=== PATIENT | male | born 1980 | race Caucasian/White ===

== ENCOUNTER 2016-08-31 22:54 | Inpatient (IN) | payer OTHER ==
[~2016-08-31] VITALS: Ht 157.5 cm; Wt 140.3 kg
[~2016-08-31 22:54] MED LIST: ACET-1256 PO
[2016-08-31] MEDS ORDERED: ONDANSETRON INJ 2 MG/ML 2 ML VIAL IV STA (23:24)
[2016-08-31] MEDS ORDERED: MoRPHine SULFATE 4 MG/ML 1 ML CARP\\VIAL IV STA (23:24)
[2016-08-31] MEDS ORDERED: PIPERACILLIN/TAZOBACTAM 4.5 GM/100ML D5W IV STA (23:27)
[2016-09-01] VITALS (7 sets, daily range): BP systolic 101–129; BP diastolic 62–81; PULSE 77–106; TEMP 37–38.7; O2SAT 94–99; Ht 157.5 cm; Wt 140.3 kg
[2016-09-01 00:03] LABS: BASO % 0.1 %; BASO ABS # 0.01 K/uL (0-0.2); COMPLETE YES; EOS % 0.2 %; HEMATOCRIT 37.6 % (42-52); IG% 0.2 %; LYMPH % 5.1 %; LYMPH ABS # 0.76 K/uL (1.2-3.4); MEAN CELL VOLUME 91.3 fL (80-100); MEAN CORPUSCULAR HEMOGLOBIN 29.4 pg (25-34); MEAN CORPUSCULAR HGB CONC 32.2 g/dl (32-36); MEAN PLATELET VOLUME 11.2 fL (7.4-10.4); NEUT % 91.4 %; PLATELET COUNT 209 K/uL (130-400); RED BLOOD COUNT 4.12 M/uL (4.7-6.1); WHITE BLOOD COUNT 14.81 K/uL (4.8-10.8)
[2016-09-01 00:15] LABS: INR 1.1 (0.9-1.1)
[2016-09-01 00:28] LABS: BUN/CREATININE RATIO 12.9 (10-20); CALCIUM 8.5 mg/dl (8.5-10.1); CREATININE 0.96 mg/dl (0.60-1.40); POTASSIUM 3.6 mmol/L (3.5-5.1)
[2016-09-01 00:31] LABS: ALB/GLOB RATIO 0.9 (0.9-2)
--- NOTE | 2016-09-01 01:39 | History and Physical ---
History & Physical Date & Time of Service: Sep 01, 2016 at 01:34 Chief Complaint: Possible Infection In Rt Inner Thigh,Lymphadema Primary Care Physician: Mine Davis MD History of Present Illness Source: patient 35 y/o M Hx chronic LE lymphedema and recurrent cellulitis which frequently requires hospitalization. He has a nonhealing wound on his R thigh which has been present for a few years. The pt was last admitted 02/22 with RLE cellulitis. He follows up at a wound clinic and with the infectious disease service. Over the last 2 days he has developed pain and inflammation over his R thigh prompting him to visit the ER for evaluation. He has rigors at the time of admission without a recorded fever. A wound culture from 02/22 revealed MSSA. Past Medical/Surgical History Medical Problems: (1) Cellulitis Status: Resolved (2) Gall bladder disease Status: Chronic (3) Lymphedema of lower extremity Status: Chronic (4) Ulcer of right leg Status: Chronic Surgical Problems: (1) H/O gastric bypass Status: Resolved Family History Diabetes mellitus FHx: obesity Heart disease Hypertension Kidney stones Social History Smoking Status: Never Smoker Drug Use: none Marital Status: single Housing status: lives with family Occupational Status: unemployed Immunizations History of Tetanus Vaccine?: Unknown History of Pneumococcal: Unknown History of Hepatitis B Vaccine: Unknown Multi-Drug Resistant Organisms History of MDRO: No Allergies Coded Allergies: Daptomycin (Verified Allergy, Intermediate, RASH, EOSINOPHILIA, 08/31/16) cbc with eosinophilia supporting drug reaction to daptomycin Zinc Oxide (Verified Allergy, Unknown, RASH, 08/31/16) TOPICAL Home Medications Scheduled PRN Hydrocodone/Acetaminophen 10MG/325MG ([place] 10MG/325MG), 2 TAB PO QID PRN for Pain Review of Systems Constitutional: + fever, + chills, + sweats Eyes: No worsening of vision, No eye pain ENT: No hearing loss, No unusual epistaxis, No nasal symptoms Respiratory: No cough, No sputum, No wheezing Cardiovascular: No chest pain, No orthopnea, No PND Abdomen: No pain, No nausea, No vomiting Musculoskeletal: + swelling (R thigh), + problem reported (Chronic lymphedema - severe), No joint pain, No muscle pain Genitourinary - Male: No hematuria, No dysuria Neurologic: No memory loss, No paralysis, No weakness Psychiatric: No depression symptoms Endocrine: No fatigue Hematologic / Lymphatic: No abnormal bleeding/bruising Integumentary: No rash Allergic / Immunologic: No environmental allergies Physical Exam Vital Signs Date Time Temp Pulse Resp B/P (MAP) Pulse Ox O2 Delivery O2 Flow Rate FiO2 09/01/16 00:02 37.5 08/31/16 22:58 37.1 94 20 148/89 99 Room Air General Appearance: WD/WN, no apparent distress Head: normocephalic Eyes: normal inspection ENT: normal ENT inspection, pharynx normal Respiratory/Chest: chest non-tender, lungs clear, normal breath sounds Cardiovascular: regular rate, rhythm, no edema, no gallop, no JVD, no murmur Abdomen/GI: normal bowel sounds, non tender, soft Back: normal inspection Extremities/Musculoskelatal: + pertinent finding (Severe lymphedema - draing, inflamed area on back of R thigh) Neurologic/Psych: 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, no motor/sensory deficits, alert, normal mood/affect, normal reflexes, oriented x 3 Skin: + pertinent finding (Severe lymphedema - draining, inflamed area on back of R thigh - genralized erythema ) Diagnostics Laboratory Results Results Past 24 Hours Test 08/31/16 23:50 08/31/16 23:55 Range/Units White Blood Count 14.81 4.8-10.8 K/uL Red Blood Count 4.12 4.7-6.1 M/uL Hemoglobin 12.1 14.0-18.0 g/dL Hematocrit 37.6 42-52 % Mean Corpuscular Volume 91.3 80-100 fL Mean Corpuscular Hemoglobin 29.4 25-34 pg Mean Corpuscular Hemoglobin Concent 32.2 32-36 g/dl Platelet Count 209 130-400 K/uL Mean Platelet Volume 11.2 7.4-10.4 fL Neutrophils (%) (Auto) 91.4 % Lymphocytes (%) (Auto) 5.1 % Monocytes (%) (Auto) 3.0 % Eosinophils (%) (Auto) 0.2 % Basophils (%) (Auto) 0.1 % Neutrophils # (Auto) 13.54 1.4-6.5 K/uL Lymphocytes # (Auto) 0.76 1.2-3.4 K/uL Monocytes # (Auto) 0.44 0.11-0.59 K/uL Eosinophils # (Auto) 0.03 0-0.5 K/uL Basophils # (Auto) 0.01 0-0.2 K/uL RDW Standard Deviation 53.5 36.4-46.3 fL RDW Coefficient of Variation 15.9 11.5-14.5 % Immature Granulocyte % (Auto) 0.2 % Immature Granulocyte # (Auto) 0.03 0.00-0.02 K/uL Prothrombin Time 12.0 9.0-12.0 SECONDS Prothromb Time International Ratio 1.1 0.9-1.1 Activated Partial Thromboplast Time 26.8 21.0-31.0 SECONDS Partial Thromboplastin Ratio 1.0 Sodium Level 141 136-145 mmol/L Potassium Level 3.6 3.5-5.1 mmol/L Chloride Level 110 98-107 mmol/L Carbon Dioxide Level 25 21-32 mmol/L Anion Gap 6.0 3-11 mmol/L Blood Urea Nitrogen 12 7-18 mg/dl Creatinine 0.96 0.60-1.40 mg/dl Est Creatinine Clear Calc Drug Dose 135.0 ml/min Estimated GFR () 118.2 Estimated GFR (Non- 102.0 BUN/Creatinine Ratio 12.9 10-20 Random Glucose 110 70-99 mg/dl Calcium Level 8.5 8.5-10.1 mg/dl Total Bilirubin 0.5 0.2-1 mg/dl Aspartate Amino Transf (AST/SGOT) 15 15-37 U/L Alanine Aminotransferase (ALT/SGPT) 20 12-78 U/L Alkaline Phosphatase 87 45-117 U/L Total Protein 7.6 6.4-8.2 gm/dl Albumin 3.5 3.4-5.0 gm/dl Globulin 4.1 2.5-4.0 gm/dl Albumin/Globulin Ratio 0.9 0.9-2 Bedside Lactic Acid Venous 1.20 0.90-1.70 mmol/L Microbiology Results 08/31/16 Blood Culture, Received Pending 08/31/16 Blood Culture, Received Pending Impression Assessment and Plan 35 y/o M Hx chronic LE lymphedema and recurrent cellulitis which frequently requires hospitalization. The pt was last admitted 02/22 with RLE cellulitis. He follows up at a wound clinic and wiith the infectious disease service. Over the last 2 days he has developed pain and inflammation over his R thigh prompting him to visit the ER for evaluation. He has rigors at the time of admission without a recorded fever. A wound culture from 02/22 revealed MSSA. 1) Cellulitis - The pt will be admitted for IV antibiotics, pain control and evaluation by both wound care and ID. 2) Lymphedema - severe - has not had success in treating - uses a massage mattress 2) Morbid obesity - States he has been losing weight recently - may benefit from nutritional counseling prior to D/C Full code - Heparin prophylaxis Total time for this admit including review of labs, meds, records - discussion with pt and ER attending - 33 min Level of Care Med/Surg Resuscitation Status FULL RESUSCITATION VTE Prophylaxis Given or contraindicated: Unfractionated heparin SQ
[2016-09-01] MEDS ORDERED: ACETAMINOPHEN 500 MG TAB PO STA (01:44)
[2016-09-01] MEDS ORDERED: ACETAMINOPHEN 325 MG TAB PO PRN (02:00)
[2016-09-01] MEDS ORDERED: TRAMADOL HCL 50 MG TAB PO PRN (02:00)
[2016-09-01] MEDS ORDERED: ALUMINUM/MAGNESIUM/SIMETH (MAALOX MAX) 30 ML UDC PO PRN (02:00)
[2016-09-01] MEDS ORDERED: POLYETHYLENE (MIRALAX) 17 GM PACK PO PRN (02:00)
[2016-09-01] MEDS ORDERED: ONDANSETRON INJ 2 MG/ML 2 ML VIAL IV PRN (02:00)
[2016-09-01] MEDS ORDERED: MAGNESIUM HYDROXIDE SUSP 30 ML UDC PO PRN (02:00)
[2016-09-01] MEDS ORDERED: ZOLPIDEM TARTRATE 5 MG TAB PO PRN (02:00)
[2016-09-01] MEDS ORDERED: MoRPHine SULFATE 4 MG/ML 1 ML CARP\\VIAL IV STA ×2 (02:04)
--- NOTE | 2016-09-01 02:05 | EMERGENCY ROOM VISIT NOTE ---
History First contact with patient: 23:09 Chief Complaint: WOUND INFECTION Stated Complaint: POSSIBLE INFECTION IN RT INNER THIGH,LYMPHADEMA Nursing Triage Summary: Patient ambulatory to triage, states "I think I have another infection on my right inner thigh. I have lymphedema." Patient reports redness developed today after a stinging sensation for several days. History of Present Illness The patient is a 35 year old male who presents to the Emergency Room with complaints of right thigh pain and infection for the past few days. He's had recurrent cellulitis. He has chronic lymphedema. He describes pain as throbbing, ranging in severity 5 out of 10 worse with palpation and better with rest. He follows at the wound clinic use not currently on antibiotics. Tetanus is current. He's been hospitalized a few times now for recurrent sialitis. Patient complains of nausea with myalgias and arthralgias. He is concerned he has cellulitis again. The area is quite red and is actively draining. Patient denies chest pain, dyspnea, cough, congestion, abdominal pain , numbness, tingling. Review of Systems See HPI for pertinent positives & negatives. A total of 10 systems reviewed and were otherwise negative. Past Medical/Surgical History Medical Problems: (1) Ambulatory dysfunction (2) Cellulitis (3) Cellulitis of thigh (4) Fever (5) Gall bladder disease (6) Leukocytosis (7) Lymphedema of lower extremity (8) Ulcer of right leg Surgical Problems: (1) H/O gastric bypass Family History Diabetes mellitus FHx: obesity Heart disease Hypertension Kidney stones Social History Smoking Status: Never Smoker Smokeless Tobacco Use: No Alcohol Use: occasionally Drug Use: none Marital Status: single Housing Status: lives with family Occupation Status: unemployed Current/Historical Medications Scheduled PRN Hydrocodone/Acetaminophen 10MG/325MG ([place] 10MG/325MG), 2 TAB PO QID PRN for Pain Allergies Coded Allergies: Daptomycin (Verified Allergy, Intermediate, RASH, EOSINOPHILIA, 08/31/16) cbc with eosinophilia supporting drug reaction to daptomycin Zinc Oxide (Verified Allergy, Unknown, RASH, 08/31/16) TOPICAL Physical Exam Vital Signs Date Time Temp Pulse Resp B/P (MAP) Pulse Ox O2 Delivery O2 Flow Rate FiO2 09/01/16 01:44 38.2 100 18 138/91 94 Room Air 09/01/16 00:02 37.5 08/31/16 22:58 37.1 94 20 148/89 99 Room Air Physical Exam VITALS: Vitals are noted on the nurse's note and reviewed by myself. Vital signs stable. GENERAL: Pleasant male, in no acute distress, nondiaphoretic, well-developed well-nourished. SKIN: Right inner thigh erythematous and edematous actively draining with extensive cellulitis without lymphangitis The rest of the skin was without rashes, erythema, edema, or bruising. There is no tenting of the skin. Capillary reflex less than 2 seconds. HEAD: Normocephalic atraumatic. EARS: External auditory canals clear, tympanic membranes pearly givens without erythema or effusion bilaterally. EYES: Pupils equal round and reactive to light and accommodation. Conjunctivae without injection, sclerae without icterus. Extraocular movements intact. NOSE: Patent, turbinates without inflammation or discharge. MOUTH: Mucous membranes moist. Pharynx without erythema or exudate. Uvula midline. Airway patent. Tongue does not deviate. NECK: Supple without nuchal rigidity. No lymphadenopathy. No thyromegaly. Cervical spine is nontender. No JVD. HEART: Regular rate and rhythm without murmurs gallops or rubs. LUNGS: Clear to auscultation bilaterally without wheezes, rales or rhonchi. No dullness to percussion. No retractions or accessory muscle use. ABDOMEN: Positive bowel sounds x 4. Normal tympanic percussion. Soft, protuberant, obese, nontender, without masses or organomegaly. Bowden sign negative. No guarding or rebound tenderness. MUSCULOSKELETAL: No muscle atrophy noted. Chronic lymphedema to lower extremities with right inner thigh erythematous and edematous actively draining and a wound culture was taken NEURO: Patient was alert and oriented to person place and time. Normal sensation to light and sharp touch. No focal neurological deficits. Medical Decision & Procedures Laboratory Results 08/31/16 23:50 Red Blood Count 4.12, Mean Corpuscular Volume 91.3, Mean Corpuscular Hemoglobin 29.4, Mean Corpuscular Hemoglobin Concent 32.2, Mean Platelet Volume 11.2, Neutrophils (%) (Auto) 91.4, Lymphocytes (%) (Auto) 5.1, Monocytes (%) (Auto) 3.0, Eosinophils (%) (Auto) 0.2, Basophils (%) (Auto) 0.1, Neutrophils # (Auto) 13.54, Lymphocytes # (Auto) 0.76, Monocytes # (Auto) 0.44, Eosinophils # (Auto) 0.03, Basophils # (Auto) 0.01 08/31/16 23:50 Test 08/31/16 23:50 08/31/16 23:55 White Blood Count 14.81 K/uL (4.8-10.8) Red Blood Count 4.12 M/uL (4.7-6.1) Hemoglobin 12.1 g/dL (14.0-18.0) Hematocrit 37.6 % (42-52) Mean Corpuscular Volume 91.3 fL (80-100) Mean Corpuscular Hemoglobin 29.4 pg (25-34) Mean Corpuscular Hemoglobin Concent 32.2 g/dl (32-36) Platelet Count 209 K/uL (130-400) Mean Platelet Volume 11.2 fL (7.4-10.4) Neutrophils (%) (Auto) 91.4 % Lymphocytes (%) (Auto) 5.1 % Monocytes (%) (Auto) 3.0 % Eosinophils (%) (Auto) 0.2 % Basophils (%) (Auto) 0.1 % Neutrophils # (Auto) 13.54 K/uL (1.4-6.5) Lymphocytes # (Auto) 0.76 K/uL (1.2-3.4) Monocytes # (Auto) 0.44 K/uL (0.11-0.59) Eosinophils # (Auto) 0.03 K/uL (0-0.5) Basophils # (Auto) 0.01 K/uL (0-0.2) RDW Standard Deviation 53.5 fL (36.4-46.3) RDW Coefficient of Variation 15.9 % (11.5-14.5) Immature Granulocyte % (Auto) 0.2 % Immature Granulocyte # (Auto) 0.03 K/uL (0.00-0.02) Prothrombin Time 12.0 SECONDS (9.0-12.0) Prothromb Time International Ratio 1.1 (0.9-1.1) Activated Partial Thromboplast Time 26.8 SECONDS (21.0-31.0) Partial Thromboplastin Ratio 1.0 Anion Gap 6.0 mmol/L (3-11) Est Creatinine Clear Calc Drug Dose 135.0 ml/min Estimated GFR () 118.2 Estimated GFR (Non- 102.0 BUN/Creatinine Ratio 12.9 (10-20) Calcium Level 8.5 mg/dl (8.5-10.1) Total Bilirubin 0.5 mg/dl (0.2-1) Aspartate Amino Transf (AST/SGOT) 15 U/L (15-37) Alanine Aminotransferase (ALT/SGPT) 20 U/L (12-78) Alkaline Phosphatase 87 U/L (45-117) Total Protein 7.6 gm/dl (6.4-8.2) Albumin 3.5 gm/dl (3.4-5.0) Globulin 4.1 gm/dl (2.5-4.0) Albumin/Globulin Ratio 0.9 (0.9-2) Bedside Lactic Acid Venous 1.20 mmol/L (0.90-1.70) Medications Administered Medications (Trade) Dose Ordered Sig/Sirisah Route Start Time Stop Time Status Last Admin Dose Admin Morphine Sulfate (MoRPHine SULFATE INJ) 4 mg NOW STAT IV 08/31/16 23:24 08/31/16 23:26 DC 08/31/16 23:56 4 MG Ondansetron HCl (Zofran Inj) 4 mg NOW STAT IV 08/31/16 23:24 08/31/16 23:26 DC 08/31/16 23:55 4 MG Piperacillin Sod/ Tazobactam Sod (Zosyn Iv) 4.5 gm NOW STAT IV 08/31/16 23:27 08/31/16 23:28 DC 08/31/16 23:55 4.5 GM Acetaminophen (Tylenol Tab) 1,000 mg NOW STAT PO 09/01/16 01:44 09/01/16 01:45 DC 09/01/16 01:53 1,000 MG ED Course Prior records reviewed and summarized as above. Triage Nursing notes reviewed. Additional history obtained from family The patient's history was concerning for swelling and redness of the skin. Differential diagnosis: Etiologies such as cellulitis, abscess, MRSA infection, DVT, necrotizing fasciitis, dermatitis, drug eruption, as well as others were entertained.. Physical examination: The physical examination was consistent with cellulitis ER treatment provided: Zosyn, morphine, Zofran On reassessment the patient felt better. Diagnostics interpreted by me: The labs revealed leukocytosis, mild anemia, negative lactic acid Imaging studies: Ultrasound negative for DVT Consultation: A consultation was placed with Dr Rogel, hospitalist. The case was discussed and diagnostics were reviewed. The patient was evaluated in the ER for further treatment. This appears to be isolated cellulitis. This is quite extensive. He'll be evaluated by medicine for possible admission. Patient was neurovascularly and neurologically intact. He was started on antibiotics. By the evaluation outlined above emergent etiologies such as abscess, necrotizing fasciitis, DVT, as well as others were deemed relatively unlikely. The pt informed about the findings as listed above. All questions were answered and pleased with the treatment. Case reviewed by attending Medical Decision as above Impression Primary Impression: Cellulitis of right thigh Additional Impression: Lymphedema Departure Information Dispostion Being Evaluated By Hospitalist Condition FAIR Referrals Mine Davis MD (PCP) Forms WORK / SCHOOL INSTRUCTIONS, HOME CARE DOCUMENTATION FORM, IMPORTANT VISIT INFORMATION Patient Instructions My [facility] Problem Qualifiers
[2016-09-01] MEDS ORDERED: HYDROmorphone INJ 0.5 MG/0.5 ML SYR IV ONE (02:15)
[2016-09-01] MEDS ORDERED: VANCOMYCIN INJ 2,500 MG in SODIUM CHLORIDE 0.9% 500ML 500 ML IV ONE (03:30)
[2016-09-01] MEDS ORDERED: VANCOMYCIN CONSULT ACTIVE PRN (03:30)
[2016-09-01] MEDS ORDERED: CLINDAMYCIN IV 600 MG in DEXTROSE 5% 50ML 50 ML IV SCH (04:00)
[2016-09-01] MEDS ORDERED: NSS + 20MEQ KCL 1000ML 1,000 ML IV SCH (04:00)
[2016-09-01] MEDS: KETOROLAC TROMETHAMINE 30 MG/ML VIAL IV PRN ×2 (05:04→12:39)
[2016-09-01] MEDS: HEPARIN SOD 5000 UNIT/0.5 ML CARP SQ SCH ×3 (05:12→22:25)
--- NOTE | 2016-09-01 05:55 | DIAGNOSTIC IMAGING REPORT ---
BILATERAL LOWER EXTREMITY VENOUS DOPPLER HISTORY: Pain. Edema. LEG SWELLING COMPARISON STUDY: None. FINDINGS: There is normal compressibility, flow, and augmentation within the bilateral lower extremity deep venous systems. IMPRESSION: No DVT within the right or left lower extremity. Electronically signed by: Pawan Jones M.D. 09/01/2016 5:53 AM Dictated Date/Time: 09/01/2016 5:53 AM
[2016-09-01 07:32] LABS: URINE APPEARANCE CLOUDY (CLEAR); URINE BILIRUBIN NEG (NEG); URINE COLOR YELLOW; URINE NITRITE NEG (NEG); URINE SPECIFIC GRAVITY 1.023 (1.000-1.030); UROBILINOGEN NEG (NEG)
[2016-09-01 07:34] LABS: MANUAL MICROSCOPIC REQUIRED? NO; REVIEW REQ? YES
[2016-09-01] MEDS: HYDROCODONE/ACETAMI 10/325 TAB PO PRN ×3 (07:50→22:39)
--- NOTE | 2016-09-01 10:51 | Progress Note ---
Subjective Date of Service: Sep 01, 2016. Subjective Pt evaluation today including: conversation w/ patient, physical exam, chart review, lab review, review of inpatient medication list feeling better no f/c/s now and notes that R thigh is improving but not a lot yet and still painful - notes that for him any prior switch to PO abx has frequently been met wiht a relapse. follows w wound clinic for ulceration. notes that lymphedema treatment has been difficult due to time spent on having to do wraps properly, and fairly low yield for the time spent. doesn't recall if vitamin D or testosterone were checked in recent past (review of available data shows last D 2013 6.3, no noted testosterone) is trying to eat healthier - high protein, but does still consume a fairly high amount of refined carbs Problem List Medical Problems: (1) Cellulitis of right leg Status: Acute (2) Cellulitis of right leg Status: Acute (3) Cellulitis of right thigh Status: Acute (4) Flank pain Status: Acute (5) Hematuria Status: Acute (6) Lymphedema Status: Acute (7) Lymphedema Status: Acute (8) Sepsis Status: Acute (9) Sepsis Status: Acute (10) Tachycardia Status: Acute Review of Systems ROS otherwise negative except for as above Objective Vital Signs Date Time Temp Pulse Resp B/P (MAP) Pulse Ox O2 Delivery O2 Flow Rate FiO2 09/01/16 08:00 Room Air 09/01/16 07:41 37.1 77 18 101/64 (76) 99 Room Air 09/01/16 03:51 37.1 106 20 129/81 96 Room Air 09/01/16 01:44 38.2 100 18 138/91 94 Room Air 09/01/16 00:02 37.5 08/31/16 22:58 37.1 94 20 148/89 99 Room Air Physical Exam General Appearance: no apparent distress Eyes: EOMI ENT: hearing grossly normal Neck: trachea midline Respiratory/Chest: no respiratory distress, no accessory muscle use Extremities: + pertinent finding (R posterior thigh diffusely enlarged from lymphedema, large area of erythema and tenderness - posterior thigh wound dressed dressing c/d/i. 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, alert, normal mood/affect Skin: normal color, warm/dry Laboratory Results Last 24 Hours Test 08/31/16 23:50 08/31/16 23:55 09/01/16 00:00 White Blood Count 14.81 K/uL Red Blood Count 4.12 M/uL Hemoglobin 12.1 g/dL Hematocrit 37.6 % Mean Corpuscular Volume 91.3 fL Mean Corpuscular Hemoglobin 29.4 pg Mean Corpuscular Hemoglobin Concent 32.2 g/dl Platelet Count 209 K/uL Mean Platelet Volume 11.2 fL Neutrophils (%) (Auto) 91.4 % Lymphocytes (%) (Auto) 5.1 % Monocytes (%) (Auto) 3.0 % Eosinophils (%) (Auto) 0.2 % Basophils (%) (Auto) 0.1 % Neutrophils # (Auto) 13.54 K/uL Lymphocytes # (Auto) 0.76 K/uL Monocytes # (Auto) 0.44 K/uL Eosinophils # (Auto) 0.03 K/uL Basophils # (Auto) 0.01 K/uL RDW Standard Deviation 53.5 fL RDW Coefficient of Variation 15.9 % Immature Granulocyte % (Auto) 0.2 % Immature Granulocyte # (Auto) 0.03 K/uL Prothrombin Time 12.0 SECONDS Prothromb Time International Ratio 1.1 Activated Partial Thromboplast Time 26.8 SECONDS Partial Thromboplastin Ratio 1.0 Sodium Level 141 mmol/L Potassium Level 3.6 mmol/L Chloride Level 110 mmol/L Carbon Dioxide Level 25 mmol/L Anion Gap 6.0 mmol/L Blood Urea Nitrogen 12 mg/dl Creatinine 0.96 mg/dl Est Creatinine Clear Calc Drug Dose 135.0 ml/min Estimated GFR () 118.2 Estimated GFR (Non- 102.0 BUN/Creatinine Ratio 12.9 Random Glucose 110 mg/dl Calcium Level 8.5 mg/dl Total Bilirubin 0.5 mg/dl Aspartate Amino Transf (AST/SGOT) 15 U/L Alanine Aminotransferase (ALT/SGPT) 20 U/L Alkaline Phosphatase 87 U/L Total Protein 7.6 gm/dl Albumin 3.5 gm/dl Globulin 4.1 gm/dl Albumin/Globulin Ratio 0.9 Bedside Lactic Acid Venous 1.20 mmol/L Urine Color YELLOW Urine Appearance CLOUDY Urine pH 5.0 Urine Specific [place] 1.023 Urine Protein NEG Urine Glucose (UA) NEG Urine Ketones NEG Urine Occult Blood NEG Urine Nitrite NEG Urine Bilirubin NEG Urine Urobilinogen NEG Urine Leukocyte Esterase NEG Urine WBC (Auto) 1-5 /hpf Urine RBC (Auto) 0-4 /hpf Urine Hyaline Casts (Auto) 1-5 /lpf Urine Epithelial Cells (Auto) 10-20 /lpf Urine Bacteria (Auto) NEG Urine Crystals CALCIUM OXALATE Assessment and Plan Cellulitis w sepsis present on admission (SIRS being leukocytosis and tachycardia) -appears improving -on clinda and vanco - anaerobes seem fairly unlikely so will stop clinda, continue vanco and follow -recent data suggesting a benefit to probiotics for Cdiff prevention that was previously not seen - NNT around 45 - certainly low risk for ADRs so will start probiotics -continue to follow -local wound care -recurrence likely mostly due to severe lymphedema and constant breaks in skin - but will look for ways to possibly reduce infection : wound care, check D, check testosterone, consider IgG levels if above low yield Lymphedema w posterior thigh ulceration present on admission - severe - has not had success in treating edema, wound care for ulceration. Morbid obesity - has been losing weight - seems to be working on high protein but also is eating large amount of processed carbs, which "soft data" may suggest higher risk of infection as well - to work on reducing processed carbs, last A1c was only 5.1 but was over a year ago - recheck. DVT proph - heparin SQ
--- NOTE | 2016-09-01 11:38 | Progress Note ---
Progress Note Date of Service Sep 01, 2016. Progress Note ID Consult Dictated #[id number] A/P: 1. RLE cellulitis 2. Leukocytosis -Continue abx, follow cultures -Will follow, thank you
[2016-09-01] MEDS: LACTOBACILLUS ACIDOPHILUS (FLORANEX) TAB PO SCH ×2 (11:54→18:37)
--- NOTE | 2016-09-01 13:42 | INFECT. DISEASE CONSULTATION ---
DATE OF CONSULTATION: 09/01/2016 REQUESTING PHYSICIAN: Dr. Rogel. HISTORY OF PRESENT ILLNESS: This is a 35-year-old gentleman who is being admitted for right lower extremity cellulitis. He has a history of chronic lymphedema and recurrent cellulitis. He states that he began having redness and erythema and subjective fevers and chills yesterday. He does have a nonhealing wound on the right thigh which has been present for many years. He most recently was treated in February for cultures growing MSSA. He was started empirically on antibiotics and appears to be tolerating them well. He denies any fevers or chills at this time. He denies any nausea, vomiting, diarrhea or abdominal pain. His only complaint is of pain in the right lower extremity. A Doppler was done yesterday and is negative for DVT. He did have leukocytosis of 14,000 on admission. All remaining review of systems are reviewed and are unremarkable. PAST MEDICAL HISTORY: Cellulitis, gallbladder disease, lymphedema, obesity, nonhealing ulcer of the right lower extremity. PAST SURGICAL HISTORY: Significant for gastric bypass. FAMILY HISTORY: Noncontributory. SOCIAL HISTORY: Negative for drug use, alcohol use or tobacco use. ALLERGIES: HE HAS ALLERGY TO DAPTOMYCIN. MEDICATIONS: Include vancomycin, Floranex, heparin, Percocet, Tylenol, Maalox, milk of magnesia, MiraLax, Ambien, Zofran and Toradol. PHYSICAL EXAMINATION: VITAL SIGNS: T-max is 38.2, current temperature is 37.1, pulse 77, respiratory rate 18, blood pressure 101/64, oxygen saturation is 99% on room air. GENERAL: He is awake, alert and oriented x3. He is in no acute distress. HEENT: Mucous membranes are moist. Extraocular muscles are intact. HEART: Regular. LUNGS: Clear anteriorly. ABDOMEN: Soft, nontender, nondistended. EXTREMITIES: Examination of the lower extremity reveals significant lymphedema. There is erythema of the right thigh with warmth and tenderness. Right thigh wound dressing is clean, dry and intact. There is no erythema or warmth on the left lower extremity. LABORATORY STUDIES: CBC yesterday reveals a white blood cell count of 14.8, hemoglobin 12.1, platelets are 209. Chemistry panel in the ER, sodium is 141, potassium 3.6, chloride 110, bicarbonate 25, BUN 12, creatinine 0.96. Lactic acid is 1.2. LFTs are within normal limits. Urinalysis was unremarkable. Blood cultures and wound cultures are pending. Doppler was negative. ASSESSMENT AND PLAN: Recurrent cellulitis. He will remain on empiric antibiotics pending the results of blood and wound culture. We will follow along with you. Thank you for this consultation.
--- NOTE | 2016-09-01 15:20 | Pharmacy Progress Note ---
Pharmacy Abx Initial Consult Date of Service Sep 01, 2016. Pharmacy Dosing Scope Date of Consult: 09/01/16 Consultation requested by: Dr. Rogel Pharmacy is consulted to initiate Vancomycin IV dosing therapy for chronic/ recurrent cellulitis in an obese patient (BMI greater than 35kg/m2, BMI= 56.6kg/ m2), order appropriate labs and adjust drug dose/frequency. Subjective The patient is a 35 year old male admitted on Sep 01, 2016 at 01:51. Objective Height (Feet): 5 Height (Inches): 2.00 Weight (Kilograms): 140.300 Vital Signs (Past 12Hrs) Vital Signs Past 12 Hours Date Time Temp Pulse Resp B/P (MAP) Pulse Ox O2 Delivery O2 Flow Rate FiO2 09/01/16 13:35 37.6 09/01/16 12:49 38.3 09/01/16 08:00 Room Air 09/01/16 07:41 37.1 77 18 101/64 (76) 99 Room Air 09/01/16 03:51 37.1 106 20 129/81 96 Room Air Lab Results (24Hrs) Laboratory Tests (24 Hours) Test 08/31/16 23:50 White Blood Count 14.81 K/uL (4.8-10.8) H Red Blood Count 4.12 M/uL (4.7-6.1) L Hemoglobin 12.1 g/dL (14.0-18.0) L Hematocrit 37.6 % (42-52) L Mean Corpuscular Volume 91.3 fL (80-100) Mean Corpuscular Hemoglobin 29.4 pg (25-34) Mean Corpuscular Hemoglobin Concent 32.2 g/dl (32-36) Platelet Count 209 K/uL (130-400) Mean Platelet Volume 11.2 fL (7.4-10.4) H Neutrophils (%) (Auto) 91.4 % Lymphocytes (%) (Auto) 5.1 % Monocytes (%) (Auto) 3.0 % Eosinophils (%) (Auto) 0.2 % Basophils (%) (Auto) 0.1 % Neutrophils # (Auto) 13.54 K/uL (1.4-6.5) H Lymphocytes # (Auto) 0.76 K/uL (1.2-3.4) L Monocytes # (Auto) 0.44 K/uL (0.11-0.59) Eosinophils # (Auto) 0.03 K/uL (0-0.5) Basophils # (Auto) 0.01 K/uL (0-0.2) Micro Results Date/Time Source Procedure Growth Status 08/31/16 23:50 Blood Blood Culture Pending Received 08/31/16 23:50 Blood Blood Culture Pending Received 09/01/16 00:00 Drainage - Surface Leg Gram Stain - Final Resulted 09/01/16 00:00 Drainage - Surface Leg Wound Culture Pending Resulted Risk Factors for Resistance * History of infection and chronic wound care follow-up: S. aureus (MSSA) of the right inner thigh beginning in January 2016 Assessment & Plan Assessment 35 year old obese (BMI greater than 35kg/m2, BMI= 56.6kg/m2) male with a complicated history of a chronic right inner thigh cellulitis managed by wound care in the out-patient setting. Plan Pharmacy has been consulted for treatment of chronic/recurrent right inner thigh cellulitis. Vancomycin IV * Loading dose: 2500 mg (18 mg/kg) * Maintenance dose: 1750 mg IV (12.5 mg/kg) every 12 hours * Goal trough level for cellulitis : 15 mcg/mL * Trough level ordered for 09/03/16 ~30 minutes before the 0400 dose. * A less than traditional dose has been selected due to likelihood of drug accumulation in obese patient. Pharmacy will continue to follow and will adjust dose/frequency as necessary. Thank you.
[2016-09-01] MEDS: VANCOMYCIN INJ 1,750 MG in SODIUM CHLORIDE 0.9% 500ML 500 ML IV SCH (15:38)
[2016-09-02] MEDS: KETOROLAC TROMETHAMINE 30 MG/ML VIAL IV PRN ×2 (00:09→08:18)
[2016-09-02 00:10] VITALS: TEMP 37.9
[2016-09-02 02:30] VITALS: TEMP 36.8
[2016-09-02] MEDS: VANCOMYCIN INJ 1,750 MG in SODIUM CHLORIDE 0.9% 500ML 500 ML IV SCH ×2 (04:41→16:21)
[2016-09-02] MEDS: HEPARIN SOD 5000 UNIT/0.5 ML CARP SQ SCH ×3 (06:25→22:00)
[2016-09-02 07:29] LABS: BASO % 0.2 %; BASO ABS # 0.02 K/uL (0-0.2); COMPLETE YES; EOS % 5.2 %; HEMATOCRIT 37.3 % (42-52); IG% 0.1 %; LYMPH % 13.6 %; MEAN CELL VOLUME 91.2 fL (80-100); MEAN CORPUSCULAR HEMOGLOBIN 28.9 pg (25-34); MEAN CORPUSCULAR HGB CONC 31.6 g/dl (32-36); MEAN PLATELET VOLUME 11.1 fL (7.4-10.4); MONO % 6.3 %; NEUT % 74.6 %; PLATELET COUNT 152 K/uL (130-400); RED BLOOD COUNT 4.09 M/uL (4.7-6.1); WHITE BLOOD COUNT 8.06 K/uL (4.8-10.8)
[2016-09-02 07:36] VITALS: BP 128/79; PULSE 67; TEMP 37.4; O2SAT 99
[2016-09-02 08:00] VITALS: O2SAT 99
[2016-09-02 08:01] LABS: CREATININE 0.82 mg/dl (0.60-1.40)
[2016-09-02 08:18] LABS: ESTIMATED AVERAGE GLUCOSE 105 mg/dl; HA1C FLAG Normal (Normal)
[2016-09-02] MEDS: LACTOBACILLUS ACIDOPHILUS (FLORANEX) TAB PO SCH ×3 (08:18→16:21)
[2016-09-02] MEDS: HYDROCODONE/ACETAMI 10/325 TAB PO PRN ×2 (10:28→18:26)
--- NOTE | 2016-09-02 11:14 | Progress Note ---
Subjective Date of Service: Sep 02, 2016. Subjective Pt evaluation today including: conversation w/ patient, physical exam, chart review, lab review pt feeling about the same, tolerating abx. fever overnight, tmax 38.7. still with pain, unchanged. wound culture with S. aureus. blood cultures negative. all remaining ros reviewed and are negative. Problem List Medical Problems: (1) Cellulitis of right leg Status: Acute (2) Cellulitis of right leg Status: Acute (3) Cellulitis of right thigh Status: Acute (4) Flank pain Status: Acute (5) Hematuria Status: Acute (6) Lymphedema Status: Acute (7) Lymphedema Status: Acute (8) Sepsis Status: Acute (9) Sepsis Status: Acute (10) Tachycardia Status: Acute Objective Vital Signs Date Time Temp Pulse Resp B/P (MAP) Pulse Ox O2 Delivery O2 Flow Rate FiO2 09/02/16 08:00 99 Room Air 09/02/16 07:36 37.4 67 16 128/79 (95) 99 09/02/16 02:30 36.8 09/02/16 00:10 37.9 09/02/16 00:00 Room Air 09/01/16 23:22 38.7 81 18 120/73 (89) 98 Room Air 09/01/16 20:00 Room Air 09/01/16 16:30 94 Room Air 09/01/16 16:01 37.0 77 18 124/62 (82) 94 Room Air 09/01/16 13:35 37.6 09/01/16 12:49 38.3 Physical Exam General Appearance: WD/WN, no apparent distress Eyes: normal inspection Neck: supple Respiratory/Chest: lungs clear, normal breath sounds, no respiratory distress Cardiovascular: regular rate, rhythm, + pertinent finding (lymphedema b/l) Abdomen: non tender, soft Extremities: + inflammation, + pertinent finding (r thigh with erythema, essentially unchanged, + warmth, + tenderness) Neurologic/Psychiatric: alert, oriented x 3 Skin: normal color Laboratory Results Item Value Date Time Gram Stain - Final Resulted 09/01/16 0000 Drainage - Surface Leg Blood Culture - Preliminary Resulted 08/31/16 2350 Blood NO GROWTH TO DATE. Blood Culture - Preliminary Resulted 08/31/16 2350 Blood NO GROWTH TO DATE. Last 24 Hours Test 09/02/16 07:09 White Blood Count 8.06 K/uL Red Blood Count 4.09 M/uL Hemoglobin 11.8 g/dL Hematocrit 37.3 % Mean Corpuscular Volume 91.2 fL Mean Corpuscular Hemoglobin 28.9 pg Mean Corpuscular Hemoglobin Concent 31.6 g/dl Platelet Count 152 K/uL Mean Platelet Volume 11.1 fL Neutrophils (%) (Auto) 74.6 % Lymphocytes (%) (Auto) 13.6 % Monocytes (%) (Auto) 6.3 % Eosinophils (%) (Auto) 5.2 % Basophils (%) (Auto) 0.2 % Neutrophils # (Auto) 6.00 K/uL Lymphocytes # (Auto) 1.10 K/uL Monocytes # (Auto) 0.51 K/uL Eosinophils # (Auto) 0.42 K/uL Basophils # (Auto) 0.02 K/uL RDW Standard Deviation 54.7 fL RDW Coefficient of Variation 16.3 % Immature Granulocyte % (Auto) 0.1 % Immature Granulocyte # (Auto) 0.01 K/uL Creatinine 0.82 mg/dl Est Creatinine Clear Calc Drug Dose 158.1 ml/min Estimated GFR () 132.8 Estimated GFR (Non- 114.6 Estimated Average Glucose 105 mg/dl Hemoglobin A1c 5.3 % 25-Hydroxy Vitamin D Total 6.9 ng/ml Total Testosterone 50.2 ng/dl Assessment and Plan (1) Cellulitis of right thigh Assessment & Plan: will continue with vanco for now, pending final cultures. will likely need 2-3 weeks abx. will follow. (2) Fever (3) Lymphedema (4) Leukocytosis Assessment & Plan: resolved
--- NOTE | 2016-09-02 12:51 | Progress Note ---
Subjective Date of Service: Sep 02, 2016. Subjective Pt evaluation today including: conversation w/ patient, physical exam, lab review, conversation w/ review consultant, review of inpatient medication list Pain: worse than on admission PO Intake: adequate Voiding: no voiding problems patient with chronic lymphedema, prone to cellulitis feels like erythema and tenderness in right thigh worse than on admission febrile overnight WBC down, labs reviewed appreciate ID note, recommendations noted Problem List Medical Problems: (1) Cellulitis of right leg Status: Acute (2) Cellulitis of right leg Status: Acute (3) Cellulitis of right thigh Status: Acute (4) Flank pain Status: Acute (5) Hematuria Status: Acute (6) Lymphedema Status: Acute (7) Lymphedema Status: Acute (8) Sepsis Status: Acute (9) Sepsis Status: Acute (10) Tachycardia Status: Acute Review of Systems Skin: + problem reported (right thigh erythema, tenderness) Objective Vital Signs Date Time Temp Pulse Resp B/P (MAP) Pulse Ox O2 Delivery O2 Flow Rate FiO2 09/02/16 08:00 99 Room Air 09/02/16 07:36 37.4 67 16 128/79 (95) 99 09/02/16 02:30 36.8 09/02/16 00:10 37.9 09/02/16 00:00 Room Air 09/01/16 23:22 38.7 81 18 120/73 (89) 98 Room Air 09/01/16 20:00 Room Air 09/01/16 16:30 94 Room Air 09/01/16 16:01 37.0 77 18 124/62 (82) 94 Room Air 09/01/16 13:35 37.6 09/01/16 12:49 38.3 Physical Exam General Appearance: WD/WN, no apparent distress Neck: supple, no adenopathy, no JVD, trachea midline Respiratory/Chest: chest non-tender, lungs clear, normal breath sounds, no respiratory distress, no accessory muscle use Cardiovascular: regular rate, rhythm, no edema, no gallop, no JVD, no murmur Abdomen: normal bowel sounds, non tender, soft, no organomegaly Extremities: normal range of motion, non-tender, normal inspection, no calf tenderness, pelvis stable Skin: + rash (erythema right thigh, dry, cracked skin) Lymphatic: + pertinent finding (significant lymphedema of legs bilaterally) Laboratory Results Last 24 Hours Test 09/02/16 07:09 White Blood Count 8.06 K/uL Red Blood Count 4.09 M/uL Hemoglobin 11.8 g/dL Hematocrit 37.3 % Mean Corpuscular Volume 91.2 fL Mean Corpuscular Hemoglobin 28.9 pg Mean Corpuscular Hemoglobin Concent 31.6 g/dl Platelet Count 152 K/uL Mean Platelet Volume 11.1 fL Neutrophils (%) (Auto) 74.6 % Lymphocytes (%) (Auto) 13.6 % Monocytes (%) (Auto) 6.3 % Eosinophils (%) (Auto) 5.2 % Basophils (%) (Auto) 0.2 % Neutrophils # (Auto) 6.00 K/uL Lymphocytes # (Auto) 1.10 K/uL Monocytes # (Auto) 0.51 K/uL Eosinophils # (Auto) 0.42 K/uL Basophils # (Auto) 0.02 K/uL RDW Standard Deviation 54.7 fL RDW Coefficient of Variation 16.3 % Immature Granulocyte % (Auto) 0.1 % Immature Granulocyte # (Auto) 0.01 K/uL Creatinine 0.82 mg/dl Est Creatinine Clear Calc Drug Dose 158.1 ml/min Estimated GFR () 132.8 Estimated GFR (Non- 114.6 Estimated Average Glucose 105 mg/dl Hemoglobin A1c 5.3 % 25-Hydroxy Vitamin D Total 6.9 ng/ml Total Testosterone 50.2 ng/dl Assessment and Plan 35 yo male with h/o lymphedema and cellulitis, presented with right thigh cellulitis and sepsis - Cellulitis w sepsis present on admission (SIRS being leukocytosis and tachycardia) febrile overnight despite antibiotics, WBC down to normal, increased pain wound surface culture growing S aureus ID recommends continuing Vancomycin for now, will need 2-3 weeks of antibiotics increased pain today, typically takes [place], will add Dilaudid IV for breakthrough - Vitamin D deficiency: low at 6, start 6000 IU daily x 8 weeks - Hypotestosteronism: likely due to obesity start Testosterone injections, 50mg q 2 weeks to start will need followed outpatient DVT proph - heparin SQ
[2016-09-02] MEDS: HYDROmorphone INJ 0.5 MG/0.5 ML SYR IV PRN ×2 (14:58→22:24)
[2016-09-02 16:18] VITALS: BP 119/76; PULSE 64; TEMP 36.7; O2SAT 100
[2016-09-02 23:40] VITALS: BP 133/80; PULSE 63; TEMP 36.8; O2SAT 100
[2016-09-03] MEDS: HYDROCODONE/ACETAMI 10/325 TAB PO PRN ×3 (01:44→20:20)
[2016-09-03] MEDS ORDERED: VANCOMYCIN TROUGH SCH (03:30)
[2016-09-03] MEDS: VANCOMYCIN INJ 1,750 MG in SODIUM CHLORIDE 0.9% 500ML 500 ML IV SCH (04:08)
[2016-09-03 04:11] LABS: CREATININE 0.78 mg/dl (0.60-1.40)
[2016-09-03] MEDS: HEPARIN SOD 5000 UNIT/0.5 ML CARP SQ SCH ×3 (07:02→21:28)
[2016-09-03 07:03] VITALS: BP 115/74; PULSE 54; TEMP 37; O2SAT 99
[2016-09-03] MEDS: HYDROmorphone INJ 0.5 MG/0.5 ML SYR IV PRN ×2 (07:06→14:46)
[2016-09-03] MEDS: LACTOBACILLUS ACIDOPHILUS (FLORANEX) TAB PO SCH ×3 (08:31→17:28)
[2016-09-03] MEDS: CHOLECALCIFEROL 1000 INTER.UNIT TAB PO SCH (08:32)
--- NOTE | 2016-09-03 12:29 | Pharmacy Progress Note ---
Pharmacy Abx Dose Progress Nt Date of Service Sep 03, 2016. Pharmacy Dosing Scope The patient is currently receiving the following antimicrobial agents per Pharmacy consult: Vancomycin 1750 mg IV every 12 hours Objective Height (Feet): 5 Height (Inches): 2.00 Weight (Kilograms): 140.300 Vital Signs (Past 12Hrs) Vital Signs Past 12 Hours Date Time Temp Pulse Resp B/P (MAP) Pulse Ox O2 Delivery O2 Flow Rate FiO2 09/03/16 07:58 Room Air 09/03/16 07:03 37.0 54 16 115/74 (88) 99 Micro Results Date/Time Source Procedure Growth Status 08/31/16 23:50 Blood Blood Culture - Preliminary NO GROWTH TO DATE. Resulted 08/31/16 23:50 Blood Blood Culture - Preliminary NO GROWTH TO DATE. Resulted 09/01/16 00:00 Drainage - Surface Leg Gram Stain - Final Resulted 09/01/16 00:00 Wound Culture - Preliminary Staphylococcus Aureus Group B Beta Strep Resulted Risk Factors for Resistance * History of infection and chronic wound care follow-up: S. aureus (MSSA) of the right inner thigh beginning in January 2016 Assessment & Plan Assessment 35 year old male receiving Vancomycin IV for treatment of recurrent R thigh cellulitis with MSSA and group B beta strep in the setting of chronic lymphedema. * Patient follows with wound clinic and ID service as an out-patient. * Day # 3 of antimicrobial therapy Plan Vancomycin IV * Trough level of 14.4 mcg/mL is near subtherapeutic * Continue dose of 1750 mg (12.5 mg/kg) IV every 12 hours * Goal trough level for cellulitis : ~15 mcg/mL * Repeat trough level in 48 hours to assess for drug accumulation. Trough level ordered for: 09/05/16 * Less than traditional dose and/or extended dosing interval selected due to likelihood of drug accumulation in obese patient/CKD. * S. aureus is MSSA. Group B beta strep sensitives are pending. If strep is penicillin susceptible, consider changing to B-lactam antibiotic. Pharmacy will continue to follow and will adjust dose/frequency as necessary. Thank you.
--- NOTE | 2016-09-03 14:41 | Progress Note ---
Subjective Date of Service: Sep 03, 2016. Subjective Pt evaluation today including: conversation w/ patient, physical exam, chart review, lab review pt seen in follow up, sitting up in bed. leg much improved. less red, less sore. no f/c overnight. tolerating abx. blood cultures negative. wound culture with MSSA and GBS. on vanco, tolerating well. all remaining ros reviewed and are negative. Problem List Medical Problems: (1) Cellulitis of right leg Status: Acute (2) Cellulitis of right leg Status: Acute (3) Cellulitis of right thigh Status: Acute (4) Flank pain Status: Acute (5) Hematuria Status: Acute (6) Lymphedema Status: Acute (7) Lymphedema Status: Acute (8) Sepsis Status: Acute (9) Sepsis Status: Acute (10) Tachycardia Status: Acute Objective Vital Signs Date Time Temp Pulse Resp B/P (MAP) Pulse Ox O2 Delivery O2 Flow Rate FiO2 09/03/16 07:58 Room Air 09/03/16 07:03 37.0 54 16 115/74 (88) 99 09/03/16 00:00 Room Air 09/02/16 23:40 36.8 63 18 133/80 (97) 100 Room Air 09/02/16 20:00 Room Air 09/02/16 16:18 36.7 64 18 119/76 (90) 100 Room Air 09/02/16 16:00 Room Air Physical Exam General Appearance: WD/WN, no apparent distress Eyes: normal inspection, EOMI Neck: supple Respiratory/Chest: lungs clear, normal breath sounds, no respiratory distress Cardiovascular: regular rate, rhythm, + pertinent finding (lymphedema b/l le) Abdomen: non tender, soft Neurologic/Psychiatric: alert, oriented x 3 Skin: normal color Comments: leg much improved. significant improvement in erythema, less warm, still some tenderness to touch Laboratory Results Item Value Date Time Gram Stain - Final Resulted 09/01/16 0000 Drainage - Surface Leg Blood Culture - Preliminary Resulted 08/31/16 2350 Blood NO GROWTH TO DATE. Blood Culture - Preliminary Resulted 08/31/16 2350 Blood NO GROWTH TO DATE. Gram Stain - Final Resulted 09/01/16 0000 Drainage - Surface Leg Gram Stain - Final Resulted 09/01/16 0000 Drainage - Surface Leg Last 24 Hours Test 09/03/16 03:35 Creatinine 0.78 mg/dl Est Creatinine Clear Calc Drug Dose 166.2 ml/min Estimated GFR () 135.5 Estimated GFR (Non- 116.9 Vancomycin Level Trough 14.4 mcg/ml Assessment and Plan (1) Cellulitis of right thigh Assessment & Plan: will change to ctx2 g q24, GBS sensitivities pending, hopefully transition to po abx soon. (2) Fever (3) Lymphedema (4) Leukocytosis
[2016-09-03 15:23] VITALS: BP 109/71; PULSE 65; TEMP 36.8; O2SAT 96
[2016-09-03] MEDS ORDERED: CEFTRIAXONE SOD INJ 2,000 MG in DEXTROSE 5% 50ML 50 ML IV SCH (16:00)
--- NOTE | 2016-09-03 16:57 | Progress Note ---
Subjective Date of Service: Sep 03, 2016. Subjective Pt evaluation today including: conversation w/ patient, physical exam, lab review, review of inpatient medication list Pain: less pain today PO Intake: adequte Voiding: no voiding problems skin less red, less pain today discussed low testosterone, never told that it was low in the past he agrees to injections q2 weeks, first tomorrow AM discussed vitamin D replacement Problem List Medical Problems: (1) Cellulitis of right leg Status: Acute (2) Cellulitis of right leg Status: Acute (3) Cellulitis of right thigh Status: Acute (4) Flank pain Status: Acute (5) Hematuria Status: Acute (6) Lymphedema Status: Acute (7) Lymphedema Status: Acute (8) Sepsis Status: Acute (9) Sepsis Status: Acute (10) Tachycardia Status: Acute Review of Systems Constitutional: + weakness, + fatigue Heme: + problem reported (significant lymphadenopathy) Skin: + rash (erythema) All Other Systems: Reviewed and Negative Medications Current Inpatient Medications Medications (Trade) Dose Ordered Sig/Sirisha Route Start Time Stop Time Status Last Admin Dose Admin Heparin Sodium (Porcine) (Heparin Sq 5000 Unit/0.5ml) 5,000 unit Q8H SQ 09/01/16 06:00 10/01/16 05:59 09/02/16 14:23 5,000 UNIT Acetaminophen (Tylenol Tab) 650 mg Q4H PRN PO 09/01/16 02:00 10/01/16 01:59 09/01/16 12:50 650 MG Al Hydrox/Mg Hydrox/Simethicone (Maalox Max Susp) 15 ml Q4H PRN PO 09/01/16 02:00 10/01/16 01:59 09/01/16 05:10 15 ML Magnesium Hydroxide (Milk Of Magnesia Susp) 30 ml Q6H PRN PO 09/01/16 02:00 10/01/16 01:59 Polyethylene (Miralax Powder Packet) 17 gm DAILY PRN PO 09/01/16 02:00 10/01/16 01:59 Zolpidem Tartrate (Ambien Tab) 5 mg HSZ PRN PO 09/01/16 02:00 10/01/16 01:59 Ondansetron HCl (Zofran Inj) 4 mg Q6H PRN IV 09/01/16 02:00 10/01/16 01:59 Acetaminophen/ Hydrocodone Bitart (Loiza 10/325 Tab) 2 tab QID PRN PO 09/01/16 04:30 09/15/16 04:29 09/03/16 10:40 2 TAB Lactobacillus Acidophilus (Floranex Tab) 4 tab TIDM PO 09/01/16 12:00 10/01/16 11:59 09/03/16 13:20 4 TAB Hydromorphone HCl (Dilaudid Inj) 0.5 mg Q4 PRN IV 09/02/16 09:45 09/16/16 09:44 09/03/16 14:46 0.5 MG Cholecalciferol (Vitamin D Tab) 6,000 inter.unit QAM PO 09/03/16 09:00 10/03/16 08:59 09/03/16 08:32 6,000 INTER.UNIT Ceftriaxone Sodium 2000 mg/ Dextrose 70 ml @ 100 mls/hr Q24H IV 09/03/16 16:00 09/13/16 15:59 09/03/16 16:09 100 MLS/HR Objective Vital Signs Date Time Temp Pulse Resp B/P (MAP) Pulse Ox O2 Delivery O2 Flow Rate FiO2 09/03/16 15:45 Room Air 09/03/16 15:23 36.8 65 20 109/71 (84) 96 09/03/16 07:58 Room Air 09/03/16 07:03 37.0 54 16 115/74 (88) 99 09/03/16 00:00 Room Air 09/02/16 23:40 36.8 63 18 133/80 (97) 100 Room Air 09/02/16 20:00 Room Air Physical Exam General Appearance: no apparent distress, + obese Neck: supple, no adenopathy, no JVD, trachea midline Respiratory/Chest: chest non-tender, lungs clear, normal breath sounds, no respiratory distress, no accessory muscle use Cardiovascular: regular rate, rhythm, no edema, no gallop, no JVD, no murmur Abdomen: normal bowel sounds, non tender, soft, no organomegaly Extremities: normal range of motion, non-tender, normal inspection, no calf tenderness 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, no motor/sensory deficits, alert, normal mood/affect, oriented x 3 Skin: + rash (right thigh erythema, tender), + pertinent finding (posteror thigh wound, dry) Laboratory Results Last 24 Hours Test 09/03/16 03:35 Creatinine 0.78 mg/dl Est Creatinine Clear Calc Drug Dose 166.2 ml/min Estimated GFR () 135.5 Estimated GFR (Non- 116.9 Vancomycin Level Trough 14.4 mcg/ml Assessment and Plan 35 yo male with h/o lymphedema and cellulitis, presented with right thigh cellulitis and sepsis - Cellulitis w sepsis present on admission (SIRS being leukocytosis and tachycardia) no fevers in past 24 hours, WBC down to normal, less pain today wound surface culture growing S aureus, sensitive ID recommends Ceftriaxone, will look to change to PO soon less pain today, typically takes [place], will continue Dilaudid IV for breakthrough - Vitamin D deficiency: low at 6, start 6000 IU daily x 8 weeks - Hypotestosteronism: likely due to obesity start Testosterone injections, 50mg q 2 weeks to start will need followed outpatient DVT proph - heparin SQ
[2016-09-03 23:19] VITALS: BP 106/69; PULSE 70; TEMP 36.9; O2SAT 100
[2016-09-04] MEDS: HEPARIN SOD 5000 UNIT/0.5 ML CARP SQ SCH (05:31)
[2016-09-04] MEDS: HYDROmorphone INJ 0.5 MG/0.5 ML SYR IV PRN (05:31)
[2016-09-04] MEDS: HYDROCODONE/ACETAMI 10/325 TAB PO PRN ×2 (05:36→11:34)
[2016-09-04 06:49] LABS: HEMATOCRIT 36.6 % (42-52); MEAN CELL VOLUME 89.9 fL (80-100); MEAN CORPUSCULAR HEMOGLOBIN 29.7 pg (25-34); MEAN CORPUSCULAR HGB CONC 33.1 g/dl (32-36); MEAN PLATELET VOLUME 10.9 fL (7.4-10.4); PLATELET COUNT 223 K/uL (130-400); RED BLOOD COUNT 4.07 M/uL (4.7-6.1); WHITE BLOOD COUNT 6.33 K/uL (4.8-10.8)
[2016-09-04 06:57] VITALS: BP 103/71; PULSE 63; TEMP 36.9; O2SAT 95
[2016-09-04 07:23] LABS: CREATININE 0.77 mg/dl (0.60-1.40)
[2016-09-04] MEDS: CHOLECALCIFEROL 1000 INTER.UNIT TAB PO SCH (07:48)
[2016-09-04] MEDS: LACTOBACILLUS ACIDOPHILUS (FLORANEX) TAB PO SCH ×2 (07:48→11:36)
[2016-09-04] MEDS ORDERED: TESTOSTERONE CYPIONATE IM 200 MG/ML VIAL IM ONE (08:00)
--- NOTE | 2016-09-04 10:17 | Progress Note ---
Subjective Date of Service: Sep 04, 2016. Subjective pt continues to improve, afebrile. final sensitivities pending on gbs. wbc improved. blood cultures negative. tolerating ctx. significantly low vit D level , testosterone levels low as well. on therapy. Problem List Medical Problems: (1) Cellulitis of right leg Status: Acute (2) Cellulitis of right leg Status: Acute (3) Cellulitis of right thigh Status: Acute (4) Flank pain Status: Acute (5) Hematuria Status: Acute (6) Lymphedema Status: Acute (7) Lymphedema Status: Acute (8) Sepsis Status: Acute (9) Sepsis Status: Acute (10) Tachycardia Status: Acute Objective Vital Signs Date Time Temp Pulse Resp B/P (MAP) Pulse Ox O2 Delivery O2 Flow Rate FiO2 09/04/16 08:00 Room Air 09/04/16 06:57 36.9 63 18 103/71 (82) 95 Room Air 09/04/16 00:00 Room Air 09/03/16 23:19 36.9 70 18 106/69 (81) 100 Room Air 09/03/16 15:45 Room Air 09/03/16 15:23 36.8 65 20 109/71 (84) 96 Laboratory Results Item Value Date Time Gram Stain - Final Resulted 09/01/16 0000 Drainage - Surface Leg Blood Culture - Preliminary Resulted 08/31/16 2350 Blood NO GROWTH TO DATE. Blood Culture - Preliminary Resulted 08/31/16 2350 Blood NO GROWTH TO DATE. Last 24 Hours Test 09/04/16 06:35 White Blood Count 6.33 K/uL Red Blood Count 4.07 M/uL Hemoglobin 12.1 g/dL Hematocrit 36.6 % Mean Corpuscular Volume 89.9 fL Mean Corpuscular Hemoglobin 29.7 pg Mean Corpuscular Hemoglobin Concent 33.1 g/dl RDW Standard Deviation 52.8 fL RDW Coefficient of Variation 15.9 % Platelet Count 223 K/uL Mean Platelet Volume 10.9 fL Creatinine 0.77 mg/dl Est Creatinine Clear Calc Drug Dose 168.3 ml/min Estimated GFR () 136.3 Estimated GFR (Non- 117.6 Vitamin B12 Level 387 pg/mL Assessment and Plan (1) Cellulitis of right thigh Assessment & Plan: can continue ctx for now, awaiting final culture, if gbs sensitive would suggest d/c keflex 500mg po tid x 14 days. encourage probiotics as well. ok for d/c when medically stable. (2) Fever (3) Lymphedema (4) Leukocytosis Assessment & Plan: resolved
[2016-09-04] MEDS ORDERED: CEPH500C PO (11:18)
[2016-09-04] MEDS ORDERED: LCTX PO (11:18)
[2016-09-04] MEDS ORDERED: TEST1INJ6 IM (11:22)
[2016-09-04] MEDS ORDERED: CHOL200010 PO (11:22)
--- NOTE | 2016-09-04 11:28 | Discharge Instructions ---
Discharge Instructions Date of Service Sep 04, 2016. Admission Reason for Admission: Cellulitis Of Thigh Discharge Discharge Diagnosis / Problem: Cellulitis, hypotestosterone, vitamin d deficiency Discharge Goals Goal(s): Improve function, Improve disease control Activity Recommendations Activity Limitations: resume your previous activity Lifting Limitations: none Exercise/Sports Limitations: as tolerated May Resume Sexual Activity: when tolerated Shower/Bathe: no limitations Driving or Machine Use: no limitations . Instructions / Follow-Up Instructions / Follow-Up Medications: - KEFLEX: 500mg three times a day for 14 days - LACTOBACILLUS: probiotic recommended by infectious disease to continue while you are on antibiotics - VITAMIN D: 2000 unit capsule, take three of these in the AM for 6 weeks then you can reduce to 1 capsule a day - TESTOSTERONE: injection, 50mg, once every 2 weeks, your PCP can arrange for outpatient injection Cellulitis in setting of lymphedema: improving, cultures grew sensitive Staph aureus and Group B streptococcus, also sensitive Dr. Boothe recommends 2 weeks of Keflex three times a day Vitamin D deficiency: level was 6, normal is 30-100, started on aggressive replacement and then after 6 weeks you can take maintenance dosing Low testosterone: likely due to obesity, level was 50 and normal range is 120- 800, given an injection today, should continue every 2 weeks, initial dose is 50mg Dr. Davis can prescribe further injections with higher dosing if needed, will follow results as outpatient FOLLOW UP - Dr. Davis in one week for hospital follow up Current Hospital Diet Patient's current hospital diet: Regular Diet Discharge Diet Recommended Diet: Regular Diet Pending Studies Studies pending at discharge: no Laboratory Results Hemoglobin A1c Test 09/02/16 07:09 Range/Units Estimated Average Glucose 105 mg/dl Hemoglobin A1c 5.3 4.5-5.6 % Medical Emergencies . Who to Call and When: Medical Emergencies: If at any time you feel your situation is an emergency, please call 911 immediately. . Non-Emergent Contact Non-Emergency issues call your: Primary Care Provider Call Non-Emergent contact if: you have a fever, your pain is worsening, you have any medication questions . . "Provider Documentation" section prepared by London Henderson. . VTE Core Measure Inpt VTE Proph given/why not?: Unfractionated heparin SQ [place] Drug Monitoring Program Search Results: no issues identified
[2016-09-04 12:24] VITALS: BP 103/71; PULSE 63; TEMP 36.9; O2SAT 95
--- NOTE | 2016-09-04 14:47 | Discharge Summary ---
Discharge Summary Date of Service Sep 04, 2016. Discharge Summary Admission Date: Sep 01, 2016 at 01:51 Discharge Date: Sep 04, 2016 Discharge Disposition: Home Principal Diagnosis: Cellulitis in setting of lymphedema Problems/Secondary Diagnoses: Vitamin D deficiency Low testosterone Obesity chronic pain Immunizations: History of Tetanus Vaccine?: Unknown History of Pneumococcal: Unknown History of Hepatitis B Vaccine: Unknown Procedures: none Consultations: Infectious disease Medication Reconciliation New Medications: Cephalexin Monohydrate (Keflex) 500 Mg Cap 1 CAP PO TID for 14 Days, #42 CAP Cholecalciferol (Vitamin D) 2,000 Unit Cap 6000 UNITS PO DAILY for 42 Days, #120 CAP 3 Refills Testosterone Cypionate (Testosterone Cypionate) 100 Mg/Ml Inj 50 MG IM [id number] for 30 Days Lactobacillus Acidophilus (Floranex) 1 Tab Tab 4 TAB PO TIDM, #120 TAB 2 Refills Continued Medications: Hydrocodone/Acetaminophen 10MG/325MG ([place] 10MG/325MG) Tab 2 TAB PO QID PRN for Pain, TAB Discharge Exam Patient doing well, less pain, less redness in the leg, feels ready for discharge home. Discussed plans for Keflex as well as Vitamin D capsules and testosterone injections Review of Systems: Constitutional: No fever, No chills, No sweats, No weight loss, No weakness , No fatigue, No problem reported Eyes: No worsening of vision, No eye pain, No redness, No discharge, No diplopia, No problem reported ENT: No hearing loss, No unusual epistaxis, No nasal symptoms, No sore throat, No tinnitus, No dental problems, No trouble swallowing, No problem reported Respiratory: No cough, No sputum, No wheezing, No shortness of breath, No dyspnea on exertion, No dyspnea at rest, No hemoptysis, No problem reported Cardiovascular: + edema, No chest pain, No orthopnea, No PND, No claudication, No palpitations, No problem reported Abdomen: No pain, No nausea, No vomiting, No diarrhea, No constipation, No GI bleeding, No problem reported Musculoskeletal: No joint pain, No muscle pain, No swelling, No calf pain, No problem reported Genitourinary - Male: No hematuria, No dysuria, No urinary frequency, No urinary urgency Neurologic: No memory loss, No paralysis, No weakness, No numbness/tingling , No vertigo, No balance problems, No problem reported Psychiatric: No depression symptoms, No anhedonism, No anxiety, No insomnia , No substance abuse, No problem reported Endocrine: No fatigue, No excessive thirst, No excessive urination, No problem reported Hematologic / Lymphatic: No abnormal bleeding/bruising, No clotting problems , No swollen lymph nodes, No night sweats, No problem reported Integumentary: + rash (right thigh, improving), No itch, No new/changing skin lesions, No color change, No bleeding, No problem reported Physical Exam: General Appearance: no apparent distress, + obese Eyes: normal inspection, EOMI, sclerae normal ENT: normal ENT inspection, hearing grossly normal, pharynx normal Neck: supple, no adenopathy, no JVD, trachea midline Respiratory/Chest: chest non-tender, lungs clear, normal breath sounds, no respiratory distress, no accessory muscle use Cardiovascular: regular rate, rhythm, no gallop, no JVD, no murmur, normal peripheral pulses Abdomen / GI: normal bowel sounds, non tender, soft, no organomegaly Extremities: no calf tenderness, normal capillary refill, normal range of motion, non-tender, pelvis stable, + pertinent finding (massive lymphedema bilaterally) 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, no motor/sensory deficits , alert, normal mood/affect, normal reflexes, oriented x 3 Skin: + rash (right thigh erythema, decreased, less tender) Hospital Course 35 yo male with h/o lymphedema and cellulitis, presented with right thigh cellulitis and sepsis - Cellulitis w sepsis present on admission (SIRS being leukocytosis and tachycardia) no fevers in past 72 hours, WBC down to normal, much less pain today wound surface culture growing MSSA and GBS, sensitive to cephalosporins ID recommends 2 more weeks of Keflex TID - Vitamin D deficiency: low at 6, start 6000 IU daily x 8 weeks then maintenance can repeat levels per PCP - Hypotestosteronism: likely due to obesity start Testosterone injections, 50mg q 2 weeks to start will need followed outpatient, PCP can arrange injections, next due in two weeks DVT proph - heparin SQ Total Time Spent: Greater than 30 minutes This includes examination of the patient, discharge planning, medication reconciliation, and communication with other providers. Discharge Instructions Please refer to the electronic Patient Visit Report (Discharge Instructions) for additional information. Follow-Up Dr. Davis in one week Additional Copies To Mine Davis MD
[2016-09-05] MEDS ORDERED: VANCOMYCIN TROUGH SCH (03:30)
[2016-11-02] MEDS ORDERED: CEPH500C2 PO (15:47)
[2016-12-12] MEDS ORDERED: CEPH500C2 PO (15:24)
[2017-01-09] MEDS ORDERED: CEFD300C2 PO (14:07)
== END 2016-09-04 12:59 | disposition home or self-care (01) | DRG 872 ==
LOC: C.EDB 22:55 → C.MS2W 09-01 01:51 → ENRESERV 09-01 02:09
PROVIDERS: ADMIT Internal Medicine; ATTEND Internal Medicine
DX: A41.9 Sepsis, unspecified organism (principal); L03.115 Cellulitis of right lower limb; Z68.43 Body mass index [BMI] 50.0-59.9, adult; L97.119 Non-pressure chronic ulcer of right thigh with unspecified severity; I89.0 Lymphedema, not elsewhere classified; E66.01 Morbid (severe) obesity due to excess calories; E55.9 Vitamin D deficiency, unspecified; E29.1 Testicular hypofunction; Z98.84 Bariatric surgery status; Z83.3 Family history of diabetes mellitus

== ENCOUNTER 2016-10-19 01:22 | Emergency (ER) | payer OTHER ==
[~2016-10-19] VITALS: Ht 157.5 cm; Wt 140.9 kg
[~2016-10-19 01:22] MED LIST changes: -ACET-1256 PO; +CHOL200010 PO; +LCTX PO; +TEST1INJ6 IM
[2016-10-19 01:30] VITALS: Ht 157.5 cm; Wt 140.9 kg
[2016-10-19] MEDS ORDERED: SODIUM CHLORIDE 0.9% 1000ML 1,000 ML IV STA ×2 (01:44)
[2016-10-19] MEDS ORDERED: ONDANSETRON INJ 2 MG/ML 2 ML VIAL IV STA (01:44)
[2016-10-19] MEDS ORDERED: CEFTRIAXONE SOD INJ 1 GM ADDVIAL IV STA (01:44)
[2016-10-19] MEDS ORDERED: VANCOMYCIN INJ 2,800 MG in SODIUM CHLORIDE 0.9% 500ML 500 ML IV STA (01:44)
[2016-10-19] MEDS ORDERED: MoRPHine SULFATE 4 MG/ML 1 ML CARP\\VIAL IV STA ×2 (01:44→05:36)
[2016-10-19] MEDS ORDERED: ESOM20CA PO (02:05)
[2016-10-19 02:14] LABS: BASO % 0.5 %; BASO ABS # 0.04 K/uL (0-0.2); COMPLETE YES; EOS % 0.4 %; HEMATOCRIT 36.7 % (42-52); IG% 0.1 %; LYMPH % 16.2 %; LYMPH ABS # 1.36 K/uL (1.2-3.4); MEAN CELL VOLUME 92.7 fL (80-100); MEAN CORPUSCULAR HEMOGLOBIN 30.3 pg (25-34); MEAN CORPUSCULAR HGB CONC 32.7 g/dl (32-36); MEAN PLATELET VOLUME 11.1 fL (7.4-10.4); MONO % 5.5 %; NEUT % 77.3 %; PLATELET COUNT 186 K/uL (130-400); RED BLOOD COUNT 3.96 M/uL (4.7-6.1); WHITE BLOOD COUNT 8.42 K/uL (4.8-10.8)
[2016-10-19 02:23] LABS: INR 1.2 (0.9-1.1); PARTIAL THROMBOPLASTIN RATIO 1.1; PROTHROMBIN TIME (PATIENT) 12.6 SECONDS (9.0-12.0)
[2016-10-19 02:31] VITALS: O2SAT 99
[2016-10-19 02:36] LABS: BUN/CREATININE RATIO 13.7 (10-20); CALCIUM 8.6 mg/dl (8.5-10.1); CREATININE 1.3 mg/dl (0.60-1.40); POTASSIUM 3.8 mmol/L (3.5-5.1)
[2016-10-19 02:39] LABS: ALB/GLOB RATIO 0.8 (0.9-2)
[2016-10-19 04:37] LABS: URINE APPEARANCE CLEAR (CLEAR); URINE BILIRUBIN NEG (NEG); URINE COLOR YELLOW; URINE NITRITE NEG (NEG); UROBILINOGEN NEG (NEG); ZZUR CULT IF INDIC CLEAN CATCH NO
[2016-10-19 04:42] LABS: MANUAL MICROSCOPIC REQUIRED? NO; REVIEW REQ? NO
--- NOTE | 2016-10-19 05:07 | Medical Consult ---
Consultation Date of Consultation: Oct 19, 2016. Attending Physician: Reason for Consultation: Cellulitis History of Present Illness This a a pleasant 35 year old male with a history of chronic lymphedema with recurrent cellulitis, who presents with some worsening pain in the back of his left thigh. He noted the pain 2 hours prior to arrival. He notes having some chills but never measured a temperature at home. He also notes some increasing redness to the back of his left leg but denies actually have pain in that location. His appetite and intake have been good. He has had no voiding difficulties. He states that his suspected infection actually doesn't feel nearly as bad as his previous infections but he wanted to come in sooner than later to get ahead of it. Typically, he states that he gets a couple of days of antibiotics and is then transitioned to oral antibiotics. He most recently had cultures done in August 2016 which grew MSSA and Group B strep. He follows closely with wound care clinic and sees them regularly. Past Medical/Surgical History Medical Problems: (1) Cellulitis of right leg Status: Acute (2) Cellulitis of right leg Status: Acute (3) Cellulitis of right thigh Status: Acute (4) Flank pain Status: Acute (5) Hematuria Status: Acute (6) Lymphedema Status: Acute (7) Lymphedema Status: Acute (8) Sepsis Status: Acute (9) Sepsis Status: Acute (10) Tachycardia Status: Acute Family History Diabetes mellitus FHx: obesity Heart disease Hypertension Kidney stones Social History Smoking Status: Never Smoker Smokeless Tobacco Use: No Alcohol Use: occasionally Drug Use: none Marital Status: single Housing Status: lives with family Occupation Status: unemployed Allergies Coded Allergies: Daptomycin (Verified Allergy, Intermediate, RASH, EOSINOPHILIA, 10/19/16) cbc with eosinophilia supporting drug reaction to daptomycin Zinc Oxide (Verified Allergy, Unknown, RASH, 10/19/16) TOPICAL Home Medications Reported Home Medications Medications Dose Route/Sig Max Daily Dose Days Date Category Nexium (Esomeprazole Magnesium) 20 Mg Capcr 20 Mg PO DAILY PRN 10/19/16 Reported [place] 10MG/325MG (Acetaminophen/Hydrocodone Bitart) Tab 2 Tab PO QID PRN 02/07/16 Reported Current Inpatient Medications Current Inpatient Medications Medications (Trade) Dose Ordered Sig/[place] Route Start Time Stop Time Status Last Admin Dose Admin Sodium Chloride 1,000 ml @ 125 mls/hr Q8H STAT IV 10/19/16 01:44 10/19/16 09:43 10/19/16 04:45 125 MLS/HR Review of Systems Constitutional: + fever (subjective without measurements), No chills, No sweats Respiratory: No cough, No sputum, No wheezing Cardiovascular: No chest pain, No orthopnea, No PND Abdomen: No pain, No nausea, No vomiting Musculoskeletal: No joint pain, No muscle pain Genitourinary - Male: No hematuria, No dysuria Neurologic: No weakness, No numbness/tingling, No vertigo Psychiatric: No anhedonism, No anxiety, No insomnia Hematologic / Lymphatic: No abnormal bleeding/bruising, No clotting problems, No swollen lymph nodes Integumentary: + color change (as in HPI), No rash, No itch Physical Exam Date Time Temp Pulse Resp B/P (MAP) Pulse Ox O2 Delivery O2 Flow Rate FiO2 10/19/16 02:37 37.1 85 20 129/68 99 Room Air 10/19/16 02:31 99 Room Air 10/19/16 01:30 36.8 91 18 132/84 99 Room Air General Appearance: WD/WN, no apparent distress, + obese (morbidly obese) Head: normocephalic, atraumatic Eyes: normal inspection, EOMI ENT: hearing grossly normal, pharynx normal Neck: supple, no adenopathy, no JVD Respiratory/Chest: lungs clear, no respiratory distress Cardiovascular: regular rate, rhythm, no gallop, no murmur Abdomen/GI: normal bowel sounds, non tender, soft Back: no CVA tenderness, no muscle spasm Extremities/Musculoskelatal: + pertinent finding (bilateral lymphedema; dressed wound on back of left leg; V-shaped with granulation tissue, warmth and erythema 1 cm margin; Back of left leg is erythematous for 1/3rd of leg, no tenderness to palpation) Neurologic/Psych: alert, normal mood/affect, oriented x 3 Skin: normal color, warm/dry, no rash Lymphatic: no adenopathy Laboratory Results Last 24 Hours Test 10/19/16 02:04 10/19/16 02:05 10/19/16 04:15 White Blood Count 8.42 K/uL Red Blood Count 3.96 M/uL Hemoglobin 12.0 g/dL Hematocrit 36.7 % Mean Corpuscular Volume 92.7 fL Mean Corpuscular Hemoglobin 30.3 pg Mean Corpuscular Hemoglobin Concent 32.7 g/dl Platelet Count 186 K/uL Mean Platelet Volume 11.1 fL Neutrophils (%) (Auto) 77.3 % Lymphocytes (%) (Auto) 16.2 % Monocytes (%) (Auto) 5.5 % Eosinophils (%) (Auto) 0.4 % Basophils (%) (Auto) 0.5 % Neutrophils # (Auto) 6.52 K/uL Lymphocytes # (Auto) 1.36 K/uL Monocytes # (Auto) 0.46 K/uL Eosinophils # (Auto) 0.03 K/uL Basophils # (Auto) 0.04 K/uL RDW Standard Deviation 51.3 fL RDW Coefficient of Variation 15.1 % Immature Granulocyte % (Auto) 0.1 % Immature Granulocyte # (Auto) 0.01 K/uL Prothrombin Time 12.6 SECONDS Prothromb Time International Ratio 1.2 Activated Partial Thromboplast Time 29.3 SECONDS Partial Thromboplastin Ratio 1.1 Sodium Level 140 mmol/L Potassium Level 3.8 mmol/L Chloride Level 108 mmol/L Carbon Dioxide Level 28 mmol/L Anion Gap 4.0 mmol/L Blood Urea Nitrogen 18 mg/dl Creatinine 1.30 mg/dl Est Creatinine Clear Calc Drug Dose 100.0 ml/min Estimated GFR () 81.9 Estimated GFR (Non- 70.7 BUN/Creatinine Ratio 13.7 Random Glucose 87 mg/dl Calcium Level 8.6 mg/dl Total Bilirubin 0.5 mg/dl Aspartate Amino Transf (AST/SGOT) 10 U/L Alanine Aminotransferase (ALT/SGPT) 15 U/L Alkaline Phosphatase 94 U/L Total Protein 7.8 gm/dl Albumin 3.4 gm/dl Globulin 4.4 gm/dl Albumin/Globulin Ratio 0.8 Bedside Lactic Acid Venous 1.19 mmol/L Urine Color YELLOW Urine Appearance CLEAR Urine pH 5.0 Urine Specific [place] 1.020 Urine Protein NEG Urine Glucose (UA) NEG Urine Ketones NEG Urine Occult Blood NEG Urine Nitrite NEG Urine Bilirubin NEG Urine Urobilinogen NEG Urine Leukocyte Esterase NEG Urine WBC (Auto) 1-5 /hpf Urine RBC (Auto) 0-4 /hpf Urine Hyaline Casts (Auto) 0 /lpf Urine Epithelial Cells (Auto) 5-10 /lpf Urine Bacteria (Auto) NEG Assessment & Plan 35 year old male with a history of lymphedema with history of recurrent cellulitis. The patient is hemodynamically stable. He certainly has a cellulitis though at this time, I feel as though he would have a good clinical response to oral antibiotics alone. I have reviewed labs that do not give any objective data that the patient requires admission for IV antibiotics. Further culture data from 08/2017 provides reassurance that this is most likely MSSA. Our recommendations are as follows: - Discharge home on Augmentin Suspension 1g BID x 14 days (enough time so that patient can be seen in outpatient by PCP and wound care before completion of course to determine if extended course is needed) - Arrange for outpatient referral to wound care clinic, prior to completing Keflex so he can be re-assessed Wound care clinic can decide whether patient needs to extend course of antibiotics of whether they can be stopped - [place] PRN per home regimen for pain Attending Addendum: I have physically seen and examined this patient, have supervised the medical residents activities, and agree with the H&P as noted above with the following exceptions as noted. The patient's main complaint is that of a occasional twinging in his right lower extremity. He does occasionally get these twinges, but the duration and intensity was worse than usual, so he decided to come to the emergency department for assessment to determine if there was a problem developing that he needed to get attention early keep it from worsening. The patient denies chest pain, palpitations, shortness of breath, cough, vision change, hearing change, sore throat, chills, sweats, weight change, fatigue, nausea, vomiting, abdominal pain, pelvic pain, blood in urine or stool, dysuria , urinary frequency or urgency, lightheadedness, dizziness, headache, memory loss, abnormal bruising or bleeding, numbness or tingling in arms , generalized arthralgias or myalgias, back or neck pain, night sweats, or allergy symptoms. The review of systems is otherwise negative other than for that already noted above, and at least 10 systems have been reviewed. The patient is awake, well-developed and adequately nourished, alert and oriented 3, normocephalic and atraumatic, lying in bed and in no acute distress. HEENT--PERRL, EOMI, mucous membranes and oropharynx normal. Neck--supple, no JVD or bruits, thyroid normal, trachea midline, no adenopathy. Heart--normal S1 and S2, no extra beats, no murmurs, rubs or gallops. Lungs--clear bilaterally but diminished throughout, no respiratory distress, no accessory muscle use. Abdomen--normal bowel sounds and soft, nontender and nondistended, no hernias or masses, no organomegaly. Extremities/Dermatologic--no cyanosis or clubbing. There is massive amounts of chronic lymphedema bilaterally with bleb formation bilaterally. Right posterior thigh area with chronic V-shaped superficial abrasion with minimal erythema surrounding. Neurologic--cranial nerves II through XII grossly intact. Rheumatologic--severely decreased normal range of motion due to lymphedema. Psychiatric--normal affect. Assessment and Plan: 1. Recurrent right lower extremity cellulitis with surface abrasion, undergoing his usual wound care by his mother, initially trained by the wound care center. The patient prefers to go home, and clinically looks well enough to go home. He'll be discharged on Augmentin elixir take 1000 mg by mouth twice a day. He'll follow-up with the wound care center in 2 days, and in the interim will have dressing changes performed as trained. Patient will return to the symptoms worsen despite this therapy. The patient and his mother are in agreement with the plan to naproxen supposed for the patient to go home.
[2016-10-19 05:19] VITALS: BP 119/66; PULSE 92; TEMP 37.3; O2SAT 99
[2016-10-19] MEDS ORDERED: AGMUDL4005 PO (05:29)
--- NOTE | 2016-10-19 05:31 | EMERGENCY ROOM VISIT NOTE ---
History First contact with patient: 01:33 Chief Complaint: INFECTION Stated Complaint: INFECTION IN RT LEG,FEVER,CHILLS,PAIN Nursing Triage Summary: "I think I got another infection". right inner thigh, opened area. associated fever, chills, groin pain. Noticed it today. Took Tylenol around 2200. Hx of Staph infections to legs History of Present Illness The patient is a 35 year old male who presents to the Emergency Room with complaints of recurrent right thigh cellulitis with fever and chills for the past day. Tmax 102. Patient took Tylenol earlier this evening. He is not currently on antibiotics. He follows with the wound care clinic. Patient has chronic lymphedema and has a wound ulcer to the right thigh region. Patient denies chest pain, dyspnea, cough, congestion, abdominal pain, vomiting , diarrhea. Patient states he feels as if his cellulitis is back again and feels exhausted with this. Review of Systems See HPI for pertinent positives & negatives. A total of 10 systems reviewed and were otherwise negative. Past Medical/Surgical History Medical Problems: (1) Ambulatory dysfunction (2) Cellulitis (3) Cellulitis of thigh (4) Fever (5) Gall bladder disease (6) Leukocytosis (7) Lymphedema of lower extremity (8) Ulcer of right leg Surgical Problems: (1) H/O gastric bypass Family History Diabetes mellitus FHx: obesity Heart disease Hypertension Kidney stones Social History Smoking Status: Never Smoker Alcohol Use: occasionally Drug Use: none Marital Status: single Housing Status: lives with family Occupation Status: unemployed Current/Historical Medications Scheduled Amoxicillin/Clavulanate Potas (Augmentin 400MG/5ML), 12.5 ML PO BID Scheduled PRN Esomeprazole Magnesium (Nexium), 20 MG PO DAILY PRN for Heartburn Hydrocodone/Acetaminophen 10MG/325MG ([place] 10MG/325MG), 2 TAB PO QID PRN for Pain Physical Exam Vital Signs Date Time Temp Pulse Resp B/P (MAP) Pulse Ox O2 Delivery O2 Flow Rate FiO2 10/19/16 05:19 37.3 92 20 119/66 99 Room Air 10/19/16 02:37 37.1 85 20 129/68 99 Room Air 10/19/16 02:31 99 Room Air 10/19/16 01:30 36.8 91 18 132/84 99 Room Air Physical Exam VITALS: Vitals are noted on the nurse's note and reviewed by myself. Vital signs stable. GENERAL: Pleasant male, in no acute distress, nondiaphoretic, well-developed well-nourished. SKIN: Right inner thigh erythematous and edematous with minimal drainage with extensive cellulitis without lymphangitis . Left thigh is slightly erythematous and with extensive edema which is chronic per patient The rest of the skin was without rashes, erythema, edema, or bruising. There is no tenting of the skin. Capillary reflex less than 2 seconds. HEAD: Normocephalic atraumatic. EARS: External auditory canals clear, tympanic membranes pearly givens without erythema or effusion bilaterally. EYES: Pupils equal round and reactive to light and accommodation. Conjunctivae without injection, sclerae without icterus. Extraocular movements intact. NOSE: Patent, turbinates without inflammation or discharge. MOUTH: Mucous membranes moist. Pharynx without erythema or exudate. Uvula midline. Airway patent. Tongue does not deviate. NECK: Supple without nuchal rigidity. No lymphadenopathy. No thyromegaly. Cervical spine is nontender. No JVD. HEART: Regular rate and rhythm without murmurs gallops or rubs. LUNGS: Clear to auscultation bilaterally without wheezes, rales or rhonchi. No dullness to percussion. No retractions or accessory muscle use. ABDOMEN: Positive bowel sounds x 4. Normal tympanic percussion. Soft, protuberant, obese, nontender, without masses or organomegaly. Bowden sign negative. No guarding or rebound tenderness. MUSCULOSKELETAL: No muscle atrophy noted. bilateral lower extremities with severe lymphedema, Right inner thigh erythematous and edematous with minimal drainage with extensive cellulitis without lymphangitis . Left thigh is slightly erythematous and with extensive edema which is chronic per patient NEURO: Patient was alert and oriented to person place and time. Normal sensation to light and sharp touch. No focal neurological deficits. Medical Decision & Procedures Laboratory Results 10/19/16 02:04 Red Blood Count 3.96, Mean Corpuscular Volume 92.7, Mean Corpuscular Hemoglobin 30.3, Mean Corpuscular Hemoglobin Concent 32.7, Mean Platelet Volume 11.1, Neutrophils (%) (Auto) 77.3, Lymphocytes (%) (Auto) 16.2, Monocytes (%) (Auto) 5.5, Eosinophils (%) (Auto) 0.4, Basophils (%) (Auto) 0.5, Neutrophils # (Auto) 6.52, Lymphocytes # (Auto) 1.36, Monocytes # (Auto) 0.46, Eosinophils # (Auto) 0.03, Basophils # (Auto) 0.04 10/19/16 02:04 Test 10/19/16 02:04 10/19/16 02:05 10/19/16 04:15 White Blood Count 8.42 K/uL (4.8-10.8) Red Blood Count 3.96 M/uL (4.7-6.1) Hemoglobin 12.0 g/dL (14.0-18.0) Hematocrit 36.7 % (42-52) Mean Corpuscular Volume 92.7 fL (80-100) Mean Corpuscular Hemoglobin 30.3 pg (25-34) Mean Corpuscular Hemoglobin Concent 32.7 g/dl (32-36) Platelet Count 186 K/uL (130-400) Mean Platelet Volume 11.1 fL (7.4-10.4) Neutrophils (%) (Auto) 77.3 % Lymphocytes (%) (Auto) 16.2 % Monocytes (%) (Auto) 5.5 % Eosinophils (%) (Auto) 0.4 % Basophils (%) (Auto) 0.5 % Neutrophils # (Auto) 6.52 K/uL (1.4-6.5) Lymphocytes # (Auto) 1.36 K/uL (1.2-3.4) Monocytes # (Auto) 0.46 K/uL (0.11-0.59) Eosinophils # (Auto) 0.03 K/uL (0-0.5) Basophils # (Auto) 0.04 K/uL (0-0.2) RDW Standard Deviation 51.3 fL (36.4-46.3) RDW Coefficient of Variation 15.1 % (11.5-14.5) Immature Granulocyte % (Auto) 0.1 % Immature Granulocyte # (Auto) 0.01 K/uL (0.00-0.02) Prothrombin Time 12.6 SECONDS (9.0-12.0) Prothromb Time International Ratio 1.2 (0.9-1.1) Activated Partial Thromboplast Time 29.3 SECONDS (21.0-31.0) Partial Thromboplastin Ratio 1.1 Anion Gap 4.0 mmol/L (3-11) Est Creatinine Clear Calc Drug Dose 100.0 ml/min Estimated GFR () 81.9 Estimated GFR (Non- 70.7 BUN/Creatinine Ratio 13.7 (10-20) Calcium Level 8.6 mg/dl (8.5-10.1) Total Bilirubin 0.5 mg/dl (0.2-1) Aspartate Amino Transf (AST/SGOT) 10 U/L (15-37) Alanine Aminotransferase (ALT/SGPT) 15 U/L (12-78) Alkaline Phosphatase 94 U/L (45-117) Total Protein 7.8 gm/dl (6.4-8.2) Albumin 3.4 gm/dl (3.4-5.0) Globulin 4.4 gm/dl (2.5-4.0) Albumin/Globulin Ratio 0.8 (0.9-2) Bedside Lactic Acid Venous 1.19 mmol/L (0.90-1.70) Urine Color YELLOW Urine Appearance CLEAR (CLEAR) Urine pH 5.0 (4.5-7.5) Urine Specific [place] 1.020 (1.000-1.030) Urine Protein NEG (NEG) Urine Glucose (UA) NEG (NEG) Urine Ketones NEG (NEG) Urine Occult Blood NEG (NEG) Urine Nitrite NEG (NEG) Urine Bilirubin NEG (NEG) Urine Urobilinogen NEG (NEG) Urine Leukocyte Esterase NEG (NEG) Urine WBC (Auto) 1-5 /hpf (0-5) Urine RBC (Auto) 0-4 /hpf (0-4) Urine Hyaline Casts (Auto) 0 /lpf (0-5) Urine Epithelial Cells (Auto) 5-10 /lpf (0-5) Urine Bacteria (Auto) NEG (NEG) Medications Administered Medications (Trade) Dose Ordered Sig/Sirisha Route Start Time Stop Time Status Last Admin Dose Admin Ceftriaxone Sodium (Rocephin Inj) 1 gm NOW STAT IV 10/19/16 01:44 10/19/16 01:48 DC 10/19/16 02:27 1 GM Vancomycin HCl 2800 mg/Sodium Chloride 556 ml @ 200 mls/hr ONE STAT IV 10/19/16 01:44 10/19/16 04:30 DC 10/19/16 02:28 200 MLS/HR Morphine Sulfate (MoRPHine SULFATE INJ) 4 mg NOW STAT IV 10/19/16 01:44 10/19/16 01:48 DC 10/19/16 02:28 4 MG Ondansetron HCl (Zofran Inj) 4 mg NOW STAT IV 10/19/16 01:44 10/19/16 01:48 DC 10/19/16 02:27 4 MG Sodium Chloride 1,000 ml @ 999 mls/hr Q1H1M STAT IV 10/19/16 01:44 10/19/16 02:44 DC 10/19/16 02:27 999 MLS/HR Sodium Chloride 1,000 ml @ 125 mls/hr Q8H STAT IV 10/19/16 01:44 10/19/16 09:43 10/19/16 04:45 125 MLS/HR ED Course Prior records reviewed and summarized as above. Triage Nursing notes reviewed. Additional history obtained from family The patient's history was concerning for swelling and redness of the skin. Differential diagnosis: Etiologies such as cellulitis, abscess, MRSA infection, DVT, necrotizing fasciitis, dermatitis, drug eruption, as well as others were entertained.. Physical examination: The physical examination was consistent with cellulitis ER treatment provided: Rocephin, vancomycin, Zofran, morphine, IV fluids On reassessment the patient felt better. Diagnostics interpreted by me: The labs revealed no leukocytosis. Chronic anemia unchanged from prior. Negative lactic acid Imaging studies: US VENOUS BILATERAL LOWER EXTREMITIES: Technically limited study due to body habitus. The calf veins are not adequately visualized. Otherwise, no evidence of DVT in lower extremities. Radiologist: Iadlia Valentin M.D. Chest x-ray with no acute consolidation, pneumothorax or free air per my interpretation Consultation: A consultation was placed with Dr. Cespedes, hospitalist. The case was discussed and diagnostics were reviewed. The patient was evaluated in the ER for further treatment. This appears to be isolated cellulitis. The cellulitis is quite extensive. Patient has a history of recurrent cellulitis to this leg. He was given antibiotics. Prior wound culture was reviewed and is sensitive to these antibiotics. Patient's been running fevers at home. He does have a negative lactic acid here. No leukocytosis. He will be evaluated by medicine for possible admission. Patient is requesting to try outpatient treatment. Hospitalist and myself that this is a reasonable option. Patient was placed on Augmentin and advised to see family care on Friday for a wound recheck and wound clinic this week. Case management will help facilitate the appointment with wound care. Patient sees him once a month. They will try to expedite his appointment. By the evaluation outlined above emergent etiologies such as abscess, necrotizing fasciitis, DVT, as well as others were deemed relatively unlikely. Patient was advised to return to the ER immediately for spreading infection, fevers, vomiting, worsening signs or symptoms or as needed. The pt informed about the findings as listed above. All questions were answered and pleased with the treatment. Patient was discharged home in stable condition. Medications: Augmentin Patient was referred back to the family care doctor and wound care clinic and 2- 3 days. Case reviewed by attending. Medical Decision As above Medication Reconcilliation Current Medication List: was personally reviewed by me Blood Pressure Screening Patient's blood pressure: Normal blood pressure Impression Primary Impression: Cellulitis of right leg Departure Information Dispostion Being Evaluated By Hospitalist Condition GOOD Prescriptions Amoxicillin/Clavulanate Potas (AUGMENTIN 400MG/5ML) 400 Mg/5 Ml Susp 12.5 ML PO BID for 14 Days, #350 ML Prov: Melina Muñoz ., KASHIF 10/19/16 Referrals Mine Davis MD (PCP) Patient Instructions My [facility]
--- NOTE | 2016-10-19 07:04 | DIAGNOSTIC IMAGING REPORT ---
BILATERAL LOWER EXTREMITY VENOUS DOPPLER HISTORY: Bilateral leg pain/swelling COMPARISON STUDY: None. FINDINGS: There is normal compressibility, flow, and augmentation within the visualized bilateral lower extremity deep venous systems. Of note, the study is suboptimal for technical standpoint due to the patient's body habitus and suboptimal visualization of the calf veins. IMPRESSION: No DVT within the right or left lower extremity. Electronically signed by: Marshall Adams M.D. 10/19/2016 7:02 AM Dictated Date/Time: 10/19/2016 7:01 AM
--- NOTE | 2016-10-19 07:54 | DIAGNOSTIC IMAGING REPORT ---
CHEST ONE VIEW PORTABLE HISTORY: Sepsis COMPARISON: Chest 10/16/2015. FINDINGS: The lungs are clear. Cardiac silhouette is normal in size. No pleural effusions. No pneumothorax. IMPRESSION: No acute process. Electronically signed by: Marshall Adams M.D. 10/19/2016 7:52 AM Dictated Date/Time: 10/19/2016 7:52 AM
[2016-11-02] MEDS ORDERED: CEPH500C2 PO (15:47)
[2016-12-12] MEDS ORDERED: CEPH500C2 PO (15:24)
== END 2016-10-19 05:58 | disposition home or self-care (01) ==
LOC: C.EDB 01:23
DX: L03.115 Cellulitis of right lower limb (principal); I89.0 Lymphedema, not elsewhere classified; Z98.84 Bariatric surgery status; Z83.3 Family history of diabetes mellitus; Z82.49 Family history of ischemic heart disease and other diseases of the circulatory system; Z84.1 Family history of disorders of kidney and ureter; E66.9 Obesity, unspecified

== ENCOUNTER 2016-11-02 17:05 | Emergency (ER) | payer OTHER ==
[~2016-11-02 17:05] MED LIST changes: +CEPH500C2 PO; -CHOL200010 PO; +ESOM20CA PO; -LCTX PO; -TEST1INJ6 IM
[2016-11-02 17:14] VITALS: TEMP 36.7; Ht 157.5 cm
[2016-11-02] MEDS ORDERED: LIDOCAINE/EPINEPHRINE 1% 20 ML VIAL INFIL STA (17:40)
[2016-11-02] MEDS ORDERED: IBUPROFEN 600 MG TAB PO STA (17:40)
[2016-11-02] MEDS ORDERED: PERCOCET HOME PACK PO STA (17:44)
[2016-11-02] MEDS ORDERED: SULFAMETHOXAZOLE/TRIMETHOPRIM DS 800/160MG TAB PO STA (17:44)
[2016-11-02] MEDS ORDERED: OXYCODONE/ACETAMINOPHEN 5-325 TAB PO ONE (17:45)
[2016-11-02] MEDS ORDERED: SEPTRA DS HOME PACK 1 EA VIAL PO ONE (17:45)
--- NOTE | 2016-11-02 17:45 | EMERGENCY ROOM VISIT NOTE ---
History Report prepared by Kayce: Laurel Penny Under the Supervision of: Dr. Didier Fleming M.D. First contact with patient: 17:16 Chief Complaint: RECTAL PAIN Stated Complaint: PAIN ON ANUS Nursing Triage Summary: triage note; pt reports "i have had pain at my anus, there is a lump and it is getting bigger." pt reports he first noticed pain 5 days ago. pt denies any drainage. pt reports "i have been having diarrhea i am on an antibiotic." pt reports "i go to the wound center for a wound on the back of my leg." History of Present Illness The patient is a 35 year old male who presents to the Emergency Room with complaints of persistent rectal pain that began one week ago. He currently rates his discomfort as a 5/10 in severity. Per the patient's mother, the patient noticed a lump to his rectum, and notes that it is growing. The patient 's mother states that the patient has a history of hemorrhoids, but notes that this is not a hemorrhoid. She states that the patient follows with the wound clinic for wounds to the back of his leg. The patient's mother states that the patient is currently on Keflex for the wound. The patient reports diarrhea. Source of History: patient Onset: one week ago Position: other (rectal) Symptom Intensity: 5/10 Timing: other (persistent) Associated Symptoms: + diarrhea Review of Systems See HPI for pertinent positives & negatives. A total of 10 systems reviewed and were otherwise negative. Past Medical & Surgical Medical Problems: (1) Ambulatory dysfunction (2) Cellulitis (3) Cellulitis of thigh (4) Fever (5) Gall bladder disease (6) Leukocytosis (7) Lymphedema of lower extremity (8) Ulcer of right leg Surgical Problems: (1) H/O gastric bypass Family History Diabetes mellitus FHx: obesity Heart disease Hypertension Kidney stones Social History Smoking Status: Never Smoker Alcohol Use: occasionally Drug Use: none Marital Status: single Housing Status: lives with family Occupation Status: unemployed Current/Historical Medications Scheduled Cephalexin Monohydrate (Keflex), 500 MG PO TID Docusate Sodium (Colace), 1 CAP PO BID Senna (Senokot), 1 TAB PO HS Sulfa/Trimethoprim (Bactrim Ds 800MG/160MG), 1 TAB PO BID Scheduled PRN Hydrocodone/Acetaminophen 10MG/325MG ([place] 10MG/325MG), 2 TABS PO QID PRN for Pain Oxycodone/Acetaminophen 5MG/325MG (Percocet 5MG/325MG), 1-2 TAB PO Q4H PRN for Pain Allergies Coded Allergies: Daptomycin (Verified Allergy, Intermediate, RASH, EOSINOPHILIA, 10/19/16) cbc with eosinophilia supporting drug reaction to daptomycin Zinc Oxide (Verified Allergy, Unknown, RASH, 10/19/16) TOPICAL Physical Exam Vital Signs Date Time Temp Pulse Resp B/P (MAP) Pulse Ox O2 Delivery O2 Flow Rate FiO2 11/02/16 19:28 73 18 127/84 97 11/02/16 17:14 36.7 71 18 139/87 98 Room Air Physical Exam GENERAL: Patient is a healthy-appearing well-nourished male HEAD: Normocephalic atraumatic EYES: Ocular movements intact pupils equal and react to light OROPHARYNX mucous membranes are moist no exudates present no erythema or edema present NECK: Supple no nuchal rigidity CHEST: Good equal expansion LUNGS: Clear and equal to auscultation CARDIAC: Normal S1 and S2 ABDOMEN: Soft nontender no guarding BACK: No CVA tenderness RECTAL: Quarter size pilonidal cyst to the left buttock area that is fluctuant in nature. No pain on rectal examination, no pain with defecation. EXTREMITIES: No pain upon palpation normal muscle strength in all groups no clubbing cyanosis or edema NEURO: Patient is following commands and answering questions appropriately. Alert and oriented x3 Cranial Nerves 2-12 grossly intact Medical Decision & Procedures Medications Administered Medications (Trade) Dose Ordered Sig/Sirisha Route Start Time Stop Time Status Last Admin Dose Admin Ibuprofen (Motrin Tab) 600 mg NOW STAT PO 11/02/16 17:40 11/02/16 17:42 DC 11/02/16 18:14 600 MG Oxycodone/ Acetaminophen (Percocet 5-325mg Tab) 2 tab NOW ONCE PO 11/02/16 17:45 11/02/16 17:46 DC 11/02/16 18:14 2 TAB Trimethoprim/ Sulfamethoxazole (Sulfameth/ Trimeth Ds 800/ 160MG Home Pack) 1 homepack UD ONCE PO 11/02/16 17:45 11/02/16 17:46 DC 11/02/16 18:22 1 HOMEPACK Trimethoprim/ Sulfamethoxazole (Septra Ds 800/ 160MG Tab) 1 tab NOW STAT PO 11/02/16 17:44 11/02/16 17:46 DC 11/02/16 18:13 1 TAB Oxycodone/ Acetaminophen (Percocet 5/ 325MG Home Pack) 1 homepack UD STAT PO 11/02/16 17:44 11/02/16 17:46 DC 11/02/16 18:23 1 HOMEPACK Procedure Incision & Drainage Indication: Abscess Location: Left gluteus Verbal consent was obtained after the risks and benefits were explained, including but not limited to bleeding, scarring, infection, pain, and bone/joint /nerve damage. At this time, the risks of the procedure are less than the risks of NOT performing the procedure. A time out was taken and the correct patient and site identified. The skin was prepped with betadine and a sterile field set. The wound was anesthetized with 4 ml of 1% lidocaine without epinephrine. The abscess cavity was entered with an 18 sloane needle and purulent material expressed. Copious irrigation was performed using 500 cc of normal saline. The wound was explored for foreign bodies and none found. Debridement was not performed. Packing placed and a sterile dressing applied. Detailed wound care instructions and signs and symptoms of worsening infection reviewed with the patient. No complications and the patient tolerated the procedure well. ED Course 1717: Past medical records reviewed. The patient was evaluated in room B2. A complete history and physical examination was performed. 0: Ordered Ibuprofen 600 mg PO, Lidocaine/Epinephrine 20 ml INFIL. 1743: Ordered Oxycodone/Acetaminophen 1 homepack PO, Trimethoprim/ Sulfamethoxazole 1 tab PO, Trimethoprim/Sulfamethoxazole 1 homepack PO, Oxycodone/Acetaminophen 2 tab PO. 1835: At this time, I performed the I&D on the patient. See procedure note for further detail. 1901: I reevaluated the patient and he is resting comfortably. I discussed the exam findings with him and I discussed the treatment plan. He verbalized complete understanding and agreement. He is ready to go home shortly. Medical Decision Differential Diagnosis includes pilonidal cyst. This is a 35-year-old male who presents emergency department complaining of rectal pain. I will note that the patient has no pain on digital rectal exam. In addition he is not having any pain defecating. For these reasons I felt that the abscess can be drained in the emergency department. He is given Motrin and Percocet for the pain and will be started on Bactrim. The patient is alert on Keflex. The abscess cavity was drained as above. The patient is already a patient of wound clinic and therefore will follow-up with wound clinic. Patient was in agreement with the treatment plan. Medication Reconcilliation Current Medication List: was personally reviewed by me Blood Pressure Screening Patient's blood pressure: Elevated blood pressure Blood pressure disposition: Referred to PCP Impression Primary Impression: Abscess, gluteal, left Scribe Attestation The scribe's documentation has been prepared under my direction and personally reviewed by me in its entirety. I confirm that the note above accurately reflects all work, treatment, procedures, and medical decision making performed by me. Departure Information Dispostion Home / Self-Care Prescriptions Docusate Sodium (COLACE) 100 Mg Cap 1 CAP PO BID for 10 Days, #20 CAP Prov: Didier Fleming MD 11/02/16 Senna (Senokot) 8.6 Mg Tab 1 TAB PO HS for 10 Days, #10 TAB Prov: Didier Fleming MD 11/02/16 Oxycodone/Acetaminophen 5MG/325MG (PERCOCET 5MG/325MG) Tab 1-2 TAB PO Q4H Y for Pain, #14 TAB Prov: Didier Fleming MD 11/02/16 Sulfa/Trimethoprim (Bactrim Ds 800MG/160MG) Tab 1 TAB PO BID for 10 Days, #20 TAB Prov: Didier Fleming MD 11/02/16 Referrals Mine Davis MD (PCP) Forms HOME CARE DOCUMENTATION FORM, IMPORTANT VISIT INFORMATION, WORK / SCHOOL INSTRUCTIONS Patient Instructions ED Cyst Pilonidal Infec Abx Only, My [facility] Additional Instructions Follow up with wound clinic friday Continue Keflex You were found to have an elevated blood pressure today (>120 sytolic or >90 diastolic). Per medicare guidelines, you need to follow up with this blood pressure screening with your Primary Care Physician (PCP). For a new PCP call [phone]. You received narcotic or benzodiazepene medication while in the emergency room today. Do not drive, operate heavy machinery, or drink alcohol under the influence of this medication. Take 600 mg Ibuprofen every 6 hours Take Percocet for breakthrough pain Culture results are usually available in approx 48 hours You have been examined and treated today on an emergency basis only. This is not a substitute for, or an effort to provide, complete comprehensive medical care. It is impossible to recognize and treat all injuries or illnesses in a single emergency department visit. It is therefore important that you follow up closely with Dr Davis. Call as soon as possible for an appointment. Thank you for your time and consideration. I look forward to speaking with you again soon. Please don't hesitate to call us if you have any questions.
[2016-11-02] MEDS ORDERED: OXYC-57 PO (18:59)
[2016-11-02] MEDS ORDERED: DOCU-94 PO (18:59)
[2016-11-02] MEDS ORDERED: SULF800T23 PO (18:59)
[2016-11-02] MEDS ORDERED: SENN-61 PO (18:59)
[2016-11-02 19:28] VITALS: BP 127/84; PULSE 73; O2SAT 97
[2016-11-02] MEDS ORDERED: HYDR-4079 PO (20:32)
[2016-12-12] MEDS ORDERED: CEPH500C2 PO (15:24)
== END 2016-11-02 19:28 | disposition home or self-care (01) ==
LOC: C.EDB 17:09
DX: L02.31 Cutaneous abscess of buttock (principal); K82.9 Disease of gallbladder, unspecified; Z86.19 Personal history of other infectious and parasitic diseases; Z79.899 Other long term (current) drug therapy; Z88.8 Allergy status to other drugs, medicaments and biological substances; Z98.84 Bariatric surgery status; Z83.3 Family history of diabetes mellitus; Z82.49 Family history of ischemic heart disease and other diseases of the circulatory system; Z84.1 Family history of disorders of kidney and ureter

== ENCOUNTER 2016-12-02 18:35 | Inpatient (IN) | payer OTHER ==
[~2016-12-02] VITALS: Ht 157.5 cm; Wt 163.5 kg
[~2016-12-02 18:35] MED LIST changes: -ESOM20CA PO; +HYDR-4079 PO; +OXYC-57 PO
[2016-12-02] MEDS ORDERED: IBUPROFEN 200 MG TAB PO STA (19:51)
[2016-12-02] MEDS ORDERED: ACETAMINOPHEN 500 MG TAB PO STA (19:51)
[2016-12-02] MEDS ORDERED: SODIUM CHLORIDE 0.9% 500ML 500 ML IV STA (19:51)
[2016-12-02] MEDS ORDERED: CLINDAMYCIN IV 900 MG in DEXTROSE 5% 100ML 100 ML IV ONE (20:00)
[2016-12-02 20:18] LABS: BASO % 0.1 %; BASO ABS # 0.02 K/uL (0-0.2); COMPLETE YES; EOS % 0.1 %; HEMATOCRIT 38.8 % (42-52); IG% 0.4 %; LYMPH ABS # 0.86 K/uL (1.2-3.4); MEAN CELL VOLUME 90.7 fL (80-100); MEAN CORPUSCULAR HEMOGLOBIN 30.4 pg (25-34); MEAN CORPUSCULAR HGB CONC 33.5 g/dl (32-36); MEAN PLATELET VOLUME 11.5 fL (7.4-10.4); MONO % 2.7 %; NEUT % 91.7 %; PLATELET COUNT 196 K/uL (130-400); RED BLOOD COUNT 4.28 M/uL (4.7-6.1); WHITE BLOOD COUNT 17.05 K/uL (4.8-10.8)
[2016-12-02] MEDS ORDERED: TESTOSTERONE INJ INJ (20:23)
[2016-12-02 20:39] LABS: BUN/CREATININE RATIO 13.6 (10-20); CREATININE 0.9 mg/dl (0.60-1.40); POTASSIUM 3.9 mmol/L (3.5-5.1)
[2016-12-02] MEDS ORDERED: MoRPHine SULFATE 4 MG/ML 1 ML CARP\\VIAL IV STA (22:01)
--- NOTE | 2016-12-02 22:07 | DIAGNOSTIC IMAGING REPORT ---
ULTRASOUND VENOUS DOPPLER ULTRASOUND OF THE RIGHT LOWER EXTREMITY CLINICAL HISTORY: Right lower extremity pain and swelling COMPARISON STUDY: 10/18/2013 FINDINGS: Real-time and color flow Doppler imaging were performed. Flow was seen within the femoral, popliteal and calf veins with no intraluminal thrombus demonstrated. The saphenous vein is patent. It should be noted the study was difficult from a technical standpoint due to the patient's body habitus. The calf veins were not well visualized. IMPRESSION: No evidence of right lower extremity DVT Electronically signed by: Ramirez Sood M.D. 12/02/2016 10:05 PM Dictated Date/Time: 12/02/2016 10:04 PM
--- NOTE | 2016-12-02 22:17 | DIAGNOSTIC IMAGING REPORT ---
ULTRASOUND OF THE RIGHT LOWER LEG CLINICAL HISTORY: Right calf pain. Wound. Possible abscess. COMPARISON STUDY: No previous studies for comparison. FINDINGS: Ultrasonographic evidence of the right posterior calf reveals diffuse edema. There are no fluid collections to indicate an abscess. IMPRESSION: No ultrasonographic evidence of a focal calf abscess. Electronically signed by: Ramirez Sood M.D. 12/02/2016 10:16 PM Dictated Date/Time: 12/02/2016 10:15 PM
--- NOTE | 2016-12-02 22:34 | History and Physical ---
History & Physical Date & Time of Service: Dec 02, 2016 at 22:28 Chief Complaint: Cellulitis R Leg Primary Care Physician: Mine Davis MD History of Present Illness Source: patient 35 y/o M Hx chronic LE lymphedema and recurrent cellulitis which frequently requires hospitalization. The pt was last admitted 08/24 with RLE cellulitis. He has a nonhealing wound on his R thigh which has been present for a few years , and follows up at a wound clinic and with the infectious disease service regularly. He developed redness, warmth and pain over his R thigh in a circumferential pattern over the last 2-3 days. He describes chills - denies SOB, N/V/D or dysuria. The pt has leukocytosis and a fever at the time of evaluation. Past Medical/Surgical History Medical Problems: (1) Cellulitis - chronic recurrent (2) Gall bladder disease (3) Lymphedema of lower extremity (4) Ulcer of right leg Surgical Problems: (1) H/O gastric bypass Status: Resolved Family History Diabetes mellitus FHx: obesity Heart disease Hypertension Kidney stones Social History Smoking Status: Never Smoker Drug Use: none Marital Status: single Housing status: lives with family Occupational Status: unemployed Immunizations History of Tetanus Vaccine?: Unknown History of Pneumococcal: Unknown History of Hepatitis B Vaccine: Unknown Multi-Drug Resistant Organisms History of MDRO: No Allergies Coded Allergies: Amoxicillin (Verified Allergy, Severe, BLISTERS & SORES IN MOUTH, 12/02/16) Sulfa Antibiotics (Verified Allergy, Severe, BLISTERS & SORES IN MOUTH, ) Daptomycin (Verified Allergy, Intermediate, RASH, EOSINOPHILIA, 10/19/16) cbc with eosinophilia supporting drug reaction to daptomycin Zinc Oxide (Verified Allergy, Unknown, RASH, 10/19/16) TOPICAL Home Medications Scheduled [Testosterone Inj], 1 DOSE INJ MONTHLY Scheduled PRN Hydrocodone/Acetaminophen 10MG/325MG ([place] 10MG/325MG), 2 TABS PO QID PRN for Pain Review of Systems Constitutional: + fever, + chills, + sweats Eyes: No worsening of vision ENT: No hearing loss, No unusual epistaxis, No nasal symptoms Respiratory: No cough, No wheezing Cardiovascular: No chest pain, No orthopnea, No PND Abdomen: No nausea, No vomiting Musculoskeletal: + problem reported ([place] extremity pain), No joint pain Genitourinary - Male: No hematuria, No dysuria Neurologic: No memory loss, No paralysis, No weakness Psychiatric: No depression symptoms Endocrine: No fatigue Hematologic / Lymphatic: No abnormal bleeding/bruising Allergic / Immunologic: No environmental allergies Physical Exam Vital Signs Date Time Temp Pulse Resp B/P (MAP) Pulse Ox O2 Delivery O2 Flow Rate FiO2 12/02/16 21:00 75 16 134/76 98 Room Air 12/02/16 19:00 37.2 101 20 129/71 100 Room Air General Appearance: WD/WN, no apparent distress Head: normocephalic Eyes: normal inspection ENT: normal ENT inspection, hearing grossly normal Neck: supple, no adenopathy Respiratory/Chest: lungs clear Cardiovascular: regular rate, rhythm, no edema, no gallop Abdomen/GI: normal bowel sounds, non tender, soft Back: normal inspection, no CVA tenderness Extremities/Musculoskelatal: + pedal edema, + pertinent finding (Profound lymphedema B/L - cellulitis extending from ulcer on R thigh > 40cm accross) Neurologic/Psych: row boss II-XII nml as tested, no motor/sensory deficits, alert, normal mood/affect, normal reflexes, oriented x 3 Skin: + pertinent finding (cellulitis extending from ulcer on R thigh > 40cm accross) Diagnostics Laboratory Results Results Past 24 Hours Test 12/02/16 20:10 12/02/16 20:13 Range/Units White Blood Count 17.05 4.8-10.8 K/uL Red Blood Count 4.28 4.7-6.1 M/uL Hemoglobin 13.0 14.0-18.0 g/dL Hematocrit 38.8 42-52 % Mean Corpuscular Volume 90.7 80-100 fL Mean Corpuscular Hemoglobin 30.4 25-34 pg Mean Corpuscular Hemoglobin Concent 33.5 32-36 g/dl Platelet Count 196 130-400 K/uL Mean Platelet Volume 11.5 7.4-10.4 fL Neutrophils (%) (Auto) 91.7 % Lymphocytes (%) (Auto) 5.0 % Monocytes (%) (Auto) 2.7 % Eosinophils (%) (Auto) 0.1 % Basophils (%) (Auto) 0.1 % Neutrophils # (Auto) 15.64 1.4-6.5 K/uL Lymphocytes # (Auto) 0.86 1.2-3.4 K/uL Monocytes # (Auto) 0.46 0.11-0.59 K/uL Eosinophils # (Auto) 0.01 0-0.5 K/uL Basophils # (Auto) 0.02 0-0.2 K/uL RDW Standard Deviation 48.8 36.4-46.3 fL RDW Coefficient of Variation 14.8 11.5-14.5 % Immature Granulocyte % (Auto) 0.4 % Immature Granulocyte # (Auto) 0.06 0.00-0.02 K/uL Sodium Level 139 136-145 mmol/L Potassium Level 3.9 3.5-5.1 mmol/L Chloride Level 108 98-107 mmol/L Carbon Dioxide Level 24 21-32 mmol/L Anion Gap 7.0 3-11 mmol/L Blood Urea Nitrogen 12 7-18 mg/dl Creatinine 0.90 0.60-1.40 mg/dl Est Creatinine Clear Calc Drug Dose 135.8 ml/min Estimated GFR () 126.9 Estimated GFR (Non- 109.5 BUN/Creatinine Ratio 13.6 10-20 Random Glucose 104 70-99 mg/dl Calcium Level 9.0 8.5-10.1 mg/dl Impression Assessment and Plan 35 y/o M Hx chronic LE lymphedema and recurrent cellulitis which frequently requires hospitalization. The pt was last admitted 08/24 with RLE cellulitis. He has a nonhealing wound on his R thigh which has been present for a few years , and follows up at a wound clinic and with the infectious disease service regularly. He developed redness, warmth and pain over his R thigh in a circumferential pattern over the last 2-3 days. He describes chills - denies SOB, N/V/D or dysuria. The pt has leukocytosis and a fever at the time of evaluation. 1) Cellulitis - Previous wound cultures revealed MSSA although most recent cultures have been negative. We will start Vanc and Clinda pending ID evaluation. We will consult wound care as well. 2) Lymphedema - severe - states has not had success in treating - should follow with a lymphedema clinic on discharge. 2) Morbid obesity - may benefit from nutritional counseling prior to discharge. Full code - Heparin prophylaxis Total time for this admit including review of labs, meds, records - discussion with pt and ER attending - 35 min Level of Care Med/Surg Resuscitation Status FULL RESUSCITATION VTE Prophylaxis Given or contraindicated: Unfractionated heparin SQ
--- NOTE | 2016-12-02 22:35 | EMERGENCY ROOM VISIT NOTE ---
History Report prepared by Kayce: Hemant Ash Under the Supervision of: Dr. Marcial Swanson M.D. First contact with patient: 19:33 Chief Complaint: LEG PAIN,LEG INJURY Stated Complaint: CELLULITIS R LEG History of Present Illness The patient is a 36 year old white male with a past medical history of lymphedema who presents to the ED with a cc of a worsening right leg infection beginning today. Positive fever of 101 degrees and chills. Negative drainage. Has had problems with swelling in his legs for the past 16 years. History of frequent skin infections of his legs. Most recent cellulitis was last month. Has been changing dressing on leg daily, but has not changed it yet today. Source of History: patient Onset: Today Position: leg (right) Quality: other (infection) Timing: worsening Associated Symptoms: + fevers (101 degrees), + chills Note: Negative: drainage. Review of Systems See HPI for pertinent positives and negatives. A total of ten systems were reviewed and were otherwise negative. Past Medical & Surgical Medical Problems: (1) Ambulatory dysfunction (2) Cellulitis (3) Cellulitis of thigh (4) Fever (5) Gall bladder disease (6) Leukocytosis (7) Lymphedema of lower extremity (8) Ulcer of right leg Surgical Problems: (1) H/O gastric bypass Family History Diabetes mellitus FHx: obesity Heart disease Hypertension Kidney stones Social History Smoking Status: Never Smoker Alcohol Use: occasionally Drug Use: none Marital Status: single Housing Status: lives with family Occupation Status: unemployed Current/Historical Medications Scheduled [Testosterone Inj], 1 DOSE INJ MONTHLY Scheduled PRN Hydrocodone/Acetaminophen 10MG/325MG ([place] 10MG/325MG), 2 TABS PO QID PRN for Pain Allergies Coded Allergies: Amoxicillin (Verified Allergy, Severe, BLISTERS & SORES IN MOUTH, 12/02/16) Sulfa Antibiotics (Verified Allergy, Severe, BLISTERS & SORES IN MOUTH, ) Daptomycin (Verified Allergy, Intermediate, RASH, EOSINOPHILIA, 10/19/16) cbc with eosinophilia supporting drug reaction to daptomycin Zinc Oxide (Verified Allergy, Unknown, RASH, 10/19/16) TOPICAL Physical Exam Vital Signs Date Time Temp Pulse Resp B/P (MAP) Pulse Ox O2 Delivery O2 Flow Rate FiO2 12/02/16 22:46 72 16 124/72 98 Room Air 12/02/16 21:00 75 16 134/76 98 Room Air 12/02/16 19:00 37.2 101 20 129/71 100 Room Air Physical Exam GENERAL: Awake, alert, well-appearing, NAD. Morbidly obese. HENT: Normocephalic, atraumatic. EYES: Normal conjunctiva. Sclera non-icteric. NECK: Supple. No nuchal rigidity. FROM. RESPIRATORY: CTAB, no rhonchi, wheezing, crackles CARDIAC: RRR, no MRG ABDOMEN: Soft, NTND, BS+ MSK: No chest wall TTP, no LE edema. Large amount of lymph edema to the bilateral lower extremities. NEURO: GCS 15, CN 2-12 intact, moves all 4s on command SKIN: No rash or jaundice noted. Stage 2 ulceration to the right calf with some blanching erythema and mild calor. Area of redness is greater than 10 centimeters. Medical Decision & Procedures ER Provider Diagnostic Interpretation: US: Radiology results as stated below per my review and radiologist interpretation ULTRASOUND VENOUS DOPPLER ULTRASOUND OF THE RIGHT LOWER EXTREMITY FINDINGS: Real-time and color flow Doppler imaging were performed. Flow was seen within the femoral, popliteal and calf veins with no intraluminal thrombus demonstrated. The saphenous vein is patent. It should be noted the study was difficult from a technical standpoint due to the patient's body habitus. The calf veins were not well visualized. IMPRESSION: No evidence of right lower extremity DVT Electronically signed by: Ramirez Sood M.D. 12/02/2016 10:05 PM ULTRASOUND OF THE RIGHT LOWER LEG FINDINGS: Ultrasonographic evidence of the right posterior calf reveals diffuse edema. There are no fluid collections to indicate an abscess. IMPRESSION: No ultrasonographic evidence of a focal calf abscess. Electronically signed by: Ramirez Sood M.D. 12/02/2016 10:16 PM Laboratory Results 12/02/16 20:10 Red Blood Count 4.28, Mean Corpuscular Volume 90.7, Mean Corpuscular Hemoglobin 30.4, Mean Corpuscular Hemoglobin Concent 33.5, Mean Platelet Volume 11.5, Neutrophils (%) (Auto) 91.7, Lymphocytes (%) (Auto) 5.0, Monocytes (%) (Auto) 2.7, Eosinophils (%) (Auto) 0.1, Basophils (%) (Auto) 0.1, Neutrophils # (Auto) 15.64, Lymphocytes # (Auto) 0.86, Monocytes # (Auto) 0.46, Eosinophils # (Auto) 0.01, Basophils # (Auto) 0.02 12/02/16 20:13 Test 12/02/16 20:10 12/02/16 20:13 White Blood Count 17.05 K/uL (4.8-10.8) Red Blood Count 4.28 M/uL (4.7-6.1) Hemoglobin 13.0 g/dL (14.0-18.0) Hematocrit 38.8 % (42-52) Mean Corpuscular Volume 90.7 fL (80-100) Mean Corpuscular Hemoglobin 30.4 pg (25-34) Mean Corpuscular Hemoglobin Concent 33.5 g/dl (32-36) Platelet Count 196 K/uL (130-400) Mean Platelet Volume 11.5 fL (7.4-10.4) Neutrophils (%) (Auto) 91.7 % Lymphocytes (%) (Auto) 5.0 % Monocytes (%) (Auto) 2.7 % Eosinophils (%) (Auto) 0.1 % Basophils (%) (Auto) 0.1 % Neutrophils # (Auto) 15.64 K/uL (1.4-6.5) Lymphocytes # (Auto) 0.86 K/uL (1.2-3.4) Monocytes # (Auto) 0.46 K/uL (0.11-0.59) Eosinophils # (Auto) 0.01 K/uL (0-0.5) Basophils # (Auto) 0.02 K/uL (0-0.2) RDW Standard Deviation 48.8 fL (36.4-46.3) RDW Coefficient of Variation 14.8 % (11.5-14.5) Immature Granulocyte % (Auto) 0.4 % Immature Granulocyte # (Auto) 0.06 K/uL (0.00-0.02) Prothrombin Time 12.5 SECONDS (9.0-12.0) Prothromb Time International Ratio 1.2 (0.9-1.1) Anion Gap 7.0 mmol/L (3-11) Est Creatinine Clear Calc Drug Dose 135.8 ml/min Estimated GFR () 126.9 Estimated GFR (Non- 109.5 BUN/Creatinine Ratio 13.6 (10-20) Calcium Level 9.0 mg/dl (8.5-10.1) Laboratory results reviewed by me Medications Administered Medications (Trade) Dose Ordered Sig/Sirisha Route Start Time Stop Time Status Last Admin Dose Admin Sodium Chloride 500 ml @ 500 mls/hr Q1H STAT IV 12/02/16 19:51 12/02/16 20:50 DC 12/02/16 20:27 500 MLS/HR Acetaminophen (Tylenol Tab) 1,000 mg NOW STAT PO 12/02/16 19:51 12/02/16 19:53 DC 12/02/16 20:25 1,000 MG Clindamycin Phosphate 900 mg/ Dextrose 106 ml @ 100 mls/hr ONE ONCE IV 12/02/16 20:00 12/02/16 21:03 DC 12/02/16 20:25 100 MLS/HR Morphine Sulfate (MoRPHine SULFATE INJ) 4 mg NOW STAT IV 12/02/16 22:01 12/02/16 22:03 DC 12/02/16 22:01 4 MG ECG Indication: other (infection) Rate (beats per minute): 99 Rhythm: normal sinus Findings: other (Normal intervals. Normal axis. No other STS changes or TWI.) ED Course 1942: The patient was evaluated in room C1B. A complete history and physical exam was performed. 2239: Upon reexamination, the patient was resting comfortably. I discussed the test results and treatment plan with him. The patient will be evaluated for further management. Medical Decision The patient is a 36 year old white male with a past medical history of lymphedema who presents to the ED with a cc of a worsening right leg infection beginning today. Differential diagnosis includes but is not limited to; lymphedema, cellulitis, abscess, DVT, and MRSA. Patient was seen and evaluated the bedside. Patient does have significant lymphedema and is in prior issues with cellulitis. Patient stated he had a temperature 101. Patient had oratory work was also given clindamycin which was sensitive to this most recent skin culture. Patient also had soft tissue as well as DVT ultrasound completed. Patient's ultrasound did not show any drainable fluid collection over the was significant cobblestoning stent with soft tissue skin infection. No DVT identified. I spoke with the medicine team given the extensive cellulitis as well as lymphedema concerning for complicated cellulitis with a white blood cell count of 17. Patient was admitted to the medicine service. Medication Reconcilliation Current Medication List: was personally reviewed by me Blood Pressure Screening Patient's blood pressure: Normal blood pressure Blood pressure disposition: Did not require urgent referral Consults Time Called: 2202 Consulting Physician: Dr. Juan F PETERSON Returned Call: 0 Discussed the patient's case. The patient will be evaluated for further treatment and disposition. Impression Primary Impression: Cellulitis Additional Impression: Ulceration Scribe Attestation The scribe's documentation has been prepared under my direction and personally reviewed by me in its entirety. I confirm that the note above accurately reflects all work, treatment, procedures, and medical decision making performed by me. Departure Information Dispostion Being Evaluated By Hospitalist Referrals Mine Davis MD (PCP) Patient Instructions My [facility] Problem Qualifiers Primary Impression: Cellulitis Site of cellulitis: extremity Site of cellulitis of extremity: lower extremity Laterality: right Qualified Codes: L03.115 - Cellulitis of right lower limb
[2016-12-02] MEDS ORDERED: POLYETHYLENE (MIRALAX) 17 GM PACK PO PRN (23:00)
[2016-12-02] MEDS ORDERED: ONDANSETRON INJ 2 MG/ML 2 ML VIAL IV PRN (23:00)
[2016-12-02] MEDS ORDERED: OXYCODONE/ACETAMINOPHEN 10/325MG TAB PO PRN (23:00)
[2016-12-02] MEDS ORDERED: ZOLPIDEM TARTRATE 5 MG TAB PO PRN (23:00)
[2016-12-02] MEDS ORDERED: ACETAMINOPHEN 325 MG TAB PO PRN (23:00)
[2016-12-02] MEDS ORDERED: ALUMINUM/MAGNESIUM/SIMETH (MAALOX MAX) 30 ML UDC PO PRN (23:00)
[2016-12-02] MEDS ORDERED: MAGNESIUM HYDROXIDE SUSP 30 ML UDC PO PRN (23:00)
[2016-12-03] VITALS: BP 120/75; PULSE 66; TEMP 36.4; O2SAT 93
[2016-12-03] MEDS: HYDROCODONE/ACETAMI 10/325 TAB PO PRN ×4 (00:13→22:14)
[2016-12-03] MEDS ORDERED: VANCOMYCIN CONSULT ACTIVE PRN (00:30)
[2016-12-03] MEDS ORDERED: IV FLUIDS COMPLETED PRN (00:30)
[2016-12-03] MEDS ORDERED: SODIUM CHLORIDE 0.9% 1000ML 1,000 ML IV SCH (00:30)
[2016-12-03 00:50] LABS: INR 1.2 (0.9-1.1); PROTHROMBIN TIME (PATIENT) 12.5 SECONDS (9.0-12.0)
[2016-12-03] MEDS ORDERED: VANCOMYCIN INJ 2,750 MG in SODIUM CHLORIDE 0.9% 500ML 500 ML IV SCH (01:00)
[2016-12-03 01:19] VITALS: BP 137/78; PULSE 102; TEMP 37.2; O2SAT 98; Ht 157.5 cm; Wt 163.5 kg
[2016-12-03] MEDS ORDERED: CLINDAMYCIN IV 600 MG in DEXTROSE 5% 50ML 50 ML IV SCH (04:00)
[2016-12-03] MEDS: HEPARIN SOD 5000 UNIT/0.5 ML CARP SQ SCH ×3 (06:00→21:20)
[2016-12-03 06:37] LABS: CREATININE 0.83 mg/dl (0.60-1.40)
[2016-12-03 08:33] VITALS: BP 98/62; PULSE 88; TEMP 37.5; O2SAT 97
--- NOTE | 2016-12-03 09:09 | Pharmacy Progress Note ---
Pharmacy Abx Initial Consult Date of Service Dec 03, 2016. Pharmacy Dosing Scope Date of Consult: 12/03/16 Consultation requested by: Dr. Rogel Pharmacy is consulted to initiate vancomycin IV dosing therapy, order appropriate labs and adjust drug dose/frequency. Subjective The patient is a 36 year old male admitted on Dec 02, 2016 at 22:52. Objective Height (Feet): 5 Height (Inches): 2.00 Weight (Kilograms): 129.600 Vital Signs (Past 12Hrs) Vital Signs Past 12 Hours Date Time Temp Pulse Resp B/P (MAP) Pulse Ox O2 Delivery O2 Flow Rate FiO2 12/03/16 08:33 37.5 88 18 98/62 (74) 97 12/03/16 01:19 37.2 102 18 137/78 98 Room Air 12/02/16 23:20 38.3 101 22 110/79 98 Room Air 12/02/16 22:46 72 16 124/72 98 Room Air Lab Results (24Hrs) Laboratory Tests (24 Hours) Test 12/02/16 20:10 White Blood Count 17.05 K/uL (4.8-10.8) H Red Blood Count 4.28 M/uL (4.7-6.1) L Hemoglobin 13.0 g/dL (14.0-18.0) L Hematocrit 38.8 % (42-52) L Mean Corpuscular Volume 90.7 fL (80-100) Mean Corpuscular Hemoglobin 30.4 pg (25-34) Mean Corpuscular Hemoglobin Concent 33.5 g/dl (32-36) Platelet Count 196 K/uL (130-400) Mean Platelet Volume 11.5 fL (7.4-10.4) H Neutrophils (%) (Auto) 91.7 % Lymphocytes (%) (Auto) 5.0 % Monocytes (%) (Auto) 2.7 % Eosinophils (%) (Auto) 0.1 % Basophils (%) (Auto) 0.1 % Neutrophils # (Auto) 15.64 K/uL (1.4-6.5) H Lymphocytes # (Auto) 0.86 K/uL (1.2-3.4) L Monocytes # (Auto) 0.46 K/uL (0.11-0.59) Eosinophils # (Auto) 0.01 K/uL (0-0.5) Basophils # (Auto) 0.02 K/uL (0-0.2) Risk Factors for Resistance * Hospitalization for 48 hours or more within the past 90 days- goes to wound clinic * 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 Previous culture from August grew MSSA and Group B Beta Strep. Plan vancomycin for treatment of cellulitis Vancomycin IV * Loading dose: 2750 mg (21 mg/kg) * Maintenance dose: 1750 mg IV (13.5 mg/kg) every 12 hours (excellent data on previous admissions with this dosing) * Goal trough level for cellulitis : 10 to 15 mcg/mL (15-20 mcg/mL if MRSA isolated) * Trough ordered for 12/05/16 * A less than traditional dose has been selected due to likelihood of drug accumulation in obese patient. Pharmacy will continue to follow and will adjust dose/frequency as necessary. Thank you.
--- NOTE | 2016-12-03 09:43 | Hospitalist Progress Note ---
Hospitalist Progress Note Date of Service Dec 03, 2016. (Shari Vick ., RODOLFO) Subjective Pt evaluation today including: conversation w/ patient, physical exam, chart review, lab review, review of inpatient medication list Pain: 7/10 right leg cellulitis Voiding: no voiding problems Mr. Clark felt febrile over the night with chills that come and go. He has pain in his right leg where his cellulitis is that is the worst in between doses of [place] 7/10. He has not had any nausea or vomiting. Constitutional: + fever, + chills Respiratory: No cough, No sputum, No shortness of breath Cardiovascular: No chest pain Abdomen: No pain, No nausea, No vomiting, No diarrhea, No constipation Male : No dysuria All Other Systems: Reviewed and Negative (Shari Vick CRNP) Medications Medications (Trade) Dose Ordered Sig/Sirisha Route Start Time Stop Time Status Last Admin Dose Admin Sodium Chloride 500 ml @ 500 mls/hr Q1H STAT IV 12/02/16 19:51 12/02/16 20:50 DC 12/02/16 20:27 500 MLS/HR Acetaminophen (Tylenol Tab) 1,000 mg NOW STAT PO 12/02/16 19:51 12/02/16 19:53 DC 12/02/16 20:25 1,000 MG Clindamycin Phosphate 900 mg/ Dextrose 106 ml @ 100 mls/hr ONE ONCE IV 12/02/16 20:00 12/02/16 21:03 DC 12/02/16 20:25 100 MLS/HR Morphine Sulfate (MoRPHine SULFATE INJ) 4 mg NOW STAT IV 12/02/16 22:01 12/02/16 22:03 DC 12/02/16 22:01 4 MG Clindamycin Phosphate 600 mg/ Dextrose 54 ml @ 100 mls/hr Q8H IV 12/03/16 04:00 12/13/16 03:59 12/03/16 03:52 100 MLS/HR Sodium Chloride 1,000 ml @ 200 mls/hr Q5H IV 12/03/16 00:30 12/03/16 09:57 12/03/16 00:49 100 MLS/HR Acetaminophen/ Hydrocodone Bitart ([place] 10/325 Tab) 2 tab Q6H PRN PO 12/02/16 23:00 12/16/16 22:59 12/03/16 06:25 2 TAB Vancomycin HCl 2750 mg/Sodium Chloride 555 ml @ 200 mls/hr TODAY@0100 IV 12/03/16 01:00 12/03/16 03:47 DC 12/03/16 00:49 200 MLS/HR (Shari Vick, RODOLFO) Objective Vital Signs Date Time Temp Pulse Resp B/P (MAP) Pulse Ox O2 Delivery O2 Flow Rate FiO2 12/03/16 08:33 37.5 88 18 98/62 (74) 97 12/03/16 01:19 37.2 102 18 137/78 98 Room Air 12/02/16 23:20 38.3 101 22 110/79 98 Room Air 12/02/16 22:46 72 16 124/72 98 Room Air 12/02/16 21:00 75 16 134/76 98 Room Air 12/02/16 19:00 37.2 101 20 129/71 100 Room Air (Shari Vick, RODOLFO) Physical Exam Notes: General: no distress Eyes: normal inspection, PERLL Respiratory: chest non tender, clear to auscultation, normal breath sounds, no respiratory distress, no accessory muscle use Cardiac: regular rate and rhythm, no rub or gallop, no murmur, GI/: active bowel sounds, no abd pain or tenderness, soft, non distended Extremities: normal range of motion, normal strength, non tender Neuro/Psych: alert and oriented x 3, normal mood and affect Skin: right inner thigh warm to touch and firm, right upper posterior ulceration with serous/yellow drainage no odor noted, lower extremities edematous/obese bilaterally non pitting. (Shari Vick, RODOLFO) Laboratory Results Last 24 Hours Test 12/02/16 20:10 12/02/16 20:13 12/03/16 05:34 White Blood Count 17.05 K/uL Red Blood Count 4.28 M/uL Hemoglobin 13.0 g/dL Hematocrit 38.8 % Mean Corpuscular Volume 90.7 fL Mean Corpuscular Hemoglobin 30.4 pg Mean Corpuscular Hemoglobin Concent 33.5 g/dl Platelet Count 196 K/uL Mean Platelet Volume 11.5 fL Neutrophils (%) (Auto) 91.7 % Lymphocytes (%) (Auto) 5.0 % Monocytes (%) (Auto) 2.7 % Eosinophils (%) (Auto) 0.1 % Basophils (%) (Auto) 0.1 % Neutrophils # (Auto) 15.64 K/uL Lymphocytes # (Auto) 0.86 K/uL Monocytes # (Auto) 0.46 K/uL Eosinophils # (Auto) 0.01 K/uL Basophils # (Auto) 0.02 K/uL RDW Standard Deviation 48.8 fL RDW Coefficient of Variation 14.8 % Immature Granulocyte % (Auto) 0.4 % Immature Granulocyte # (Auto) 0.06 K/uL Prothrombin Time 12.5 SECONDS Prothromb Time International Ratio 1.2 Sodium Level 139 mmol/L Potassium Level 3.9 mmol/L Chloride Level 108 mmol/L Carbon Dioxide Level 24 mmol/L Anion Gap 7.0 mmol/L Blood Urea Nitrogen 12 mg/dl Creatinine 0.90 mg/dl 0.83 mg/dl Est Creatinine Clear Calc Drug Dose 135.8 ml/min 147.2 ml/min Estimated GFR () 126.9 131.2 Estimated GFR (Non- 109.5 113.2 BUN/Creatinine Ratio 13.6 Random Glucose 104 mg/dl Calcium Level 9.0 mg/dl (Shari Vick .RODOLFO) Assessment and Plan Mr. Clark is a 36 year old man here for recurrent cellulitis of the right leg secondary to chronic lymphedema and possible cat bite or scratch. Right leg recurrent cellulitis - Febrile over the night, ID following, antibiotics changed from clindamycin to ertapenem by ID. Pain 7/10, Toradol added to [place] for pain control. Non healing ulcer on right upper posterior leg - Wound care following, continue Aquacel dressings. Culture wound. Morbid obesity - dietitian consulted. DVT prophylaxis: subq heparin Codes status: full resuscitation (Shari Vick CRNP) Attending Attestation: Pt seen/examined, chart reviewed, care plan d/w ALESSANDRO Vick. I agree w/ the merino components of her documentation. Pt c/o pain in right thigh. Toradol earlier today made his stomach sick. No other complaints. Fever improved. VSS BPs low-normal earlier today gen - morbidly obese skin - severe stasis changes of b/l legs; posterior right thigh with ulceration , linear in shape, with yellow drainage but no odor; anterior right thigh with significant cellulitis/erythema/warmth/mild tenderness extremities - severe lymphedema of both legs heart - RRR lungs - CTA b/l A/P: sepsis 2nd to RLE cellulitis and superimposed infection of chronic posterior right thigh ulceration. appreciate ID consultation. defer abx management to ID. add dilaudid IV prn for dressing changes, etc. fluid rate increased to 200cc/hr due to low-normal BPs this am. DVT proph w/ heparin. Kian Chery MD (Kian Chery MD)
[2016-12-03] MEDS ORDERED: KETOROLAC TROMETHAMINE 30 MG/ML VIAL IV PRN (10:45)
--- NOTE | 2016-12-03 10:47 | Medical Consult ---
Consultation Date of Consultation: Dec 03, 2016. Attending Physician: Kian Chery MD Reason for Consultation: Recurrent cellulitis History of Present Illness 36-year-old male well known to me from previous infectious disease consultations and follow-up, [facility], with history of recurrent right lower extremity cellulitis in the setting of severe lymphedema and chronic skin changes. Patient states that for the past several days he has had progressively worsening redness and swelling of his right inner thigh associated with pain and low-grade fever. He reports that he may have had cat bite in the area. He eventually came to the emergency department and was admitted for acute cellulitis, and has been started on clindamycin and vancomycin and showing some clinical improvement. Has been tolerating antibiotics reasonably well. Currently afebrile. Past Medical/Surgical History Medical Problems: (1) Abscess, gluteal, left Status: Acute (2) Cellulitis of right leg Status: Acute (3) Cellulitis of right leg Status: Acute (4) Cellulitis of right leg Status: Acute (5) Cellulitis of right thigh Status: Acute (6) Flank pain Status: Acute (7) Hematuria Status: Acute (8) Lymphedema Status: Acute (9) Lymphedema Status: Acute (10) Sepsis Status: Acute (11) Sepsis Status: Acute (12) Tachycardia Status: Acute (13) Ulceration Status: Acute Medical Problems: (1) Ambulatory dysfunction (2) Cellulitis (3) Cellulitis of thigh (4) Fever (5) Gall bladder disease (6) Leukocytosis (7) Lymphedema of lower extremity (8) Ulcer of right leg Surgical Problems: (1) H/O gastric bypass Family History Diabetes mellitus FHx: obesity Heart disease Hypertension Kidney stones Social History Smoking Status: Never Smoker Drug Use: none Marital Status: single Housing Status: lives with family Occupation Status: unemployed Allergies Coded Allergies: Amoxicillin (Verified Allergy, Severe, BLISTERS & SORES IN MOUTH, 12/02/16) Sulfa Antibiotics (Verified Allergy, Severe, BLISTERS & SORES IN MOUTH, ) Daptomycin (Verified Allergy, Intermediate, RASH, EOSINOPHILIA, 10/19/16) cbc with eosinophilia supporting drug reaction to daptomycin Zinc Oxide (Verified Allergy, Unknown, RASH, 10/19/16) TOPICAL Current Inpatient Medications Current Inpatient Medications Medications (Trade) Dose Ordered Sig/Sirisha Route Start Time Stop Time Status Last Admin Dose Admin Clindamycin Phosphate 600 mg/ Dextrose 54 ml @ 100 mls/hr Q8H IV 12/03/16 04:00 12/13/16 03:59 12/03/16 03:52 100 MLS/HR Heparin Sodium (Porcine) (Heparin Sq 5000 Unit/0.5ml) 5,000 unit Q8H SQ 12/03/16 06:00 01/02/17 05:59 Acetaminophen (Tylenol Tab) 650 mg Q4H PRN PO 12/02/16 23:00 01/01/17 22:59 Al Hydrox/Mg Hydrox/Simethicone (Maalox Max Susp) 15 ml Q4H PRN PO 12/02/16 23:00 01/01/17 22:59 Magnesium Hydroxide (Milk Of Magnesia Susp) 30 ml Q6H PRN PO 12/02/16 23:00 01/01/17 22:59 Polyethylene (Miralax Powder Packet) 17 gm DAILY PRN PO 12/02/16 23:00 01/01/17 22:59 Zolpidem Tartrate (Ambien Tab) 5 mg HSZ PRN PO 12/02/16 23:00 01/01/17 22:59 Ondansetron HCl (Zofran Inj) 4 mg Q6H PRN IV 12/02/16 23:00 01/01/17 22:59 Acetaminophen/ Hydrocodone Bitart ([place] 10/325 Tab) 2 tab Q6H PRN PO 12/02/16 23:00 12/16/16 22:59 12/03/16 06:25 2 TAB Miscellaneous (Iv Fluids Completed) 1 ea PRN PRN N/A 12/03/16 00:30 12/03/17 00:29 Vancomycin HCl (Consult) 1 ea UD PRN N/A 12/03/16 00:30 01/02/17 00:29 Vancomycin HCl 1750 mg/Sodium Chloride 535 ml @ 200 mls/hr Q12H IV 12/03/16 16:00 12/13/16 15:59 Review of Systems All systems were reviewed and are negative except as per HPI Physical Exam Date Time Temp Pulse Resp B/P (MAP) Pulse Ox O2 Delivery O2 Flow Rate FiO2 12/03/16 08:33 37.5 88 18 98/62 (74) 97 12/03/16 01:19 37.2 102 18 137/78 98 Room Air 12/02/16 23:20 38.3 101 22 110/79 98 Room Air 12/02/16 22:46 72 16 124/72 98 Room Air 12/02/16 21:00 75 16 134/76 98 Room Air 12/02/16 19:00 37.2 101 20 129/71 100 Room Air General Appearance: WD/WN, no apparent distress Head: normocephalic, atraumatic Eyes: normal inspection, EOMI, sclerae normal ENT: normal ENT inspection, pharynx normal Neck: supple, no adenopathy, thyroid normal, trachea midline Respiratory/Chest: chest non-tender, lungs clear, normal breath sounds, no respiratory distress Cardiovascular: regular rate, rhythm, no gallop, no murmur Abdomen/GI: normal bowel sounds, non tender, soft, no organomegaly Back: normal inspection, no CVA tenderness Extremities/Musculoskelatal: no calf tenderness, + inflammation, + swelling Neurologic/Psych: alert, oriented x 3 Skin: normal color, + pertinent finding ( severe skin changes of lower extremities secondary to massive lymphedema, cellulitis of the right thigh) Lymphatic: no adenopathy Laboratory Results Last 24 Hours Test 12/02/16 20:10 12/02/16 20:13 12/03/16 05:34 White Blood Count 17.05 K/uL Red Blood Count 4.28 M/uL Hemoglobin 13.0 g/dL Hematocrit 38.8 % Mean Corpuscular Volume 90.7 fL Mean Corpuscular Hemoglobin 30.4 pg Mean Corpuscular Hemoglobin Concent 33.5 g/dl Platelet Count 196 K/uL Mean Platelet Volume 11.5 fL Neutrophils (%) (Auto) 91.7 % Lymphocytes (%) (Auto) 5.0 % Monocytes (%) (Auto) 2.7 % Eosinophils (%) (Auto) 0.1 % Basophils (%) (Auto) 0.1 % Neutrophils # (Auto) 15.64 K/uL Lymphocytes # (Auto) 0.86 K/uL Monocytes # (Auto) 0.46 K/uL Eosinophils # (Auto) 0.01 K/uL Basophils # (Auto) 0.02 K/uL RDW Standard Deviation 48.8 fL RDW Coefficient of Variation 14.8 % Immature Granulocyte % (Auto) 0.4 % Immature Granulocyte # (Auto) 0.06 K/uL Prothrombin Time 12.5 SECONDS Prothromb Time International Ratio 1.2 Sodium Level 139 mmol/L Potassium Level 3.9 mmol/L Chloride Level 108 mmol/L Carbon Dioxide Level 24 mmol/L Anion Gap 7.0 mmol/L Blood Urea Nitrogen 12 mg/dl Creatinine 0.90 mg/dl 0.83 mg/dl Est Creatinine Clear Calc Drug Dose 135.8 ml/min 147.2 ml/min Estimated GFR () 126.9 131.2 Estimated GFR (Non- 109.5 113.2 BUN/Creatinine Ratio 13.6 Random Glucose 104 mg/dl Calcium Level 9.0 mg/dl Assessment & Plan 36-year-old male with massive lymphedema and recurrent cellulitis now with cellulitis involving the right thigh, possibly in association with cat bite. Current antibiotic do not cover the possibility of pasteurella infection, although he appears to be showing early clinical response. Will discontinue clindamycin and add ertapenem. Length of IV antibiotics will be determined by clinical response. Will follow.
[2016-12-03] MEDS ORDERED: VANCOMYCIN INJ 1,500 MG in SODIUM CHLORIDE 0.9% 500ML 500 ML IV SCH (12:00)
[2016-12-03] MEDS: ERTAPENEM IV 1 GM in SODIUM CHLOR 0.9% AD-VAN 50ML 50 ML IV SCH (12:23)
[2016-12-03 15:26] VITALS: BP 103/65; PULSE 70; TEMP 36.7; O2SAT 97
[2016-12-03 16:00] VITALS: O2SAT 97
[2016-12-03] MEDS: VANCOMYCIN INJ 1,750 MG in SODIUM CHLORIDE 0.9% 500ML 500 ML IV SCH (16:45)
[2016-12-04 00:51] VITALS: BP 105/69; PULSE 75; TEMP 37; O2SAT 99
[2016-12-04] MEDS: HYDROmorphone INJ 0.5 MG/0.5 ML SYR IV PRN ×3 (01:55→16:34)
[2016-12-04] MEDS: VANCOMYCIN INJ 1,750 MG in SODIUM CHLORIDE 0.9% 500ML 500 ML IV SCH (04:56)
[2016-12-04] MEDS: HEPARIN SOD 5000 UNIT/0.5 ML CARP SQ SCH ×3 (04:57→20:37)
[2016-12-04 07:59] VITALS: BP 129/69; PULSE 102; TEMP 37.7; O2SAT 100
[2016-12-04] MEDS: HYDROCODONE/ACETAMI 10/325 TAB PO PRN ×3 (08:06→20:36)
[2016-12-04 08:10] VITALS: O2SAT 100
[2016-12-04 10:25] LABS: BUN/CREATININE RATIO 11.4 (10-20); CALCIUM 8.5 mg/dl (8.5-10.1); CREATININE 0.83 mg/dl (0.60-1.40); POTASSIUM 3.7 mmol/L (3.5-5.1)
[2016-12-04 11:45] VITALS: TEMP 36.8
[2016-12-04] MEDS: ERTAPENEM IV 1 GM in SODIUM CHLOR 0.9% AD-VAN 50ML 50 ML IV SCH (12:10)
[2016-12-04] MEDS: VANCOMYCIN INJ 2,000 MG in SODIUM CHLORIDE 0.9% 500ML 500 ML IV SCH (14:37)
[2016-12-04 15:08] VITALS: BP 122/76; PULSE 77; TEMP 36.9; O2SAT 98
[2016-12-04 16:00] VITALS: O2SAT 98
--- NOTE | 2016-12-04 16:29 | Hospitalist Progress Note ---
Hospitalist Progress Note Date of Service Dec 04, 2016. (Shari Vick CRNP) Subjective Pt evaluation today including: conversation w/ patient, physical exam, chart review, lab review, review of inpatient medication list Voiding: no voiding problems Mr. Clark feels somewhat better today though he is still having intermittent chills. His pain is controlled to a tolerable level. The cellulitis is less red today Constitutional: + chills, + fatigue Respiratory: No cough, No sputum, No shortness of breath Cardiovascular: No chest pain, No palpitations Abdomen: No pain, No nausea, No vomiting, No diarrhea All Other Systems: Reviewed and Negative (Shari Vick CRNP) Medications Medications (Trade) Dose Ordered Sig/Sirisha Route Start Time Stop Time Status Last Admin Dose Admin Hydromorphone HCl (Dilaudid Inj) 0.5 mg Q4H PRN IV 12/03/16 20:30 12/17/16 20:29 12/04/16 12:07 0.5 MG Vancomycin HCl 2000 mg/Sodium Chloride 540 ml @ 200 mls/hr Q12H IV 12/04/16 14:00 12/14/16 11:59 12/04/16 14:37 200 MLS/HR (Shari Vick CRNP) Objective Vital Signs Date Time Temp Pulse Resp B/P (MAP) Pulse Ox O2 Delivery O2 Flow Rate FiO2 12/04/16 15:08 36.9 77 14 122/76 (91) 98 Room Air 12/04/16 11:45 36.8 12/04/16 08:10 100 Room Air 12/04/16 08:00 Room Air 12/04/16 07:59 37.7 102 14 129/69 (89) 100 Room Air 12/04/16 00:51 37.0 75 17 105/69 (81) 99 Room Air 12/04/16 00:00 Room Air (Shari Vick CRNP) Physical Exam General Appearance: WD/WN, no apparent distress Eyes: normal inspection Respiratory/Chest: chest non-tender, lungs clear, normal breath sounds, no respiratory distress, no accessory muscle use Cardiovascular: regular rate, rhythm, no edema, no gallop, no murmur Abdomen: normal bowel sounds, non tender, soft Neurologic/Psychiatric: alert, normal mood/affect, oriented x 3 Skin: + pertinent finding (right posterior to anterior thigh reddened and warm , open wound on posterior thigh with yellow drainage, dressed with Aquacel, no odor ) (Shari Vick CRNP) Laboratory Results Last 24 Hours Test 12/04/16 09:41 Sodium Level 139 mmol/L Potassium Level 3.7 mmol/L Chloride Level 109 mmol/L Carbon Dioxide Level 21 mmol/L Anion Gap 9.0 mmol/L Blood Urea Nitrogen 10 mg/dl Creatinine 0.83 mg/dl Est Creatinine Clear Calc Drug Dose 170.8 ml/min Estimated GFR () 131.2 Estimated GFR (Non- 113.2 BUN/Creatinine Ratio 11.4 Random Glucose 154 mg/dl Calcium Level 8.5 mg/dl (Shari Vick CRNP) Assessment and Plan Mr. Clark is a 36 year old man here for recurrent cellulitis of the right leg secondary to chronic lymphedema and possible cat bite or scratch. Right leg recurrent cellulitis - Febrile this morning, temps trending down, ID following, antibiotics changed from clindamycin to ertapenem by ID 12/03. Pain tolerable. Non healing ulcer on right upper posterior leg - Wound care following, continue Aquacel dressings. Morbid obesity - dietitian consulted. DVT prophylaxis: subq heparin Codes status: full resuscitation (Shari Vick CRNP) Attending Attestation: Pt seen/examined, chart reviewed, care plan d/w RODOLFO Vick. I agree w/ the merino components of her documentation. Overall feels better c/o mild reflux symptoms asks how long he might be hospitalized VSS BPs low-normal earlier today gen - morbidly obese skin - severe stasis changes of b/l legs; posterior right thigh with ulceration , linear in shape, with mild drainage only; no odor; anterior right thigh with IMPROVED cellulitis/erythema/warmth extremities - severe lymphedema of both legs A/P: sepsis 2nd to RLE cellulitis and superimposed infection of chronic posterior right thigh ulceration - improved. appreciate ID consultation. defer abx management to ID. cont on IV ertapenem and vancomycin - no h/o MRSA - can we d/c vanco? defer to Dr. [place]. cont dilaudid IV and toradol IV prn for dressing changes, etc. DVT proph w/ heparin. progressing. tums, per his request, for RON symptoms; increase to zantac or PPI if needed. Kian Chery MD (Kian Chery MD)
[2016-12-04] MEDS ORDERED: CALCIUM CARBONATE 500 MG CHEWABLE PO PRN (16:30)
--- NOTE | 2016-12-04 19:22 | Infectious Disease Progress Nt ---
Progress Note Date of Service Dec 04, 2016. Subjective Pt evaluation today including: conversation w/ patient, physical exam, chart review, lab review, review of studies, conversation w/ benefits consultant, review of inpatient medication list patient offering no new complaints. States pain in right thigh slightly better. No fever. Tolerating antibiotics without apparent difficulty All Other Systems: Reviewed and Negative Medications Current Inpatient Medications Medications (Trade) Dose Ordered Sig/Sirisha Route Start Time Stop Time Status Last Admin Dose Admin Heparin Sodium (Porcine) (Heparin Sq 5000 Unit/0.5ml) 5,000 unit Q8H SQ 12/03/16 06:00 01/02/17 05:59 Acetaminophen (Tylenol Tab) 650 mg Q4H PRN PO 12/02/16 23:00 01/01/17 22:59 Al Hydrox/Mg Hydrox/Simethicone (Maalox Max Susp) 15 ml Q4H PRN PO 12/02/16 23:00 01/01/17 22:59 Magnesium Hydroxide (Milk Of Magnesia Susp) 30 ml Q6H PRN PO 12/02/16 23:00 01/01/17 22:59 Polyethylene (Miralax Powder Packet) 17 gm DAILY PRN PO 12/02/16 23:00 01/01/17 22:59 Zolpidem Tartrate (Ambien Tab) 5 mg HSZ PRN PO 12/02/16 23:00 01/01/17 22:59 Ondansetron HCl (Zofran Inj) 4 mg Q6H PRN IV 12/02/16 23:00 01/01/17 22:59 Acetaminophen/ Hydrocodone Bitart ([place] 10/325 Tab) 2 tab Q6H PRN PO 12/02/16 23:00 12/16/16 22:59 12/04/16 14:39 2 TAB Miscellaneous (Iv Fluids Completed) 1 ea PRN PRN N/A 12/03/16 00:30 12/03/17 00:29 12/03/16 14:49 1 EA Vancomycin HCl (Consult) 1 ea UD PRN N/A 12/03/16 00:30 01/02/17 00:29 Ketorolac Tromethamine (Toradol Inj) 30 mg Q6H PRN IV 12/03/16 10:45 12/07/16 10:40 12/03/16 12:05 30 MG Ertapenem 1 gm/ Sodium Chloride 50 ml @ 120 mls/hr Q24H IV 12/03/16 12:00 12/13/16 11:59 12/04/16 12:10 120 MLS/HR Hydromorphone HCl (Dilaudid Inj) 0.5 mg Q4H PRN IV 12/03/16 20:30 12/17/16 20:29 12/04/16 16:34 0.5 MG Vancomycin HCl 2000 mg/Sodium Chloride 540 ml @ 200 mls/hr Q12H IV 12/04/16 14:00 12/14/16 11:59 12/04/16 14:37 200 MLS/HR Calcium Carbonate (Tums Chew Tab) 500 mg TID PRN PO 12/04/16 16:30 01/03/17 16:29 Objective Vital Signs Date Time Temp Pulse Resp B/P (MAP) Pulse Ox O2 Delivery O2 Flow Rate FiO2 12/04/16 16:00 98 Room Air 12/04/16 15:08 36.9 77 14 122/76 (91) 98 Room Air 12/04/16 11:45 36.8 12/04/16 08:10 100 Room Air 12/04/16 08:00 Room Air 12/04/16 07:59 37.7 102 14 129/69 (89) 100 Room Air 12/04/16 00:51 37.0 75 17 105/69 (81) 99 Room Air 12/04/16 00:00 Room Air Physical Exam General Appearance: WD/WN, no apparent distress, + obese Eyes: normal inspection, EOMI, sclerae normal ENT: normal ENT inspection, pharynx normal Neck: supple, no adenopathy, thyroid normal, trachea midline Respiratory/Chest: chest non-tender, lungs clear, normal breath sounds, no respiratory distress Cardiovascular: regular rate, rhythm, no gallop, no murmur Abdomen: normal bowel sounds, non tender, soft, no organomegaly Extremities: + inflammation ( right thigh), + swelling Neurologic/Psychiatric: alert, oriented x 3 Skin: normal color, no rash, + pertinent finding ( improving right upper leg cellulitis) Lymphatic: no adenopathy Laboratory Results Last 24 Hours Test 12/04/16 09:41 Sodium Level 139 mmol/L Potassium Level 3.7 mmol/L Chloride Level 109 mmol/L Carbon Dioxide Level 21 mmol/L Anion Gap 9.0 mmol/L Blood Urea Nitrogen 10 mg/dl Creatinine 0.83 mg/dl Est Creatinine Clear Calc Drug Dose 170.8 ml/min Estimated GFR () 131.2 Estimated GFR (Non- 113.2 BUN/Creatinine Ratio 11.4 Random Glucose 154 mg/dl Calcium Level 8.5 mg/dl Assessment and Plan 36-year-old male with massive lymphedema and recurrent cellulitis now with cellulitis involving the right thigh, possibly in association with cat bite. Patient to be continued on ertapenem alone pending final cultures. Will follow.
[2016-12-05 00:26] VITALS: BP 112/70; PULSE 81; TEMP 36.6; O2SAT 100
[2016-12-05] MEDS: HYDROmorphone INJ 0.5 MG/0.5 ML SYR IV PRN ×2 (00:28→11:43)
[2016-12-05 00:55] VITALS: O2SAT 100
[2016-12-05] MEDS: VANCOMYCIN INJ 2,000 MG in SODIUM CHLORIDE 0.9% 500ML 500 ML IV SCH ×2 (01:36→14:00)
[2016-12-05] MEDS ORDERED: VANCOMYCIN TROUGH SCH (03:30)
[2016-12-05] MEDS: HYDROCODONE/ACETAMI 10/325 TAB PO PRN ×3 (03:45→15:43)
[2016-12-05] MEDS: HEPARIN SOD 5000 UNIT/0.5 ML CARP SQ SCH ×2 (04:57→14:00)
[2016-12-05 06:13] LABS: BASO % 0.3 %; BASO ABS # 0.02 K/uL (0-0.2); COMPLETE YES; EOS % 8.1 %; HEMATOCRIT 30.2 % (42-52); IG% 0.4 %; LYMPH % 27.8 %; MEAN CELL VOLUME 91.2 fL (80-100); MEAN CORPUSCULAR HGB CONC 31.8 g/dl (32-36); MEAN PLATELET VOLUME 11.6 fL (7.4-10.4); MONO % 9.7 %; NEUT % 53.7 %; PLATELET COUNT 152 K/uL (130-400); RED BLOOD COUNT 3.31 M/uL (4.7-6.1)
[2016-12-05 06:38] LABS: BUN/CREATININE RATIO 11.9 (10-20); CALCIUM 8.1 mg/dl (8.5-10.1); CREATININE 0.64 mg/dl (0.60-1.40); POTASSIUM 3.7 mmol/L (3.5-5.1)
[2016-12-05 07:47] VITALS: BP 129/71; PULSE 74; TEMP 36.6; O2SAT 98
[2016-12-05] MEDS ORDERED: ERTA1INJ IV (10:55)
--- NOTE | 2016-12-05 12:05 | Infectious Disease Progress Nt ---
Progress Note Date of Service Dec 05, 2016. Subjective Pt evaluation today including: conversation w/ patient, physical exam, chart review, lab review, review of studies, conversation w/ polymer materials consultant, review of inpatient medication list patient doing slightly better today. Pain in his right leg is less. No fever. Continues to tolerate antibiotic without apparent difficulty. All Other Systems: Reviewed and Negative Medications Current Inpatient Medications Medications (Trade) Dose Ordered Sig/Sirisha Route Start Time Stop Time Status Last Admin Dose Admin Heparin Sodium (Porcine) (Heparin Sq 5000 Unit/0.5ml) 5,000 unit Q8H SQ 12/03/16 06:00 01/02/17 05:59 Acetaminophen (Tylenol Tab) 650 mg Q4H PRN PO 12/02/16 23:00 01/01/17 22:59 Al Hydrox/Mg Hydrox/Simethicone (Maalox Max Susp) 15 ml Q4H PRN PO 12/02/16 23:00 01/01/17 22:59 Magnesium Hydroxide (Milk Of Magnesia Susp) 30 ml Q6H PRN PO 12/02/16 23:00 01/01/17 22:59 Polyethylene (Miralax Powder Packet) 17 gm DAILY PRN PO 12/02/16 23:00 01/01/17 22:59 Zolpidem Tartrate (Ambien Tab) 5 mg HSZ PRN PO 12/02/16 23:00 01/01/17 22:59 Ondansetron HCl (Zofran Inj) 4 mg Q6H PRN IV 12/02/16 23:00 01/01/17 22:59 Acetaminophen/ Hydrocodone Bitart ([place] 10/325 Tab) 2 tab Q6H PRN PO 12/02/16 23:00 12/16/16 22:59 12/05/16 10:12 2 TAB Miscellaneous (Iv Fluids Completed) 1 ea PRN PRN N/A 12/03/16 00:30 12/03/17 00:29 12/03/16 14:49 1 EA Vancomycin HCl (Consult) 1 ea UD PRN N/A 12/03/16 00:30 01/02/17 00:29 Ketorolac Tromethamine (Toradol Inj) 30 mg Q6H PRN IV 12/03/16 10:45 12/07/16 10:40 12/03/16 12:05 30 MG Ertapenem 1 gm/ Sodium Chloride 50 ml @ 120 mls/hr Q24H IV 12/03/16 12:00 12/13/16 11:59 12/04/16 12:10 120 MLS/HR Hydromorphone HCl (Dilaudid Inj) 0.5 mg Q4H PRN IV 12/03/16 20:30 12/17/16 20:29 12/05/16 11:43 0.5 MG Vancomycin HCl 2000 mg/Sodium Chloride 540 ml @ 200 mls/hr Q12H IV 12/04/16 14:00 12/14/16 11:59 12/05/16 01:36 200 MLS/HR Calcium Carbonate (Tums Chew Tab) 500 mg TID PRN PO 12/04/16 16:30 01/03/17 16:29 12/05/16 00:35 500 MG Objective Vital Signs Date Time Temp Pulse Resp B/P (MAP) Pulse Ox O2 Delivery O2 Flow Rate FiO2 12/05/16 09:15 Room Air 12/05/16 07:47 36.6 74 18 129/71 (90) 98 Room Air 12/05/16 00:55 100 Room Air 12/05/16 00:26 36.6 81 16 112/70 (84) 100 Room Air 12/04/16 16:00 98 Room Air 12/04/16 15:08 36.9 77 14 122/76 (91) 98 Room Air Physical Exam General Appearance: WD/WN, no apparent distress, + obese Eyes: normal inspection, EOMI, sclerae normal ENT: normal ENT inspection, pharynx normal Neck: supple, no adenopathy, trachea midline Respiratory/Chest: chest non-tender, lungs clear, normal breath sounds, no respiratory distress Cardiovascular: regular rate, rhythm, no gallop, no murmur Abdomen: normal bowel sounds, non tender, soft, no organomegaly Extremities: + inflammation, + swelling Neurologic/Psychiatric: alert, oriented x 3 Skin: normal color, no rash, + pertinent finding ( Right upper leg cellulitis improved) Lymphatic: no adenopathy Laboratory Results Last 24 Hours Test 12/05/16 05:36 White Blood Count 7.20 K/uL Red Blood Count 3.31 M/uL Hemoglobin 9.6 g/dL Hematocrit 30.2 % Mean Corpuscular Volume 91.2 fL Mean Corpuscular Hemoglobin 29.0 pg Mean Corpuscular Hemoglobin Concent 31.8 g/dl Platelet Count 152 K/uL Mean Platelet Volume 11.6 fL Neutrophils (%) (Auto) 53.7 % Lymphocytes (%) (Auto) 27.8 % Monocytes (%) (Auto) 9.7 % Eosinophils (%) (Auto) 8.1 % Basophils (%) (Auto) 0.3 % Neutrophils # (Auto) 3.87 K/uL Lymphocytes # (Auto) 2.00 K/uL Monocytes # (Auto) 0.70 K/uL Eosinophils # (Auto) 0.58 K/uL Basophils # (Auto) 0.02 K/uL RDW Standard Deviation 50.6 fL RDW Coefficient of Variation 15.1 % Immature Granulocyte % (Auto) 0.4 % Immature Granulocyte # (Auto) 0.03 K/uL Sodium Level 143 mmol/L Potassium Level 3.7 mmol/L Chloride Level 110 mmol/L Carbon Dioxide Level 25 mmol/L Anion Gap 8.0 mmol/L Blood Urea Nitrogen 8 mg/dl Creatinine 0.64 mg/dl Est Creatinine Clear Calc Drug Dose 221.5 ml/min Estimated GFR () 146.0 Estimated GFR (Non- 126.0 BUN/Creatinine Ratio 11.9 Random Glucose 106 mg/dl Calcium Level 8.1 mg/dl Assessment and Plan 36-year-old male with massive lymphedema and recurrent cellulitis now with cellulitis involving the right thigh, possibly in association with cat bite. Patient to be continued on IV ertapenem and vancomycin today, then would continue on ertapenem alone to complete 7 days of therapy.
[2016-12-05] MEDS: ERTAPENEM IV 1 GM in SODIUM CHLOR 0.9% AD-VAN 50ML 50 ML IV SCH (12:28)
--- NOTE | 2016-12-05 12:45 | Discharge Instructions ---
Discharge Instructions Date of Service Dec 05, 2016. Admission Reason for Admission: Cellulitis Of Thigh Discharge Discharge Diagnosis / Problem: cellulitis Discharge Goals Goal(s): Improve disease control Activity Recommendations Activity Limitations: resume your previous activity Exercise/Sports Limitations: as tolerated . Current Hospital Diet Patient's current hospital diet: AHA Diet (Heart Healthy) Discharge Diet Recommended Diet: AHA Diet (Heart Healthy) Procedures Procedures Performed: Lower extremity ultrasound Pending Studies Studies pending at discharge: no Medical Emergencies . Who to Call and When: Medical Emergencies: If at any time you feel your situation is an emergency, please call 911 immediately. . Non-Emergent Contact Non-Emergency issues call your: Primary Care Provider Call Non-Emergent contact if: temperature is above 100.5, your pain is not controlled, your pain is worsening, wound has increased drainage, wound has increased redness, wound has increased pain . Past History Medical & Surgical History: (1) Cellulitis of thigh (2) Ulcer of right leg (3) Lymphedema of lower extremity . "Provider Documentation" section prepared by Shari Vick. . VTE Core Measure Inpt VTE Proph given/why not?: Unfractionated heparin SQ
--- NOTE | 2016-12-05 12:52 | Discharge Summary ---
Discharge Summary Date of Service Dec 05, 2016. (Shari Vick CRNP) Discharge Summary Admission Date: Dec 03, 2016 at 20:24 Discharge Disposition: Home with services Principal Diagnosis: cellulitis of the right leg Immunizations: History of Tetanus Vaccine?: Unknown History of Pneumococcal: Unknown History of Hepatitis B Vaccine: Unknown Procedures: Lower extremity US IMPRESSION: No evidence of right lower extremity DVT Consultations: Infectious Disease - Dr. France (Shari Vick CRNP) Medication Reconciliation New Medications: Ertapenem Sodium (Invanz) 1 Gm Inj 1 GM IV DAILY for 4 Days, #4 VIAL Continued Medications: Hydrocodone/Acetaminophen 10MG/325MG ([place] 10MG/325MG) Tab 2 TABS PO QID PRN for Pain, TAB [Testosterone Inj] () 1 DOSE INJ MONTHLY Discharge Exam Review of Systems: Constitutional: + chills, No fever Respiratory: No cough, No shortness of breath Cardiovascular: No chest pain, No palpitations Abdomen: No pain, No nausea, No vomiting, No diarrhea Genitourinary - Female: No dysuria Physical Exam: General Appearance: WD/WN, no apparent distress Eyes: normal inspection Respiratory/Chest: chest non-tender, lungs clear, normal breath sounds, no respiratory distress, no accessory muscle use Cardiovascular: regular rate, rhythm, no edema, no gallop, no murmur Abdomen / GI: normal bowel sounds, non tender, soft Extremities: + pertinent finding (lymphedema bilaterally, erythematous are around right thigh extending posteriorly) Neurologic/Psychiatric: alert, normal mood/affect, oriented x 3 Skin: normal color (Shari Vick CRNP) Hospital Course Mr. Clark is a 36 year old man here for recurrent cellulitis of the right leg secondary to chronic lymphedema and possible cat bite or scratch. Right leg recurrent cellulitis - Febrile this morning, temps trending down, ID following, antibiotics changed from clindamycin to ertapenem by ID 12/03. Pain tolerable. Home IV ertapenem x4 more days Non healing ulcer on right upper posterior leg - Wound care following, continue Aquacel dressings. Morbid obesity - dietitian consulted. DVT prophylaxis: subq heparin Codes status: full resuscitation Total Time Spent: Less than 30 minutes This includes examination of the patient, discharge planning, medication reconciliation, and communication with other providers. (Shari Vick .RODOLFO) SQL DATABASE PROGRAMMER Physician Supervision Note: I interviewed and examined the patient. Discussed with Janet Vick SQL DATABASE PROGRAMMER and agree with findings and plan as documented in the note. Any exceptions or clarifications are listed here: None Patient is seen prior to discharge he feels his leg is improving I strongly encouraged him to follow-up with Dr. France prior to the discontinuation of his antibiotics which really leads us to have this done around Friday. His current vital signs show low-grade temperature otherwise are stable his legs show chronic venous stasis changes from previous morbid obesity with some induration and erythema to the right medial thigh with a small open area posterior medially. We'll continue outpatient ertapenem with close follow-up hopefully through infectious disease Documented By: Santiago Hickman (Santiago Hickman M.D.) Discharge Instructions Please refer to the electronic Patient Visit Report (Discharge Instructions) for additional information. (Shari Vick CRNP)
[2016-12-05 14:39] VITALS: BP 129/71; PULSE 74; TEMP 36.6; O2SAT 98
[2016-12-06] MEDS ORDERED: VANCOMYCIN TROUGH SCH (01:30)
--- NOTE | 2016-12-12 14:33 | EDITING REQUIRED CODING QUERY ---
CODING QUERY To promote full compliance with coding requirements relating to patient care, provider participation is requested in all cases of hair spinner uncertainty. Please assist us with the question(s) below: Dr. Chery, Sepsis is documented in the progress notes, but is not listed in the discharge summary. Please clarify if: ( x ) sepsis was present and treated during this encounter ( x ) POA ( ) not POA ( ) sepsis was ruled out ( ) unable to determine ( ) other, please explain Physician's Response(s): Thank you for your time, ALISON Arguelles, PRIMARY COUNSELOR
[2016-12-12] MEDS ORDERED: CEPH500C2 PO (15:24)
== END 2016-12-05 16:37 | disposition home health service (06) | DRG 872 ==
LOC: C.EDB 18:38 → C.4E 22:52 → ENRESERV 23:28 → OBSVTOIN 12-03 20:24
PROVIDERS: ADMIT Internal Medicine; ATTEND Internal Medicine
DX: A41.9 Sepsis, unspecified organism (principal); L03.115 Cellulitis of right lower limb; L97.119 Non-pressure chronic ulcer of right thigh with unspecified severity; Z68.43 Body mass index [BMI] 50.0-59.9, adult; S81.851A Open bite, right lower leg, initial encounter; W55.01XA Bitten by cat, initial encounter; I89.0 Lymphedema, not elsewhere classified; K21.9 Gastro-esophageal reflux disease without esophagitis; I87.8 Other specified disorders of veins; E66.01 Morbid (severe) obesity due to excess calories; Z98.84 Bariatric surgery status; Z79.891 Long term (current) use of opiate analgesic; Z79.899 Other long term (current) drug therapy

== ENCOUNTER 2017-03-23 12:21 | Inpatient (IN) | payer OTHER ==
[~2017-03-23] VITALS: Ht 157.5 cm; Wt 135.0 kg
[~2017-03-23 12:21] MED LIST changes: +CEFD300C2 PO; -CEPH500C2 PO; -OXYC-57 PO; +TESTOSTERONE INJ INJ
[2017-03-23 13:20] LABS: BASO % 0.4 %; BASO ABS # 0.03 K/uL (0-0.2); EOS % 0.1 %; EOS ABS # 0.01 K/uL (0-0.5); HEMATOCRIT 34.9 % (42-52); HEMOGLOBIN 11.4 g/dL (14.0-18.0); IG# 0.02 K/uL (0.00-0.02); LYMPH % 17.5 %; LYMPH ABS # 1.35 K/uL (1.2-3.4); MEAN CELL VOLUME 91.6 fL (80-100); MEAN CORPUSCULAR HEMOGLOBIN 29.9 pg (25-34); MEAN CORPUSCULAR HGB CONC 32.7 g/dl (32-36); MEAN PLATELET VOLUME 10.6 fL (7.4-10.4); MONO % 4.9 %; MONO ABS # 0.38 K/uL (0.11-0.59); NEUT % 76.8 %; NEUT ABS # 5.92 K/uL (1.4-6.5); PLATELET COUNT 248 K/uL (130-400); RED CELL DISTRIBUTION WIDTH CV 14.5 % (11.5-14.5); RED CELL DISTRIBUTION WIDTH SD 48.1 fL (36.4-46.3); WHITE BLOOD COUNT 7.71 K/uL (4.8-10.8)
[2017-03-23 13:29] LABS: CALCIUM 8.7 mg/dl (8.5-10.1); CREATININE 0.92 mg/dl (0.60-1.40)
[2017-03-23] MEDS ORDERED: ERTAPENEM 1 GM ADDVIAL IV ONE (13:30)
[2017-03-23] MEDS ORDERED: POLYETHYLENE (MIRALAX) 17 GM PACK PO PRN (14:00)
[2017-03-23] MEDS ORDERED: ALUMINUM/MAGNESIUM/SIMETH (MAALOX MAX) 30 ML UDC PO PRN (14:00)
[2017-03-23] MEDS ORDERED: ACETAMINOPHEN 325 MG TAB PO PRN (14:00)
[2017-03-23] MEDS ORDERED: ONDANSETRON INJ 2 MG/ML 2 ML VIAL IV PRN (14:00)
[2017-03-23] MEDS ORDERED: HYDROCODONE/ACETAMI 10/325 TAB PO PRN (14:00)
[2017-03-23] MEDS ORDERED: MAGNESIUM HYDROXIDE SUSP 30 ML UDC PO PRN (14:00)
--- NOTE | 2017-03-23 14:12 | History and Physical ---
History & Physical Date & Time of Service: Mar 23, 2017 at 14:01 Chief Complaint: Fever,Chills,Shaking,Pain In Leg Primary Care Physician: Mine Davis MD History of Present Illness Source: patient, family (mom/dad), clinic records, hospital records Patient is a pleasant 36 y/o male, with PMHx lymphedema and recurrent RLE cellulitis, who presented to the ED because of worsening RLE cellulitis. Patient follows w/ Dr. [place]- he was placed on Cefdinir roughly 1 week ago due to recurrent RLE cellulitis. Yesterday he noted fever/chills and nausea. He thought maybe he was coming down with an illness. This AM, he woke up with worsening erythema, warmth, and groin pain to RLE. He notes symptoms are similar to past presentation of cellulitis requiring IV antibiotics. +chronic bilateral lymphedema. Patient denies any sweats, lightheadedness, dizziness, vision changes, CP, palpitations, SOB, wheezing, cough, abdominal pain, vomiting , diarrhea, urinary symptoms, melena, numbness/tingling, weakness, muscle/joint pain, anxiety/depression, active bleeding. Past Medical/Surgical History Medical Problems: Recurrent RLE cellulitis bilateral lower extremity lymphedema Surgical Problems: h/o gastric bypass Family History Diabetes mellitus FHx: obesity Heart disease Hypertension Kidney stones Social History Smoking Status: Never Smoker Drug Use: none Marital Status: single Housing status: lives with family Occupational Status: unemployed Immunizations History of Tetanus Vaccine?: Unknown History of Pneumococcal: Unknown History of Hepatitis B Vaccine: Unknown Multi-Drug Resistant Organisms History of MDRO: No Allergies Coded Allergies: Amoxicillin (Verified Allergy, Severe, BLISTERS & SORES IN MOUTH, 12/02/16) Sulfa Antibiotics (Verified Allergy, Severe, BLISTERS & SORES IN MOUTH, ) Daptomycin (Verified Allergy, Intermediate, RASH, EOSINOPHILIA, 10/19/16) cbc with eosinophilia supporting drug reaction to daptomycin Zinc Oxide (Verified Allergy, Unknown, RASH, 10/19/16) TOPICAL Home Medications Scheduled Cefdinir (Omnicef), 300 MG PO Q12H [Testosterone Inj], 1 DOSE INJ MONTHLY Scheduled PRN Hydrocodone/Acetaminophen 10MG/325MG ([place] 10MG/325MG), 2 TABS PO QID PRN for Pain Physical Exam Vital Signs Date Time Temp Pulse Resp B/P (MAP) Pulse Ox O2 Delivery O2 Flow Rate FiO2 03/23/17 13:49 75 20 109/63 99 Room Air 03/23/17 12:26 37.0 82 18 123/77 99 Room Air General Appearance: no apparent distress Head: normocephalic, atraumatic Eyes: PERRL ENT: hearing grossly normal Neck: supple Respiratory/Chest: lungs clear, no respiratory distress, no accessory muscle use Cardiovascular: regular rate, rhythm Abdomen/GI: normal bowel sounds, non tender, soft Extremities/Musculoskelatal: + swelling (bilateral chronic lymphedema ), + pertinent finding (noted erythema and warmth to RLE thigh region ) Neurologic/Psych: alert, normal mood/affect, oriented x 3 Skin: normal color, warm/dry, no rash Diagnostics Laboratory Results Results Past 24 Hours Test 03/23/17 12:55 Range/Units White Blood Count 7.71 4.8-10.8 K/uL Red Blood Count 3.81 4.7-6.1 M/uL Hemoglobin 11.4 14.0-18.0 g/dL Hematocrit 34.9 42-52 % Mean Corpuscular Volume 91.6 80-100 fL Mean Corpuscular Hemoglobin 29.9 25-34 pg Mean Corpuscular Hemoglobin Concent 32.7 32-36 g/dl Platelet Count 248 130-400 K/uL Mean Platelet Volume 10.6 7.4-10.4 fL Neutrophils (%) (Auto) 76.8 % Lymphocytes (%) (Auto) 17.5 % Monocytes (%) (Auto) 4.9 % Eosinophils (%) (Auto) 0.1 % Basophils (%) (Auto) 0.4 % Neutrophils # (Auto) 5.92 1.4-6.5 K/uL Lymphocytes # (Auto) 1.35 1.2-3.4 K/uL Monocytes # (Auto) 0.38 0.11-0.59 K/uL Eosinophils # (Auto) 0.01 0-0.5 K/uL Basophils # (Auto) 0.03 0-0.2 K/uL RDW Standard Deviation 48.1 36.4-46.3 fL RDW Coefficient of Variation 14.5 11.5-14.5 % Immature Granulocyte % (Auto) 0.3 % Immature Granulocyte # (Auto) 0.02 0.00-0.02 K/uL Sodium Level 137 136-145 mmol/L Potassium Level 4.0 3.5-5.1 mmol/L Chloride Level 105 98-107 mmol/L Carbon Dioxide Level 24 21-32 mmol/L Anion Gap 8.0 3-11 mmol/L Blood Urea Nitrogen 16 7-18 mg/dl Creatinine 0.92 0.60-1.40 mg/dl Est Creatinine Clear Calc Drug Dose 136.2 ml/min Estimated GFR () 123.6 Estimated GFR (Non- 106.6 BUN/Creatinine Ratio 17.3 10-20 Random Glucose 97 70-99 mg/dl Calcium Level 8.7 8.5-10.1 mg/dl Microbiology Results 03/23/17 Blood Culture, Ordered Pending 03/23/17 Blood Culture, Received Pending Impression Assessment and Plan Patient is a pleasant 36 y/o male, with PMHx lymphedema and recurrent RLE cellulitis, who presented to the ED because of worsening RLE cellulitis. Patient follows w/ Dr. [place]- he was placed on Cefdinir roughly 1 week ago due to recurrent RLE cellulitis. Recurrent RLE cellulitis, bilateral lower extremity lymphedema: - Admit to med/surg - IV Ertapenem- past records show Citrobacter koseri and MSSA - Continue Hydrocodone QID PRN for pain management - Infectious disease consulted, appreciate recommendations - Wound care consulted - BCx pending DVT prophylaxis: Lovenox SQ daily Code Status: LEVEL I, FULL Dispo: From home- consulted for possible need for IV antibiotics at discharge Level of Care Med/Surg Resuscitation Status FULL RESUSCITATION VTE Prophylaxis VTE Risk Assessment Done? Y/N: Yes Risk Level: Moderate Given or contraindicated: Enoxaparin (Lovenox)SQ Reviewed: Pt Seen/Exam by Me History Pt with b/l LE pain, much more in the R. Feels that the R is not usually red, but the L has some chronic redness. Pain is a bit improved s/p abx and h/a has resolved. No chest pain or SOB. Follows with wound care and ID. Agree with HPI/ROS as noted by PA. General Appearance: no apparent distress, obese Respiratory: normal breath sounds, no respiratory distress Cardiovascular: normal peripheral pulses, regular rate, rhythm Gastrointestinal: non tender, soft Extremities: calf tenderness (generalized), other Neurologic/Psychiatric: alert, normal mood/affect, oriented x 3 Skin Characteristics: warm/dry, other (b/l redness noted, L appears more chronic, R appears more acute) Assessment/Plan Agree with plan as outlined above Ongoing issues with LE cellulitis Follows with [facility] Failed outpt abx Plan from ID prior if failed outpt is for Invanz, started in ED ID c/s [facility] c/s
[2017-03-23] MEDS ORDERED: HYDROCODONE/ACETAMI 10/325 TAB ONE (14:20)
--- NOTE | 2017-03-23 14:54 | EMERGENCY ROOM VISIT NOTE ---
History Report prepared by Kayce: Robert Sampson Under the Supervision of: Dr. Elio Tomlin M.D. First contact with patient: 12:57 Chief Complaint: INFECTION Stated Complaint: FEVER,CHILLS,SHAKING,PAIN IN LEG Nursing Triage Summary: pt to the ED with concern for cellulitis again on RLE has had this previously and reports a wound History of Present Illness The patient is a 36 year old male who presents to the Emergency Room with complaints of a possible infection to his right lower extremity that began 24 hours ago. He has a past medical history of previous episodes of cellulitis located in the same area secondary to wounds. He was treated with 8-10 of IV antibiotics. He also has a history of lymphedema. He believes that his current symptoms are congruent with those of his past cellulitis. However, he does not believe it to be as bad as his previous episodes. Last night he took his temperature which was found to be elevated at 102.7 F. He woke up this morning, took some Tylenol, and his fever reduced to a normal temperature. However, he is still experiencing some chills. Pt denies LOC, headache, current fevers, chills, diaphoresis, visual changes, neck pain, chest pain, breathing difficulties, nausea, vomiting, abdominal pain, back pain, melena, hematochezia , urinary symptoms, numbness, weakness, lymphadenopathy, or other complaints. He notes he was recently placed onto Cefdinir by the [facility]. Source of History: patient Onset: 24 hours ago Position: leg (right) Symptom Intensity: moderate Quality: other (Possible infection) Timing: constant Associated Symptoms: + chills Review of Systems See HPI for pertinent positives and negatives. A total of ten systems were reviewed and were otherwise negative. Past Medical & Surgical Medical Problems: (1) Ambulatory dysfunction (2) Cellulitis (3) Cellulitis of thigh (4) Fever (5) Gall bladder disease (6) Leukocytosis (7) Lymphedema of lower extremity (8) Ulcer of right leg Surgical Problems: (1) H/O gastric bypass Family History Diabetes mellitus FHx: obesity Heart disease Hypertension Kidney stones Social History Smoking Status: Never Smoker Smokeless Tobacco Use: No Alcohol Use: occasionally Drug Use: none Marital Status: single Housing Status: lives with family Occupation Status: unemployed Current/Historical Medications Scheduled Cefdinir (Omnicef), 300 MG PO Q12H [Testosterone Inj], 1 DOSE INJ MONTHLY Scheduled PRN Hydrocodone/Acetaminophen 10MG/325MG ([place] 10MG/325MG), 2 TABS PO QID PRN for Pain Allergies Coded Allergies: Amoxicillin (Verified Allergy, Severe, BLISTERS & SORES IN MOUTH, 03/23/17) Sulfa Antibiotics (Verified Allergy, Severe, BLISTERS & SORES IN MOUTH, ) Daptomycin (Verified Allergy, Intermediate, RASH, EOSINOPHILIA, 03/23/17) cbc with eosinophilia supporting drug reaction to daptomycin Zinc Oxide (Verified Allergy, Unknown, RASH, 03/23/17) TOPICAL Physical Exam Vital Signs Date Time Temp Pulse Resp B/P (MAP) Pulse Ox O2 Delivery O2 Flow Rate FiO2 03/23/17 13:49 75 20 109/63 99 Room Air 03/23/17 12:26 37.0 82 18 123/77 99 Room Air Physical Exam GENERAL: Awake, alert, well-appearing, in no distress HENT: Normocephalic, atraumatic. Oropharynx unremarkable. EYES: Normal conjunctiva. Sclera non-icteric. NECK: Supple. No nuchal rigidity. FROM. No JVD. RESPIRATORY: Clear to auscultation. CARDIAC: Regular rate, normal rhythm. Extremities warm and well perfused. Pulses equal. ABDOMEN: Soft, non-distended. No tenderness to palpation. No rebound or guarding. No masses. RECTAL: Deferred. MUSCULOSKELETAL: Chest examination reveals no tenderness. The back is symmetrical on inspection without obvious abnormality. There is no CVA tenderness to palpation. No joint edema. LOWER EXTREMITIES: Massive lymphedema bilaterally. Erythema tenderness and warmth to the right calf. Ulcerations noted to the back side that are dressed. NEURO: Normal sensorium. No sensory or motor deficits noted. SKIN: No rash or jaundice noted. Medical Decision & Procedures Laboratory Results 03/23/17 12:55 Red Blood Count 3.81, Mean Corpuscular Volume 91.6, Mean Corpuscular Hemoglobin 29.9, Mean Corpuscular Hemoglobin Concent 32.7, Mean Platelet Volume 10.6, Neutrophils (%) (Auto) 76.8, Lymphocytes (%) (Auto) 17.5, Monocytes (%) (Auto) 4.9, Eosinophils (%) (Auto) 0.1, Basophils (%) (Auto) 0.4, Neutrophils # (Auto) 5.92, Lymphocytes # (Auto) 1.35, Monocytes # (Auto) 0.38, Eosinophils # (Auto) 0.01, Basophils # (Auto) 0.03 03/23/17 12:55 Test 03/23/17 12:55 White Blood Count 7.71 K/uL (4.8-10.8) Red Blood Count 3.81 M/uL (4.7-6.1) Hemoglobin 11.4 g/dL (14.0-18.0) Hematocrit 34.9 % (42-52) Mean Corpuscular Volume 91.6 fL (80-100) Mean Corpuscular Hemoglobin 29.9 pg (25-34) Mean Corpuscular Hemoglobin Concent 32.7 g/dl (32-36) Platelet Count 248 K/uL (130-400) Mean Platelet Volume 10.6 fL (7.4-10.4) Neutrophils (%) (Auto) 76.8 % Lymphocytes (%) (Auto) 17.5 % Monocytes (%) (Auto) 4.9 % Eosinophils (%) (Auto) 0.1 % Basophils (%) (Auto) 0.4 % Neutrophils # (Auto) 5.92 K/uL (1.4-6.5) Lymphocytes # (Auto) 1.35 K/uL (1.2-3.4) Monocytes # (Auto) 0.38 K/uL (0.11-0.59) Eosinophils # (Auto) 0.01 K/uL (0-0.5) Basophils # (Auto) 0.03 K/uL (0-0.2) RDW Standard Deviation 48.1 fL (36.4-46.3) RDW Coefficient of Variation 14.5 % (11.5-14.5) Immature Granulocyte % (Auto) 0.3 % Immature Granulocyte # (Auto) 0.02 K/uL (0.00-0.02) Anion Gap 8.0 mmol/L (3-11) Est Creatinine Clear Calc Drug Dose 136.2 ml/min Estimated GFR () 123.6 Estimated GFR (Non- 106.6 BUN/Creatinine Ratio 17.3 (10-20) Calcium Level 8.7 mg/dl (8.5-10.1) Laboratory results reviewed by me Medications Administered Medications (Trade) Dose Ordered Sig/Sirisha Route Start Time Stop Time Status Last Admin Dose Admin Ertapenem (Invanz Iv) 1 gm ONE ONCE IV 03/23/17 13:30 03/23/17 13:31 DC 03/23/17 13:41 1 GM Acetaminophen/ Hydrocodone Bitart ([place] 10/325 Tab) 1 tab STK-MED ONCE .ROUTE 03/23/17 14:20 03/23/17 14:21 DC 03/23/17 14:24 1 TAB ED Course 1257: The patient was evaluated in room C11. A complete history and physical exam was performed. 1330: Ordered Ertapenem 1 gm IV 1344: Upon reexamination, the patient was resting. I discussed the test results and treatment plan with him. I discussed the patient's case with Dr. Spencer of [facility]. The patient will be evaluated for further management. Medical Decision Prior records reviewed and summarized as above. Triage Nursing notes reviewed and agree them. Additional history obtained from the family. The patient's history was concerning for swelling and redness of the skin. Differential diagnosis: Etiologies such as cellulitis, DVT, necrotizing fasciitis, abscess, MRSA infection, dermatitis, drug eruption, as well as others were entertained.. Physical examination: The physical examination was consistent with cellulitis ER treatment provided: IV Invanz On reassessment the patient felt better. Diagnostics interpreted by me: The labs revealed unremarkable CBC and chemistry panel. The patient has significant lymphedema and recurrent cellulitis. He is failing outpatient antibiotics. Consultation: A consultation was placed with the hospitalist. The case was discussed and diagnostics were reviewed. The patient was evaluated in the ER for further treatment. Medication Reconcilliation Current Medication List: was personally reviewed by me Blood Pressure Screening Patient's blood pressure: Normal blood pressure Blood pressure disposition: Did not require urgent referral Consults Time Called: 1340 Consulting Physician: Dr. Spencer - [facility] [place] Returned Call: 1344 Discussed the patient's case. The patient will be evaluated for further treatment and disposition. Impression Primary Impression: Cellulitis Additional Impression: Failure of outpatient treatment Scribe Attestation The scribe's documentation has been prepared under my direction and personally reviewed by me in its entirety. I confirm that the note above accurately reflects all work, treatment, procedures, and medical decision making performed by me. Departure Information Dispostion Being Evaluated By Hospitalist Referrals Mine Davis MD (PCP) Patient Instructions My [facility] Problem Qualifiers Primary Impression: Cellulitis Site of cellulitis: extremity Site of cellulitis of extremity: lower extremity Laterality: right Qualified Codes: L03.115 - Cellulitis of right lower limb
[2017-03-23 14:59] VITALS: O2SAT 99; BMI 54.4
[2017-03-23 15:35] VITALS: BP 114/70; PULSE 78; TEMP 36.8; O2SAT 95
[2017-03-23 16:22] LABS: INR 1.1 (0.9-1.1)
[2017-03-23 17:15] VITALS: O2SAT 95
[2017-03-23] MEDS: ENOXAPARIN 40 MG/0.4 ML SYR SQ SCH (19:41)
[2017-03-23 20:48] VITALS: TEMP 36.7
[2017-03-23] MEDS: HYDROCODONE/ACETAMI 10/325 TAB PO PRN (22:30)
[2017-03-23 23:08] VITALS: BP 131/73; PULSE 85; TEMP 37.3; O2SAT 100
[2017-03-24] MEDS: HYDROCODONE/ACETAMI 10/325 TAB PO PRN ×3 (05:34→18:14)
[2017-03-24 07:05] VITALS: BP 121/70; PULSE 85; TEMP 37.1; O2SAT 100
[2017-03-24 07:17] LABS: HEMATOCRIT 30.8 % (42-52); HEMOGLOBIN 9.9 g/dL (14.0-18.0); MEAN CELL VOLUME 91.4 fL (80-100); MEAN CORPUSCULAR HEMOGLOBIN 29.4 pg (25-34); MEAN CORPUSCULAR HGB CONC 32.1 g/dl (32-36); MEAN PLATELET VOLUME 10.2 fL (7.4-10.4); PLATELET COUNT 186 K/uL (130-400); RED CELL DISTRIBUTION WIDTH CV 14.4 % (11.5-14.5); RED CELL DISTRIBUTION WIDTH SD 48.5 fL (36.4-46.3); WHITE BLOOD COUNT 4.73 K/uL (4.8-10.8)
[2017-03-24 07:52] LABS: CALCIUM 8.4 mg/dl (8.5-10.1); CREATININE 0.65 mg/dl (0.60-1.40); POTASSIUM 3.7 mmol/L (3.5-5.1)
--- NOTE | 2017-03-24 10:45 | Progress Note ---
Progress Note Date of Service Mar 24, 2017. Progress Note ID Consult Dictated #[id number] A/P: 1. RLE Cellulitis -Continue abx, follow cultures -will likely transition to po abx at d/c, will follow
--- NOTE | 2017-03-24 11:02 | INFECT. DISEASE CONSULTATION ---
DATE OF CONSULTATION: 03/24/2017 HISTORY OF PRESENT ILLNESS: This is a 36-year-old gentleman who follows with infectious disease at the wound care center for lymphedema and chronic right lower extremity wounds. He has had multiple admissions for cellulitis. Majority of cultures are growing MSSA. He recently has been on Omnicef as an outpatient, but he stated that 1-2 days prior to admission, he started to have subjective fevers and chills and some generalized fatigue. He felt that he was coming down with an upper respiratory infection; however, he woke up yesterday and noticed stabbing pain in the right lower extremity and erythema. He came to the Emergency Room and was started on ertapenem. He remains on this. He has had significant improvement in the last 24 hours in his symptoms as well as erythema. He has been afebrile since admission. His white blood cell count is normal. Blood cultures were obtained and are pending at this time. He is ambulating in the room. On my examination, he denies any chest pain, cough, shortness of breath, nausea, vomiting or diarrhea. His remaining review of systems is unremarkable. PAST MEDICAL HISTORY: Lymphedema and history of cellulitis. PAST SURGICAL HISTORY: Significant for gastric bypass. FAMILY HISTORY: Noncontributory. SOCIAL HISTORY: Negative for tobacco use, alcohol use or drug use. ALLERGIES: HE HAS ALLERGIES TO PENICILLIN, SULFA, AND DAPTOMYCIN. MEDICATIONS: Include ertapenem, Toradol, Lovenox, Percocet, Tylenol, Maalox, milk of magnesia, and MiraLax. PHYSICAL EXAMINATION: VITAL SIGNS: He is afebrile, pulse 85, respiratory rate 19, blood pressure 121/70, and oxygen saturation is 100%. GENERAL: He is awake, alert and oriented x3. He is in no acute distress. HEENT: Mucous membranes are moist. Extraocular muscles are intact. HEART: Regular. LUNGS: Clear. ABDOMEN: Soft. EXTREMITIES: There is lymphedema bilaterally. There is a wound on the right lower extremity; however, there is no erythema. There is some tenderness in the area of his chronic wound. There is no drainage or bleeding. LABORATORY STUDIES: CBC reveals a white blood cell count of 4.7, hemoglobin 9.9 and platelets are 186. Chemistry panel reveals a sodium of 138, potassium 3.7, chloride 106, bicarbonate 25, BUN 12, creatinine 0.6, and glucose is 112. Blood cultures are pending. There is no imaging to review. ASSESSMENT AND PLAN: Recurrent right lower extremities cellulitis. He will continue on Invanz and his blood cultures will be followed. He will likely transition to oral antibiotics and plan to follow up with the wound care center post discharge from the hospital.
--- NOTE | 2017-03-24 12:18 | Hospitalist Progress Note ---
Hospitalist Progress Note Date of Service Mar 24, 2017. (Giuliana Boateng, KASHIF) Subjective Pt evaluation today including: conversation w/ patient, physical exam, chart review, lab review, review of studies, conversation w/ technical marketing consultant (ARMANDO- Dr. Boothe), review of inpatient medication list Patient seen and evaluated. Reporting erythema markedly improved and no further fever/chills/nausea. Still continues with pain of his legs. Follows with wound care as an outpatient. Constitutional: No fever, No chills Respiratory: No shortness of breath Cardiovascular: No chest pain Abdomen: No pain, No nausea, No vomiting, No diarrhea, No constipation Male : No dysuria Skin: + problem reported (erythema - improving) (Giuliana Boateng, KATHYAC) Medications Current Inpatient Medications Medications (Trade) Dose Ordered Sig/Sirisha Route Start Time Stop Time Status Last Admin Dose Admin Enoxaparin Sodium (Lovenox Inj) 40 mg Q24H SQ 03/23/17 20:00 04/22/17 19:59 Acetaminophen (Tylenol Tab) 650 mg Q4H PRN PO 03/23/17 14:00 04/22/17 13:59 Al Hydrox/Mg Hydrox/Simethicone (Maalox Max Susp) 15 ml Q4H PRN PO 03/23/17 14:00 04/22/17 13:59 Magnesium Hydroxide (Milk Of Magnesia Susp) 30 ml Q6H PRN PO 03/23/17 14:00 04/22/17 13:59 Polyethylene (Miralax Powder Packet) 17 gm DAILY PRN PO 03/23/17 14:00 04/22/17 13:59 Ondansetron HCl (Zofran Inj) 4 mg Q6H PRN IV 03/23/17 14:00 04/22/17 13:59 Ertapenem 1 gm/ Sodium Chloride 50 ml @ 120 mls/hr Q24H IV 03/24/17 14:00 04/03/17 13:59 Acetaminophen/ Hydrocodone Bitart ([place] 10/325 Tab) 2 tab QID PRN PO 03/23/17 15:00 04/06/17 13:59 03/24/17 05:34 2 TAB Ketorolac Tromethamine (Toradol Inj) 15 mg Q6H PRN IV 03/24/17 10:30 03/29/17 10:29 (Giuliana Boateng PA-C) Objective Vital Signs Date Time Temp Pulse Resp B/P (MAP) Pulse Ox O2 Delivery O2 Flow Rate FiO2 03/24/17 07:55 Room Air 03/24/17 07:05 37.1 85 19 121/70 (87) 100 Nasal Cannula 4.0 03/24/17 00:10 Room Air 03/23/17 23:08 37.3 85 16 131/73 (92) 100 Room Air 03/23/17 20:48 36.7 03/23/17 17:15 95 Room Air 03/23/17 15:35 36.8 78 16 114/70 95 Room Air 03/23/17 14:59 99 Room Air 03/23/17 13:49 75 20 109/63 99 Room Air 03/23/17 12:26 37.0 82 18 123/77 99 Room Air (Giuliana Boateng PA-C) Physical Exam General Appearance: WD/WN, no apparent distress Eyes: sclerae normal ENT: hearing grossly normal Neck: supple, no JVD, trachea midline Respiratory/Chest: lungs clear, normal breath sounds, no respiratory distress, no accessory muscle use Cardiovascular: regular rate, rhythm, no gallop, no murmur Abdomen: normal bowel sounds, non tender, soft Extremities: + pertinent finding (large b/l lympedema-appearing legs with large overhanging skin from the thighs; delineated area with mild erythema but not warm to touch, is tender per patient, dry scaling areas) Neurologic/Psychiatric: alert, oriented x 3 (Giuliana Boateng PA-C) Laboratory Results Last 24 Hours Test 03/23/17 12:55 03/24/17 06:59 White Blood Count 7.71 K/uL 4.73 K/uL Red Blood Count 3.81 M/uL 3.37 M/uL Hemoglobin 11.4 g/dL 9.9 g/dL Hematocrit 34.9 % 30.8 % Mean Corpuscular Volume 91.6 fL 91.4 fL Mean Corpuscular Hemoglobin 29.9 pg 29.4 pg Mean Corpuscular Hemoglobin Concent 32.7 g/dl 32.1 g/dl Platelet Count 248 K/uL 186 K/uL Mean Platelet Volume 10.6 fL 10.2 fL Neutrophils (%) (Auto) 76.8 % Lymphocytes (%) (Auto) 17.5 % Monocytes (%) (Auto) 4.9 % Eosinophils (%) (Auto) 0.1 % Basophils (%) (Auto) 0.4 % Neutrophils # (Auto) 5.92 K/uL Lymphocytes # (Auto) 1.35 K/uL Monocytes # (Auto) 0.38 K/uL Eosinophils # (Auto) 0.01 K/uL Basophils # (Auto) 0.03 K/uL RDW Standard Deviation 48.1 fL 48.5 fL RDW Coefficient of Variation 14.5 % 14.4 % Immature Granulocyte % (Auto) 0.3 % Immature Granulocyte # (Auto) 0.02 K/uL Prothrombin Time 11.9 SECONDS Prothromb Time International Ratio 1.1 Sodium Level 137 mmol/L 138 mmol/L Potassium Level 4.0 mmol/L 3.7 mmol/L Chloride Level 105 mmol/L 106 mmol/L Carbon Dioxide Level 24 mmol/L 25 mmol/L Anion Gap 8.0 mmol/L 8.0 mmol/L Blood Urea Nitrogen 16 mg/dl 12 mg/dl Creatinine 0.92 mg/dl 0.65 mg/dl Est Creatinine Clear Calc Drug Dose 136.2 ml/min 192.8 ml/min Estimated GFR () 123.6 145.1 Estimated GFR (Non- 106.6 125.2 BUN/Creatinine Ratio 17.3 17.7 Random Glucose 97 mg/dl 112 mg/dl Calcium Level 8.7 mg/dl 8.4 mg/dl (Giuliana Boateng, PA-C) Assessment and Plan Patient is a pleasant 36 y/o male, with PMHx lymphedema and recurrent RLE cellulitis, who presented to the ED because of worsening RLE cellulitis. Patient follows w/ Dr. France- he was placed on Cefdinir roughly 1 week ago due to recurrent RLE cellulitis. Recurrent RLE Cellultiis with Superimposed B/L Lymphedema: - Ertapenem 1 g IV daily - Continue [place] 2 tabs QID PRN and Toradol PRN for breakthrough - ID following - discussed at bedside - continue at this time with likely oral conversion, will follow Positive BCx x 1: - Gram Pos Cocci - continue to follow - does have H/o MSSA DVT Prophylaxis: Lovenox 40 mg SC daily Disposition: Hopefully oral conversion but may need IV - follow BCx (real vs contaminant) -- Hopeful D/C next 1-2 days Continued [facility] stay due to: multiple IV medications needed Discharge planning: home (Giuliana Boateng, PA-C) PA Physician Supervision Note: I interviewed and examined the patient. Discussed with Giuliana Boateng PAC and agree with findings and plan as documented in the note. Any exceptions or clarifications are listed here: None Patient is with persistent lymphedema after gastric bypass surgery with abrasions and excoriations greeting recurrent cellulitis, he's followed by wound care because of a persistent nonhealing wound he is currently on Invanz therapy awaiting culture results for direction of further antibiotic treatment signs vitals are stable His legs show some improvement given the demarcation of a skin marker surrounding the area of cellulitis. Continue Invanz as directed by infectious disease consideration for post discharge plastic surgery referral as the patient is at consistent persistent recurrent infections of his legs which are malformed due to previous obesity and massive weight loss Documented By: Santiago Hickman (Santiago Hickman M.D.)
[2017-03-24] MEDS: ERTAPENEM IV 1 GM in SODIUM CHLOR 0.9% AD-VAN 50ML 50 ML IV SCH (13:58)
[2017-03-24 14:54] VITALS: Ht 157.5 cm; Wt 135.0 kg
[2017-03-24] MEDS: KETOROLAC TROMETHAMINE 15 MG/ML VIAL IV PRN ×2 (15:48→23:47)
[2017-03-24] MEDS: ENOXAPARIN 40 MG/0.4 ML SYR SQ SCH (19:31)
[2017-03-24 22:55] VITALS: BP 113/74; PULSE 53; TEMP 36.4; O2SAT 99
[2017-03-25] MEDS: HYDROCODONE/ACETAMI 10/325 TAB PO PRN ×4 (01:14→22:36)
[2017-03-25 07:14] VITALS: BP 136/73; PULSE 74; TEMP 36.6; O2SAT 100
[2017-03-25 08:19] LABS: HEMATOCRIT 36.5 % (42-52); HEMOGLOBIN 11.8 g/dL (14.0-18.0); MEAN CELL VOLUME 92.9 fL (80-100); MEAN CORPUSCULAR HGB CONC 32.3 g/dl (32-36); MEAN PLATELET VOLUME 10.8 fL (7.4-10.4); PLATELET COUNT 207 K/uL (130-400); RED CELL DISTRIBUTION WIDTH CV 14.4 % (11.5-14.5); RED CELL DISTRIBUTION WIDTH SD 49.1 fL (36.4-46.3); WHITE BLOOD COUNT 5.74 K/uL (4.8-10.8)
[2017-03-25 08:56] LABS: CALCIUM 8.9 mg/dl (8.5-10.1); CREATININE 0.75 mg/dl (0.60-1.40); POTASSIUM 4.2 mmol/L (3.5-5.1)
--- NOTE | 2017-03-25 14:09 | Progress Note ---
Subjective Date of Service: Mar 25, 2017. Subjective Pt evaluation today including: conversation w/ patient, physical exam, chart review, lab review pt seen in followup, doing well. no complaints. no f/c. no abd pain, no n/v/d. no pain. states redness improved, no drainage from wound. initial blood culture with executive director sheltered workshop in 1/2 sets, repeats pending. tolerating abx. all remaining ros reviewed and are negative. Problem List Medical Problems: (1) Abscess, gluteal, left Status: Acute (2) Cellulitis of right leg Status: Acute (3) Cellulitis of right leg Status: Acute (4) Cellulitis of right leg Status: Acute (5) Cellulitis of right thigh Status: Acute (6) Failure of outpatient treatment Status: Acute (7) Flank pain Status: Acute (8) Hematuria Status: Acute (9) Lymphedema Status: Acute (10) Lymphedema Status: Acute (11) Sepsis Status: Acute (12) Sepsis Status: Acute (13) Tachycardia Status: Acute (14) Ulceration Status: Acute Objective Vital Signs Date Time Temp Pulse Resp B/P (MAP) Pulse Ox O2 Delivery O2 Flow Rate FiO2 03/25/17 08:51 Room Air 03/25/17 07:14 36.6 74 18 136/73 (94) 100 Room Air 03/24/17 23:30 Room Air 03/24/17 22:55 36.4 53 18 113/74 (87) 99 Room Air 03/24/17 16:00 Room Air Physical Exam General Appearance: WD/WN, no apparent distress Eyes: normal inspection, EOMI Neck: supple Respiratory/Chest: lungs clear, normal breath sounds, no respiratory distress Cardiovascular: regular rate, rhythm Abdomen: soft Extremities: + swelling Neurologic/Psychiatric: alert, oriented x 3 Skin: normal color Comments: wound stable, no erythema noted, no warmth, no tenderness. b/l lymphedema unchanged. Laboratory Results Last 24 Hours Test 03/25/17 07:43 White Blood Count 5.74 K/uL Red Blood Count 3.93 M/uL Hemoglobin 11.8 g/dL Hematocrit 36.5 % Mean Corpuscular Volume 92.9 fL Mean Corpuscular Hemoglobin 30.0 pg Mean Corpuscular Hemoglobin Concent 32.3 g/dl RDW Standard Deviation 49.1 fL RDW Coefficient of Variation 14.4 % Platelet Count 207 K/uL Mean Platelet Volume 10.8 fL Sodium Level 137 mmol/L Potassium Level 4.2 mmol/L Chloride Level 106 mmol/L Carbon Dioxide Level 24 mmol/L Anion Gap 8.0 mmol/L Blood Urea Nitrogen 14 mg/dl Creatinine 0.75 mg/dl Est Creatinine Clear Calc Drug Dose 167.1 ml/min Estimated GFR () 136.8 Estimated GFR (Non- 118.0 BUN/Creatinine Ratio 19.1 Random Glucose 89 mg/dl Calcium Level 8.9 mg/dl Assessment and Plan (1) Cellulitis Assessment & Plan: would continue IV abx 1-2 more days, then can transition to po omnicef as previously prescribed. suspect blood culture is skin contaminant, repeat pending. will follow. Continued [facility] stay due to: multiple IV medications needed Discharge planning: home Problem Qualifiers (1) Cellulitis: Site of cellulitis: extremity Site of cellulitis of extremity: lower extremity Laterality: right Qualified Codes: L03.115 - Cellulitis of right lower limb
[2017-03-25] MEDS: ERTAPENEM IV 1 GM in SODIUM CHLOR 0.9% AD-VAN 50ML 50 ML IV SCH (15:11)
[2017-03-25] MEDS: KETOROLAC TROMETHAMINE 15 MG/ML VIAL IV PRN (15:11)
[2017-03-25 15:21] VITALS: BP 148/92; PULSE 93; TEMP 37; O2SAT 97
--- NOTE | 2017-03-25 16:17 | Hospitalist Progress Note ---
Hospitalist Progress Note Date of Service Mar 25, 2017. (Giuliana Boateng PA-C) Subjective Pt evaluation today including: conversation w/ patient, physical exam, chart review, lab review, review of studies, review of inpatient medication list Patient seen and evaluated. No acute events overnight. Upon walking into the room patient is laying in bed with covers drawn over his head. Reports that he is still having pain, might be somewhat improving. Feels like he is having feelings of being cold and hot but does feel like hes running a fever Erythema seems to be receding from area of demarcation. Verbalizes no other issues. Constitutional: No fever, No chills Respiratory: No cough, No shortness of breath Cardiovascular: No chest pain Abdomen: No pain, No nausea, No vomiting, No diarrhea, No constipation Musculoskeletal: + problem reported (wound pain - R posterior thigh) Male : No dysuria Heme: No abnormal bleeding/bruising (Giuliana Boateng PA-C) Medications Current Inpatient Medications Medications (Trade) Dose Ordered Sig/Sirisha Route Start Time Stop Time Status Last Admin Dose Admin Enoxaparin Sodium (Lovenox Inj) 40 mg Q24H SQ 03/23/17 20:00 04/22/17 19:59 Acetaminophen (Tylenol Tab) 650 mg Q4H PRN PO 03/23/17 14:00 04/22/17 13:59 Al Hydrox/Mg Hydrox/Simethicone (Maalox Max Susp) 15 ml Q4H PRN PO 03/23/17 14:00 04/22/17 13:59 Magnesium Hydroxide (Milk Of Magnesia Susp) 30 ml Q6H PRN PO 03/23/17 14:00 04/22/17 13:59 Polyethylene (Miralax Powder Packet) 17 gm DAILY PRN PO 03/23/17 14:00 04/22/17 13:59 Ondansetron HCl (Zofran Inj) 4 mg Q6H PRN IV 03/23/17 14:00 04/22/17 13:59 Ertapenem 1 gm/ Sodium Chloride 50 ml @ 120 mls/hr Q24H IV 03/24/17 14:00 04/03/17 13:59 03/25/17 15:11 120 MLS/HR Ketorolac Tromethamine (Toradol Inj) 15 mg Q6H PRN IV 03/24/17 10:30 03/29/17 10:29 03/24/17 23:47 15 MG Acetaminophen/ Hydrocodone Bitart ([place] 10/325 Tab) 2 tab Q6H PRN PO 03/25/17 15:45 04/06/17 13:59 (Giuliana Boateng PA-C) Objective Vital Signs Date Time Temp Pulse Resp B/P (MAP) Pulse Ox O2 Delivery O2 Flow Rate FiO2 03/25/17 15:21 37.0 93 20 148/92 (110) 97 Room Air 03/25/17 08:51 Room Air 03/25/17 07:14 36.6 74 18 136/73 (94) 100 Room Air 03/24/17 23:30 Room Air 03/24/17 22:55 36.4 53 18 113/74 (87) 99 Room Air (Giuliana Boateng PA-C) Physical Exam General Appearance: WD/WN, no apparent distress Eyes: sclerae normal ENT: hearing grossly normal Neck: supple, no JVD, trachea midline Respiratory/Chest: lungs clear, normal breath sounds, no respiratory distress, no accessory muscle use Cardiovascular: regular rate, rhythm, no gallop, no murmur Abdomen: normal bowel sounds, non tender, soft Extremities: + pertinent finding (large lymphedema legs; area of demarcation showing receding erythema; ) Neurologic/Psychiatric: alert, oriented x 3 (Giuliana Boateng PA-C) Laboratory Results Last 24 Hours Test 03/25/17 07:43 White Blood Count 5.74 K/uL Red Blood Count 3.93 M/uL Hemoglobin 11.8 g/dL Hematocrit 36.5 % Mean Corpuscular Volume 92.9 fL Mean Corpuscular Hemoglobin 30.0 pg Mean Corpuscular Hemoglobin Concent 32.3 g/dl RDW Standard Deviation 49.1 fL RDW Coefficient of Variation 14.4 % Platelet Count 207 K/uL Mean Platelet Volume 10.8 fL Sodium Level 137 mmol/L Potassium Level 4.2 mmol/L Chloride Level 106 mmol/L Carbon Dioxide Level 24 mmol/L Anion Gap 8.0 mmol/L Blood Urea Nitrogen 14 mg/dl Creatinine 0.75 mg/dl Est Creatinine Clear Calc Drug Dose 167.1 ml/min Estimated GFR () 136.8 Estimated GFR (Non- 118.0 BUN/Creatinine Ratio 19.1 Random Glucose 89 mg/dl Calcium Level 8.9 mg/dl (Giuliana Boateng PA-C) Assessment and Plan Patient is a pleasant 36 y/o male, with PMHx lymphedema and recurrent RLE cellulitis, who presented to the ED because of worsening RLE cellulitis. Patient follows w/ Dr. France- he was placed on Cefdinir roughly 1 week ago due to recurrent RLE cellulitis. Recurrent RLE Cellulitis with Superimposed B/L Lymphedema: - Ertapenem 1 g IV daily with plans to convert to orals - likely Omnicef on D/C per ID recommendations - Continue [place] 2 tabs QID PRN and Toradol PRN for breakthrough - ID following - discussed at bedside - continue at this time with likely oral conversion, will follow - Plan for 1-2 days IV prior to conversion Positive BCx x 1: - Likely contaminant with repeat obtained on 03/25 DVT Prophylaxis: Lovenox 40 mg SC daily Disposition: Hopefully oral conversion - follow repeat BCx -- Hopeful D/C next 1-2 days - no home needs anticipated Continued [facility] stay due to: multiple IV medications needed Discharge planning: home (Giuliana Boateng PA-C) PA Physician Supervision Note: I interviewed and examined the patient. Discussed with Giuliana Boateng PAC and agree with findings and plan as documented in the note. Any exceptions or clarifications are listed here: None Patient feels about the same feels weak and tired is persistent irritation to his right leg at the site of cellulitis although getting better He's had no fevers nor leukocytosis His exam shows marked deformities in almost like him to open Aj of his lower legs with an abraded irritated area consistent with cellulitis on his right medial leg infectious disease recommending continued Invanz therapy wound care is following Documented By: Santiago Hickman (Santiago Hickman M.D.)
[2017-03-25] MEDS: ENOXAPARIN 40 MG/0.4 ML SYR SQ SCH (20:00)
[2017-03-25 23:00] VITALS: BP 130/85; PULSE 73; TEMP 37; O2SAT 100
[2017-03-26] MEDS: HYDROCODONE/ACETAMI 10/325 TAB PO PRN ×4 (04:39→23:57)
[2017-03-26 07:32] VITALS: BP 102/66; PULSE 60; TEMP 36.4; O2SAT 99
[2017-03-26 09:16] LABS: HEMATOCRIT 34.8 % (42-52); MEAN CELL VOLUME 92.8 fL (80-100); MEAN CORPUSCULAR HEMOGLOBIN 29.3 pg (25-34); MEAN CORPUSCULAR HGB CONC 31.6 g/dl (32-36); MEAN PLATELET VOLUME 10.4 fL (7.4-10.4); PLATELET COUNT 244 K/uL (130-400); RED CELL DISTRIBUTION WIDTH CV 14.3 % (11.5-14.5); RED CELL DISTRIBUTION WIDTH SD 48.7 fL (36.4-46.3); WHITE BLOOD COUNT 5.54 K/uL (4.8-10.8)
[2017-03-26 09:39] LABS: CALCIUM 8.9 mg/dl (8.5-10.1); CREATININE 0.73 mg/dl (0.60-1.40); POTASSIUM 4.4 mmol/L (3.5-5.1)
[2017-03-26 10:01] VITALS: O2SAT 96
--- NOTE | 2017-03-26 10:49 | Progress Note ---
Subjective Date of Service: Mar 26, 2017. Subjective Pt evaluation today including: conversation w/ patient, physical exam, chart review, lab review pt seen in followup, doing well. less pain in leg today, no f/c. ambulating without difficulty, tolerating abx. less erythema today. all remaining ros reviewed and are negative. Problem List Medical Problems: (1) Abscess, gluteal, left Status: Acute (2) Cellulitis of right leg Status: Acute (3) Cellulitis of right leg Status: Acute (4) Cellulitis of right leg Status: Acute (5) Cellulitis of right thigh Status: Acute (6) Failure of outpatient treatment Status: Acute (7) Flank pain Status: Acute (8) Hematuria Status: Acute (9) Lymphedema Status: Acute (10) Lymphedema Status: Acute (11) Sepsis Status: Acute (12) Sepsis Status: Acute (13) Tachycardia Status: Acute (14) Ulceration Status: Acute Objective Vital Signs Date Time Temp Pulse Resp B/P (MAP) Pulse Ox O2 Delivery O2 Flow Rate FiO2 03/26/17 10:01 96 Room Air 03/26/17 07:50 Room Air 03/26/17 07:32 36.4 60 18 102/66 (78) 99 Room Air 03/26/17 00:00 Room Air 03/25/17 23:00 37.0 73 18 130/85 (100) 100 Room Air 03/25/17 17:29 Room Air 03/25/17 15:21 37.0 93 20 148/92 (110) 97 Room Air Physical Exam General Appearance: WD/WN, no apparent distress Eyes: normal inspection, EOMI Neck: supple Respiratory/Chest: lungs clear, no respiratory distress Cardiovascular: regular rate, rhythm Abdomen: soft Extremities: non-tender, + pertinent finding (lymphedema) Neurologic/Psychiatric: alert, oriented x 3 Skin: normal color Comments: less erythema right leg, min warmth, improving. Laboratory Results Last 24 Hours Test 03/26/17 08:55 White Blood Count 5.54 K/uL Red Blood Count 3.75 M/uL Hemoglobin 11.0 g/dL Hematocrit 34.8 % Mean Corpuscular Volume 92.8 fL Mean Corpuscular Hemoglobin 29.3 pg Mean Corpuscular Hemoglobin Concent 31.6 g/dl RDW Standard Deviation 48.7 fL RDW Coefficient of Variation 14.3 % Platelet Count 244 K/uL Mean Platelet Volume 10.4 fL Sodium Level 138 mmol/L Potassium Level 4.4 mmol/L Chloride Level 104 mmol/L Carbon Dioxide Level 28 mmol/L Anion Gap 6.0 mmol/L Blood Urea Nitrogen 12 mg/dl Creatinine 0.73 mg/dl Est Creatinine Clear Calc Drug Dose 171.7 ml/min Estimated GFR () 138.3 Estimated GFR (Non- 119.3 BUN/Creatinine Ratio 16.9 Random Glucose 96 mg/dl Calcium Level 8.9 mg/dl Assessment and Plan (1) Cellulitis Assessment & Plan: continue ertapenem, hopefully stop tomorrow and d/c on omnicef as previously prescribed, has appt at wound center on 04/[address] [facility] stay due to: multiple IV medications needed Discharge planning: home Problem Qualifiers (1) Cellulitis: Site of cellulitis: extremity Site of cellulitis of extremity: lower extremity Laterality: right Qualified Codes: L03.115 - Cellulitis of right lower limb
[2017-03-26 12:32] VITALS: BP 108/64; PULSE 60; TEMP 36.8; O2SAT 92
[2017-03-26] MEDS: ERTAPENEM IV 1 GM in SODIUM CHLOR 0.9% AD-VAN 50ML 50 ML IV SCH (14:22)
[2017-03-26 15:40] VITALS: BP 119/80; PULSE 58; TEMP 36.6; O2SAT 100
--- NOTE | 2017-03-26 17:10 | Hospitalist Progress Note ---
Hospitalist Progress Note Date of Service Mar 26, 2017. (Giuliana Boateng, PA-C) Subjective Pt evaluation today including: conversation w/ patient, physical exam, chart review, lab review, review of studies, review of inpatient medication list Patient seen and evaluated. No acute events overnight. Skin is barely erythematous today. Slightly warm to touch. Pain improving slightly each day. Reports the pain is common when he gets swelling but slightly worse than his usual. States he had a hematoma in the past in the thigh region but states that pain was more significant than what he currently is experiencing. States he thought he had scattered punctate red spots on his abdomen earlier but doesn't see them now. Said he did have them before with Abx. Will continue to monitor. Constitutional: No fever, No chills Abdomen: No pain, No nausea, No vomiting, No diarrhea, No constipation Musculoskeletal: + problem reported (R medial and posterior thigh pain) Male : No dysuria Heme: No abnormal bleeding/bruising (Giuliana Boateng, PA-C) Medications Current Inpatient Medications Medications (Trade) Dose Ordered Sig/Sirisha Route Start Time Stop Time Status Last Admin Dose Admin Enoxaparin Sodium (Lovenox Inj) 40 mg Q24H SQ 03/23/17 20:00 04/22/17 19:59 Acetaminophen (Tylenol Tab) 650 mg Q4H PRN PO 03/23/17 14:00 04/22/17 13:59 Al Hydrox/Mg Hydrox/Simethicone (Maalox Max Susp) 15 ml Q4H PRN PO 03/23/17 14:00 04/22/17 13:59 Magnesium Hydroxide (Milk Of Magnesia Susp) 30 ml Q6H PRN PO 03/23/17 14:00 04/22/17 13:59 Polyethylene (Miralax Powder Packet) 17 gm DAILY PRN PO 03/23/17 14:00 04/22/17 13:59 Ondansetron HCl (Zofran Inj) 4 mg Q6H PRN IV 03/23/17 14:00 04/22/17 13:59 Ertapenem 1 gm/ Sodium Chloride 50 ml @ 120 mls/hr Q24H IV 03/24/17 14:00 04/03/17 13:59 03/26/17 14:22 120 MLS/HR Acetaminophen/ Hydrocodone Bitart ([place] 10/325 Tab) 2 tab Q4H PRN PO 03/26/17 15:45 04/06/17 13:59 03/26/17 17:12 2 TAB (Giuliana Boateng PA-C) Objective Vital Signs Date Time Temp Pulse Resp B/P (MAP) Pulse Ox O2 Delivery O2 Flow Rate FiO2 03/26/17 15:40 36.6 58 18 119/80 (93) 100 Room Air 03/26/17 12:32 36.8 60 18 108/64 (79) 92 Room Air 03/26/17 10:01 96 Room Air 03/26/17 07:50 Room Air 03/26/17 07:32 36.4 60 18 102/66 (78) 99 Room Air 03/26/17 00:00 Room Air 03/25/17 23:00 37.0 73 18 130/85 (100) 100 Room Air 03/25/17 17:29 Room Air (Giuliana Boateng PA-C) Physical Exam General Appearance: WD/WN, no apparent distress Respiratory/Chest: lungs clear, normal breath sounds, no respiratory distress, no accessory muscle use Cardiovascular: regular rate, rhythm, no gallop, no murmur Abdomen: normal bowel sounds, non tender, soft Extremities: + pertinent finding (erythema of medial R thigh improving; minimally warm to touch) Neurologic/Psychiatric: alert, oriented x 3 (Giuliana Boateng PA-C) Laboratory Results Last 24 Hours Test 03/26/17 08:55 White Blood Count 5.54 K/uL Red Blood Count 3.75 M/uL Hemoglobin 11.0 g/dL Hematocrit 34.8 % Mean Corpuscular Volume 92.8 fL Mean Corpuscular Hemoglobin 29.3 pg Mean Corpuscular Hemoglobin Concent 31.6 g/dl RDW Standard Deviation 48.7 fL RDW Coefficient of Variation 14.3 % Platelet Count 244 K/uL Mean Platelet Volume 10.4 fL Sodium Level 138 mmol/L Potassium Level 4.4 mmol/L Chloride Level 104 mmol/L Carbon Dioxide Level 28 mmol/L Anion Gap 6.0 mmol/L Blood Urea Nitrogen 12 mg/dl Creatinine 0.73 mg/dl Est Creatinine Clear Calc Drug Dose 171.7 ml/min Estimated GFR () 138.3 Estimated GFR (Non- 119.3 BUN/Creatinine Ratio 16.9 Random Glucose 96 mg/dl Calcium Level 8.9 mg/dl (Giuliana Boateng, KASHIF) Assessment and Plan Patient is a pleasant 36 y/o male, with PMHx lymphedema and recurrent RLE cellulitis, who presented to the ED because of worsening RLE cellulitis. Patient follows w/ Dr. France- he was placed on Cefdinir roughly 1 week ago due to recurrent RLE cellulitis. Recurrent RLE Cellulitis with Superimposed B/L Lymphedema: - Ertapenem 1 g IV daily with plans to convert Omnicef on D/C - Continue [place] 2 tabs PRN - ID following - plan to convert to Omnicef and have F/U as outpatient with wound clinic Positive BCx x 1: - Likely contaminant with repeat with NGTD DVT Prophylaxis: Lovenox 40 mg SC daily Disposition: Likely D/C tomorrow - Doesn't feel that he needs HHS on D/C Continued [facility] stay due to: multiple IV medications needed Discharge planning: home (Giuliana Boateng PA-C) PA Physician Supervision Note: I interviewed and examined the patient. Discussed with Giuliana Boateng PAC and agree with findings and plan as documented in the note. 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
[2017-03-26] MEDS: ENOXAPARIN 40 MG/0.4 ML SYR SQ SCH (20:00)
[2017-03-26 23:03] VITALS: BP 114/70; PULSE 67; TEMP 36.6; O2SAT 99
[2017-03-27] MEDS: HYDROCODONE/ACETAMI 10/325 TAB PO PRN ×2 (07:28→12:03)
[2017-03-27 07:36] VITALS: BP 114/71; PULSE 60; TEMP 36.6; O2SAT 98
[2017-03-27 08:00] VITALS: O2SAT 98
--- NOTE | 2017-03-27 11:58 | Discharge Instructions ---
Discharge Instructions Date of Service Mar 27, 2017. Admission Reason for Admission: Cellulitis Discharge Discharge Diagnosis / Problem: Cellulitis Discharge Goals Goal(s): Decrease discomfort, Improve function, Increase independence Activity Recommendations Activity Limitations: resume your previous activity . Instructions / Follow-Up Instructions / Follow-Up Cellulitis: - You were treated with IV antibiotics during your admission and will continue on Cefdinir 300 mg twice a day for the next 10 days -- You had antibiotics today so you can start the Cefdinir on 03/28/17 -- This will cover you until you follow up with Wound Care and Dr. France and further duration of treatment will be per them Follow-Up: "Please, follow up with Dr. Davis on April 03 at 10:20 am. *If you need to reschedule this appointment, you can call her office at . Please, follow up at The [facility] with Dr. Renetta Rick on FridayMay 28 at 9:30 am. *This office is located in [address] at [address] in [place]. If you have any questions, you can call the office at [phone]. Dr. Davis should provide you with a referral to see Dr. Rick." The appt on 05/28/[address] Renetta Rick was the 1st available appt. They will call pt if there are any cancellations. Follow up appt scheduled at [facility] on Apr 03 at 1:30 pm. The pt will also be seeing Dr. France during this appt. I added this info to the DC instructions. Current Hospital Diet Patient's current hospital diet: Regular Diet Discharge Diet Recommended Diet: Regular Diet Pending Studies Studies pending at discharge: no Medical Emergencies . Who to Call and When: Medical Emergencies: If at any time you feel your situation is an emergency, please call 911 immediately. . Non-Emergent Contact Non-Emergency issues call your: Primary Care Provider Call Non-Emergent contact if: you have a fever, your pain is concerning you, you have any medication questions . . "Provider Documentation" section prepared by Giuliana Boateng. . VTE Core Measure Inpt VTE Proph given/why not?: Enoxaparin (Lovenox)SQ
[2017-03-27] MEDS: ERTAPENEM IV 1 GM in SODIUM CHLOR 0.9% AD-VAN 50ML 50 ML IV SCH (12:21)
[2017-03-27 12:52] VITALS: BP 114/71; PULSE 60; TEMP 36.6; O2SAT 98
--- NOTE | 2017-03-27 15:26 | Discharge Summary ---
Discharge Summary Date of Service Mar 27, 2017. Discharge Summary Admission Date: Mar 23, 2017 at 14:01 Discharge Date: Mar 27, 2017 Discharge Disposition: Home Principal Diagnosis: Recurrent RLE Cellulitis Problems/Secondary Diagnoses: 1. Recurrent RLE Cellulitis 2. Bilateral LE Lymphedema 3. H/O Gastric Bypass Immunizations: History of Tetanus Vaccine?: Unknown History of Pneumococcal: Unknown History of Hepatitis B Vaccine: Unknown Consultations: 1. Infectious Disease Medication Reconciliation Continued Medications: Cefdinir (Omnicef) 300 Mg Cap 300 MG PO Q12H for 30 Days, #60 CAP 3 Refills Hydrocodone/Acetaminophen 10MG/325MG ([place] 10MG/325MG) Tab 2 TABS PO QID PRN for Pain, TAB [Testosterone Inj] () 1 DOSE INJ MONTHLY Discharge Exam Review of Systems: Constitutional: No fever, No chills ENT: No nasal symptoms, No sore throat, No trouble swallowing Respiratory: No cough, No shortness of breath Cardiovascular: No chest pain Abdomen: No pain, No nausea, No vomiting, No diarrhea, No constipation Musculoskeletal: + problem reported (large edematous b/l legs - baseline) Genitourinary - Male: No dysuria Integumentary: + problem reported (improving erythema; posterior wound pain stable/slightly improved) Physical Exam: General Appearance: WD/WN, no apparent distress Eyes: sclerae normal ENT: hearing grossly normal Neck: supple, no JVD, trachea midline Respiratory/Chest: lungs clear, normal breath sounds, no respiratory distress, no accessory muscle use Cardiovascular: regular rate, rhythm, no gallop, no murmur Abdomen / GI: normal bowel sounds, non tender, soft Extremities: + pertinent finding (large lymphedema/elephantitis appearing b/ l lower extremities; hardened areas with dry cracking skin; erythema resolving and not warm to touch) Neurologic/Psychiatric: alert, oriented x 3 Skin: + pertinent finding (see extremities) Hospital Course ADMISSION: Patient is a pleasant 36 y/o male, with PMHx lymphedema and recurrent RLE cellulitis, who presented to the ED because of worsening RLE cellulitis. Patient follows w/ Dr. France- he was placed on Cefdinir roughly 1 week ago due to recurrent RLE cellulitis. Yesterday he noted fever/chills and nausea. He thought maybe he was coming down with an illness. This AM, he woke up with worsening erythema, warmth, and groin pain to RLE. He notes symptoms are similar to past presentation of cellulitis requiring IV antibiotics. + chronic bilateral lymphedema. Patient denies any sweats, lightheadedness, dizziness, vision changes, CP, palpitations, SOB, wheezing, cough, abdominal pain, vomiting, diarrhea, urinary symptoms, melena, numbness/tingling, weakness , muscle/joint pain, anxiety/depression, active bleeding. HOSPITAL COURSE: Mr. 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: - Treated with Ertapenem 1 g IV daily with good clinical response - has remained afebrile and without leukocytosis - will finish at least a 10 day course with Cefdinir and have him follow with ID and Wound Care for further discussion on length of treatment - Patient had own Cefdinir that was prescribed prior to admission and did not need a new Rx Positive BCx x 1: - Likely contaminant with repeat with NGTD Disposition: Follow-up with ID and Wound Care -- Requested Plastics consultation/referral for this gentleman as his excess skin has led to recurrent infections that has ultimately effected his overall health and wellness. He was evaluated by plastics in [facility] approx. 10 years ago but after being told he needed to lose weight (which he did) they then decided they could not help him. Unsure of the extensive nature of the type of surgery but given his good overall health this may be the time to look into options. Appreciate Plastics input or possible referral to someone that can help this young man. ALESSANDRO Physician Supervision Note: I interviewed and examined the patient. Discussed with Giuliana LOMAS and agree with findings and plan as documented in the note. 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 Discharge Instructions Please refer to the electronic Patient Visit Report (Discharge Instructions) for additional information. Additional Copies To Renetta Rick MD; Mine Davis MD
== END 2017-03-27 13:54 | disposition home or self-care (01) | DRG 603 ==
LOC: C.EDB 12:23 → C.MSW 14:01 → ENRESERV 14:26
PROVIDERS: ADMIT Family Medicine; ATTEND Internal Medicine
DX: L03.115 Cellulitis of right lower limb (principal); I89.0 Lymphedema, not elsewhere classified; Z88.1 Allergy status to other antibiotic agents; Z88.2 Allergy status to sulfonamides; Z98.84 Bariatric surgery status

== ENCOUNTER 2018-03-03 11:11 | Inpatient (IN) ==
[2018-03-03] MEDS ORDERED: ACETAMINOPHEN 500 MG TAB PO STA (11:38)
[2018-03-03] MEDS ORDERED: SODIUM CHLORIDE 0.9% 1000ML 1,000 ML IV ONE ×2 (11:38→15:33)
[2018-03-03] MEDS ORDERED: KETOROLAC 30 MG/ML VIAL IV STA (11:38)
[2018-03-03] MEDS ORDERED: MoRPHine SULFATE 10 MG/ML CARP/VIAL IV STA (11:55)
[2018-03-03 12:05] LABS: Basophils # (auto) 0.01 K/uL (0-0.2); Basophils % (auto) 0.1 %; Eosinophils # (auto) 0.02 K/uL (0-0.5); Eosinophils % (auto) 0.1 %; Hematocrit (blood only) 42.2 % (42-52); Immature Granulocytes # (auto) 0.03 K/uL (0.00-0.02); Immature Granulocytes % (auto) 0.2 %; Lymphocytes # (auto) 0.68 K/uL (1.2-3.4); Lymphocytes % (auto) 4.4 %; Mean Corpuscular Hgb Conc 33.2 g/dL (32-36); Mean Corpuscular Volume 93.8 fL (80-100); Monocytes # (auto) 0.62 K/uL (0.11-0.59); Neutrophils # (auto) 14.14 K/uL (1.4-6.5); Neutrophils % (auto) 91.2 %; Platelet Count 212 K/uL (130-400); RDW Coefficient of Variation 14.6 % (11.5-14.5); RDW Standard Deviation 49.5 fL (36.4-46.3)
--- NOTE | 2018-03-03 12:10 | XRay Report ---
XR chest 1V portable HISTORY: 37 years-old Male fever acute fever COMPARISON: Chest radiograph 12/26/2017 TECHNIQUE: Portable AP view of the chest FINDINGS: Cardiomediastinal and hilar silhouettes are within normal limits. No pneumothorax, pleural effusion, focal airspace consolidation or overt pulmonary edema. Bones of the chest appear grossly intact. IMPRESSION: No acute process. The above report was generated using voice recognition software. It may contain grammatical, syntax o r spelling errors. Electronically signed by: Davi Segundo M.D. 03/03/2018 12:08 PM
[2018-03-03 12:22] LABS: Albumin Level 4.1 gm/dl (3.4-5.0); BUN Creatinine Ratio 13.5 (10-20); Calcium 9.3 mg/dl (8.5-10.1); Creatinine Clr Calc Pharmacy 111.5 ml/min; Est GFR (African American) 95.7; Est GFR (Non-African American) 82.6; Potassium 3.8 mmol/L (3.5-5.1)
[2018-03-03 12:25] LABS: Albumin Globulin Ratio 0.8 (0.9-2); Bilirubin,Total 0.7 mg/dl (0.1-1); Globulin 5.3 gm/dl (2.5-4.0); Total Protein 9.4 gm/dl (6.4-8.2)
[2018-03-03 12:52] LABS: Influenza A virus by PCR Neg for Influ A (Neg); Influenza B virus by PCR Neg for Influ B (Neg)
[2018-03-03 13:09] LABS: INR 1.2 (0.9-1.1); Partial Thromboplastin Ratio 1.1; Partial Thromboplastin Time 27.5 Seconds (21.0-31.0)
[2018-03-03 13:16] LABS: Appearance Urine Clear (Clear); Bilirubin Urine Negative (Negative); Color Urine Yellow; Glucose Urine UA Negative (Negative); Ketones Urine Negative (Negative); Leukocyte Esterase Urine Negative (Negative); Nitrite Urine Negative (Negative); Protein Urine Negative (Negative); Specific Gravity Urine 1.017 (1.000-1.030); Urobilinogen Urine Negative (Negative); pH Urine 6.5 (4.5-7.5)
--- NOTE | 2018-03-03 13:26 | Emergency Department Note ---
History of Present Illness General Chief complaint: Infection, Wound Stated complaint: POSSIBLE INFECTION,FEVER,CHILLS,LEG HURTS Time Seen by Provider: 03/03/18 11:20 History of Present Illness Maximum Pain Intensity: 8 This patient is a 37-year-old male with a history of lymphedema that presents to the emergency department complaining of a sudden onset of headache, body aches, chills and fever that started this morning around 8 AM. He has a chronic wound on the posterior aspect of the right calf for which he sees wound care. It has been hurting and increasingly draining over the last day. He reports his pain is throbbing and an 8/10. He has not taken anything for the discomfort. The patient is concerned that he may have a wound infection as he has had these symptoms in the past associated with an infection. He denies any respiratory symptoms. No urinary symptoms. Home Medications Home Medications Medication Instructions Recorded Confirmed Type hydrocodone-acetaminophen 2 tab PO QID PRN 03/03/18 03/03/18 History Allergies Allergy/AdvReac Type Severity Reaction Status Date / Time amoxicillin Allergy Severe BLISTERS & Verified 03/03/18 12:31 SORES IN MOUTH Sulfa (Sulfonamide Allergy Severe BLISTERS & Verified 03/03/18 12:31 Antibiotics) SORES IN MOUTH daptomycin Allergy Intermediate RASH, Verified 03/03/18 12:31 EOSINOPHILIA zinc oxide Allergy Unknown RASH Verified 03/03/18 12:31 Past Med/Surg History Medical History Ulcer of right leg (Chronic) Lymphedema of lower extremity (Chronic) Cellulitis (Resolved 04/13/13) Kidney stone (Acute) Abscess, perirectal (Inactive) Surgical History H/O gastric bypass (Resolved) Social History Feels Safe at Home: Yes Smoking Status: Never smoker Preferred Language: Brazilian Review of Systems A total of 10 systems reviewed and were otherwise negative Physical Exam Vital Signs Vital Signs - 24 hr 03/03/18 11:14 03/03/18 12:07 03/03/18 13:39 Temperature 37.3 C Temperature Source Oral Sepsis Recent Fever Within 48 Hours Yes Sepsis Action Taken by Nursing Adv Provider Notified Pulse Rate 119 H Pulse Rate [Left Brachial] 103 H 100 H Pulse Rhythm [Left Brachial] Regular Respiratory Rate 22 20 18 Respiratory Effort / Characteristics Non-Labored Spontaneous Non-Labored Spontaneous Respiratory Depth Normal Normal Normal Respiratory Pattern Regular Regular Blood Pressure 151/94 H Blood Pressure [Left Arm] 116/64 112/58 L Blood Pressure Mean 113 Blood Pressure Mean [Left Arm] 81 76 Blood Pressure Position [Left Arm] Lying Lying Pulse Oximetry 98 97 96 Oxygen Delivery Method Room Air Room Air Room Air 03/03/18 14:54 03/03/18 16:00 03/03/18 16:40 Temperature 38.3 C H Temperature Source Oral Sepsis Recent Fever Within 48 Hours Sepsis Action Taken by Nursing Pulse Rate Pulse Rate [Left Brachial] 111 H 107 H Pulse Rhythm [Left Brachial] Respiratory Rate 30 H 18 Respiratory Effort / Characteristics Respiratory Depth Respiratory Pattern Blood Pressure Blood Pressure [Left Arm] 111/60 100/53 L Blood Pressure Mean Blood Pressure Mean [Left Arm] 77 68 Blood Pressure Position [Left Arm] Pulse Oximetry 96 97 Oxygen Delivery Method Room Air Room Air Constitutional WD/WN, vitals as above + acute distress (Mild discomfort.) Eyes EOM intact bilaterally ENMT external ear and nose normal, oropharynx normal Neck Trachea midline. No nuchal rigidity. Respiratory normal respiratory effort, lungs clear to auscultation Cardiovascular Rate/Rhythm: regular rhythm and + tachycardic Gastrointestinal (Abdomen) normal bowel sounds, soft, nontender, no hepatosplenomegaly Musculoskeletal Severe lymphedema noted in the lower extremities bilaterally. There is an approximately 15 cm x 8 cm wound to the posterior aspect of the right calf. There is granulation tissue present. There is no significant foul drainage noted. Mild surrounding erythema. Skin Wound as noted above Neurologic Alert and oriented x3. No focal motor deficits. Psychiatric Acting appropriately Course Patient was seen and examined Vital signs including blood pressure were reviewed medications list was verified with patient Labs were obtained, and a saline lock was established The patient was ordered Tylenol 1 g p.o. and Toradol 30 mill grams IV. He refused to Toradol. He was ordered morphine 4 mg IV for headache Imaging was performed and reviewed. He was hydrated with 1 L of normal saline. Upon reevaluation, the patient was still complaining of pain. He was ordered an additional dose of morphine 4 mg IV. We discussed his workup. He voiced understanding. The case was discussed with case management and subsequently the [facility] service. They kindly agreed to evaluate the patient for further treatment. The patient was hydrated with an additional liter of normal saline while in the emergency department. Administered Medications Discontinued Medications Acetaminophen (Tylenol) 1,000 mg PO NOW STA Stop: 03/03/18 11:39 Last Admin: 03/03/18 12:05 Dose: 1,000 mg Sodium Chloride (Nss 1000ml) 1,000 mls @ 999 mls/hr IV .Q1H1M ONE Stop: 03/03/18 12:38 Last Infusion: 03/03/18 12:59 Dose: 0 mls/hr Admin: 03/03/18 12:05 Dose: 999 mls/hr Ceftriaxone Sodium (Rocephin) 1,000 mg in 50 mls @ 100 mls/hr IV NOW STA Stop: 03/03/18 14:30 Last Infusion: 03/03/18 15:13 Dose: 0 mls/hr Admin: 03/03/18 14:16 Dose: 100 mls/hr Sodium Chloride (Nss 1000ml) 1,000 mls @ 999 mls/hr IV .Q1H1M ONE Stop: 03/03/18 16:33 Last Infusion: 03/03/18 16:36 Dose: 0 mls/hr Admin: 03/03/18 15:35 Dose: 999 mls/hr Ketorolac Tromethamine (Toradol) 30 mg IV NOW STA Stop: 03/03/18 11:39 Last Admin: 03/03/18 12:05 Dose: Not Given Morphine Sulfate (Morphine Sulfate) 6 mg IV NOW STA Stop: 03/03/18 11:56 Last Admin: 03/03/18 12:05 Dose: 6 mg Morphine Sulfate (Morphine Sulfate) 4 mg IV NOW STA Stop: 03/03/18 14:53 Last Admin: 03/03/18 15:13 Dose: 4 mg Medical Decision Making Home Medications Current Medication List: was personally reviewed by me Laboratory Data Attestation: I reviewed the patient's lab results. Result diagrams: 03/03/18 11:54 03/03/18 11:54 Lab Results 03/03/18 03/03/18 03/03/18 Range/Units 11:54 11:54 11:54 WBC 15.50 H (4.8-10.8) K/uL RBC 4.50 L (4.7-6.1) M/uL Hgb 14.0 (14.0-18.0) g/dL Hct 42.2 (42-52) % MCV 93.8 (80-100) fL MCH 31.1 (25-34) pg MCHC 33.2 (32-36) g/dL RDW Std Deviation 49.5 H (36.4-46.3) fL RDW Coeff of Lizet 14.6 H (11.5-14.5) % Plt Count 212 (130-400) K/uL MPV 11.0 H (7.4-10.4) fL Immature Gran % (Auto) 0.2 % Neut % (Auto) 91.2 % Lymph % (Auto) 4.4 % Gilliam % (Auto) 4.0 % Eos % (Auto) 0.1 % Baso % (Auto) 0.1 % Immature Gran # (Auto) 0.03 H (0.00-0.02) K/uL Neut # (Auto) 14.14 H (1.4-6.5) K/uL Lymph # (Auto) 0.68 L (1.2-3.4) K/uL Gilliam # (Auto) 0.62 H (0.11-0.59) K/uL Eos # (Auto) 0.02 (0-0.5) K/uL Baso # (Auto) 0.01 (0-0.2) K/uL PT Cancelled INR Cancelled APTT (21.0-31.0) Seconds PTT Ratio Sodium 136 (136-145) mmol/L Potassium 3.8 (3.5-5.1) mmol/L Chloride 100 (98-107) mmol/L Carbon Dioxide 27 (21-32) mmol/L Anion Gap 9.0 (3-11) BUN 15 (7-18) mg/dl Creatinine 1.13 (0.6-1.4) mg/dl Est Cr Clr Drug Dosing 111.5 ml/min Est GFR ( Amer) 95.7 Est GFR (Non-Af Amer) 82.6 BUN/Creatinine Ratio 13.5 (10-20) Glucose 108 H (70-99) mg/dl Lactate (0.4-2.0) mmol/L Calcium 9.3 (8.5-10.1) mg/dl Total Bilirubin 0.7 (0.1-1) mg/dl AST 15 (15-37) U/L ALT 21 (12-78) U/L Alkaline Phosphatase 112 (45-117) U/L Total Protein 9.4 H (6.4-8.2) gm/dl Albumin 4.1 (3.4-5.0) gm/dl Globulin 5.3 H (2.5-4.0) gm/dl Albumin/Globulin Ratio 0.8 L (0.9-2) Urine Color Urine Appearance (Clear) Urine pH (4.5-7.5) Ur Specific [place] (1.000-1.030) Urine Protein (Negative) Urine Glucose (UA) (Negative) Urine Ketones (Negative) Urine Blood (Negative) Urine Nitrite (Negative) Urine Bilirubin (Negative) Urine Urobilinogen (Negative) Ur Leukocyte Esterase (Negative) Influenza Type A (PCR) (Neg) Influenza Type B (PCR) (Neg) 03/03/18 03/03/18 03/03/18 Range/Units 11:54 12:00 12:36 WBC (4.8-10.8) K/uL RBC (4.7-6.1) M/uL Hgb (14.0-18.0) g/dL Hct (42-52) % MCV (80-100) fL MCH (25-34) pg MCHC (32-36) g/dL RDW Std Deviation (36.4-46.3) fL RDW Coeff of Lizet (11.5-14.5) % Plt Count (130-400) K/uL MPV (7.4-10.4) fL Immature Gran % (Auto) % Neut % (Auto) % Lymph % (Auto) % Gilliam % (Auto) % Eos % (Auto) % Baso % (Auto) % Immature Gran # (Auto) (0.00-0.02) K/uL Neut # (Auto) (1.4-6.5) K/uL Lymph # (Auto) (1.2-3.4) K/uL Gilliam # (Auto) (0.11-0.59) K/uL Eos # (Auto) (0-0.5) K/uL Baso # (Auto) (0-0.2) K/uL PT 12.0 INR 1.2 H APTT 27.5 (21.0-31.0) Seconds PTT Ratio 1.1 Sodium (136-145) mmol/L Potassium (3.5-5.1) mmol/L Chloride (98-107) mmol/L Carbon Dioxide (21-32) mmol/L Anion Gap (3-11) BUN (7-18) mg/dl Creatinine (0.6-1.4) mg/dl Est Cr Clr Drug Dosing ml/min Est GFR ( Amer) Est GFR (Non-Af Amer) BUN/Creatinine Ratio (10-20) Glucose (70-99) mg/dl Lactate 1.5 (0.4-2.0) mmol/L Calcium (8.5-10.1) mg/dl Total Bilirubin (0.1-1) mg/dl AST (15-37) U/L ALT (12-78) U/L Alkaline Phosphatase (45-117) U/L Total Protein (6.4-8.2) gm/dl Albumin (3.4-5.0) gm/dl Globulin (2.5-4.0) gm/dl Albumin/Globulin Ratio (0.9-2) Urine Color Urine Appearance (Clear) Urine pH (4.5-7.5) Ur Specific [place] (1.000-1.030) Urine Protein (Negative) Urine Glucose (UA) (Negative) Urine Ketones (Negative) Urine Blood (Negative) Urine Nitrite (Negative) Urine Bilirubin (Negative) Urine Urobilinogen (Negative) Ur Leukocyte Esterase (Negative) Influenza Type A (PCR) Neg for Influ A (Neg) Influenza Type B (PCR) Neg for Influ B (Neg) 03/03/18 Range/Units 13:00 WBC (4.8-10.8) K/uL RBC (4.7-6.1) M/uL Hgb (14.0-18.0) g/dL Hct (42-52) % MCV (80-100) fL MCH (25-34) pg MCHC (32-36) g/dL RDW Std Deviation (36.4-46.3) fL RDW Coeff of Lizet (11.5-14.5) % Plt Count (130-400) K/uL MPV (7.4-10.4) fL Immature Gran % (Auto) % Neut % (Auto) % Lymph % (Auto) % Gilliam % (Auto) % Eos % (Auto) % Baso % (Auto) % Immature Gran # (Auto) (0.00-0.02) K/uL Neut # (Auto) (1.4-6.5) K/uL Lymph # (Auto) (1.2-3.4) K/uL Gilliam # (Auto) (0.11-0.59) K/uL Eos # (Auto) (0-0.5) K/uL Baso # (Auto) (0-0.2) K/uL PT INR APTT (21.0-31.0) Seconds PTT Ratio Sodium (136-145) mmol/L Potassium (3.5-5.1) mmol/L Chloride (98-107) mmol/L Carbon Dioxide (21-32) mmol/L Anion Gap (3-11) BUN (7-18) mg/dl Creatinine (0.6-1.4) mg/dl Est Cr Clr Drug Dosing ml/min Est GFR ( Amer) Est GFR (Non-Af Amer) BUN/Creatinine Ratio (10-20) Glucose (70-99) mg/dl Lactate (0.4-2.0) mmol/L Calcium (8.5-10.1) mg/dl Total Bilirubin (0.1-1) mg/dl AST (15-37) U/L ALT (12-78) U/L Alkaline Phosphatase (45-117) U/L Total Protein (6.4-8.2) gm/dl Albumin (3.4-5.0) gm/dl Globulin (2.5-4.0) gm/dl Albumin/Globulin Ratio (0.9-2) Urine Color Yellow Urine Appearance Clear (Clear) Urine pH 6.5 (4.5-7.5) Ur Specific [place] 1.017 (1.000-1.030) Urine Protein Negative (Negative) Urine Glucose (UA) Negative (Negative) Urine Ketones Negative (Negative) Urine Blood Negative (Negative) Urine Nitrite Negative (Negative) Urine Bilirubin Negative (Negative) Urine Urobilinogen Negative (Negative) Ur Leukocyte Esterase Negative (Negative) Influenza Type A (PCR) (Neg) Influenza Type B (PCR) (Neg) Imaging Data Attestation: I personally reviewed and interpreted this imaging study as follows : Radiologist's Impression: Chest x-ray IMPRESSION: No acute process. The above report was generated using voice recognition software. It may contain grammatical, syntax or spelling errors. Electronically signed by: Davi Segundo M.D. 03/03/2018 12:08 PM Blood Pressure Blood Pressure Findings: Elevated blood pressure Blood Pressure Disposition: elevated BP felt to be situational MDM Narrative Differential diagnosis: Wound infection, cellulitis, Sirs, sepsis, viral illness , pneumonia, UTI, among others This patient is a 37-year-old male with a long-standing history of lymphedema that presents to the emergency department with fever, body aches and a chronic wound on his right posterior calf. According to the mother, the wound appears more erythematous. It did have erythema surrounding it. The patient's workup reveals leukocytosis. I ordered a chest x-ray and influenza to rule out other sources of fever. These were negative. Urinalysis is clean. He was treated with 2 L normal saline and Tylenol in the emergency department. When I reevaluated the patient, he was still febrile. I believe he likely has a cellulitis. Given the fact that he did not respond well to treatment in the emergency department, I felt that evaluation by the hospitalist was warranted. The patient's family was in agreement. Impression & Plan Cellulitis Discharge Plan Visit Data Chief Complaint: Infection, Wound Stated Complaint: POSSIBLE INFECTION,FEVER,CHILLS,LEG HURTS ED Provider: Santiago Blake ED Midlevel Provider: Kimberlee Hernández Discharge Problem: Cellulitis Patient Disposition: Admitted As Inpatient Condition: Fair Forms Stand Alone Forms: My [facility] Mailbox Prescriptions Prescriptions: No Action hydrocodone-acetaminophen 10-325 mg Tablet 2 tab PO QID PRN (Reason: Pain) RF: 0 Referrals Referrals: Mine Davis MD [Primary Care Provider] -
[2018-03-03] MEDS ORDERED: cefTRIAXone SODIUM 1,000 MG/50 ML BAG IV STA (14:01)
[2018-03-03] MEDS ORDERED: MoRPHine SULFATE 4 MG/ML 1 ML CARP\\VIAL IV STA (14:52)
--- NOTE | 2018-03-03 16:39 | History & Physical Report ---
Date of Service March 03, 2018 Assessment & Plan (1) Cellulitis of thigh: 35 y/o M Hx chronic LE lymphedema and recurrent cellulitis which frequently requires hospitalization. He has a nonhealing wound on his R post thigh which has been present for a few years and does not fully heal. His mother takes responsibility for his wound care presently. The pt presents with a fever and chills over the past day. Per his mother, his wound appears worse over the past few days and may have expanded slightly. The pt was febrile and tachycardic on arrival tot he ER. Initial labs are notable for leukocytosis. The most recent wound culture displayed Proteus and E Faecalis. Per sensitivities, we will place him on Ceftriaxone and Vanc. He may need surgical evaluation for debridement if there is not short-term improvement. Full code - Heparin prophylaxis Total time for this admit including review of labs, meds, imaging, records - discussion with pt and ER attending - 37 min History of Present Illness Primary Care Provider: Mine Davis MD 35 y/o M Hx chronic LE lymphedema and recurrent cellulitis which frequently requires hospitalization. He has a nonhealing wound on his R post thigh which has been present for a few years and does not fully heal. His mother takes responsibility for his wound care presently. The pt presents with a fever and chills over the past day. Per his mother, his wound appears worse over the past few days and may have expanded slightly. The pt was febrile and tachycardic on arrival tot he ER. Initial labs are notable for leukocytosis. PMH: 1) Chronic nonhealing ulcer and cellulitis R posterior thigh 2) Profound LE lymphedema 3) Morbid obesity 4) Cholecystitis Surgical: Gastric bypass Social: Does not smoke Rarely drinks Family: Noncontributory Allergies Allergy/AdvReac Type Severity Reaction Status Date / Time amoxicillin Allergy Severe BLISTERS & Verified 03/03/18 12:31 SORES IN MOUTH Sulfa (Sulfonamide Allergy Severe BLISTERS & Verified 03/03/18 12:31 Antibiotics) SORES IN MOUTH daptomycin Allergy Intermediate RASH, Verified 03/03/18 12:31 EOSINOPHILIA zinc oxide Allergy Unknown RASH Verified 03/03/18 12:31 Home Medications Home Medications Medication Instructions Recorded Confirmed Type hydrocodone-acetaminophen 2 tab PO QID PRN 03/03/18 03/03/18 History Past Med/Surg History Medical History Ulcer of right leg (Chronic) Lymphedema of lower extremity (Chronic) Cellulitis (Resolved 04/13/13) Kidney stone (Acute) Abscess, perirectal (Inactive) Surgical History H/O gastric bypass (Resolved) Social History Feels Safe at Home: Yes Smoking Status: Never smoker Preferred Language: Kazakh Review of Systems General: Fevr/chill x 1 day ENT: Denies throat pain, nasal congestion Eyes: Denies acute visual impairment, eye pain Cardiovascular: Denies CP, palpitations, PND, orthopnea Respiratory: Denies SOB, productive cough, wheezing GI: Denies nausea, vomiting, diarrhea, constipation, GI bleeding : Denies dysuria, hesitancy, frequency, hematuria Neuro: Denies headache, lightheadedness, syncope, unilateral weakness, acute loss of balance, memory loss Endocrine: Denies polydypsia, polyuria Heme: Denies unexplained bruising Skin: Chronic ulcer on post R thigh Musculoskeletal: Lymphedema Physical Exam 2 Vital Signs (Past 24 Hours): Last Vital Signs Temp 38.3 C H 03/03/18 16:00 Pulse 111 H 03/03/18 14:54 Resp 30 H 03/03/18 14:54 BP 111/60 03/03/18 14:54 Pulse Ox 96 03/03/18 14:54 Physical Exam: General: Overweight, young male, AAO x 3 - no distress ENT: No erythema or exudates, no thrush Eyes: OSITO, EOMI Head and neck: Normocephalic, atruamatic, No JVD, neck is supple. Chest/heart: Nontender, S1,2, RRR, no murmurs, no gallops Lungs: CTAB, no wheezing or crackles Abdomen: Nontender, nondistended, BS+ Neuro: AAO x 3, speech is clear, no unilateral weakness or loss of sensation, coordination intact Musculoskeletal: Prfound BL LE edema Skin: Sizeable ulcer - stage 2-3 on post of R thigh - clean margins - erythematous without noticeable pus Extremities: Lymphedema as above
[2018-03-03] MEDS ORDERED: ONDANSETRON INJ 2 MG/ML 2 ML VIAL IV PRN (18:39)
[2018-03-03] MEDS ORDERED: POLYETHYLENE (MIRALAX) 17 GM PACK PO PRN (18:39)
[2018-03-03] MEDS ORDERED: ACETAMINOPHEN 325 MG TAB PO PRN (18:39)
[2018-03-03] MEDS ORDERED: MAGNESIUM HYDROXIDE SUSP 30 ML UDC PO PRN (18:39)
[2018-03-03] MEDS ORDERED: ALUMINUM/MAGNESIUM SUSP 30 ML UDC PO PRN (18:39)
[2018-03-03] MEDS ORDERED: VANCOMYCIN CONSULT ACTIVE PRN (18:39)
[2018-03-03] MEDS ORDERED: ZOLPIDEM TARTRATE 5 MG TAB PO PRN (18:39)
[2018-03-03] MEDS ORDERED: VANCOMYCIN HCL 2,750 MG in SODIUM CHLORIDE 0.9% 500 ML IV ONE (19:30)
[2018-03-03] MEDS: HYDROCODONE/ACETAMINOPHEN 10/325 TAB PO PRN (19:33)
--- NOTE | 2018-03-03 19:45 | Pharmacy Report ---
Pharmacy Abx Initial Consult - Date of Service March 03, 2018 - Pharmacy Dosing Scope Date of Consult: 03/03/18 Consultation requested by: Dr. Rogel Pharmacy is consulted to initiate Vancomycin IV dosing therapy, order appropriate labs and adjust drug dose/frequency. - Subjective The patient is a 37 year old M admitted on 03/03/18 16:46. - Objective Height: 5 ft 2 in Weight: 138.2 kg Vital Signs (Past 12hrs): Vital Signs Temp Pulse Pulse Resp BP BP Pulse Ox 03/03/18 18:40 38.2 C H 114 H 20 124/73 96 03/03/18 18:22 107 H 18 107/47 L 92 03/03/18 18:06 109 H 20 107/47 L 95 03/03/18 16:40 107 H 18 100/53 L 97 03/03/18 16:00 38.3 C H 03/03/18 14:54 111 H 30 H 111/60 96 03/03/18 13:39 100 H 18 112/58 L 96 03/03/18 12:07 103 H 20 116/64 97 03/03/18 11:14 37.3 C 119 H 22 151/94 H 98 Lab Results (24hrs): Laboratory Tests (24 Hours) 03/03/18 03/03/18 11:54 11:54 WBC 15.50 H Neut # (Auto) 14.14 H Creatinine 1.13 Est Cr Clr Drug Dosing 111.5 Micro Results: 03/03/18 11:30 Gram Stain - Final Leg Wound Culture - Pending 03/03/18 12:06 Blood Culture - Pending Blood 03/03/18 11:54 Blood Culture - Pending Blood - Risk Factors for Resistance * Antimicrobial use within the last 90 days (Augmentin 11/2017) - Assessment & Plan Assessment 37 year old M with history of recurrent cellulitis and nonhealing wound on R thigh, admitted for worsening R leg wound. * Pt ordered a course of augmentin end of nov 2017. * Wound and blood cultures pending * Baseline renal function appears to be less than 1 mg/dL, currently at 1.13mg/ dL * Pt BMI = 55 kg/m2, which makes him at risk for vanc accumulation. Plan Vancomycin for treatment of SST. Vancomycin IV * Estimated PK Parameters: Vd 0.6 L/kg, Gil 0.087 hr-1, t1/2 ~8 hr * Loading dose: 2750 mg (20 mg/kg) * Maintenance dose: 1750 mg IV (12.5 mg/kg) every 12 hours * Goal trough level for SST : ~15 mcg/mL (aiming a little higher than traditional SST goal since pt's wound is recurrent and non healing) * Trough/Random level ordered for 03/05/18@1530 * A less than traditional dose and/extended dosing interval has/have been selected due to likelihood of drug accumulation in obese patient Pharmacy will continue to follow and will adjust dose/frequency as necessary. Thank you.
[2018-03-03] MEDS: LACTATED RINGER'S 1,000 ML IV SCH (20:54)
[2018-03-03] MEDS: HEPARIN SOD 5,000 UNIT/0.5 ML VIAL SQ SCH (22:04)
[2018-03-04] MEDS ORDERED: MoRPHine SULFATE 4 MG/ML 1 ML CARP\\VIAL IV STA (00:40)
[2018-03-04] MEDS ORDERED: KETOROLAC 30 MG/ML VIAL IV ONE (00:42)
[2018-03-04] MEDS: VANCOMYCIN HCL 1,750 MG in SODIUM CHLORIDE 0.9% 500 ML IV SCH ×2 (04:33→16:50)
[2018-03-04] MEDS: HYDROCODONE/ACETAMINOPHEN 10/325 TAB PO PRN ×3 (04:33→23:40)
[2018-03-04] MEDS: LACTATED RINGER'S 1,000 ML IV SCH (04:39)
[2018-03-04] MEDS: HEPARIN SOD 5,000 UNIT/0.5 ML VIAL SQ SCH ×3 (06:34→21:30)
--- NOTE | 2018-03-04 08:37 | Hospitalist Progress Note ---
Date of Service March 04, 2018 Assessment & Plan (1) Cellulitis of thigh: 35 y/o M Hx chronic LE lymphedema and recurrent cellulitis which frequently requires hospitalization. He has a nonhealing wound on his R post thigh which has been present for a few years and does not fully heal. His mother takes responsibility for his wound care presently. The pt presents with a fever and chills over the past day. Per his mother, his wound appears worse over the past few days and may have expanded slightly. The pt was febrile and tachycardic on arrival tot he ER. Initial labs are notable for leukocytosis. The most recent wound culture displayed Proteus and E Faecalis. Per sensitivities, we will place him on Ceftriaxone and Vanc Patient had increased pain in his lower extremity and required parenteral opiate therapy to relieve his discomfort. Full code - Heparin prophylaxis Subjective Patient has pain in his right lower extremity medially and is large lymphedema posterior right thigh there is a small open area with some surrounding redness and induration likely from abrasion. The patient relates he feels is from a scratch of his pet cat at home Review of Systems ROS: He is morbidly obese No double vision blurry vision No problems with speech or swallowing No palpitations, chest pain or pressure No Wheezing or breathing issues No abdominal pain nausea vomiting diarrhea changes in appetite or weight No burning urine urine frequency or changes in color Persistent lower extremity joint pain due to his morbid obesity right leg greater than left Persistent chronic skin changes of stasis dermatitis and marked lymphedema changes to her lower extremities No unusual bruising or bleeding No focused back pain or numbness or loss of strength No changes in memory or confusion Physical Exam 2 Vital Signs (Past 24 Hours): Last Vital Signs Temp 37.1 C 03/04/18 07:20 Pulse 77 03/04/18 07:20 Resp 18 03/04/18 07:20 BP 129/64 03/04/18 07:20 Pulse Ox 97 03/04/18 07:20 The patient appeared morbidly obese Vital signs as documented. Head exam is unremarkable. No scleral icterus or corneal arcus noted Neck is without jugular venous distension, thyromegaly, or lymphademopathy Lungs are clear to auscultation and percussion. Cardiac exam reveals Rhythm is regular. First and second heart sounds normal. No murmurs, rubs or gallops. Abdominal exam reveals normal bowel sounds, no masses, no organomegaly Extremities are patient remains with chronic lymphedema changes to his lower extremities with concurrent cellulitis to his right medial posterior thigh with a $0.25-sized opening or open area with no tunneling visible at during exam Neurologic exam is A&Ox3, no focal deficits, strength is equal bilateral Skin is warm Dry without bruises or lesions
[2018-03-04] MEDS ORDERED: HYDROmorphone INJ 0.5 MG/0.5 ML SYR IV PRN (08:43)
[2018-03-04] MEDS: HYDROmorphone INJ 1 MG/ML SYRINGE IV PRN ×3 (09:11→19:51)
[2018-03-04] MEDS: OXYCODONE HCL IR 5 MG TAB (IMMEDIATE RELEASE) PO PRN (11:51)
[2018-03-04] MEDS: cefTRIAXone SODIUM 2,000 MG in DEXTROSE 5% 50 ML IV SCH (14:20)
[2018-03-04] MEDS ORDERED: cefTRIAXone SODIUM 1,000 MG/50 ML BAG IV SCH (15:00)
[2018-03-05] MEDS: HYDROmorphone INJ 1 MG/ML SYRINGE IV PRN ×2 (04:07→12:35)
[2018-03-05] MEDS: VANCOMYCIN HCL 1,750 MG in SODIUM CHLORIDE 0.9% 500 ML IV SCH ×2 (04:08→16:33)
[2018-03-05] MEDS: HEPARIN SOD 5,000 UNIT/0.5 ML VIAL SQ SCH ×3 (05:45→21:34)
[2018-03-05] MEDS: HYDROCODONE/ACETAMINOPHEN 10/325 TAB PO PRN ×2 (09:25→17:27)
--- NOTE | 2018-03-05 10:11 | Infectious Disease Consult ---
Date of Consultation March 05, 2018 Assessment & Plan (1) Cellulitis: continue IV abx for now, if blood cultures negative, would prefer to change to zyvox 600mg po bid x 14 days if able. (2) Lymphedema of lower extremity: History of Present Illness Attending Physician: Santiago Hickman MD pt admitted with worsening ulcer right post calf, has had several episodes of rle cellulitis in past. placed on IV vanco and rocephin, tolerating well. feeling better since admission. ambulating in room on my exam, no f/c, tmax 38.5 03/03, otherwise afebrile. blood cultures done in ER, negative to date. wound culture growing MRSA and GBS - final sensitivites GBS pending. wbc on admission 03/03 - 15. lactate nml. flu swab negative, cxr negative. no cp, sob, cough, no n/v/d/abd pain, appetite stable. no pain in leg. Allergies Allergy/AdvReac Type Severity Reaction Status Date / Time amoxicillin Allergy Severe BLISTERS & Verified 03/03/18 12:31 SORES IN MOUTH Sulfa (Sulfonamide Allergy Severe BLISTERS & Verified 03/03/18 12:31 Antibiotics) SORES IN MOUTH daptomycin Allergy Intermediate RASH, Verified 03/03/18 12:31 EOSINOPHILIA zinc oxide Allergy Unknown RASH Verified 03/03/18 12:31 Home Medications Home Medications Medication Instructions Recorded Confirmed Type hydrocodone-acetaminophen 2 tab PO QID PRN 03/03/18 03/03/18 History Patient History Medical History Ulcer of right leg (Chronic) Lymphedema of lower extremity (Chronic) Cellulitis (Resolved 04/13/13) Kidney stone (Acute) Abscess, perirectal (Inactive) Surgical History H/O gastric bypass (Resolved) Social History Current Living Situation: Family Other Information That Helps Us Care for You: No Feels Safe at Home: Yes Safety Concerns: Feels Safe At This Time Smoking Status: Never smoker Hx Alcohol Use: Yes Alcohol Intake Frequency: holidays/special occasions only Hx Substance Use: No Beliefs That Will Affect Care: None Communication Ability: Effective Review of Systems all remaining ros reviewed and are negative Physical Exam 2 Vital Signs (Past 24 Hours): Last Vital Signs Temp 36.6 C 03/05/18 07:30 Pulse 72 03/05/18 07:30 Resp 20 03/05/18 07:30 BP 109/71 03/05/18 07:30 Pulse Ox 100 03/05/18 07:30 Constitutional: WD/WN, vitals as above Eyes: PERRL, conjunctivae normal, anicteric sclerae ENMT: external ear and nose normal, oropharynx normal Neck: normal visual inspection Respiratory: normal respiratory effort, lungs clear to auscultation Cardiovascular: RRR, no murmur, no edema Gastrointestinal (Abdomen): normal bowel sounds, soft, nontender, no hepatosplenomegaly Musculoskeletal: no cyanosis or clubbing, extremities motor strength 5/5 Skin: no rashes, warm and dry right post calf ulcer dressing c/d/i, no bleeding or drainage noted, no surrounding warmth, tenderness, erythema Psychiatric: A+Ox3, euthymic affect Results & Data Laboratory Results Microbiology 03/03/18 11:30 Leg Gram Stain - Final 03/03/18 11:30 Leg Wound Culture - Preliminary Staph aureus MRSA Group B Beta Strep 03/03/18 12:06 Blood Blood Culture - Preliminary No growth to date. 03/03/18 11:54 Blood Blood Culture - Preliminary No growth to date. _ (1) Cellulitis Laterality: Site of cellulitis: extremity Site of cellulitis of extremity: Site of cellulitis of trunk:
[2018-03-05] MEDS ORDERED: SUMAtriptan succinate 6 MG/0.5 ML VIAL SQ PRN (11:00)
--- NOTE | 2018-03-05 12:11 | Hospitalist Progress Note ---
Date of Service March 05, 2018 Assessment & Plan (1) Cellulitis of thigh: 35 y/o M Hx chronic LE lymphedema and recurrent cellulitis which frequently requires hospitalization. He has a nonhealing wound on his R post calf which has been present for a few years and does not fully heal. Patient thinks this wound was caused by his cat O though at this not look small enough to be from a scratch is fairly large wound care is following it The most recent wound culture displayed Proteus and E Faecalis. He remains on ceftriaxone and Vanc infectious disease is seen him and if the blood cultures are negative consent will consider transition to linezolid Patient had increased pain in his lower extremity and continues to require parenteral opiate therapy to relieve his discomfort. Patient has a unilateral frontal retro-orbital headache which sounds migrainous in nature we will try as needed Imitrex Full code - Heparin prophylaxis Subjective Patient is complaining of intermittent left-sided frontal headache which is retro-orbital and has a pulsing nature to it. Sounds slightly migrainous however it does come and go. Patient has never tried Imitrex for it he says ketorolac does not usually help. He is still having some drainage from his posterior right calf wound wound care is following Review of Systems ROS: well nourished well developed. Patient has marked issues with his lower extremity lymphedema No double vision blurry vision No problems with speech or swallowing No palpitations, chest pain or pressure No Wheezing or breathing issues No abdominal pain nausea vomiting diarrhea changes in appetite or weight No burning urine urine frequency or changes in color Diffuse chronic joint pain and muscle pain Significant lymphedema changes to his lower legs and skin No new unusual bruising or bleeding No focused back pain or numbness or loss of strength No changes in memory or confusion Physical Exam 2 Vital Signs (Past 24 Hours): Last Vital Signs Temp 36.6 C 03/05/18 07:30 Pulse 72 03/05/18 07:30 Resp 20 03/05/18 07:30 BP 109/71 03/05/18 07:30 Pulse Ox 100 03/05/18 07:30 The patient appeared well nourished and normally developed. Vital signs as documented. Head exam is unremarkable. No scleral icterus or corneal arcus noted Neck is without jugular venous distension, thyromegaly, or lymphademopathy Lungs are clear to auscultation and percussion. Cardiac exam reveals Rhythm is regular. First and second heart sounds normal. No murmurs, rubs or gallops. Abdominal exam reveals normal bowel sounds, no masses, no organomegaly Extremities are significantly edematous with lymphedema changes and both pedal pulses are normal. Neurologic exam is A&Ox3, no focal deficits, strength is equal bilateral Skin is there is a large linear open area to his right calf this is full- thickness skin with some drainage is discoloring the Aquacel type dressing
[2018-03-05] MEDS: cefTRIAXone SODIUM 2,000 MG in DEXTROSE 5% 50 ML IV SCH (13:58)
[2018-03-05] MEDS ORDERED: VANCOMYCIN TROUGH ONE (15:30)
[2018-03-06] MEDS: OXYCODONE HCL IR 5 MG TAB (IMMEDIATE RELEASE) PO PRN (00:04)
[2018-03-06] MEDS: VANCOMYCIN HCL 1,750 MG in SODIUM CHLORIDE 0.9% 500 ML IV SCH ×2 (01:57→12:34)
[2018-03-06] MEDS: HYDROCODONE/ACETAMINOPHEN 10/325 TAB PO PRN ×3 (03:06→23:39)
[2018-03-06] MEDS: HEPARIN SOD 5,000 UNIT/0.5 ML VIAL SQ SCH ×3 (05:02→20:30)
[2018-03-06] MEDS: HYDROmorphone INJ 1 MG/ML SYRINGE IV PRN ×2 (08:31→17:11)
[2018-03-06] MEDS ORDERED: ALUMINUM/MAGNESIUM/SIMETH (MAALOX MAX) 30 ML UDC PO PRN (10:00)
--- NOTE | 2018-03-06 10:30 | Infectious Disease Progress Nt ---
Date of Service March 06, 2018 Assessment & Plan (1) Cellulitis: continue IV abx for now, if blood cultures negative, would prefer to change to zyvox 600mg po bid x 14 days if able. (2) Lymphedema of lower extremity: Subjective pt seen in followup, awaiting final culture results. tolerating IV abx. afebrile , blood cultures remain negative, now new labs. no pain in leg. no cp, sob, cough, no n/v/d/abd pain. this am noted increased erythema in left leg, states he feels it is improving now. right leg continues to improve. no pain. all remaining ros reviewed and are negative. Physical Exam 2 Vital Signs (Past 24 Hours): Last Vital Signs Temp 36.8 C 03/06/18 07:22 Pulse 77 03/06/18 07:22 Resp 16 03/06/18 07:22 BP 122/66 03/06/18 07:22 Pulse Ox 97 03/06/18 07:22 Constitutional: WD/WN, vitals as above Eyes: PERRL, conjunctivae normal, anicteric sclerae ENMT: external ear and nose normal, oropharynx normal Neck: normal visual inspection Respiratory: normal respiratory effort, lungs clear to auscultation Cardiovascular: RRR, no murmur, no edema Gastrointestinal (Abdomen): normal bowel sounds, soft, nontender, no hepatosplenomegaly Musculoskeletal: no cyanosis or clubbing, extremities motor strength 5/5 Skin: no rashes, warm and dry Psychiatric: A+Ox3, euthymic affect Results & Data Laboratory Results Microbiology 03/03/18 11:30 Leg Gram Stain - Final 03/03/18 11:30 Leg Wound Culture - Final Staph aureus MRSA Group B Beta Strep 03/03/18 12:06 Blood Blood Culture - Preliminary No growth to date. 03/03/18 11:54 Blood Blood Culture - Preliminary No growth to date. _ (1) Cellulitis Laterality: Site of cellulitis: extremity Site of cellulitis of extremity: Site of cellulitis of trunk:
[2018-03-06] MEDS ORDERED: VANCOMYCIN TROUGH ONE (11:30)
--- NOTE | 2018-03-06 13:37 | Hospitalist Progress Note ---
Date of Service March 06, 2018 Assessment & Plan (1) Cellulitis of thigh: 35 y/o M Hx chronic LE lymphedema and recurrent cellulitis which frequently requires hospitalization. He has a wound on his R post calf with associated erythema and some drainage Patient thinks this wound was caused by his cat although at this not look small enough to be from a scratch is fairly large wound care is following it The most recent wound culture displayed Proteus and E Faecalis. He remains on ceftriaxone and Vanc infectious disease is seen him and if the blood cultures are negative initial wound cultures have grown MRSA and a group G strep species but sensitivities are not returned on the strep species Patient has continued pain in his lower extremity and continues to require as needed parenteral opiate therapy to relieve his discomfort. Patient had complained of a unilateral frontal retro-orbital headache which sounds migrainous in nature he has not tried the as needed Imitrex Full code - Heparin prophylaxis Patient's morbid obesity directly affects his wound care lymphedema and recurrent infections Subjective Patient has no further headache his right leg is improving his left leg has some erythema to it which is new sensitivities are back on the MRSA but not the strep species we will continue to use intravenous antibiotics until full sensitivities are returned Review of Systems ROS: well nourished well developed. Morbidly obese with lymphedema to his lower legs No double vision blurry vision No problems with speech or swallowing No palpitations, chest pain or pressure No Wheezing or breathing issues No abdominal pain nausea vomiting diarrhea changes in appetite or weight No burning urine urine frequency or changes in color Diffuse joint pain or muscle pain Significant skin changes to his lower legs erythema to his left calf there is an open area on his right calf No unusual bruising or bleeding No focused back pain or numbness or loss of strength No changes in memory or confusion Physical Exam 2 Vital Signs (Past 24 Hours): Last Vital Signs Temp 36.8 C 03/06/18 07:22 Pulse 77 03/06/18 07:22 Resp 16 03/06/18 07:22 BP 122/66 03/06/18 07:22 Pulse Ox 97 03/06/18 07:22 The patient appeared well nourished and normally developed. Vital signs as documented. Head exam is unremarkable. No scleral icterus or corneal arcus noted Neck is without jugular venous distension, thyromegaly, or lymphademopathy Lungs are clear to auscultation and percussion. Cardiac exam reveals Rhythm is regular. First and second heart sounds normal. No murmurs, rubs or gallops. Abdominal exam reveals normal bowel sounds, no masses, no organomegaly Extremities are with marketed changes from lymphedema he has an open area on his right calf which was initially infected and draining his left calf is now erythematous without any open areas Neurologic exam is A&Ox3, no focal deficits, strength is equal bilateral Skin is warm Dry without bruises or lesions
--- NOTE | 2018-03-06 14:27 | Pharmacy Report ---
Pharmacy Abx Dose Short Note - Date of Service March 06, 2018 - Assessment & Plan Assessment 37 year old M receiving vancomycin/Rocephin for treatment of cellulitis with MRSA, vanc ROBERT of 2 Day # 4 of antimicrobial therapy. Plan Vancomycin * Trough level of 22.9 mcg/mL is supratherapeutic * Change to 1750 mg IV every 12 hours * Goal trough level for MRSA cellulitis with vanc ROBERT of 2 : 15 to 20 mcg/mL * Trough level ordered for: 03/08/18 Pharmacy will continue to follow and will adjust dose/frequency as necessary. Thank you.
[2018-03-06] MEDS: cefTRIAXone SODIUM 2,000 MG in DEXTROSE 5% 50 ML IV SCH (15:26)
[2018-03-07] MEDS: HYDROmorphone INJ 1 MG/ML SYRINGE IV PRN ×3 (01:53→16:34)
[2018-03-07] MEDS: VANCOMYCIN HCL 1,750 MG in SODIUM CHLORIDE 0.9% 500 ML IV SCH ×2 (01:57→14:50)
[2018-03-07] MEDS: HEPARIN SOD 5,000 UNIT/0.5 ML VIAL SQ SCH ×3 (05:54→21:14)
[2018-03-07] MEDS: HYDROCODONE/ACETAMINOPHEN 10/325 TAB PO PRN ×2 (12:35→19:27)
--- NOTE | 2018-03-07 12:54 | Hospitalist Progress Note ---
Date of Service March 07, 2018 Assessment & Plan (1) Cellulitis of thigh: 35 y/o M Hx chronic LE lymphedema and recurrent cellulitis which frequently requires hospitalization. He has a wound on his R post calf with associated erythema and some drainage Patient thinks this wound was caused by his cat although at this not look small enough to be from a scratch is fairly large wound care continues to follow The most recent wound culture displayed Proteus and E Faecalis. He remains on ceftriaxone and Vanc infectious disease is seen him and if the blood cultures are negative initial wound cultures have grown MRSA and a group G strep species but sensitivities are not returned on the strep species, I personally called on 03/07 and labs are still pending Patient has continued pain in his lower extremity and continues as needed parenteral opiate therapy to relieve his discomfort. Patient had complained of a unilateral frontal retro-orbital headache which sounds migrainous in nature he has not tried the as needed Imitrex Full code - Heparin prophylaxis Patient's morbid obesity directly affects his wound care lymphedema and recurrent infections Subjective this pt has no new issues some minor redness to lower left leg, still awaiting culture results Review of Systems ROS: well nourished well developed. No double vision blurry vision No problems with speech or swallowing No palpitations, chest pain or pressure No Wheezing or breathing issues No abdominal pain nausea vomiting diarrhea changes in appetite or weight No burning urine urine frequency or changes in color No focal joint pain or muscle pain chronic changes of lymphedema and right posterior leg wound poa No unusual bruising or bleeding No focused back pain or numbness or loss of strength No changes in memory or confusion Physical Exam 2 Vital Signs (Past 24 Hours): Last Vital Signs Temp 36.7 C 03/07/18 07:25 Pulse 71 03/07/18 07:25 Resp 18 03/07/18 07:25 BP 120/72 03/07/18 07:25 Pulse Ox 100 03/07/18 07:25 The patient is morbidly obese Vital signs as documented. Head exam is unremarkable. No scleral icterus or corneal arcus noted Neck is without jugular venous distension, thyromegaly, or lymphademopathy Lungs are clear to auscultation and percussion. Cardiac exam reveals Rhythm is regular. First and second heart sounds normal. No murmurs, rubs or gallops. Abdominal exam reveals normal bowel sounds, no masses, no organomegaly Extremities with massive lymphedema open wound to his right calf which is draining serous liquid erythema is receding Neurologic exam is A&Ox3, no focal deficits, strength is equal bilateral Skin is warm Dry without bruises or lesions
[2018-03-07] MEDS: cefTRIAXone SODIUM 2,000 MG in DEXTROSE 5% 50 ML IV SCH (14:03)
[2018-03-08] MEDS: HYDROCODONE/ACETAMINOPHEN 10/325 TAB PO PRN ×2 (01:42→08:27)
[2018-03-08] MEDS: VANCOMYCIN HCL 1,750 MG in SODIUM CHLORIDE 0.9% 500 ML IV SCH (01:42)
[2018-03-08] MEDS: HEPARIN SOD 5,000 UNIT/0.5 ML VIAL SQ SCH (05:06)
[2018-03-08 08:11] LABS: Creatinine Clr Calc Pharmacy 172.5 ml/min; Est GFR (African American) 137.3; Est GFR (Non-African American) 118.5
--- NOTE | 2018-03-08 11:36 | Discharge Summary ---
Date of Service March 08, 2018 Admission HPI Per Admitting Provider 35 y/o M Hx chronic LE lymphedema and recurrent cellulitis which frequently requires hospitalization. He has a nonhealing wound on his R post thigh which has been present for a few years and does not fully heal. His mother takes responsibility for his wound care presently. The pt presents with a fever and chills over the past day. Per his mother, his wound appears worse over the past few days and may have expanded slightly. The pt was febrile and tachycardic on arrival tot he ER. Initial labs are notable for leukocytosis. PMH: 1) Chronic nonhealing ulcer and cellulitis R posterior thigh 2) Profound LE lymphedema 3) Morbid obesity 4) Cholecystitis Surgical: Gastric bypass Social: Does not smoke Rarely drinks Family: Noncontributory Principal Diagnosis leg cellulitis( infection) Discharge Exam The patient appeared well nourished and normally developed. Vital signs as documented. Head exam is unremarkable. No scleral icterus or corneal arcus noted Neck is without jugular venous distension, thyromegaly, or lymphademopathy Lungs are clear to auscultation and percussion. Cardiac exam reveals Rhythm is regular. First and second heart sounds normal. No murmurs, rubs or gallops. Abdominal exam reveals normal bowel sounds, no masses, no organomegaly Extremities are significantly edematous, open area posterior right calf is healing Neurologic exam is A&Ox3, no focal deficits, strength is equal bilateral Skin is warm Dry with changes of chronic venous stasis Discharge Data Allergies Allergy/AdvReac Type Severity Reaction Status Date / Time amoxicillin Allergy Severe BLISTERS & Verified 03/03/18 12:31 SORES IN MOUTH Sulfa (Sulfonamide Allergy Severe BLISTERS & Verified 03/03/18 12:31 Antibiotics) SORES IN MOUTH daptomycin Allergy Intermediate RASH, Verified 03/03/18 12:31 EOSINOPHILIA zinc oxide Allergy Unknown RASH Verified 03/03/18 12:31 Consultations 03/03/18 16:01 ED Decision to Admit Stat 03/05/18 08:29 Consult Infectious Diseases Routine 03/08/18 10:47 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 He has a wound on his R post calf with associated erythema and some drainage Patient thinks this wound was caused by his cat although at this not look small enough to be from a scratch is fairly large wound care continues to follow The most recent wound culture displayed Proteus and E Faecalis. wound cultures have grown MRSA and a group G strep species ID feels home doxycycline and keflex will be best choice, 3 weeks of therapy Patient has continued pain in his lower extremity and continues as needed parenteral opiate therapy to relieve his discomfort. Patient had complained of a unilateral frontal retro-orbital headache which sounds migrainous in nature he has not tried the as needed Imitrex Full code - Heparin prophylaxis Patient's morbid obesity directly affects his wound care lymphedema and recurrent infections Total Time Total Time Spent Total Time Spent (In Minutes): greater than 30 minutes were required to prepare discharge Discharge Plan Discharge Items Patient Disposition: Home - Home Health Services Reason For Visit: CELLULITIS, RLE Discharge Diagnosis: leg infection Condition: Fair Discharge Goals: Decrease discomfort and Diagnostic testing Activity: Resume your previous activity Non-emergency contact: Primary Care Provider and Specialist Call non-emergency contact if: you have any medication questions Follow-up/Referrals: Mine Davis MD [Primary Care Provider] - 03/11/18 10:20 am (Please, follow up with Dr. Davis on FridayMarch 11 at 10:20 am. *If you need to change/cancel this appointment, call her office at [phone]. ) Diet: Regular Addtl Provider Instructions: Please follow up at wound care clinic Please wash wound daily with soap and water and keep covered Prescriptions: New cephalexin [Keflex] 500 mg capsule 500 mg PO BID 21 Days Qty: 42 RF: 0 doxycycline hyclate 100 mg capsule 100 mg PO BID 21 Days Qty: 42 RF: 0 Continue hydrocodone-acetaminophen 10-325 mg Tablet 2 tab PO QID PRN (Reason: Pain) RF: 0 Stand-Alone Forms: [employer] [facility] [place] [employer] Discharge Orders: Discharge Order (Routine); Ordered 03/08/18 Ordered By: Santiago Hickman Admission Data Admit Date/Time: 03/03/18 16:46 Attending Provider: Santiago Hickman Admit Provider: Shantanu Rogel Primary Care Provider: Mine Davis Other Providers: Piedad Boothe ; Shantanu Rogel Service: Medical Other Interventions: Discharge Summary Assessment (RN) Last Done: 03/08/18 10:50 Pending Studies at Discharge: No
[2018-03-08] MEDS ORDERED: VANCOMYCIN TROUGH ONE (13:30)
== END 2018-03-08 14:09 | disposition home health service (06) | DRG 603 ==
LOC: ED 11:11 → 4E 16:46 → SUATTDRO 16:46 → 4E 18:22

== ENCOUNTER 2018-04-11 13:46 | Inpatient (IN) ==
[2018-04-11] MEDS ORDERED: ACETAMINOPHEN 500 MG TAB PO STA (14:17)
[2018-04-11] MEDS ORDERED: VANCOMYCIN HCL 2,500 MG in SODIUM CHLORIDE 0.9% 500 ML IV ONE (14:22)
[2018-04-11] MEDS ORDERED: VANCOMYCIN CONSULT ACTIVE PRN ×2 (14:22→18:13)
[2018-04-11] MEDS ORDERED: cefTRIAXone SODIUM 2,000 MG in DEXTROSE 5% 50 ML IV STA (14:22)
[2018-04-11 14:31] LABS: Basophils # (auto) 0.01 K/uL (0-0.2); Basophils % (auto) 0.1 %; Eosinophils # (auto) 0.01 K/uL (0-0.5); Eosinophils % (auto) 0.1 %; Hematocrit (blood only) 39.4 % (42-52); Immature Granulocytes # (auto) 0.05 K/uL (0.00-0.02); Immature Granulocytes % (auto) 0.3 %; Lymphocytes # (auto) 0.52 K/uL (1.2-3.4); Mean Corpuscular Volume 93.8 fL (80-100); Mean Platelet Volume 11.6 fL (7.4-10.4); Monocytes % (auto) 3.4 %; Neutrophils # (auto) 16.42 K/uL (1.4-6.5); Neutrophils % (auto) 93.1 %; Platelet Count 212 K/uL (130-400); RDW Coefficient of Variation 14.7 % (11.5-14.5); RDW Standard Deviation 49.9 fL (36.4-46.3); White Blood Count 17.61 K/uL (4.8-10.8)
[2018-04-11] MEDS ORDERED: ONDANSETRON INJ 2 MG/ML 2 ML VIAL IV STA (14:36)
[2018-04-11] MEDS ORDERED: MoRPHine SULFATE 4 MG/ML 1 ML CARP\\VIAL IV STA (14:36)
[2018-04-11 14:38] LABS: INR 1.2 (0.9-1.1); Partial Thromboplastin Ratio 1.1; Partial Thromboplastin Time 28.3 Seconds (21.0-31.0); Prothrombin Time 11.8 Seconds (9.0-12.0)
[2018-04-11] MEDS: SODIUM CHLORIDE 0.9% 1000ML 1,000 ML IV SCH ×2 (14:51→18:37)
[2018-04-11 15:16] LABS: Albumin Globulin Ratio 0.7 (0.9-2); Albumin Level 3.9 gm/dl (3.4-5.0); BUN Creatinine Ratio 15.3 (10-20); Bilirubin,Total 0.7 mg/dl (0.2-1); Calcium 9.1 mg/dl (8.5-10.1); Creatinine Clr Calc Pharmacy 104.5 ml/min; Est GFR (African American) 96.7; Est GFR (Non-African American) 83.5; Globulin 5.2 gm/dl (2.5-4.0); Potassium 3.9 mmol/L (3.5-5.1); Total Protein 9.1 gm/dl (6.4-8.2)
--- NOTE | 2018-04-11 15:17 | XRay Report ---
XR chest 1V portable CLINICAL HISTORY: 37 years-old Male presenting with Sepsis. TECHNIQUE: Portable upright AP view of the chest was obtained. COMPARISON: 03/03/2018. FINDINGS: Mild apparent enlargement of the cardiopericardial silhouette. Lungs and pleural spaces clear. Osseou s structures normal. Upper abdomen normal. IMPRESSION: 1. Mild apparent enlargement of the cardiopericardial silhouette. Otherwise no acute cardiopulmonary disease. Electronically signed by: Som Chowdhury M.D. 04/11/2018 3:16 PM
[2018-04-11] MEDS ORDERED: SODIUM CHLORIDE 0.9% 1000ML 1,000 ML IV ONE (15:49)
--- NOTE | 2018-04-11 16:06 | History & Physical Report ---
Date of Service April 11, 2018 Assessment & Plan (1) Venous stasis ulcer of right lower leg with edema of right lower leg: - Admit to med surg with tele as he meets sepsis criteria with tachycardia , leukocytosis, fever and wound as the source of infection - Elevated LA of 2.3, will continue on NSS at 100mL/hr x 12, good PO intake, Tmax of 37.9, WBC of 17.61 - Chronic and nonhealing, and has struggled with closure of the wound secondary to lymphedema - Failure of outpatient abx with doxycycline after prolonged course - continue IV vanc and ceftriaxone - Pain control with morphine IV 2 mg Q2H for breakthrough pain and [place] PO - Consult wound nurse - pt can only use Medipore soft cloth surgical tape on skin - Wound culture, MRSA swab - has previously grown GBS and MRSA - Consult ID, Dr. Boothe follows as an outpt (2) Cellulitis: As above (3) Leukocytosis: As above (4) Elevated lactic acid level: As above (5) Fever: -As above, tylenol prn (6) Morbid obesity with BMI of 45.0-49.9, adult: - Diet to be encouraged as pt with lymphedema and lower extremity exercise would be difficult to perform (7) Lymphedema of lower extremity: (8) DVT prophylaxis: - lovenox subq History of Present Illness Chief Complaint: RLE wound pain Primary Care Provider: Mine Davis MD This is a 37 yo M with PMHx of morbid obesity, BMI of 49.5, lymphedema, chronic venous stasis ulceration of the RLE originally developed in 2000. Pt was recently admitted Mar 03-2017. This wound had been cultured and grew out MRSA, Group B Strept, Proteus and E. Faecalis. During that admission he was treated with IV ceftriaxone and vancomycin, then transitioned to a 3 week course of doxycycline and keflex. He has been followed by the wound clinic. Dr. Boothe also follows the patient and he had been scheduled to finish antibiotics on 03/26/18, however doxycyline was extended for an additional month. Pt notes he has been having increased pain around the wound characterized as a sharp stabbing pain in the leg, as well as a burning sensation at the surface, a fever of 101 this morning and feels warmth developing over the wound area. He took Tylenol 500 mg this morning with some relief. He denies any other acute complaints. Allergies Allergy/AdvReac Type Severity Reaction Status Date / Time amoxicillin Allergy Severe BLISTERS & Verified 04/11/18 15:00 SORES IN MOUTH Sulfa (Sulfonamide Allergy Severe BLISTERS & Verified 04/11/18 15:00 Antibiotics) SORES IN MOUTH daptomycin Allergy Intermediate RASH, Verified 04/11/18 15:00 EOSINOPHILIA zinc oxide Allergy Unknown RASH Verified 04/11/18 15:00 "ALL" ANTIBIOTICS Allergy Intermediate CAUSE Uncoded 04/11/18 15:00 BLISTERS & SORES IN MOUTH. Home Medications Home Medications Medication Instructions Recorded Confirmed Type hydrocodone-acetaminophen 2 tab PO QID PRN 03/03/18 04/11/18 History doxycycline hyclate 100 mg tablet 100 mg PO BID #60 tab 03/23/18 04/11/18 Rx Past Med/Surg History Medical History Morbid obesity with BMI of 45.0-49.9, adult Cellulitis (Acute) Leukocytosis (Acute) Elevated lactic acid level (Acute) Venous stasis ulcer of right lower leg with edema of right lower leg (Acute) Ulcer of right leg (Chronic) Lymphedema of lower extremity (Chronic) Cellulitis (Resolved 04/13/13) Kidney stone (Resolved) H/O wisdom tooth extraction (Resolved) Abscess, perirectal (Inactive) Surgical History H/O gastric bypass (Resolved) Family History Other Diabetes Gallbladder disease Heart disease Hypertension Lung disease Social History marital status: Single Current Living Situation: Parent and Family current occupational status: disabled Other Information That Helps Us Care for You: No Feels Safe at Home: Yes Safety Concerns: Feels Safe At This Time Smoking Status: Never smoker Do You Dip or Chew Tobacco: No Second Hand Exposure: No Tobacco Cessation Education Requested by Patient: No Hx Alcohol Use: Yes Alcohol Intake Frequency: holidays/special occasions only Hx Substance Use: No Beliefs That Will Affect Care: None Preferred Language: Maldivian Communication Ability: Effective Artificial Breeding Technician Required: No Review of Systems Constitutional: +fever, no sweats or chills Eyes: No diplopia, no worsening or blurred vision ENT: normal hearing, no trouble swallowing Respiratory: No cough, sputum, dyspnea at rest or on exertion Cardiovascular: No chest pain, tightness or palpitations Abdomen: No pain, nausea, vomiting, diarrhea or constipation Musculoskeletal: No joint pain, calf pain, swelling Neurologic: No weakness, numbness/tingling, or balance problems Psychiatric: No anxiety or depression Skin: + Increased swelling and erythema surrounding the wound on posterior RLE. Physical Exam 2 Vital Signs (Past 24 Hours): Last Vital Signs Temp 37.9 C H 04/11/18 13:47 Pulse 99 H 04/11/18 15:45 Resp 18 04/11/18 15:45 BP 103/52 L 04/11/18 15:45 Pulse Ox 97 04/11/18 15:45 Physical Exam: General: awake, alert, no apparent distress, + morbidly obese BMI of 49.5, + lymphedema BLE. Head: Normocephalic, atraumatic ENT: PERRL, EOMI, no pharyngeal exudate, mucous membranes moist Chest: Clear to auscultation, on room air, no adventitious breath sounds Cardiac: NSR, HR ~ 100 bpm at bedside, no murmur, no JVD, normal peripheral pulses, good capillary refill Abdominal: NABS x 4 quadrants, soft, nontender to palpation, no rebound, guarding or tenderness Extremities: + lymphedema, + RLE calf region with large nonhealing "J shaped" wound opening is ~ 8cm x 5cm with another small opening below this ~ 2cm 3 cm, Total area involved is greater than 14 cm x 7 cm, + surrounding erythema, no purulence, nontender to palpation Psych: Normal mood, slightly anxious affect Neuro: AAO x 3, strength intact bilaterally and related 5/5, no motor deficits, speech is clear, no peripheral sensory deficits Constitutional: well developed and + morbidly obese Eyes: normal visual morales by confrontation and + anicteric sclerae Neck: normal visual inspection and trachea midline Respiratory: normal respiratory effort, lungs clear to auscultation Cardiovascular: Rate/Rhythm: regular rate and regular rhythm Gastrointestinal (Abdomen): Inspection/Auscultation: abdomen not distended Percussion/Palpation: abdomen soft; abdomen nontender Musculoskeletal: Head/Neck/Chest: normocephalic and head atraumatic chornic LE edema, + pedal pulses Skin: red with areas that are c/w chronic cellulitis. Area on R post calf that is open and draining Neurologic: awake; not confused Speech / Cognition: normal speech Psychiatric: A+Ox3, euthymic affect Lymphatic: Exam as done by Kena Spencer DO Results & Data Diagnostic Findings XR chest 1V portable CLINICAL HISTORY: 37 years-old Male presenting with Sepsis. TECHNIQUE: Portable upright AP view of the chest was obtained. COMPARISON: 03/03/2018. FINDINGS: Mild apparent enlargement of the cardiopericardial silhouette. Lungs and pleural spaces clear. Osseous structures normal. Upper abdomen normal. IMPRESSION: 1. Mild apparent enlargement of the cardiopericardial silhouette. Otherwise no acute cardiopulmonary disease. Code Status & VTE Plan Code Status Full Code Supervising Physician Co-Signing Physician Notes Pt seen and examined by me. Denies chest pain or SOB. Tolerating PO without issue although appetite is poor. Feels that R LE wound is with increased pain and redness. Also feels area inferior to this wound is more red and painful. L LE is stable. Follows with [facility]. Agree with HPI/ROS as noted by PA See above for my exam in PE section Agree with plan as outlined above Worsening LE cellulitis, failure of outpt management [facility]CC pending vanco/ceftriaxone for now Elevated WBC and lactic acid _ (1) Lymphedema of lower extremity Laterality: bilateral Qualified Code(s): I89.0 - Lymphedema, not elsewhere classified (2) Cellulitis Laterality: right Site of cellulitis: extremity Site of cellulitis of extremity: lower extremity Site of cellulitis of trunk: Qualified Code(s): L03.115 - Cellulitis of right lower limb (3) Leukocytosis Leukocytosis type: unspecified Qualified Code(s): D72.829 - Elevated white blood cell count, unspecified
[2018-04-11] MEDS ORDERED: ONDANSETRON INJ 2 MG/ML 2 ML VIAL IV PRN (18:13)
[2018-04-11] MEDS ORDERED: MoRPHine SULFATE 2 MG/ML CARP IV PRN (18:13)
[2018-04-11] MEDS ORDERED: MoRPHine SULFATE 4 MG/ML 1 ML CARP\\VIAL ONE ×2 (18:32→22:57)
[2018-04-11] MEDS: MoRPHine SULFATE 4 MG/ML 1 ML CARP\\VIAL IV PRN ×2 (18:36→22:59)
--- NOTE | 2018-04-11 19:40 | Emergency Department Note ---
Entered by Jose Carlos Robert acting as a scribe for Diana Chattejree MD History of Present Illness General Chief complaint: Infection Stated complaint: INFECTION IN RIGHT LEG Time Seen by Provider: 04/11/18 14:03 Source: patient History of Present Illness Onset (ago): hour(s) 3 Location: right (leg) Pain Consistency: + other (persistent) Quality: + other (fevers and chills from right leg infection) Relieved By: + medication (Tylenol) Associated symptoms: + other (tenderness to wound; denies loss of sensation) The patient is a 37 year old male who presents to the Emergency Room with complaints of persistent fevers and chills from a right leg infection beginning three hours ago. The patient reports an ulceration on his right leg that has been present for many years. He states that these symptoms have been recurring for a long time and are associated with the wound, noting that he was here in the ER a month ago for the same symptoms. He reports current tenderness to the area. He denies loss of sensation or a history of diabetes. He reports that he regularly follows wound care. He states that he has been taking doxycycline daily. He had also been taking Keflex that he finished sometime last month. He notes that he took 500 mg Tylenol this morning for his symptoms. Home Medications Home Medications Medication Instructions Recorded Confirmed Type hydrocodone-acetaminophen 2 tab PO QID PRN 03/03/18 04/11/18 History doxycycline hyclate 100 mg tablet 100 mg PO BID #60 tab 03/23/18 04/11/18 Rx Allergies Allergy/AdvReac Type Severity Reaction Status Date / Time amoxicillin Allergy Severe BLISTERS & Verified 04/11/18 15:00 SORES IN MOUTH Sulfa (Sulfonamide Allergy Severe BLISTERS & Verified 04/11/18 15:00 Antibiotics) SORES IN MOUTH daptomycin Allergy Intermediate RASH, Verified 04/11/18 15:00 EOSINOPHILIA zinc oxide Allergy Unknown RASH Verified 04/11/18 15:00 "ALL" ANTIBIOTICS Allergy Intermediate CAUSE Uncoded 04/11/18 15:00 BLISTERS & SORES IN MOUTH. Past Med/Surg History Medical History Morbid obesity with BMI of 45.0-49.9, adult Cellulitis (Acute) Leukocytosis (Acute) Elevated lactic acid level (Acute) Venous stasis ulcer of right lower leg with edema of right lower leg (Acute) Ulcer of right leg (Chronic) Lymphedema of lower extremity (Chronic) Cellulitis (Resolved 04/13/13) Kidney stone (Resolved) H/O wisdom tooth extraction (Resolved) Abscess, perirectal (Inactive) Surgical History H/O gastric bypass (Resolved) Family History Other Diabetes Gallbladder disease Heart disease Hypertension Lung disease Social History marital status: Single Current Living Situation: Parent and Family current occupational status: disabled Other Information That Helps Us Care for You: No Feels Safe at Home: Yes Safety Concerns: Feels Safe At This Time Smoking Status: Never smoker Do You Dip or Chew Tobacco: No Second Hand Exposure: No Tobacco Cessation Education Requested by Patient: No Hx Alcohol Use: Yes Alcohol Intake Frequency: holidays/special occasions only Hx Substance Use: No Beliefs That Will Affect Care: None Communication Ability: Effective Review of Systems See HPI for pertinent positives & negatives. and A total of 10 systems reviewed and were otherwise negative Physical Exam Vital Signs Vital Signs - 24 hr 04/11/18 14:26 04/11/18 15:08 04/11/18 15:45 Temperature Temperature Source Pulse Rate Pulse Rate [Left Finger] 108 H 105 H 99 H Pulse Rhythm [Left Finger] Pulse Strength [Left Finger] Respiratory Rate 24 18 18 Respiratory Effort / Characteristics Non-Labored Respiratory Depth Normal Respiratory Pattern Blood Pressure [Left Arm] 122/71 110/58 L 103/52 L Blood Pressure Mean [Left Arm] 88 75 69 Blood Pressure Position [Left Arm] Pulse Oximetry 98 98 97 Oxygen Delivery Method Room Air Room Air Room Air 04/11/18 17:09 04/11/18 17:18 04/11/18 17:56 Temperature 37.5 C Temperature Source Oral Pulse Rate Pulse Rate [Left Finger] 97 H 115 H Pulse Rhythm [Left Finger] Pulse Strength [Left Finger] Respiratory Rate 18 18 Respiratory Effort / Characteristics Respiratory Depth Respiratory Pattern Blood Pressure [Left Arm] 113/57 L 133/80 Blood Pressure Mean [Left Arm] 75 97 Blood Pressure Position [Left Arm] Sitting Pulse Oximetry 99 100 Oxygen Delivery Method Room Air Room Air Room Air 04/11/18 18:13 04/11/18 19:49 04/11/18 20:09 Temperature 38.1 C H 37.6 C H Temperature Source Oral Oral Pulse Rate 99 H Pulse Rate [Left Finger] 96 H Pulse Rhythm [Left Finger] Pulse Strength [Left Finger] Respiratory Rate 20 Respiratory Effort / Characteristics Respiratory Depth Normal Respiratory Pattern Blood Pressure [Left Arm] 121/77 Blood Pressure Mean [Left Arm] 91 Blood Pressure Position [Left Arm] Lying Pulse Oximetry 100 Oxygen Delivery Method Room Air 04/11/18 21:51 04/11/18 22:53 04/11/18 23:23 Temperature 37.8 C H 37.4 C Temperature Source Oral Oral Pulse Rate 89 Pulse Rate [Left Finger] 100 H Pulse Rhythm [Left Finger] Pulse Strength [Left Finger] Respiratory Rate 18 Respiratory Effort / Characteristics Non-Labored Spontaneous Respiratory Depth Normal Respiratory Pattern Regular Blood Pressure [Left Arm] 104/69 Blood Pressure Mean [Left Arm] 80 Blood Pressure Position [Left Arm] Pulse Oximetry 95 Oxygen Delivery Method Room Air 04/12/18 00:53 04/12/18 01:02 04/12/18 02:04 Temperature 37.1 C 39.2 C H 38.5 C H Temperature Source Oral Oral Oral Pulse Rate Pulse Rate [Left Finger] 83 Pulse Rhythm [Left Finger] Regular Pulse Strength [Left Finger] Normal Respiratory Rate 21 Respiratory Effort / Characteristics Non-Labored Respiratory Depth Normal Respiratory Pattern Regular Blood Pressure [Left Arm] 116/82 122/71 Blood Pressure Mean [Left Arm] 93 88 Blood Pressure Position [Left Arm] Lying Pulse Oximetry 97 Oxygen Delivery Method Room Air 04/12/18 04:00 04/12/18 07:00 04/12/18 08:00 Temperature 38.0 C H 37.7 C H Temperature Source Oral Oral Pulse Rate 81 Pulse Rate [Left Finger] 100 H 90 Pulse Rhythm [Left Finger] Pulse Strength [Left Finger] Respiratory Rate 20 18 Respiratory Effort / Characteristics Respiratory Depth Normal Respiratory Pattern Blood Pressure [Left Arm] 103/66 99/59 L Blood Pressure Mean [Left Arm] 78 72 Blood Pressure Position [Left Arm] Lying Lying Pulse Oximetry 95 94 Oxygen Delivery Method Room Air Room Air 04/12/18 11:00 Temperature 36.7 C Temperature Source Oral Pulse Rate Pulse Rate [Left Finger] 65 Pulse Rhythm [Left Finger] Pulse Strength [Left Finger] Respiratory Rate 18 Respiratory Effort / Characteristics Respiratory Depth Respiratory Pattern Blood Pressure [Left Arm] 103/61 Blood Pressure Mean [Left Arm] 75 Blood Pressure Position [Left Arm] Lying Pulse Oximetry 100 Oxygen Delivery Method Room Air Vital signs reviewed. General: Morbidly obese male, in no significant distress. HEENT: No scleral icterus, PERRLA, neck supple. Atraumatic. Cardiovascular: Regular rate and rhythm, no extra sounds. Pulmonary: Clear to auscultation bilaterally, normal work of breathing. Abdomen: Soft, nontender, nondistended, positive bowel sounds. Musculoskeletal: Profound lymphedema of the bilateral lower extremities. There is a V-shaped ulceration of the posterior medial aspect of the distal right lower extremity without significant drainage. Tissue is indurated, slightly erythematous, and tender. There is a smaller 1 cm superficial ulceration distally. Neurologic: Patient awake alert and oriented x 3 Skin: Warm, dry. Course 1408: Past medical records reviewed. The patient was evaluated in room C1B, and a complete history and physical examination were performed. 1552: I consulted Dr. Spencer [facility] Hospitalist. She will reevaluate the patient for hospitalization. 1630: I updated the patient on the current plan. Consultations Consultation #1: I consulted Dr. Spencer [facility] Hospitalist. She will reevaluate the patient for hospitalization. Time: 15:52 Administered Medications Acetaminophen (Tylenol) 650 mg PO Q4H PRN PRN Reason: Moderate Pain Stop: 05/11/18 18:12 Last Admin: 04/12/18 05:01 Dose: 650 mg Admin: 04/12/18 01:02 Dose: 650 mg Hydrocodone Bitart/Acetaminophen ([place] 10/325) 2 tab PO QID PRN PRN Reason: Pain Stop: 04/25/18 18:12 Last Admin: 04/12/18 08:12 Dose: 2 tab Admin: 04/11/18 19:42 Dose: 2 tab Enoxaparin Sodium (Lovenox) 40 mg SQ Q24H [facility] Stop: 05/11/18 18:59 Last Admin: 04/11/18 19:41 Dose: Not Given Sodium Chloride (Nss 1000ml) 1,000 mls @ 150 mls/hr IV .Q6H40M [facility] Stop: 05/11/18 14:29 Last Admin: 04/12/18 10:09 Dose: 150 mls/hr Infusion: 04/12/18 10:09 Dose: 150 mls/hr Admin: 04/12/18 04:34 Dose: 150 mls/hr Infusion: 04/12/18 01:21 Dose: 0 mls/hr Admin: 04/11/18 18:37 Dose: 150 mls/hr Infusion: 04/11/18 18:37 Dose: 150 mls/hr Admin: 04/11/18 14:51 Dose: 150 mls/hr Vancomycin HCl 1,500 mg/ (Sodium Chloride) 530 mls @ 200 mls/hr IV Q10H [facility]ANJAN Stop: 04/22/18 01:59 Last Admin: 04/12/18 13:32 Dose: 200 mls/hr Infusion: 04/12/18 06:25 Dose: 0 mls/hr Admin: 04/12/18 03:43 Dose: 200 mls/hr Morphine Sulfate (Morphine Sulfate) 4 mg IV Q2H PRN PRN Reason: Pain Stop: 04/25/18 18:12 Last Admin: 04/12/18 13:32 Dose: 4 mg Admin: 04/12/18 07:16 Dose: 4 mg Admin: 04/12/18 03:43 Dose: 4 mg Admin: 04/12/18 01:01 Dose: 4 mg Admin: 04/11/18 22:59 Dose: 2 mg Admin: 04/11/18 18:36 Dose: 2 mg Discontinued Medications Acetaminophen (Tylenol) 1,000 mg PO NOW STA Stop: 04/11/18 14:18 Last Admin: 04/11/18 14:37 Dose: 1,000 mg Ceftriaxone Sodium 2,000 mg/ (Dextrose) 70 mls @ 100 mls/hr IV NOW STA Stop: 04/11/18 15:03 Last Infusion: 04/11/18 18:56 Dose: 0 mls/hr Admin: 04/11/18 14:48 Dose: 100 mls/hr Vancomycin HCl 2,500 mg/ (Sodium Chloride) 550 mls @ 200 mls/hr IV NOW ONE Stop: 04/11/18 17:06 Last Infusion: 04/11/18 19:50 Dose: 0 mls/hr Admin: 04/11/18 15:43 Dose: 200 mls/hr Sodium Chloride (Nss 1000ml) 1,000 mls @ 999 mls/hr IV .Q1H1M ONE Stop: 04/11/18 16:49 Last Infusion: 04/11/18 18:13 Dose: 0 mls/hr Admin: 04/11/18 16:06 Dose: 999 mls/hr Ceftriaxone Sodium (Rocephin) 1,000 mg in 50 mls @ 100 mls/hr IV Q12H RANJAN Stop: 04/22/18 02:59 Last Infusion: 04/12/18 02:40 Dose: 0 mls/hr Admin: 04/12/18 01:55 Dose: 100 mls/hr Morphine Sulfate (Morphine Sulfate) 4 mg IV NOW STA Stop: 04/11/18 14:37 Last Admin: 04/11/18 14:48 Dose: 4 mg Morphine Sulfate (Morphine Sulfate) Confirm Administered Dose 4 mg .ROUTE .STK- MED ONE Stop: 04/11/18 18:33 Last Admin: 04/11/18 18:38 Dose: Not Given Morphine Sulfate (Morphine Sulfate) Confirm Administered Dose 4 mg .ROUTE .STK- MED ONE Stop: 04/11/18 22:58 Last Admin: 04/11/18 23:25 Dose: Not Given Ondansetron HCl (Zofran) 4 mg IV NOW STA Stop: 04/11/18 14:37 Last Admin: 04/11/18 14:47 Dose: 4 mg Medical Decision Making Differential Diagnosis Differential diagnosis: Etiologies such as cellulitis, abscess, MRSA infection, DVT, necrotizing fasciitis, dermatitis, drug eruption, as well as others were entertained. Medical Records Attestation: I reviewed the patient's medical records. Home Medications Current Medication List: was personally reviewed by me Laboratory Data Attestation: I reviewed the patient's lab results. Result diagrams: 04/12/18 07:02 04/12/18 07:02 Lab Results 04/11/18 04/11/18 04/11/18 Range/Units 14:10 14:10 14:10 WBC 17.61 H (4.8-10.8) K/uL RBC 4.20 L (4.7-6.1) M/uL Hgb 13.0 L (14.0-18.0) g/dL Hct 39.4 L (42-52) % MCV 93.8 (80-100) fL MCH 31.0 (25-34) pg MCHC 33.0 (32-36) g/dL RDW Std Deviation 49.9 H (36.4-46.3) fL RDW Coeff of Lizet 14.7 H (11.5-14.5) % Plt Count 212 (130-400) K/uL MPV 11.6 H (7.4-10.4) fL Immature Gran % (Auto) 0.3 % Neut % (Auto) 93.1 % Lymph % (Auto) 3.0 % [place] % (Auto) 3.4 % Eos % (Auto) 0.1 % Baso % (Auto) 0.1 % Immature Gran # (Auto) 0.05 H (0.00-0.02) K/uL Neut # (Auto) 16.42 H (1.4-6.5) K/uL Lymph # (Auto) 0.52 L (1.2-3.4) K/uL [place] # (Auto) 0.60 H (0.11-0.59) K/uL Eos # (Auto) 0.01 (0-0.5) K/uL Baso # (Auto) 0.01 (0-0.2) K/uL PT 11.8 (9.0-12.0) Seconds INR 1.2 H (0.9-1.1) APTT 28.3 (21.0-31.0) Seconds PTT Ratio 1.1 Sodium (136-145) mmol/L Potassium (3.5-5.1) mmol/L Chloride (98-107) mmol/L Carbon Dioxide (21-32) mmol/L Anion Gap (3-11) BUN (7-18) mg/dl Creatinine (0.6-1.4) mg/dl Est Cr Clr Drug Dosing ml/min Est GFR ( Amer) Est GFR (Non-Af Amer) BUN/Creatinine Ratio (10-20) Glucose (70-99) mg/dl Lactate (0.4-2.0) mmol/L Calcium (8.5-10.1) mg/dl Phosphorus (2.5-4.9) mg/dl Magnesium (1.8-2.4) mg/dl Total Bilirubin (0.2-1) mg/dl AST (15-37) U/L ALT (12-78) U/L Alkaline Phosphatase (45-117) U/L Total Protein (6.4-8.2) gm/dl Albumin (3.4-5.0) gm/dl Globulin (2.5-4.0) gm/dl Albumin/Globulin Ratio (0.9-2) Procalcitonin 0.37 (0-0.5) ng/ml Urine Color Urine Appearance (Clear) Urine pH (4.5-7.5) Ur Specific [place] (1.000-1.030) Urine Protein (Negative) Urine Glucose (UA) (Negative) Urine Ketones (Negative) Urine Blood (Negative) Urine Nitrite (Negative) Urine Bilirubin (Negative) Urine Urobilinogen (Negative) Ur Leukocyte Esterase (Negative) 04/11/18 04/11/18 04/11/18 Range/Units 14:10 14:10 22:45 WBC (4.8-10.8) K/uL RBC (4.7-6.1) M/uL Hgb (14.0-18.0) g/dL Hct (42-52) % MCV (80-100) fL MCH (25-34) pg MCHC (32-36) g/dL RDW Std Deviation (36.4-46.3) fL RDW Coeff of Lizet (11.5-14.5) % Plt Count (130-400) K/uL MPV (7.4-10.4) fL Immature Gran % (Auto) % Neut % (Auto) % Lymph % (Auto) % [place] % (Auto) % Eos % (Auto) % Baso % (Auto) % Immature Gran # (Auto) (0.00-0.02) K/uL Neut # (Auto) (1.4-6.5) K/uL Lymph # (Auto) (1.2-3.4) K/uL [place] # (Auto) (0.11-0.59) K/uL Eos # (Auto) (0-0.5) K/uL Baso # (Auto) (0-0.2) K/uL PT (9.0-12.0) Seconds INR (0.9-1.1) APTT (21.0-31.0) Seconds PTT Ratio Sodium 136 (136-145) mmol/L Potassium 3.9 (3.5-5.1) mmol/L Chloride 102 (98-107) mmol/L Carbon Dioxide 25 (21-32) mmol/L Anion Gap 9.0 (3-11) BUN 17 (7-18) mg/dl Creatinine 1.12 (0.6-1.4) mg/dl Est Cr Clr Drug Dosing 104.5 ml/min Est GFR ( Amer) 96.7 Est GFR (Non-Af Amer) 83.5 BUN/Creatinine Ratio 15.3 (10-20) Glucose 79 (70-99) mg/dl Lactate 2.3 H* (0.4-2.0) mmol/L Calcium 9.1 (8.5-10.1) mg/dl Phosphorus (2.5-4.9) mg/dl Magnesium (1.8-2.4) mg/dl Total Bilirubin 0.7 (0.2-1) mg/dl AST 15 (15-37) U/L ALT 21 (12-78) U/L Alkaline Phosphatase 87 (45-117) U/L Total Protein 9.1 H (6.4-8.2) gm/dl Albumin 3.9 (3.4-5.0) gm/dl Globulin 5.2 H (2.5-4.0) gm/dl Albumin/Globulin Ratio 0.7 L (0.9-2) Procalcitonin (0-0.5) ng/ml Urine Color Yellow Urine Appearance Clear (Clear) Urine pH 5.0 (4.5-7.5) Ur Specific [place] 1.014 (1.000-1.030) Urine Protein Negative (Negative) Urine Glucose (UA) Negative (Negative) Urine Ketones Negative (Negative) Urine Blood Negative (Negative) Urine Nitrite Negative (Negative) Urine Bilirubin Negative (Negative) Urine Urobilinogen Negative (Negative) Ur Leukocyte Esterase Negative (Negative) 04/12/18 04/12/18 Range/Units 07:02 07:02 WBC 8.52 (4.8-10.8) K/uL RBC 3.34 L (4.7-6.1) M/uL Hgb 10.1 L (14.0-18.0) g/dL Hct 31.2 L (42-52) % MCV 93.4 (80-100) fL MCH 30.2 (25-34) pg MCHC 32.4 (32-36) g/dL RDW Std Deviation 50.6 H (36.4-46.3) fL RDW Coeff of Lizet 14.9 H (11.5-14.5) % Plt Count 146 (130-400) K/uL MPV 10.9 H (7.4-10.4) fL Immature Gran % (Auto) % Neut % (Auto) % Lymph % (Auto) % [place] % (Auto) % Eos % (Auto) % Baso % (Auto) % Immature Gran # (Auto) (0.00-0.02) K/uL Neut # (Auto) (1.4-6.5) K/uL Lymph # (Auto) (1.2-3.4) K/uL [place] # (Auto) (0.11-0.59) K/uL Eos # (Auto) (0-0.5) K/uL Baso # (Auto) (0-0.2) K/uL PT (9.0-12.0) Seconds INR (0.9-1.1) APTT (21.0-31.0) Seconds PTT Ratio Sodium 138 (136-145) mmol/L Potassium 3.8 (3.5-5.1) mmol/L Chloride 107 (98-107) mmol/L Carbon Dioxide 25 (21-32) mmol/L Anion Gap 6.0 (3-11) BUN 12 (7-18) mg/dl Creatinine 0.83 (0.6-1.4) mg/dl Est Cr Clr Drug Dosing 170.5 ml/min Est GFR ( Amer) 130.3 Est GFR (Non-Af Amer) 112.4 BUN/Creatinine Ratio 14.4 (10-20) Glucose 102 H (70-99) mg/dl Lactate (0.4-2.0) mmol/L Calcium 8.0 L (8.5-10.1) mg/dl Phosphorus 3.2 (2.5-4.9) mg/dl Magnesium 1.9 (1.8-2.4) mg/dl Total Bilirubin 0.3 (0.2-1) mg/dl AST 23 (15-37) U/L ALT 17 (12-78) U/L Alkaline Phosphatase 57 (45-117) U/L Total Protein 6.4 D (6.4-8.2) gm/dl Albumin 2.6 L (3.4-5.0) gm/dl Globulin 3.8 (2.5-4.0) gm/dl Albumin/Globulin Ratio 0.7 L (0.9-2) Procalcitonin (0-0.5) ng/ml Urine Color Urine Appearance (Clear) Urine pH (4.5-7.5) Ur Specific [place] (1.000-1.030) Urine Protein (Negative) Urine Glucose (UA) (Negative) Urine Ketones (Negative) Urine Blood (Negative) Urine Nitrite (Negative) Urine Bilirubin (Negative) Urine Urobilinogen (Negative) Ur Leukocyte Esterase (Negative) Imaging Data Radiologist's Impression: Radiology results as stated below per my review and the radiologist's interpretation: XR chest 1V portable CLINICAL HISTORY: 37 years-old Male presenting with Sepsis. TECHNIQUE: Portable upright AP view of the chest was obtained. COMPARISON: 03/03/2018. FINDINGS: Mild apparent enlargement of the cardiopericardial silhouette. Lungs and pleural spaces clear. Osseous structures normal. Upper abdomen normal. IMPRESSION: 1. Mild apparent enlargement of the cardiopericardial silhouette. Otherwise no acute cardiopulmonary disease. Electronically signed by: Som Chowdhury M.D. 04/11/2018 3:16 PM Blood Pressure Blood Pressure Findings: Low blood pressure Blood Pressure Disposition: further management by hospitalist MDM Narrative This patient was evaluated and appeared to be in no significant distress. Patient is chronically ill appearing and morbidly obese. He has massive lymphedema to the bilateral lower extremities. Wound is noted to the right medial posterior calf. This area of soft tissue is chronically callused and has been followed by wound care for an ulceration. He has recently finished Keflex and doxycycline. White blood cell count is noted to be 17. Lactate is 2.3. Patient was hydrated with normal saline solution, given IV vancomycin and ceftriaxone after consultation with pharmacy. He has tolerated these medications in the past. He is allergic to daptomycin, sulfa and amoxicillin. It is in the patient's best interest to be evaluated by the hospitalist service for inpatient management given his complicated past medical history. Case was discussed with the hospitalist service will evaluate the patient for further management. Impression & Plan Cellulitis, Leukocytosis, Elevated lactic acid level, Morbid obesity with BMI of 60.0-69.9, adult, Lymphedema of both lower extremities Discharge Plan Visit Data *Final* Discharge Date/Time: 04/11/18 17:18 Chief Complaint: Infection Stated Complaint: INFECTION IN RIGHT LEG ED Provider: Diana Chatterjee Discharge Problem: Cellulitis, Leukocytosis, Elevated lactic acid level, Morbid obesity with BMI of 60.0-69.9, adult, Lymphedema of both lower extremities Patient Disposition: Admitted As Inpatient Discharge Instructions Interventions: ED Discharge Assessment Last Done: 04/11/18 17:18 The scribe's documentation has been prepared under my direction and personally reviewed by me in its entirety. I confirm that the note above accurately reflects all work, treatment, procedures, and medical decision making performed by me.
[2018-04-11] MEDS: ENOXAPARIN INJ 40 MG/0.4 ML SYR SQ SCH (19:41)
[2018-04-11] MEDS: HYDROCODONE/ACETAMINOPHEN 10/325 TAB PO PRN (19:42)
[2018-04-11 23:03] LABS: Appearance Urine Clear (Clear); Bilirubin Urine Negative (Negative); Color Urine Yellow; Glucose Urine UA Negative (Negative); Ketones Urine Negative (Negative); Leukocyte Esterase Urine Negative (Negative); Nitrite Urine Negative (Negative); Protein Urine Negative (Negative); Specific Gravity Urine 1.014 (1.000-1.030); Urobilinogen Urine Negative (Negative)
[2018-04-12] MEDS: MoRPHine SULFATE 4 MG/ML 1 ML CARP\\VIAL IV PRN ×5 (01:01→19:47)
[2018-04-12] MEDS: ACETAMINOPHEN 325 MG TAB PO PRN ×2 (01:02→05:01)
[2018-04-12] MEDS ORDERED: cefTRIAXone SODIUM 1,000 MG/50 ML BAG IV SCH (03:00)
[2018-04-12] MEDS: VANCOMYCIN HCL 1,500 MG in SODIUM CHLORIDE 0.9% 500 ML IV SCH ×2 (03:43→13:32)
[2018-04-12] MEDS: SODIUM CHLORIDE 0.9% 1000ML 1,000 ML IV SCH ×2 (04:34→10:09)
[2018-04-12 07:44] LABS: Albumin Level 2.6 gm/dl (3.4-5.0); BUN Creatinine Ratio 14.4 (10-20); Creatinine Clr Calc Pharmacy 170.5 ml/min; Est GFR (African American) 130.3; Est GFR (Non-African American) 112.4; Magnesium 1.9 mg/dl (1.8-2.4); Potassium 3.8 mmol/L (3.5-5.1)
[2018-04-12 07:50] LABS: Hematocrit (blood only) 31.2 % (42-52); Hemoglobin 10.1 g/dL (14.0-18.0); Mean Corpuscular Hgb Conc 32.4 g/dL (32-36); Mean Corpuscular Volume 93.4 fL (80-100); Mean Platelet Volume 10.9 fL (7.4-10.4); Platelet Count 146 K/uL (130-400); RDW Coefficient of Variation 14.9 % (11.5-14.5); RDW Standard Deviation 50.6 fL (36.4-46.3); Red Blood Count 3.34 M/uL (4.7-6.1); White Blood Count 8.52 K/uL (4.8-10.8)
[2018-04-12 07:51] LABS: Albumin Globulin Ratio 0.7 (0.9-2); Bilirubin,Total 0.3 mg/dl (0.2-1); Globulin 3.8 gm/dl (2.5-4.0); Phosphorus 3.2 mg/dl (2.5-4.9); Total Protein 6.4 gm/dl (6.4-8.2)
[2018-04-12] MEDS: HYDROCODONE/ACETAMINOPHEN 10/325 TAB PO PRN ×3 (08:12→21:50)
--- NOTE | 2018-04-12 08:28 | Infectious Disease Consult ---
Date of Consultation April 12, 2018 Assessment & Plan (1) Cellulitis: recent cultures growing MRSA, continue IV abx. follow cultures. local wound care (2) Venous stasis ulcer of right lower leg with edema of right lower leg: History of Present Illness Attending Physician: Norma Foley MD pt admitted with increased right leg pain, drainage and subjective fevers at home. was recently admitted for same, wound cultures grew strep and MRSA. was on po abx, most recent culture on 03/18 grew MRSA - has been on doxy for several weeks, states he was taking at home and tolerating well. Has been following with wound center as well. tmax 38.1 in ER, wbc elevated at 17, still with pain in right leg. wound draining, wound and blood cultures obtained in ER, pending. placed on IV vanco and rocephin, tolerating well. no cp, sob, cough, no n/v/d/ abd pain, no pain in left leg. tolerating abx, eating well. no gu symptoms. Allergies Allergy/AdvReac Type Severity Reaction Status Date / Time amoxicillin Allergy Severe BLISTERS & Verified 04/11/18 15:00 SORES IN MOUTH Sulfa (Sulfonamide Allergy Severe BLISTERS & Verified 04/11/18 15:00 Antibiotics) SORES IN MOUTH daptomycin Allergy Intermediate RASH, Verified 04/11/18 15:00 EOSINOPHILIA zinc oxide Allergy Unknown RASH Verified 04/11/18 15:00 "ALL" ANTIBIOTICS Allergy Intermediate CAUSE Uncoded 04/11/18 15:00 BLISTERS & SORES IN MOUTH. Home Medications Home Medications Medication Instructions Recorded Confirmed Type hydrocodone-acetaminophen 2 tab PO QID PRN 03/03/18 04/11/18 History doxycycline hyclate 100 mg tablet 100 mg PO BID #60 tab 03/23/18 04/11/18 Rx Patient History Medical History Morbid obesity with BMI of 45.0-49.9, adult Cellulitis (Acute) Leukocytosis (Acute) Elevated lactic acid level (Acute) Venous stasis ulcer of right lower leg with edema of right lower leg (Acute) Ulcer of right leg (Chronic) Lymphedema of lower extremity (Chronic) Cellulitis (Resolved 04/13/13) Kidney stone (Resolved) H/O wisdom tooth extraction (Resolved) Abscess, perirectal (Inactive) Surgical History H/O gastric bypass (Resolved) Family History Other Diabetes Gallbladder disease Heart disease Hypertension Lung disease Social History marital status: Single Current Living Situation: Parent and Family current occupational status: disabled Other Information That Helps Us Care for You: No Feels Safe at Home: Yes Safety Concerns: Feels Safe At This Time Smoking Status: Never smoker Do You Dip or Chew Tobacco: No Second Hand Exposure: No Tobacco Cessation Education Requested by Patient: No Hx Alcohol Use: Yes Alcohol Intake Frequency: holidays/special occasions only Hx Substance Use: No Beliefs That Will Affect Care: None Preferred Language: Setswana Communication Ability: Effective Client Hr Manager Required: No Review of Systems all remaining ros reviewed and are negative Physical Exam 2 Vital Signs (Past 24 Hours): Last Vital Signs Temp 37.7 C H 04/12/18 07:00 Pulse 90 04/12/18 07:00 Resp 18 04/12/18 07:00 BP 99/59 L 04/12/18 07:00 Pulse Ox 94 04/12/18 07:00 Constitutional: WD/WN, vitals as above Eyes: PERRL, conjunctivae normal, anicteric sclerae ENMT: external ear and nose normal, oropharynx normal Neck: normal visual inspection Respiratory: normal respiratory effort, lungs clear to auscultation Cardiovascular: RRR, no murmur, no edema Gastrointestinal (Abdomen): normal bowel sounds, soft, nontender, no hepatosplenomegaly Musculoskeletal: no cyanosis or clubbing, extremities motor strength 5/5 Skin: no rashes, warm and dry right post calf with large superfiical wound , + drainage, surrounding erythema noted, no bleeding, tender to touch, warm b/l lymphedema noted Psychiatric: A+Ox3, euthymic affect Results & Data Laboratory Results Microbiology 04/11/18 19:25 Leg,Right Gram Stain - Final _ (1) Cellulitis Laterality: right Site of cellulitis: extremity Site of cellulitis of extremity: lower extremity Site of cellulitis of trunk: Qualified Code(s): L03.115 - Cellulitis of right lower limb
[2018-04-12] MEDS ORDERED: VANCOMYCIN HCL 500 MG in SODIUM CHLORIDE 0.9% 250 ML IV SCH (09:00)
--- NOTE | 2018-04-12 09:19 | Pharmacy Report ---
Pharmacy Abx Initial Consult - Date of Service April 12, 2018 - Pharmacy Dosing Scope Date of Consult: 04/11/18 Consultation requested by: Gneevieve Palma PA-C Pharmacy is consulted to initiate Vancomycin IV dosing therapy, order appropriate labs and adjust drug dose/frequency. - Subjective The patient is a 37 year old M admitted on 04/11/18 17:42 with Venous stasis ulcer of right lower leg with edema of right lower leg. - Objective Height: 5 ft 2 in Weight: 165.4 kg Vital Signs (Past 12hrs): Vital Signs Temp Pulse Pulse Resp BP Pulse Ox 04/12/18 07:00 37.7 C H 90 18 99/59 L 94 04/12/18 04:00 38.0 C H 100 H 20 103/66 95 04/12/18 02:04 38.5 C H 04/12/18 01:02 39.2 C H 122/71 04/12/18 00:53 37.1 C 83 21 116/82 97 04/11/18 23:23 89 04/11/18 22:53 37.4 C 100 H 18 104/69 95 04/11/18 21:51 37.8 C H Lab Results (24hrs): Laboratory Tests (24 Hours) 04/12/18 04/12/18 04/11/18 07:02 07:02 14:10 WBC 8.52 Neut # (Auto) Creatinine 0.83 1.12 Est Cr Clr Drug Dosing 170.5 104.5 Procalcitonin 04/11/18 04/11/18 14:10 14:10 WBC 17.61 H Neut # (Auto) 16.42 H Creatinine Est Cr Clr Drug Dosing Procalcitonin 0.37 Micro Results: 04/11/18 19:25 Gram Stain - Final Leg,Right Wound Culture - Pending 04/11/18 14:46 Blood Culture - Pending Blood 04/11/18 14:10 Blood Culture - Pending Blood Microbiology 03/18/18 Unknown Leg,Right Gram Stain - Final 03/18/18 Unknown Leg,Right Wound Culture - Final Staph aureus MRSA - Risk Factors for Resistance * Hospitalization for 48 hours or more within the past 90 days * 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 ID consulted. Plan IV Vancomycin and Rocephin for treatment of Right leg wound cellulitis Vancomycin IV * Estimated PK Parameters: Vd 0.54 L/kg, Gil 0.091 hr-1, t1/2 7.6hr * Loading dose: 2500 mg (20 mg/kg) * Maintenance dose: 1500 mg IV (12.2 mg/kg) every 10 hours * Goal trough level for recurrent cellulitis : 15 to 20 mcg/mL * Trough level ordered for 04/12/18 prior to 2200 dose * A less than traditional dose has been selected due to likelihood of drug accumulation in obese patient, BMI 50kg/m2 Rocephin - was started as 1g IV Q12H Ceftriaxone Automatic Conversion: if ordered more than once daily for any indication other than meningitis and endocarditis, pharmacy will convert to once daily dosing with a maximum dose of 2 g/day. Now changed to Rocephin 2g IV daily. Pharmacy will continue to follow and will adjust dose/frequency as necessary. Thank you.
[2018-04-12] MEDS: cefTRIAXone SODIUM 2,000 MG in DEXTROSE 5% 50 ML IV SCH (17:51)
--- NOTE | 2018-04-12 19:24 | Hospitalist Progress Note ---
Date of Service April 12, 2018 Assessment & Plan (1) Sepsis: secondary to RLE venous ulcer and cellulitis With fever, tachycardia, leukocytosis All now improving Wound cx with Staph aureus, with long h/o MRSA BCxs NGTD -follow all cultures -appreciate ID consultation -continue abx as below (2) Venous stasis ulcer of right lower leg with edema of right lower leg: - Chronic and nonhealing, and has struggled with closure of the wound secondary to massive, refractory lymphedema - Failure of outpatient abx with doxycycline after prolonged course - continue IV vanc and ceftriaxone - Pain control with morphine IV 2 mg Q2H for breakthrough pain and [place] PO - Consult wound nurse - pt can only use Medipore soft cloth surgical tape on skin - Wound culture with Staph aureus, sensitivity pending--> has previously grown GBS and MRSA - Consult ID, Dr. Boothe follows as an outpt--> appreciate recommendations (3) Cellulitis: As above -will likely need prolonged course of IV abx--> will d/w ID (4) Leukocytosis: As above, secondary to cellulitis, sepsis (5) Elevated lactic acid level: 2.3 on admission, not repeated (6) Fever: -As above, tylenol prn (7) Lymphedema of lower extremity: Massive, ongoing for 19 years. Says he has seen lymphedema therapists and did wrapping but then he is not able to walk or go anywhere with wraps on, so stopped. He is unsure if he has ever seen a Vascular physician. Would suggest seeking out opinion from Vascular specialist at large academic center in [place] or [facility]-discussed with pt today (8) Morbid obesity with BMI of 60.0-69.9, adult: has h/o gastric bypass surgery already -obviously his lymphedema accounts for a large portion of his body weight and cannot be helped at this time, but also has obesity in abdomen (9) H/O gastric bypass: Not on any nutritional supplements as outpt -needs Fe studies, B12, folate and supplementation as needed (10) DVT prophylaxis: - lovenox subq Dispo-continued stay Subjective pt feels a little better today, feels his leg is not as warm as it was. No fevers since last night. No abd pain, no diarrhea, is shawn po Review of Systems All systems reviewed & are unremarkable except as noted in HPI & below Physical Exam 2 Vital Signs (Past 24 Hours): Last Vital Signs Temp 37.1 C 04/12/18 15:47 Pulse 75 04/12/18 15:47 Resp 16 04/12/18 15:47 BP 113/66 04/12/18 15:47 Pulse Ox 98 04/12/18 15:47 Constitutional: WD/WN, vitals as above + morbidly obese Eyes: PERRL, conjunctivae normal, anicteric sclerae ENMT: external ear and nose normal, oropharynx normal Neck: trachea midline, no thyromegaly Respiratory: normal respiratory effort, lungs clear to auscultation Cardiovascular: Rate/Rhythm: regular rate and regular rhythm Heart Sounds: no murmur Extremities: + edema (massive bilateral LE lymphedema) Gastrointestinal (Abdomen): normal bowel sounds, soft, nontender, no hepatosplenomegaly Musculoskeletal: Extremities: no cyanosis Skin: + lesion (posterior right thigh with open wound, mild surrounding erythema, +purulent drainage on dressing) Neurologic: moves all extremities and awake; no focal motor deficits Psychiatric: A+Ox3, euthymic affect Results & Data Laboratory Results 04/12/18 04/12/18 Range/Units 07:02 07:02 WBC 8.52 (4.8-10.8) K/uL RBC 3.34 L (4.7-6.1) M/uL Hgb 10.1 L (14.0-18.0) g/dL Hct 31.2 L (42-52) % MCV 93.4 (80-100) fL MCH 30.2 (25-34) pg MCHC 32.4 (32-36) g/dL RDW Std Deviation 50.6 H (36.4-46.3) fL RDW Coeff of Lizet 14.9 H (11.5-14.5) % Plt Count 146 (130-400) K/uL MPV 10.9 H (7.4-10.4) fL Sodium 138 (136-145) mmol/L Potassium 3.8 (3.5-5.1) mmol/L Chloride 107 (98-107) mmol/L Carbon Dioxide 25 (21-32) mmol/L Anion Gap 6.0 (3-11) BUN 12 (7-18) mg/dl Creatinine 0.83 (0.6-1.4) mg/dl Est Cr Clr Drug Dosing 170.5 ml/min Est GFR ( Amer) 130.3 Est GFR (Non-Af Amer) 112.4 BUN/Creatinine Ratio 14.4 (10-20) Glucose 102 H (70-99) mg/dl Calcium 8.0 L (8.5-10.1) mg/dl Phosphorus 3.2 (2.5-4.9) mg/dl Magnesium 1.9 (1.8-2.4) mg/dl Total Bilirubin 0.3 (0.2-1) mg/dl AST 23 (15-37) U/L ALT 17 (12-78) U/L Alkaline Phosphatase 57 (45-117) U/L Total Protein 6.4 D (6.4-8.2) gm/dl Albumin 2.6 L (3.4-5.0) gm/dl Globulin 3.8 (2.5-4.0) gm/dl Albumin/Globulin Ratio 0.7 L (0.9-2) BCxs NGTD Wound cx--> Staph aureus _ (1) Lymphedema of lower extremity Laterality: bilateral Qualified Code(s): I89.0 - Lymphedema, not elsewhere classified (2) Fever Fever type: unspecified Qualified Code(s): R50.9 - Fever, unspecified (3) Cellulitis Laterality: right Site of cellulitis: extremity Site of cellulitis of extremity: lower extremity Site of cellulitis of trunk: Qualified Code(s): L03.115 - Cellulitis of right lower limb (4) Leukocytosis Leukocytosis type: unspecified Qualified Code(s): D72.829 - Elevated white blood cell count, unspecified (5) Sepsis Sepsis type: sepsis due to unspecified organism Qualified Code(s): A41.9 - Sepsis, unspecified organism
[2018-04-12] MEDS: ENOXAPARIN INJ 40 MG/0.4 ML SYR SQ SCH (19:38)
[2018-04-12] MEDS ORDERED: VANCOMYCIN TROUGH ONE ×2 (21:30→23:30)
[2018-04-13] MEDS ORDERED: VANCOMYCIN TROUGH ONE ×2 (00:30→10:30)
[2018-04-13] MEDS: VANCOMYCIN HCL 1,500 MG in SODIUM CHLORIDE 0.9% 500 ML IV SCH ×3 (00:54→21:05)
[2018-04-13] MEDS: HYDROCODONE/ACETAMINOPHEN 10/325 TAB PO PRN ×4 (00:58→21:06)
[2018-04-13] MEDS: MoRPHine SULFATE 4 MG/ML 1 ML CARP\\VIAL IV PRN (02:48)
[2018-04-13] MEDS: SODIUM CHLORIDE 0.9% 1000ML 1,000 ML IV SCH (07:06)
[2018-04-13 07:38] LABS: Hematocrit (blood only) 32.5 % (42-52); Hemoglobin 10.3 g/dL (14.0-18.0); Mean Corpuscular Hgb Conc 31.7 g/dL (32-36); Mean Corpuscular Volume 94.5 fL (80-100); Mean Platelet Volume 10.9 fL (7.4-10.4); Platelet Count 135 K/uL (130-400); RDW Standard Deviation 51.8 fL (36.4-46.3); Red Blood Count 3.44 M/uL (4.7-6.1); White Blood Count 5.32 K/uL (4.8-10.8)
[2018-04-13 08:13] LABS: BUN Creatinine Ratio 13.6 (10-20); Calcium 8.2 mg/dl (8.5-10.1); Creatinine Clr Calc Pharmacy 172.8 ml/min; Est GFR (African American) 130.9; Potassium 4.1 mmol/L (3.5-5.1)
[2018-04-13 08:22] LABS: Ferritin 95.9 ng/ml (8-388)
[2018-04-13 09:15] LABS: Folate (Folic Acid) 6.6 ng/ml (>5.38)
--- NOTE | 2018-04-13 10:47 | Infectious Disease Progress Nt ---
Date of Service April 13, 2018 Assessment & Plan (1) Cellulitis: recent cultures growing MRSA, continue IV abx. follow cultures. local wound care. has been on doxy as outpt, states compliant with therapy. may be candidate for outpt Dalvance therapy instead. will follow. (2) Venous stasis ulcer of right lower leg with edema of right lower leg: Subjective pt afebrile, tolerating abx. wound culture with 2 species staph aureus, final pending. blood cultures negative, wbc improved. Physical Exam 2 Vital Signs (Past 24 Hours): Last Vital Signs Temp 36.9 C 04/13/18 08:02 Pulse 61 04/13/18 08:02 Resp 18 04/13/18 08:02 BP 118/74 04/13/18 08:02 Pulse Ox 99 04/13/18 08:02 Results & Data Laboratory Results Microbiology 04/11/18 19:25 Leg,Right Gram Stain - Final 04/11/18 19:25 Leg,Right Wound Culture - Preliminary Staphylococcus aureus Staphylococcus species 04/11/18 14:46 Blood Blood Culture - Preliminary No growth to date. 04/11/18 14:10 Blood Blood Culture - Preliminary No growth to date. _ (1) Cellulitis Laterality: right Site of cellulitis: extremity Site of cellulitis of extremity: lower extremity Site of cellulitis of trunk: Qualified Code(s): L03.115 - Cellulitis of right lower limb
[2018-04-13] MEDS ORDERED: MoRPHine SULFATE 4 MG/ML 1 ML CARP\\VIAL ONE (12:06)
--- NOTE | 2018-04-13 13:15 | Pharmacy Report ---
Pharmacy Abx Dose Short Note - Date of Service April 13, 2018 - Assessment & Plan Assessment 37 year old M receiving vancomycin and ceftriaxone for treatment of cellultis of right lower leg. Day # 3 of antimicrobial therapy. Plan Vancomycin * Trough level obtained this morning at 1025 with a result of 17.3 mcg/mL. Patient is at goal trough. * Renal function stable (Scr: 0.87 mg/dL) * Continue current regimen of vancomycin 1500 mg IV q10h * Preliminary wound culture growing Staphylococcus aureus and other Staphylococcus species (susceptibilities pending) * Will await c&s report to differentiate MSSA and MRSA. (patient has history of MRSA) * Patient was febrile yesterday morning (2/3), but has been afebrile since that point * WBC trending down from 17.6 on admission to 5.32 today Pharmacy will continue to follow and will adjust dose/frequency as necessary and assess for continued need of both vancomycin and ceftriaxone. Thank you.
[2018-04-13] MEDS: cefTRIAXone SODIUM 2,000 MG in DEXTROSE 5% 50 ML IV SCH (16:10)
--- NOTE | 2018-04-13 17:22 | Hospitalist Progress Note ---
Date of Service April 13, 2018 Assessment & Plan (1) Sepsis: secondary to RLE venous ulcer and cellulitis With fever, tachycardia, leukocytosis All now resolved Wound cx with Staph aureus-sensitivity pending as well as a second Staphylococcus species, with long h/o MRSA BCxs NGTD -Continue to follow all cultures -appreciate ID consultation-recommends continuing IV antibiotics for now- awaiting callback to discuss if can discontinue the ceftriaxone? -ID also pondering getting him approved for Dalvance as an outpatient-need to see if will cause an issue given his allergic reaction to daptomycin -Today is day #3 of ceftriaxone and vancomycin (2) Venous stasis ulcer of right lower leg with edema of right lower leg: - Chronic and nonhealing, and has struggled with closure of the wound secondary to massive, refractory lymphedema - Failure of outpatient abx with doxycycline after prolonged course - continue IV vanc and ceftriaxone for now as above-consider discontinuing ceftriaxone, pondering Dalvance for home use after discharge -Antibiotic choice will determine whether he needs a PICC line or not - Pain control with morphine IV and increased to 6 mg Q2H for breakthrough pain and continue home dose of [place] 20 mg PO every 6 hours - Consult wound nurse - pt can only use Medipore soft cloth surgical tape on skin -Follow-up final wound culture ID consultation as above (3) Cellulitis: As above (4) Leukocytosis: As above, secondary to cellulitis, sepsis-resolved (5) Elevated lactic acid level: 2.3 on admission, not repeated (6) Fever: -As above, now resolved -Tylenol as needed (7) Lymphedema of lower extremity: Massive, ongoing for 19 years. Says he has seen lymphedema therapists and did wrapping but then he is not able to walk or go anywhere with wraps on, so stopped. He is unsure if he has ever seen a Vascular physician. Would suggest seeking out opinion from Vascular specialist at large academic center in [place] or [facility]-discussed with pt (8) Morbid obesity with BMI of 60.0-69.9, adult: has h/o gastric bypass surgery already -obviously his lymphedema accounts for a large portion of his body weight and cannot be helped at this time, but also has obesity in abdomen (9) H/O gastric bypass: Not on any nutritional supplements as outpt His Fe studies are consistent with anemia of chronic disease, B12, folate are normal to low normal for folate at 6 He should avoid all NSAIDs (10) DVT prophylaxis: - lovenox subq Dispo-continued stay, possible to discharge to home in 1-2 days after either PICC line placed or Dalvance approved as outpatient as long as blood cultures remain no growth and remains afebrile Subjective Patient has complaints of sharp burning pains at the site of the open wound on his right lower extremity occasionally is asking for an increased dose of the morphine. He denies abdominal pain or diarrhea. He denies sores in his mouth. He has been afebrile since yesterday morning. Telemetry with normal sinus rhythm, PACs, rates in the 50s-80s Review of Systems All systems reviewed & are unremarkable except as noted in HPI & below Physical Exam 2 Vital Signs (Past 24 Hours): Last Vital Signs Temp 36.7 C 04/13/18 15:00 Pulse 97 H 04/13/18 16:40 Resp 18 04/13/18 15:00 BP 96/68 L 04/13/18 15:00 Pulse Ox 95 04/13/18 15:00 Constitutional: WD/WN, vitals as above + morbidly obese Eyes: PERRL, conjunctivae normal, anicteric sclerae ENMT: external ear and nose normal, oropharynx normal Neck: trachea midline, no thyromegaly Respiratory: normal respiratory effort, lungs clear to auscultation Cardiovascular: Rate/Rhythm: regular rate and regular rhythm Heart Sounds: no murmur Extremities: + edema (massive bilateral LE lymphedema) Gastrointestinal (Abdomen): normal bowel sounds, soft, nontender, no hepatosplenomegaly Musculoskeletal: Extremities: extremities normal to inspection; no cyanosis and no clubbing Skin: + lesion (posterior right thigh with open wound, mild surrounding erythema, +purulent drainage on dressing) Neurologic: moves all extremities and awake; no focal motor deficits Psychiatric: A+Ox3, euthymic affect Results & Data Laboratory Results 04/13/18 04/13/18 04/13/18 Range/Units 10:25 07:24 07:24 WBC 5.32 (4.8-10.8) K/uL RBC 3.44 L (4.7-6.1) M/uL Hgb 10.3 L (14.0-18.0) g/dL Hct 32.5 L (42-52) % MCV 94.5 (80-100) fL MCH 29.9 (25-34) pg MCHC 31.7 L (32-36) g/dL RDW Std Deviation 51.8 H (36.4-46.3) fL RDW Coeff of Lizte 15.0 H (11.5-14.5) % Plt Count 135 (130-400) K/uL MPV 10.9 H (7.4-10.4) fL Sodium (136-145) mmol/L Potassium (3.5-5.1) mmol/L Chloride (98-107) mmol/L Carbon Dioxide (21-32) mmol/L Anion Gap (3-11) BUN (7-18) mg/dl Creatinine (0.6-1.4) mg/dl Est Cr Clr Drug Dosing ml/min Est GFR ( Amer) Est GFR (Non-Af Amer) BUN/Creatinine Ratio (10-20) Glucose (70-99) mg/dl Calcium (8.5-10.1) mg/dl Iron (35-175) mcg/dl TIBC (250-450) mcg/dl Transferrin (200-360) mg/dl Transferrin % Sat (20-50) % Ferritin (8-388) ng/ml Vitamin B12 449 (211-911) pg/ml Folate 6.60 (>5.38) ng/ml TSH (0.300-4.500) uIu/ml Vancomycin Trough 17.3 (See Comment) mcg/ml 04/13/18 Range/Units 07:24 WBC (4.8-10.8) K/uL RBC (4.7-6.1) M/uL Hgb (14.0-18.0) g/dL Hct (42-52) % MCV (80-100) fL MCH (25-34) pg MCHC (32-36) g/dL RDW Std Deviation (36.4-46.3) fL RDW Coeff of Lizet (11.5-14.5) % Plt Count (130-400) K/uL MPV (7.4-10.4) fL Sodium 138 (136-145) mmol/L Potassium 4.1 (3.5-5.1) mmol/L Chloride 107 (98-107) mmol/L Carbon Dioxide 27 (21-32) mmol/L Anion Gap 4.0 (3-11) BUN 11 (7-18) mg/dl Creatinine 0.82 (0.6-1.4) mg/dl Est Cr Clr Drug Dosing 172.8 ml/min Est GFR ( Amer) 130.9 Est GFR (Non-Af Amer) 113.0 BUN/Creatinine Ratio 13.6 (10-20) Glucose 93 (70-99) mg/dl Calcium 8.2 L (8.5-10.1) mg/dl Iron 17 L (35-175) mcg/dl TIBC 258 (250-450) mcg/dl Transferrin 200 (200-360) mg/dl Transferrin % Sat 6 L (20-50) % Ferritin 95.9 (8-388) ng/ml Vitamin B12 (211-911) pg/ml Folate (>5.38) ng/ml TSH 2.570 (0.300-4.500) uIu/ml Vancomycin Trough (See Comment) mcg/ml Blood cultures-no growth to date Wound culture-Staphylococcus aureus -sensitivity pending; Staphylococcus species _ (1) Sepsis Sepsis type: sepsis due to unspecified organism Qualified Code(s): A41.9 - Sepsis, unspecified organism (2) Cellulitis Laterality: right Site of cellulitis: extremity Site of cellulitis of extremity: lower extremity Site of cellulitis of trunk: Qualified Code(s): L03.115 - Cellulitis of right lower limb (3) Leukocytosis Leukocytosis type: unspecified Qualified Code(s): D72.829 - Elevated white blood cell count, unspecified (4) Fever Fever type: unspecified Encounter type: Qualified Code(s): R50.9 - Fever, unspecified (5) Lymphedema of lower extremity Laterality: bilateral Qualified Code(s): I89.0 - Lymphedema, not elsewhere classified
[2018-04-13] MEDS: MoRPHine SULFATE 10 MG/ML CARP/VIAL IV PRN (17:50)
[2018-04-13] MEDS: ENOXAPARIN INJ 40 MG/0.4 ML SYR SQ SCH (19:48)
[2018-04-14] MEDS: MoRPHine SULFATE 10 MG/ML CARP/VIAL IV PRN ×2 (00:02→07:37)
[2018-04-14] MEDS: VANCOMYCIN HCL 1,500 MG in SODIUM CHLORIDE 0.9% 500 ML IV SCH (07:38)
[2018-04-14 08:23] LABS: Creatinine Clr Calc Pharmacy 172.8 ml/min; Est GFR (African American) 130.9
[2018-04-14] MEDS: HYDROCODONE/ACETAMINOPHEN 10/325 TAB PO PRN (11:46)
--- NOTE | 2018-04-14 11:56 | Discharge Summary ---
Date of Service April 14, 2018 Admission HPI Per Admitting Provider This is a 37 yo M with PMHx of morbid obesity, BMI of 49.5, lymphedema, chronic venous stasis ulceration of the RLE originally developed in 2000. Pt was recently admitted Mar 03-2017. This wound had been cultured and grew out MRSA, Group B Strept, Proteus and E. Faecalis. During that admission he was treated with IV ceftriaxone and vancomycin, then transitioned to a 3 week course of doxycycline and keflex. He has been followed by the wound clinic. Dr. Boothe also follows the patient and he had been scheduled to finish antibiotics on 03/26/18, however doxycyline was extended for an additional month. Pt notes he has been having increased pain around the wound characterized as a sharp stabbing pain in the leg, as well as a burning sensation at the surface, a fever of 101 this morning and feels warmth developing over the wound area. He took Tylenol 500 mg this morning with some relief. He denies any other acute complaints. Principal Diagnosis Right lower extremity infected venous ulcer, MRSA, sepsis Discharge Exam Constitutional WD/WN, vitals as above + morbidly obese Eyes PERRL, conjunctivae normal, anicteric sclerae Neck trachea midline, no thyromegaly Respiratory normal respiratory effort, lungs clear to auscultation Cardiovascular Rate/Rhythm: regular rate and regular rhythm Heart Sounds: no murmur Extremities: + edema (massive bilateral LE lymphedema) Gastrointestinal (Abdomen) normal bowel sounds, soft, nontender, no hepatosplenomegaly Skin + lesion (posterior right thigh with open wound, significantly decreased surrounding erythema, +purulent drainage on dressing) Neurologic moves all extremities and awake; no focal motor deficits Psychiatric A+Ox3, euthymic affect Discharge Data Allergies Allergy/AdvReac Type Severity Reaction Status Date / Time amoxicillin Allergy Severe BLISTERS & Verified 04/11/18 15:00 SORES IN MOUTH Sulfa (Sulfonamide Allergy Severe BLISTERS & Verified 04/11/18 15:00 Antibiotics) SORES IN MOUTH daptomycin Allergy Intermediate RASH, Verified 04/11/18 15:00 EOSINOPHILIA zinc oxide Allergy Unknown RASH Verified 04/11/18 15:00 "ALL" ANTIBIOTICS Allergy Intermediate CAUSE Uncoded 04/11/18 15:00 BLISTERS & SORES IN MOUTH. Consultations Infectious Diseases Ordered Studies Chest x-ray Hospital Course (1) Sepsis: secondary to RLE venous ulcer and cellulitis With fever, tachycardia, leukocytosis All now resolved, doing very well at the time of discharge, no fevers in over 48 hours Wound cx with 2 strains of MRSA BCxs NGTD Received 3 days of IV vancomycin and Rocephin until cultures were resulted -appreciate ID consultation-recommends discharged home on Zyvox 600 mg p.o. twice daily times at least 30 days -Needs close follow-up in the wound care clinic and with infectious disease -Continue with wound care (2) Venous stasis ulcer of right lower leg with edema of right lower leg: - Chronic and nonhealing, and has struggled with closure of the wound secondary to massive, refractory lymphedema - Failure of outpatient abx with doxycycline after prolonged course -With MRSA x2 growing as above, antibiotics with the nasal lid upon discharge as above -Continue local wound care and attendance at wound care center (3) Cellulitis: As above (4) Leukocytosis: As above, secondary to cellulitis, sepsis-resolved (5) Elevated lactic acid level: 2.3 on admission, not repeated (6) Fever: -As above, now resolved -Tylenol as needed (7) Lymphedema of lower extremity: Massive, ongoing for 19 years. Says he has seen lymphedema therapists and did wrapping but then he is not able to walk or go anywhere with wraps on, so stopped. He is unsure if he has ever seen a Vascular physician. Would suggest seeking out opinion from [facility] specialist at [facility] [place] or [facility]-discussed with pt (8) Morbid obesity with BMI of 60.0-69.9, adult: has h/o gastric bypass surgery already -obviously his lymphedema accounts for a large portion of his body weight and cannot be helped at this time, but also has obesity in abdomen (9) H/O gastric bypass: Not on any nutritional supplements as outpt His Fe studies are consistent with anemia of chronic disease, B12, folate are normal to low normal for folate at 6 He should avoid all NSAIDs (10) DVT prophylaxis: - lovenox subq Was provided Dispo-stable for discharge to home Total Time Total Time Spent Total Time Spent (In Minutes): Greater than 30 minutes Total Time Includes: Examination of the Patient, Discharge Planning, Medication Reconciliation and Communication With Other Providers (Infectious disease) Discharge Plan Discharge Items Patient Disposition: Home - Self-Care Reason For Visit: SEPSIS, LEG WOUND Discharge Diagnosis: Sepsis, infected leg ulcer, MRSA Condition: Fair Discharge Goals: Decrease discomfort, Diagnostic testing, Improve disease control, Learn about illness and Therapeutic intervention Activity: Resume your previous activity Lifting: Gradually increase as tolerated Bathing: No limitations Exercise/Sports: Gradually increase as tolerated Non-emergency contact: Primary Care Provider Call non-emergency contact if: you have any medication questions, your symptoms worsen, your pain is not controlled, your pain is worsening, your pain is unusual for you, your pain is concerning for you, you have a fever, your temperature is above 101, your wound has increased redness, your wound has increased drainage and your wound pain has increased Follow-up/Referrals: Mine Davis MD [Primary Care Provider] - (Please call for appointment within 1-2 weeks) Piedad Boothe DO [Physician] - (Please follow-up with Dr. Boothe at the wound care clinic within 1 week-please call for appointment) Diet: Regular Addtl Provider Instructions: You were admitted with an infection of your right leg wound which grew out MRSA. You are treated with IV antibiotics and had improvement. Please continue on Zyvox 600 mg by mouth twice daily for at least 30 days. Please follow-up with Dr. Boothe at the wound care clinic-please call for an appointment within 1 week. You should also follow-up with your primary care physician within 1-2 weeks. Continue your daily dressing changes as before. Prescriptions: New linezolid [Zyvox] 600 mg tablet 600 mg PO BID Qty: 60 RF: 0 Continue hydrocodone-acetaminophen 10-325 mg Tablet 2 tab PO QID PRN (Reason: Pain) RF: 0 Discontinued doxycycline hyclate 100 mg tablet 100 mg PO BID Qty: 60 RF: 0 Stand-Alone Forms: [facility]charge Orders: Discharge Order (Routine); Ordered 04/14/18 Ordered By: Norma Foley Admission Data Admit Date/Time: 04/11/18 17:42 Attending Provider: Norma Foley Admit Provider: Kena Spencer Primary Care Provider: Mine Davis Other Providers: Kena Spencer ; Piedad Boothe Service: Medical Other Pending Studies at Discharge: Yes Studies:: Finalized blood cultures-no growth to date
--- NOTE | 2018-04-21 06:34 | Coding Query ---
CODING QUERY To promote full compliance with coding requirements relating to patient care, provider participation is requested in all cases of waiter/waitress uncertainty. Please assist us with the question(s) below: Coding Question(s): Dr. Foley, The patient's BMI is documented inconsistently throughout the chart. To ensure correct code selection, please clarify if the patient's BMI was: ( ) 40.0-44.9 ( ) 45-49.9 ( ) 50-59.9 ( x ) 60-69.9 ( ) other, please explain Physician's Response(s): Thank you for your time, ALISON Arguelles, [facility]
== END 2018-04-14 13:00 | disposition home or self-care (01) | DRG 872 ==
LOC: ED 13:46 → 2W 17:18 → SUATTDRO 17:42 → 4E 04-13 17:19

== ENCOUNTER 2018-05-29 12:22 | Inpatient (IN) ==
[2018-05-29] MEDS ORDERED: SODIUM CHLORIDE 0.9% 500 ML IV ONE (12:59)
[2018-05-29] MEDS ORDERED: VANCOMYCIN CONSULT ACTIVE PRN ×2 (13:09→16:15)
[2018-05-29] MEDS ORDERED: VANCOMYCIN HCL 2,750 MG in SODIUM CHLORIDE 0.9% 500 ML IV ONE (13:09)
[2018-05-29 13:20] LABS: Basophils # (auto) 0.02 K/uL (0-0.2); Basophils % (auto) 0.1 %; Eosinophils # (auto) 0.01 K/uL (0-0.5); Eosinophils % (auto) 0.1 %; Hematocrit (blood only) 38.2 % (42-52); Hemoglobin 12.6 g/dL (14.0-18.0); Immature Granulocytes # (auto) 0.04 K/uL (0.00-0.02); Immature Granulocytes % (auto) 0.3 %; Lymphocytes # (auto) 0.45 K/uL (1.2-3.4); Mean Corpuscular Volume 94.3 fL (80-100); Mean Platelet Volume 10.8 fL (7.4-10.4); Monocytes # (auto) 0.35 K/uL (0.11-0.59); Monocytes % (auto) 2.4 %; Neutrophils # (auto) 13.97 K/uL (1.4-6.5); Neutrophils % (auto) 94.1 %; Platelet Count 211 K/uL (130-400); RDW Coefficient of Variation 16.2 % (11.5-14.5); RDW Standard Deviation 56.1 fL (36.4-46.3); Red Blood Count 4.05 M/uL (4.7-6.1); White Blood Count 14.84 K/uL (4.8-10.8)
[2018-05-29] MEDS ORDERED: MoRPHine SULFATE 2 MG/ML CARP IV STA (13:29)
[2018-05-29 13:40] LABS: Albumin Level 3.9 gm/dl (3.4-5.0); BUN Creatinine Ratio 19.5 (10-20); Calcium 8.9 mg/dl (8.5-10.1); Creatinine Clr Calc Pharmacy 135.5 ml/min; Est GFR (Non-African American) 101.9; Potassium 4.1 mmol/L (3.5-5.1)
[2018-05-29 13:43] LABS: Albumin Globulin Ratio 0.8 (0.9-2); Bilirubin,Total 0.6 mg/dl (0.2-1); Total Protein 8.9 gm/dl (6.4-8.2)
--- NOTE | 2018-05-29 14:11 | Emergency Department Note ---
Entered by Meka Costello acting as a scribe for History of Present Illness General Chief complaint: Leg Injury/Pain Stated complaint: CHILLS, FEVER, PAIN IN R LEG POSS INFECTION Time Seen by Provider: 05/29/18 12:48 Source: patient History of Present Illness Provider complaint: right leg pain Onset (ago): day(s) (over the last couple of days) Location: lower extremity and right Pain Consistency: + constant Maximum Pain Intensity: 9 Quality: + other (pain) The patient is a 37 year old male who presents to the Emergency Room with complaints of constant right leg pain over the last couple of days. He rates his pain at a 9/10. The patient states that he [facility] with [facility]. The patient states that he has had lymphedema since 2011. He states that he is currently not on antibiotics. Home Medications Home Medications Medication Instructions Recorded Confirmed Type hydrocodone-acetaminophen 2 tab PO QID PRN 03/03/18 05/29/18 History Allergies Allergy/AdvReac Type Severity Reaction Status Date / Time amoxicillin Allergy Severe BLISTERS & Verified 05/29/18 13:55 SORES IN MOUTH Sulfa (Sulfonamide Allergy Severe BLISTERS & Verified 05/29/18 13:55 Antibiotics) SORES IN MOUTH daptomycin Allergy Intermediate RASH, Verified 05/29/18 13:55 EOSINOPHILIA zinc oxide Allergy Unknown RASH Verified 05/29/18 13:55 "ALL" ANTIBIOTICS Allergy Intermediate CAUSE Uncoded 05/29/18 13:55 BLISTERS & SORES IN MOUTH. Past Med/Surg History Medical History Cellulitis (Acute) Venous stasis ulcer of right lower leg with edema of right lower leg (Acute) H/O wisdom tooth extraction (Resolved) Abscess, perirectal (Inactive) Kidney stone Surgical History H/O gastric bypass (Chronic) Family History Other Diabetes Gallbladder disease Heart disease Hypertension Lung disease Social History Preferred Language: Kyrgyz Beliefs That Will Affect Care: None marital status: Single Current Living Situation: Parent and Family current occupational status: disabled Feels Safe at Home: Yes Smoking Status: Never smoker Hx Alcohol Use: Yes Hx Substance Use: No Review of Systems See HPI for pertinent positives & negatives. and A total of 10 systems reviewed and were otherwise negative Physical Exam Vital Signs Vital Signs - 24 hr 05/29/18 12:33 Temperature 37.8 C H Temperature Source Oral Sepsis Recent Fever Within 48 Hours No Sepsis New/Unexplained Change in Mental Status No Sepsis Action Taken by Nursing No Action Required Pulse Rate 111 H Respiratory Rate 20 Respiratory Effort / Characteristics Non-Labored Spontaneous Respiratory Depth Normal Blood Pressure 135/73 Blood Pressure Mean 93 Blood Pressure Position Standing Pulse Oximetry 98 Oxygen Delivery Method Room Air CONSTITUTIONAL/VITAL SIGNS: Reviewed / noted above. GENERAL: Non-toxic in appearance. INTEGUMENTARY: Warm, dry, and [place]. HEAD: Normocephalic. EYES: without scleral icterus or trauma. ENT/OROPHARYNX: clear and moist. LYMPHADENOPATHY/NECK: Is supple without lymphadenopathy or meningismus. RESPIRATORY: Lungs clear and equal. CARDIOVASCULAR: Regular rate and rhythm. GI/ABDOMEN: Soft and nontender. No organomegaly or pulsatile mass. No rebound or guarding. Normal bowel sounds. EXTREMITIES: Warm and well perfused. BACK: No CVA tenderness. NEUROLOGICAL: Intact without focal deficits. PSYCHIATRIC: normal affect. MUSCULOSKELETAL: Increased warmth and erythema to the left thigh anteriorly and posteriorly with an open wound to the posterior aspect of the thigh that has a small amount of discharge. Course 1248: Past medical records reviewed. The patient was evaluated in room C3, and a complete history and physical examination were performed. 1405: I discussed the patient's case with Dr. Tete Bowie who will evaluate the patient for further management. 1410: I updated the patient who verbalized agreement and understanding of the treatment plan. Consultations Consultation #1: Dr. Tete Bowie Time: 14:05 Administered Medications Vancomycin HCl 2,750 mg/ (Sodium Chloride) 555 mls @ 200 mls/hr IV NOW ONE Stop: 05/29/18 15:55 Last Admin: 05/29/18 14:07 Dose: 200 mls/hr Documented by: [id number] Discontinued Medications Sodium Chloride (Nss) 500 mls @ 999 mls/hr IV .Q31M ONE Stop: 05/29/18 13:29 Last Infusion: 05/29/18 13:50 Dose: 0 mls/hr Documented by: [id number] Admin: 05/29/18 13:12 Dose: 999 mls/hr Documented by: [id number] Morphine Sulfate (Morphine Sulfate) 2 mg IV NOW STA Stop: 05/29/18 13:30 Last Admin: 05/29/18 13:43 Dose: 2 mg Documented by: [id number] Medical Decision Making Differential Diagnosis Differential diagnosis: Etiologies such as cellulitis, abscess, osteomyelitis, MRSA infection, DVT, necrotizing fasciitis, dermatitis, drug eruption, as well as others were entertained. Medical Records Attestation: I reviewed the patient's medical records. Home Medications Current Medication List: was personally reviewed by me Laboratory Data Attestation: I reviewed the patient's lab results. Result diagrams: 05/29/18 13:08 05/29/18 13:08 Lab Results 05/29/18 05/29/18 Range/Units 13:08 13:08 WBC 14.84 H (4.8-10.8) K/uL RBC 4.05 L (4.7-6.1) M/uL Hgb 12.6 L (14.0-18.0) g/dL Hct 38.2 L (42-52) % MCV 94.3 (80-100) fL MCH 31.1 (25-34) pg MCHC 33.0 (32-36) g/dL RDW Std Deviation 56.1 H (36.4-46.3) fL RDW Coeff of Lizet 16.2 H (11.5-14.5) % Plt Count 211 (130-400) K/uL MPV 10.8 H (7.4-10.4) fL Immature Gran % (Auto) 0.3 % Neut % (Auto) 94.1 % Lymph % (Auto) 3.0 % [place] % (Auto) 2.4 % Eos % (Auto) 0.1 % Baso % (Auto) 0.1 % Immature Gran # (Auto) 0.04 H (0.00-0.02) K/uL Neut # (Auto) 13.97 H (1.4-6.5) K/uL Lymph # (Auto) 0.45 L (1.2-3.4) K/uL [place] # (Auto) 0.35 (0.11-0.59) K/uL Eos # (Auto) 0.01 (0-0.5) K/uL Baso # (Auto) 0.02 (0-0.2) K/uL Sodium 138 (136-145) mmol/L Potassium 4.1 (3.5-5.1) mmol/L Chloride 105 (98-107) mmol/L Carbon Dioxide 25 (21-32) mmol/L Anion Gap 8.0 (3-11) BUN 19 H (7-18) mg/dl Creatinine 0.95 (0.6-1.4) mg/dl Est Cr Clr Drug Dosing 135.5 ml/min Est GFR ( Amer) 118.0 Est GFR (Non-Af Amer) 101.9 BUN/Creatinine Ratio 19.5 (10-20) Glucose 109 H (70-99) mg/dl Calcium 8.9 (8.5-10.1) mg/dl Total Bilirubin 0.6 (0.2-1) mg/dl AST 21 (15-37) U/L ALT 33 (12-78) U/L Alkaline Phosphatase 94 (45-117) U/L Total Protein 8.9 H (6.4-8.2) gm/dl Albumin 3.9 (3.4-5.0) gm/dl Globulin 5.0 H (2.5-4.0) gm/dl Albumin/Globulin Ratio 0.8 L (0.9-2) Blood Pressure Blood Pressure Findings: Normal blood pressure MDM Narrative This is a 37-year-old male who presents to the ED with a chief complaint of cellulitis in his right thigh. The patient has had this in the past and he has a chronic indwelling wound to the posterior thigh. He has had vancomycin in the past for MRSA. The patient states that he has had a fever for the past day or 2. His temperature today is 37.8 here. He is tachycardic with a heart rate of 111. His white blood cell count is 100 his exam reveals erythema and warmth to the right thigh anteriorly as well as posteriorly with discomfort and a posterior wound that is chronic. The patient's white blood cell count was elevated at 14.8. His chemistry panel was unremarkable. The patient was given IV morphine for pain and IV vancomycin for infection. I spoke with the ospitalist, who will see the patient for further evaluation and care. Impression & Plan Cellulitis of thigh Discharge Plan Visit Data Chief Complaint: Leg Injury/Pain Stated Complaint: CHILLS, FEVER, PAIN IN R LEG POSS INFECTION ED Provider: Didier Brady Discharge Problem: Cellulitis of thigh Patient Disposition: Being Evaluated by Hospitalist Forms Stand Alone Forms: My [facility] Prescriptions Prescriptions: No Action hydrocodone-acetaminophen 10-325 mg Tablet 2 tab PO QID PRN (Reason: Pain) RF: 0 Referrals Referrals: Mine Davis MD [Primary Care Provider] - The scribe's documentation has been prepared under my direction and personally reviewed by me in its entirety. I confirm that the note above accurately reflects all work, treatment, procedures, and medical decision making performed by me.
--- NOTE | 2018-05-29 14:24 | History & Physical Report ---
Date of Service May 29, 2018 Assessment & Plan (1) Sepsis: Likely due to very early cellulitis of RLE but cannot exclude another source (influenza, etc). Blood cultures sent. Check flu PCR. Patient given IV vanco in ER - will continue this as he has history of MRSA. Will also give rocephin 2gm IV daily. Place on contact precautions. Dr. [place] & Dr. Boothe know him well from wound care clinic - will consult their team for additional recommendations. In light of thigh pain will obtain doppler to r/o DVT. If pain worsens or persists consider CT of the RLE to r/o deep tissue infection but will hold off on this for now. Give additional fluid bolus now, then NS at 150cc/hr. Treat headache and RLE pain with pain meds. Labs in am. Present on Admission?: Yes (2) Cellulitis of thigh: RLE likely very early infectious process see above in "sepsis" Present on Admission?: Yes (3) Lymphedema of both lower extremities: severe, chronic. previously he was recommended to seek out treatment at a lymphedema center given the severity of his disease. (4) Venous stasis ulcer of right lower leg with edema of right lower leg: posterior right thigh. followed by Wound Care clinic as outpatient. will ask wound care nurse to follow while here. continue aquacel ag in meantime along with ABD pad. the ulcer actually looks quite good today. (5) Chronic pain syndrome: takes hydrocodone frequently at home for RLE pain on PRN basis. toradol and oxycodone prn for now. (6) Headache: toradol 30mg IV x 1 now. try to limit narcotics for headache. may have migraine component - consider triptan if headache persists. (7) Morbid obesity with BMI of 50.0-59.9, adult: s/p gastric bypass in the past. (8) DVT prophylaxis: lovenox 40mg daily total time spent on admission activities - 60 minutes History of Present Illness Chief Complaint: fever, chills, RLE pain Primary Care Provider: Mine Davis MD 37yo male with morbid obesity and chronic lymphedema - well known to me from prior admissions for RLE cellulitis and chronic ulcer - presenting with the acute onset of fever, chills, and worseing RLE pain beginning this AM about 0830. He was seen at the [facility] on Friday and had some minor debridement of his posterior right thigh ulcer. He typically has mild discomfort for a few days following debridements and this time was no exception. He takes hydrocodone prn pain for such. However, the pain was much worse this am upon awakening. The pain is near the ulcer posteriorly as well as the medial aspect of the right anterior thigh. He also noted some mild worsening redness of the right leg - especially the medial aspect of the right thigh - beginning this AM. He reports his mother was sick with fever in the last 24 hours as well. He has had no new medical issues of late. He was feeling fine yesterday. Last antibiotic course was in April when he took zyvox for a RLE cellulitis. He completed these weeks ago. In the ER he was febrile, tachycardic, and c/o headache along with RLE pain. He typically gets migraine type headaches in the midst of illnesses. Allergies Allergy/AdvReac Type Severity Reaction Status Date / Time amoxicillin Allergy Severe BLISTERS & Verified 05/29/18 13:55 SORES IN MOUTH Sulfa (Sulfonamide Allergy Severe BLISTERS & Verified 05/29/18 13:55 Antibiotics) SORES IN MOUTH daptomycin Allergy Intermediate RASH, Verified 05/29/18 13:55 EOSINOPHILIA zinc oxide Allergy Unknown RASH Verified 05/29/18 13:55 "ALL" ANTIBIOTICS Allergy Intermediate CAUSE Uncoded 05/29/18 13:55 BLISTERS & SORES IN MOUTH. Home Medications Home Medications Medication Instructions Recorded Confirmed Type hydrocodone-acetaminophen 2 tab PO QID PRN 03/03/18 05/29/18 History Past Med/Surg History Medical History Cellulitis (Acute) recurrent admissions for such requiring IV antibiotic courses Venous stasis ulcer of right lower leg with edema of right lower leg (Acute) Lymphedema H/O wisdom tooth extraction (Resolved) Abscess, perirectal (Inactive) Kidney stone Surgical History H/O gastric bypass (Chronic) Family History Father Heart disease CAD w/ stents Diabetes Other Gallbladder disease Hypertension Lung disease Social History Preferred Language: Ecuadorean Beliefs That Will Affect Care: None marital status: Single Current Living Situation: Parent and Family Current Living Situation Comment: lives with mom/dad in [place] current occupational status: disabled Feels Safe at Home: Yes Smoking Status: Never smoker Hx Alcohol Use: Yes Hx Substance Use: No Review of Systems Constitutional: + fever, + chills, + fatigue and + anorexia; no weight loss and no weight gain Eyes: + photophobia; no worsening vision Ear, Nose, Mouth, Throat: + nasal congestion; no sore throat and no dysphagia Respiratory: no cough and no dyspnea Cardiovascular: no chest pain Gastrointestinal: no abdominal pain, no nausea, no vomiting, no constipation and no diarrhea/loose stools Genitourinary (Male): no dysuria right leg pain - see HPI Integumentary: + skin ulcer and + erythema Neurologic: no paralysis and no numbness Psychiatric: no depression no diabetes Physical Exam Vital Signs (Past 24 Hours): Last Vital Signs Temp 37.8 C H 05/29/18 12:33 Pulse 103 H 05/29/18 14:08 Resp 22 05/29/18 14:08 BP 131/62 05/29/18 14:08 Pulse Ox 98 05/29/18 14:08 Constitutional: + acute distress (having active rigors), + ill appearing and + morbidly obese Eyes: PERRL ENMT: external ear and nose normal, oropharynx normal Ears: no TM abnormality Neck: trachea midline, no thyromegaly Respiratory: normal respiratory effort, lungs clear to auscultation Cardiovascular: Rate/Rhythm: + tachycardic Heart Sounds: normal S1 and normal S2; no murmur Vessels: posterior tibial pulses present and dorsalis pedis pulses present; no JVD severe lymphedema of b/l legs Gastrointestinal (Abdomen): normal bowel sounds, soft, nontender, no hepatosplenomegaly Musculoskeletal: severe lymphedema of b/l legs Skin: linear ulcer (vertical) of posterior right thigh, about 4-5cm in length, with minimal drainage; minimal erythema surrounding the ulcer. Aquacel Ag and abd pad were removed to look at it. There is bubbled appearance both posterior thighs - similar to previous exams on prior hospital stays. There is mild warmth on the right posterior thigh and mild warmth also anteriorly - especially medial aspect of right thigh. there is mild pink erythema of the anterior right thigh. rest of legs w/o signs of cellulitis. Neurologic: moves all extremities; no focal motor deficits Psychiatric: Orientation: alert and oriented x 3 Affect: euthymic affect Lymphatic: + cervical lymphadenopathy (b/l - vs submandibular glands) Results & Data Laboratory Results Laboratory Results - last 24 hr 05/29/18 05/29/18 13:08 13:08 WBC 14.84 H RBC 4.05 L Hgb 12.6 L Hct 38.2 L MCV 94.3 MCH 31.1 MCHC 33.0 RDW Std Deviation 56.1 H RDW Coeff of Lizet 16.2 H Plt Count 211 MPV 10.8 H Immature Gran % (Auto) 0.3 Neut % (Auto) 94.1 Lymph % (Auto) 3.0 [place] % (Auto) 2.4 Eos % (Auto) 0.1 Baso % (Auto) 0.1 Immature Gran # (Auto) 0.04 H Neut # (Auto) 13.97 H Lymph # (Auto) 0.45 L [place] # (Auto) 0.35 Eos # (Auto) 0.01 Baso # (Auto) 0.02 Sodium 138 Potassium 4.1 Chloride 105 Carbon Dioxide 25 Anion Gap 8.0 BUN 19 H Creatinine 0.95 Est Cr Clr Drug Dosing 135.5 Est GFR ( Amer) 118.0 Est GFR (Non-Af Amer) 101.9 BUN/Creatinine Ratio 19.5 Glucose 109 H Calcium 8.9 Total Bilirubin 0.6 AST 21 ALT 33 Alkaline Phosphatase 94 Total Protein 8.9 H Albumin 3.9 Globulin 5.0 H Albumin/Globulin Ratio 0.8 L Code Status & VTE Plan Code Status level 1 full code VTE Prophylaxis Plan VTE Prophylaxis will be ordered: Yes (1) Headache Headache chronicity pattern: acute headache Headache type: unspecified Intractability: intractable Qualified Code(s): R51 - Headache (2) Sepsis Sepsis type: sepsis due to unspecified organism Qualified Code(s): A41.9 - Sepsis, unspecified organism
[2018-05-29] MEDS ORDERED: OXYCODONE HCL IR 5 MG TAB (IMMEDIATE RELEASE) PO STA (14:46)
[2018-05-29] MEDS ORDERED: KETOROLAC 30 MG/ML VIAL IV ONE (14:46)
[2018-05-29 15:51] LABS: Influenza A virus by PCR Neg for Influ A (Neg); Influenza B virus by PCR Neg for Influ B (Neg)
[2018-05-29] MEDS ORDERED: ONDANSETRON INJ 2 MG/ML 2 ML VIAL IV PRN (16:15)
[2018-05-29] MEDS ORDERED: KETOROLAC 30 MG/ML VIAL IV PRN (16:15)
[2018-05-29] MEDS ORDERED: ACETAMINOPHEN 500 MG TAB ONE (16:17)
--- NOTE | 2018-05-29 16:23 | Ultrasound Report ---
RIGHT LOWER EXTREMITY VENOUS DOPPLER HISTORY: lymphedema, right leg pain, eval for DVT COMPARISON STUDY: None. FINDINGS: Suboptimal study due to the lower extremity edema and patient body habitus with difficulty evaluation the popliteal and calf vessels. However, there is normal compressibility, flow, and augmen tation within the visualized right lower extremity deep venous system. IMPRESSION: No definite DVT within the right lower extremity Electronically signed by: Marshall Adams M.D. 05/29/2018 4:21 PM
[2018-05-29] MEDS ORDERED: SODIUM CHLORIDE 0.9% 1000ML 1,000 ML IV ONE (17:00)
[2018-05-29] MEDS: SODIUM CHLORIDE 0.9% 1000ML 1,000 ML IV SCH (18:05)
[2018-05-29] MEDS: cefTRIAXone SODIUM 2,000 MG in DEXTROSE 5% 50 ML IV SCH (18:05)
[2018-05-29] MEDS: LACTOBACILLUS ACIDOPHILUS (FLORANEX) TAB PO SCH (18:05)
--- NOTE | 2018-05-29 19:27 | Pharmacy Report ---
Pharmacy Abx Initial Consult - Date of Service May 29, 2018 - Pharmacy Dosing Scope Date of Consult: 05/29/18 Consultation requested by: Dr. Chery Pharmacy is consulted to initiate Vancomycin IV dosing therapy, order appropriate labs and adjust drug dose/frequency. - Subjective The patient is a 37 year old M admitted on 05/29/18 14:51. - Objective Height: 5 ft 2 in Weight: 143 kg Vital Signs (Past 12hrs): Vital Signs Temp Pulse Pulse Resp BP BP Pulse Ox 05/29/18 16:30 38.1 C H 123 H 18 112/76 97 05/29/18 15:59 38.4 C H 104 H 20 124/67 98 05/29/18 14:08 103 H 22 131/62 98 05/29/18 12:33 37.8 C H 111 H 20 135/73 98 Lab Results (24hrs): Laboratory Tests (24 Hours) 05/29/18 05/29/18 13:08 13:08 WBC 14.84 H Neut # (Auto) 13.97 H Creatinine 0.95 Est Cr Clr Drug Dosing 135.5 Micro Results: 05/29/18 13:55 Blood Culture - Pending Blood 05/29/18 13:08 Blood Culture - Pending Blood - Risk Factors for Resistance * History of infection with a multidrug-resistant organism: MRSA * Antimicrobial use within the last 90 days: Zyvox - Assessment & Plan Assessment 37 year old M on empiric IV Vancomycin and Ceftriaxone for sepsis secondary to RLE cellulitis, chronic wound ulcer Plan Vancomycin IV * Estimated PK Parameters: Gil 0. hr-1, t1/2 7.96 hr * Loading dose: 2750 mg (~19.2 mg/kg) - was given in the ED; maximum dose * Maintenance dose: 1750 mg IV (~12 mg/kg) every 12 hours * Goal trough level for sepsis : 15 to 20 mcg/mL * Trough level ordered for 05/31/18 @ 1330 * A less than traditional dose and/or extended dosing interval has/have been selected due to likelihood of drug accumulation in obese patient * Pharmacy dosed Vancomycin for this patient in the past and above regimen produced therapeutic levels Pharmacy will continue to follow and will adjust dose/frequency as necessary. Thank you.
[2018-05-29] MEDS: OXYCODONE HCL IR 5 MG TAB (IMMEDIATE RELEASE) PO PRN (20:21)
[2018-05-29] MEDS: ENOXAPARIN INJ 40 MG/0.4 ML SYR SQ SCH (20:25)
[2018-05-30] MEDS: ACETAMINOPHEN 500 MG TAB PO PRN ×2 (01:23→07:41)
[2018-05-30] MEDS: HYDROmorphone INJ 0.5 MG/0.5 ML SYR IV PRN ×4 (01:23→23:49)
[2018-05-30] MEDS: SODIUM CHLORIDE 0.9% 1000ML 1,000 ML IV SCH ×4 (01:24→20:59)
[2018-05-30] MEDS: VANCOMYCIN HCL 1,750 MG in SODIUM CHLORIDE 0.9% 500 ML IV SCH ×2 (01:24→14:05)
[2018-05-30] MEDS: OXYCODONE HCL IR 5 MG TAB (IMMEDIATE RELEASE) PO PRN ×4 (02:33→20:59)
[2018-05-30] MEDS: LACTOBACILLUS ACIDOPHILUS (FLORANEX) TAB PO SCH ×3 (07:41→17:23)
[2018-05-30 08:43] LABS: Basophils # (auto) 0.03 K/uL (0-0.2); Basophils % (auto) 0.3 %; Hematocrit (blood only) 31.3 % (42-52); Hemoglobin 10.2 g/dL (14.0-18.0); Immature Granulocytes # (auto) 0.02 K/uL (0.00-0.02); Immature Granulocytes % (auto) 0.2 %; Lymphocytes # (auto) 0.93 K/uL (1.2-3.4); Lymphocytes % (auto) 9.8 %; Mean Corpuscular Hgb Conc 32.6 g/dL (32-36); Mean Platelet Volume 10.2 fL (7.4-10.4); Monocytes # (auto) 0.32 K/uL (0.11-0.59); Monocytes % (auto) 3.4 %; Neutrophils # (auto) 8.23 K/uL (1.4-6.5); Neutrophils % (auto) 86.3 %; Platelet Count 148 K/uL (130-400); RDW Coefficient of Variation 16.5 % (11.5-14.5); RDW Standard Deviation 56.9 fL (36.4-46.3); Red Blood Count 3.33 M/uL (4.7-6.1); White Blood Count 9.53 K/uL (4.8-10.8)
[2018-05-30 09:16] LABS: BUN Creatinine Ratio 14.6 (10-20); Calcium 7.9 mg/dl (8.5-10.1); Creatinine Clr Calc Pharmacy 160.9 ml/min; Est GFR (African American) 132.3; Est GFR (Non-African American) 114.1; Potassium 3.7 mmol/L (3.5-5.1)
--- NOTE | 2018-05-30 10:19 | Infectious Disease Consult ---
Date of Consultation May 30, 2018 Assessment & Plan (1) Gram negative sepsis: 37-year-old male with long-standing severe lymphedema and recurrent right lower extremity cellulitis, now with evidence of gram-negative sepsis, likely from lower extremity cellulitis. Patient to be continued on vancomycin and ceftriaxone pending further culture results, identification and sensitivities. Will follow. (2) Cellulitis of thigh: History of Present Illness Reason for Consultation: Sepsis, probable early right lower extremity cellulitis Attending Physician: Santiago Hickman MD History of Present Illness 37-year-old male well-known to the infectious disease service, with history of morbid obesity, severe chronic lower extremity lymphedema, recurrent cellulitis, who was well until yesterday when he awoke with fever, chills, and increasing redness, swelling, and pain in his right leg. He recently been at the wound care center for some debridement of his chronic right lower extremity wound. He has had evidence of early sepsis, with cellulitis of his right leg are clear on vancomycin and ceftriaxone.Blood cultures now reported positive for gram- negative bacilli.. No evidence of DVT on ultrasound. Allergies Allergy/AdvReac Type Severity Reaction Status Date / Time amoxicillin Allergy Severe BLISTERS & Verified 05/29/18 13:55 SORES IN MOUTH Sulfa (Sulfonamide Allergy Severe BLISTERS & Verified 05/29/18 13:55 Antibiotics) SORES IN MOUTH daptomycin Allergy Intermediate RASH, Verified 05/29/18 13:55 EOSINOPHILIA zinc oxide Allergy Unknown RASH Verified 05/29/18 13:55 ketorolac [From Toradol] AdvReac Mild pain Unverified 05/31/18 11:53 behind eye "ALL" ANTIBIOTICS Allergy Intermediate CAUSE Uncoded 05/29/18 13:55 BLISTERS & SORES IN MOUTH. Home Medications Home Medications Medication Instructions Recorded Confirmed Type hydrocodone-acetaminophen 2 tab PO QID PRN 03/03/18 05/29/18 History Patient History Medical History Cellulitis (Acute) recurrent admissions for such requiring IV antibiotic courses Venous stasis ulcer of right lower leg with edema of right lower leg (Acute) Lymphedema H/O wisdom tooth extraction (Resolved) Abscess, perirectal (Inactive) Kidney stone Surgical History H/O gastric bypass (Chronic) Family History Father Heart disease CAD w/ stents Diabetes Other Gallbladder disease Hypertension Lung disease Social History Preferred Language: Luxembourger Communication Ability: Effective 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 Beliefs That Will Affect Care: None marital status: Single Current Living Situation: Family Current Living Situation Comment: lives with mom/dad in [facility] current occupational status: disabled Other Information That Helps Us Care for You: No Feels Safe at Home: No Safety Concerns: Feels Safe At This Time Smoking Status: Never smoker Hx Alcohol Use: Yes (Rarely) Hx Substance Use: No Review of Systems All systems were reviewed and are negative except as per HPI Physical Exam Vital Signs (Past 24 Hours): Last Vital Signs Temp 37.4 C 05/30/18 09:20 Pulse 90 05/30/18 07:41 Resp 17 05/30/18 07:41 BP 114/71 05/30/18 07:41 Pulse Ox 94 05/30/18 07:41 Constitutional: WD/WN, vitals as above + morbidly obese and comfortable; no acute distress Eyes: PERRL, conjunctivae normal, anicteric sclerae ENMT: external ear and nose normal, oropharynx normal Neck: trachea midline, no thyromegaly neck nontender Respiratory: normal respiratory effort, lungs clear to auscultation normal percussion; does not use accessory muscles Cardiovascular: Rate/Rhythm: regular rate and regular rhythm Heart Sounds: normal S1 and normal S2; no gallop, no murmur and no cardiac rub Vessels: normal peripheral pulses; no JVD Gastrointestinal (Abdomen): normal bowel sounds, soft, nontender, no hepatosplenomegaly Musculoskeletal: Head/Neck/Chest: normocephalic, head atraumatic and neck supple Spine: thoracic spine normal to inspection and lumbar spine normal to inspection; no cervical spinal tenderness Skin: normal turgor, + wound (right thigh medially, surrounding erythema) and + erythema Neurologic: patellar DTR's 2+ bilat, sensation intact no focal motor deficits Psychiatric: A+Ox3, euthymic affect Orientation: cooperative Lymphatic: no cervical or axillary lymphadenopathy no inguinal lymphadenopathy Results & Data Laboratory Results Short CBC 05/29/18 05/30/18 Range/Units 13:08 08:32 WBC 14.84 H 9.53 (4.8-10.8) K/uL Hgb 12.6 L 10.2 L (14.0-18.0) g/dL Hct 38.2 L 31.3 L (42-52) % Plt Count 211 148 (130-400) K/uL BMP 05/29/18 05/30/18 13:08 08:32 Sodium 138 140 Potassium 4.1 3.7 Chloride 105 111 H Carbon Dioxide 25 25 BUN 19 H 12 Creatinine 0.95 0.80 Glucose 109 H 107 H Calcium 8.9 7.9 L Liver Function 05/29/18 Range/Units 13:08 Total Bilirubin 0.6 (0.2-1) mg/dl AST 21 (15-37) U/L ALT 33 (12-78) U/L Alkaline Phosphatase 94 (45-117) U/L Albumin 3.9 (3.4-5.0) gm/dl Diagnostic Findings Microbiology 05/29/18 13:08 Blood Blood Culture - Preliminary Gram negative bacilli cc: ~ RIGHT LOWER EXTREMITY VENOUS DOPPLER HISTORY: lymphedema, right leg pain, eval for DVT COMPARISON STUDY: None. FINDINGS: Suboptimal study due to the lower extremity edema and patient body habitus with difficulty evaluation the popliteal and calf vessels. However, there is normal compressibility, flow, and augmentation within the visualized right lower extremity deep venous system. IMPRESSION: No definite DVT within the right lower extremity Electronically signed by: Marshall Adams M.D. 05/29/2018 4:21 PM Dictated: 05/29/18 1620 Transcribed: 05/29/18 1620
--- NOTE | 2018-05-30 11:17 | Hospitalist Progress Note ---
Date of Service May 30, 2018 Assessment & Plan (1) Sepsis: Likely due to very early cellulitis of RLE BC growing gram negative bacilli in 1 vial so far - will continue Rocephin and vancomycin until second culture results. Patient has a history of MRSA Dr. France & Dr. Boothe know him well from wound care clinic - consulted Doppler right leg negative for DVT NS at 150cc/hr. Sed rate 21, CRP 14 (2) Cellulitis of thigh: RLE see above (3) Lymphedema of both lower extremities: severe, chronic. (4) Venous stasis ulcer of right lower leg with edema of right lower leg: posterior right thigh. followed by Wound Care clinic as outpatient - nurse consulted continue Inivatael ag in meantime along with ABD pad. Ulcer without significant drainage, odor or erythema. Was debrided at the wound center on Friday (5) Chronic pain syndrome: takes hydrocodone frequently at home for RLE pain on PRN basis. toradol and oxycodone prn for now. (6) Headache: toradol 30mg IV x 1 now. try to limit narcotics for headache. may have migraine component - consider triptan if headache persists. (7) Morbid obesity with BMI of 50.0-59.9, adult: s/p gastric bypass in the past. (8) DVT prophylaxis: lovenox 40mg daily Subjective Mr. Clark is feeling a bit better today but continues to have some aches and chills and is febrile. Review of Systems All systems reviewed & are unremarkable except as noted in HPI & below Physical Exam Vital Signs (Past 24 Hours): Last Vital Signs Temp 37.4 C 05/30/18 09:20 Pulse 90 05/30/18 07:41 Resp 17 05/30/18 07:41 BP 114/71 05/30/18 07:41 Pulse Ox 94 05/30/18 07:41 Physical Exam: General: no distress Eyes: normal inspection, PERLL Respiratory: chest non tender, clear to auscultation, normal breath sounds, no respiratory distress, no accessory muscle use Cardiac: regular rate and rhythm, no rub or gallop, systolic murmur 2/6 LUSB, lymphedema lower extremities GI/: active bowel sounds, no abd pain or tenderness, soft, non distended Extremities: normal range of motion, normal strength, non tender Neuro/Psych: alert and oriented x 3, normal mood and affect Skin: normal color, dry Results & Data Laboratory Results Abnormal lab results 05/29/18 05/29/18 05/30/18 Range/Units 13:08 13:08 05:32 WBC 14.84 H (4.8-10.8) K/uL RBC 4.05 L (4.7-6.1) M/uL Hgb 12.6 L (14.0-18.0) g/dL Hct 38.2 L (42-52) % RDW Std Deviation 56.1 H (36.4-46.3) fL RDW Coeff of Lizet 16.2 H (11.5-14.5) % MPV 10.8 H (7.4-10.4) fL Immature Gran # (Auto) 0.04 H (0.00-0.02) K/uL Neut # (Auto) 13.97 H (1.4-6.5) K/uL Lymph # (Auto) 0.45 L (1.2-3.4) K/uL ESR 21 H (0-14) mm/hr Chloride (98-107) mmol/L BUN 19 H (7-18) mg/dl Glucose 109 H (70-99) mg/dl Calcium (8.5-10.1) mg/dl C-Reactive Protein (0-0.29) mg/dl Total Protein 8.9 H (6.4-8.2) gm/dl Globulin 5.0 H (2.5-4.0) gm/dl Albumin/Globulin Ratio 0.8 L (0.9-2) 05/30/18 05/30/18 05/30/18 Range/Units 08:32 08:32 08:37 WBC (4.8-10.8) K/uL RBC 3.33 L (4.7-6.1) M/uL Hgb 10.2 L (14.0-18.0) g/dL Hct 31.3 L (42-52) % RDW Std Deviation 56.9 H (36.4-46.3) fL RDW Coeff of Lizet 16.5 H (11.5-14.5) % MPV (7.4-10.4) fL Immature Gran # (Auto) (0.00-0.02) K/uL Neut # (Auto) 8.23 H (1.4-6.5) K/uL Lymph # (Auto) 0.93 L (1.2-3.4) K/uL ESR (0-14) mm/hr Chloride 111 H (98-107) mmol/L BUN (7-18) mg/dl Glucose 107 H (70-99) mg/dl Calcium 7.9 L (8.5-10.1) mg/dl C-Reactive Protein 14.60 H (0-0.29) mg/dl Total Protein (6.4-8.2) gm/dl Globulin (2.5-4.0) gm/dl Albumin/Globulin Ratio (0.9-2) (1) Sepsis Sepsis type: sepsis due to unspecified organism Qualified Code(s): A41.9 - Sepsis, unspecified organism (2) Headache Headache type: unspecified Headache chronicity pattern: acute headache Intractability: intractable Qualified Code(s): R51 - Headache
[2018-05-30] MEDS: cefTRIAXone SODIUM 2,000 MG in DEXTROSE 5% 50 ML IV SCH (17:19)
[2018-05-30] MEDS: ENOXAPARIN INJ 40 MG/0.4 ML SYR SQ SCH (20:59)
[2018-05-31] MEDS: OXYCODONE HCL IR 5 MG TAB (IMMEDIATE RELEASE) PO PRN ×5 (01:24→21:00)
[2018-05-31] MEDS: VANCOMYCIN HCL 1,750 MG in SODIUM CHLORIDE 0.9% 500 ML IV SCH (01:24)
[2018-05-31] MEDS: SODIUM CHLORIDE 0.9% 1000ML 1,000 ML IV SCH ×4 (03:38→22:47)
[2018-05-31] MEDS: HYDROmorphone INJ 0.5 MG/0.5 ML SYR IV PRN (04:06)
[2018-05-31 07:04] LABS: Hemoglobin 10.1 g/dL (14.0-18.0); Mean Corpuscular Hgb Conc 32.6 g/dL (32-36); Mean Corpuscular Volume 95.1 fL (80-100); Mean Platelet Volume 11.6 fL (7.4-10.4); Platelet Count 151 K/uL (130-400); RDW Coefficient of Variation 16.4 % (11.5-14.5); RDW Standard Deviation 57.2 fL (36.4-46.3); Red Blood Count 3.26 M/uL (4.7-6.1); White Blood Count 5.84 K/uL (4.8-10.8)
[2018-05-31 07:38] LABS: BUN Creatinine Ratio 10.4 (10-20); Calcium 7.5 mg/dl (8.5-10.1); Creatinine Clr Calc Pharmacy 160.9 ml/min; Est GFR (African American) 132.3; Est GFR (Non-African American) 114.1; Potassium 3.7 mmol/L (3.5-5.1)
[2018-05-31] MEDS: LACTOBACILLUS ACIDOPHILUS (FLORANEX) TAB PO SCH ×3 (08:35→19:07)
[2018-05-31] MEDS ORDERED: PERFLUTREN LIPID MICROSPHERE (DEFINITY) IV ONE (09:42)
[2018-05-31] MEDS: ACETAMINOPHEN 500 MG TAB PO SCH ×2 (12:53→21:00)
[2018-05-31] MEDS: MoRPHine SULFATE 2 MG/ML CARP IV PRN ×3 (12:53→23:34)
[2018-05-31] MEDS ORDERED: VANCOMYCIN TROUGH ONE (13:30)
--- NOTE | 2018-05-31 13:31 | Hospitalist Progress Note ---
Date of Service May 31, 2018 Assessment & Plan (1) Sepsis: Likely due to very early cellulitis of RLE BC growing gram negative bacilli in 1 vial so far - will continue Rocephin and discontinue Rocephin Dr. [place] & Dr. Boothe know him well from wound care clinic - consulted Doppler right leg negative for DVT NS at 150cc/hr. Sed rate 21, CRP 14 - echo pending for murmur auscultated 05/30 (2) Cellulitis of thigh: RLE see above (3) Lymphedema of both lower extremities: severe, chronic. (4) Venous stasis ulcer of right lower leg with edema of right lower leg: posterior right thigh. followed by Wound Care clinic as outpatient - wc nurse consulted continue aquacel ag in meantime along with ABD pad. Ulcer without significant drainage, odor or erythema. Was debrided at the wound center on Friday (5) Chronic pain syndrome: takes hydrocodone frequently at home for RLE pain on PRN basis. acetaminophen q8h, prn oxycodone, morphine 2 mg prn if po meds do not suffice (6) Headache: try to limit narcotics for headache. may have migraine component - consider triptan if headache persists. (7) Morbid obesity with BMI of 50.0-59.9, adult: s/p gastric bypass in the past. (8) DVT prophylaxis: lovenox 40mg daily Subjective Mr. Clark continues to have leg pain. No further fevers or aches or chills Review of Systems All systems reviewed & are unremarkable except as noted in HPI & below Physical Exam Vital Signs (Past 24 Hours): Last Vital Signs Temp 37.1 C 05/31/18 07:30 Pulse 84 05/31/18 07:30 Resp 18 05/31/18 07:30 BP 109/65 05/31/18 07:30 Pulse Ox 96 05/31/18 07:30 Physical Exam: General: no distress Eyes: normal inspection, PERLL Respiratory: chest non tender, clear to auscultation, normal breath sounds, no respiratory distress, no accessory muscle use Cardiac: regular rate and rhythm, no rub or gallop, no murmur, lymphedema lower extremities GI/: active bowel sounds, no abd pain or tenderness, soft, non distended Extremities: normal range of motion, normal strength, non tender Neuro/Psych: alert and oriented x 3, normal mood and affect Skin: normal color, dry Results & Data Laboratory Results Abnormal lab results 05/31/18 05/31/18 Range/Units 06:21 06:21 RBC 3.26 L (4.7-6.1) M/uL Hgb 10.1 L (14.0-18.0) g/dL Hct 31.0 L (42-52) % RDW Std Deviation 57.2 H (36.4-46.3) fL RDW Coeff of Lizet 16.4 H (11.5-14.5) % MPV 11.6 H (7.4-10.4) fL Chloride 111 H (98-107) mmol/L Glucose 121 H (70-99) mg/dl Calcium 7.5 L (8.5-10.1) mg/dl (1) Sepsis Sepsis type: sepsis due to unspecified organism Qualified Code(s): A41.9 - Sepsis, unspecified organism (2) Headache Headache type: unspecified Headache chronicity pattern: acute headache Intractability: intractable Qualified Code(s): R51 - Headache
[2018-05-31] MEDS: cefTRIAXone SODIUM 2,000 MG in DEXTROSE 5% 50 ML IV SCH (15:45)
[2018-05-31] MEDS: ENOXAPARIN INJ 40 MG/0.4 ML SYR SQ SCH (21:00)
[2018-05-31] MEDS: BENZOCAINE 20% (ORAJEL) 11.9 GM TUBE MT PRN (21:01)
[2018-06-01] MEDS: OXYCODONE HCL IR 5 MG TAB (IMMEDIATE RELEASE) PO PRN ×4 (04:44→23:39)
[2018-06-01] MEDS: ACETAMINOPHEN 500 MG TAB PO SCH ×3 (05:30→20:54)
[2018-06-01] MEDS: SODIUM CHLORIDE 0.9% 1000ML 1,000 ML IV SCH ×2 (05:31→12:43)
[2018-06-01] MEDS: MoRPHine SULFATE 2 MG/ML CARP IV PRN ×4 (05:38→22:08)
[2018-06-01 07:47] LABS: Hematocrit (blood only) 31.3 % (42-52); Mean Corpuscular Hgb Conc 31.9 g/dL (32-36); Mean Corpuscular Volume 95.1 fL (80-100); Mean Platelet Volume 11.2 fL (7.4-10.4); Platelet Count 152 K/uL (130-400); RDW Coefficient of Variation 16.3 % (11.5-14.5); RDW Standard Deviation 57.4 fL (36.4-46.3); Red Blood Count 3.29 M/uL (4.7-6.1); White Blood Count 4.82 K/uL (4.8-10.8)
[2018-06-01 08:19] LABS: BUN Creatinine Ratio 11.3 (10-20); Calcium 7.9 mg/dl (8.5-10.1); Creatinine Clr Calc Pharmacy 204.3 ml/min; Est GFR (African American) 145.9; Est GFR (Non-African American) 125.9; Potassium 3.8 mmol/L (3.5-5.1)
[2018-06-01] MEDS: LACTOBACILLUS ACIDOPHILUS (FLORANEX) TAB PO SCH ×3 (09:39→17:25)
[2018-06-01] MEDS: cefTRIAXone SODIUM 2,000 MG in DEXTROSE 5% 50 ML IV SCH (15:45)
--- NOTE | 2018-06-01 17:55 | Hospitalist Progress Note ---
Date of Service June 01, 2018 Assessment & Plan (1) Sepsis: Likely due to very early cellulitis of RLE BC growing Proteus mirabilis r - will continue Rocephin await ID to weigh in on long-term treatment Dr. France & Dr. Boothe know him well from wound care clinic - consulted Doppler right leg negative for DVT Sed rate 21, CRP 14 - echo for murmur auscultated 05/30 is negative for valvular vegetations was again valvular disease I personally phoned Dr. Rick plastic surgery who felt that the surgery this patient requires outside of the scope of our facility may consider tertiary referral if surgery were deemed to be appropriate to avoid recurrent infections (2) Cellulitis of thigh: RLE see above (3) Lymphedema of both lower extremities: severe, chronic. (4) Venous stasis ulcer of right lower leg with edema of right lower leg: posterior right thigh. followed by Wound Care clinic as outpatient - nurse consulted continue Pano Logicel ag in meantime along with ABD pad. Ulcer without significant drainage, odor or erythema. Was debrided at the wound center on Friday (5) Chronic pain syndrome: takes hydrocodone frequently at home for RLE pain on PRN basis. acetaminophen q8h, prn oxycodone, morphine 2 mg prn if po meds do not suffice (6) Headache: try to limit narcotics for headache. may have migraine component - consider triptan if headache persists. (7) Morbid obesity with BMI of 50.0-59.9, adult: s/p gastric bypass in the past. (8) DVT prophylaxis: lovenox 40mg daily Subjective Patient is feeling improved he feels like his right calf is more firm than it usually is his record. He feels the wound is improving by his evaluation. Otherwise he has no new complaints or problems Review of Systems ROS: well nourished well developed. Patient is morbidly obese with marketed lymphedema and skin changes No double vision blurry vision No problems with speech or swallowing No palpitations, chest pain or pressure No Wheezing or breathing issues No abdominal pain nausea vomiting diarrhea changes in appetite or weight No burning urine urine frequency or changes in color No focal joint pain or muscle pain No skin he has market changes of dependent skin and lymphedema with open areas that are difficult to heal No unusual bruising or bleeding No focused back pain or numbness or loss of strength No changes in memory or confusion Physical Exam Vital Signs (Past 24 Hours): Last Vital Signs Temp 36.7 C 06/01/18 15:31 Pulse 66 06/01/18 15:31 Resp 18 06/01/18 15:31 BP 132/82 06/01/18 15:31 Pulse Ox 100 06/01/18 15:31 The patient appeared morbidly obese with lymphedema and marked changes to his body habitus because of this Vital signs as documented. Head exam is unremarkable. normocephalic, atraumatic Neck is without jugular venous distension, trachea is midline Lungs are clear to auscultation and percussion. Cardiac exam reveals Rhythm is regular. Abdominal exam reveals normal bowel sounds, soft Extremities are patient has marked pendulous lymphedematous changes to his legs including thighs and calfs. He is ankles are nonvisible. There is an open area in the right posterior calf which is been present for some time there is nodular appearance to his skin. There is a firm indurated component to this. Lymphedema masses to his calves are approximately the size of bowling ball each side Neurologic exam is A&Ox3, no focal deficits Psychologically seems neither anxious or depressed Skin is open areas in the posterior of these calf lymphedema changes which likely are from abrasion or friction injury between the 2 (1) Headache Headache chronicity pattern: acute headache Headache type: unspecified Intractability: intractable Qualified Code(s): R51 - Headache (2) Sepsis Sepsis type: sepsis due to unspecified organism Qualified Code(s): A41.9 - Sepsis, unspecified organism
[2018-06-01] MEDS: ENOXAPARIN INJ 40 MG/0.4 ML SYR SQ SCH (20:52)
[2018-06-02] MEDS: OXYCODONE HCL IR 5 MG TAB (IMMEDIATE RELEASE) PO PRN ×4 (03:54→21:15)
[2018-06-02] MEDS: ACETAMINOPHEN 500 MG TAB PO SCH ×3 (05:50→21:10)
[2018-06-02] MEDS: LACTOBACILLUS ACIDOPHILUS (FLORANEX) TAB PO SCH ×3 (07:42→16:11)
[2018-06-02] MEDS: MoRPHine SULFATE 2 MG/ML CARP IV PRN ×3 (07:48→23:44)
[2018-06-02 07:58] LABS: Hematocrit (blood only) 31.4 % (42-52); Mean Corpuscular Hgb Conc 31.8 g/dL (32-36); Mean Corpuscular Volume 95.4 fL (80-100); Mean Platelet Volume 11.2 fL (7.4-10.4); Platelet Count 165 K/uL (130-400); RDW Coefficient of Variation 15.8 % (11.5-14.5); RDW Standard Deviation 55.8 fL (36.4-46.3); Red Blood Count 3.29 M/uL (4.7-6.1); White Blood Count 5.42 K/uL (4.8-10.8)
[2018-06-02 08:38] LABS: BUN Creatinine Ratio 8.1 (10-20); Calcium 8.2 mg/dl (8.5-10.1); Creatinine Clr Calc Pharmacy 200.5 ml/min; Est GFR (African American) 138.9; Est GFR (Non-African American) 119.9
--- NOTE | 2018-06-02 10:34 | Infectious Disease Progress Nt ---
Date of Service June 01, 2018 Assessment & Plan (1) Gram negative sepsis: 37-year-old male with long-standing severe lymphedema and recurrent right lower extremity cellulitis, now with sepsis with Proteus bacteremia, appears to be improving on antibiotics. Will continue patient on IV ceftriaxone, will likely need in the range of 7 days of IV antibiotics depending on clinical response. Will follow. (2) Cellulitis of thigh: Subjective Patient seen in follow-up for sepsis with bacteremia. Blood cultures now growing Proteus. Patient feeling better today, less pain in right leg. Notes wound has improved slightly. No fever. No other new complaints. Review of Systems All systems reviewed & are unremarkable except as noted in HPI & below Physical Exam Vital Signs (Past 24 Hours): Last Vital Signs Temp 36.7 C 06/02/18 07:00 Pulse 65 06/02/18 07:00 Resp 20 06/02/18 07:00 BP 122/77 06/02/18 07:00 Pulse Ox 98 06/02/18 07:00 Constitutional: WD/WN, vitals as above + morbidly obese and comfortable; no acute distress Eyes: PERRL, conjunctivae normal, anicteric sclerae ENMT: external ear and nose normal, oropharynx normal Neck: trachea midline, no thyromegaly neck nontender Respiratory: normal respiratory effort, lungs clear to auscultation normal percussion; does not use accessory muscles Cardiovascular: Rate/Rhythm: regular rate and regular rhythm Heart Sounds: normal S1 and normal S2; no gallop, no murmur and no cardiac rub Vessels: normal peripheral pulses; no JVD Gastrointestinal (Abdomen): normal bowel sounds, soft, nontender, no hepatosplenomegaly Musculoskeletal: Head/Neck/Chest: normocephalic, head atraumatic and neck supple Spine: thoracic spine normal to inspection and lumbar spine normal to inspection; no cervical spinal tenderness Skin: normal turgor, + wound (right thigh medially, surrounding erythema) and + erythema Neurologic: patellar DTR's 2+ bilat, sensation intact no focal motor deficits Psychiatric: A+Ox3, euthymic affect Orientation: cooperative Lymphatic: no cervical or axillary lymphadenopathy no inguinal lymphadenopathy Results & Data Laboratory Results Laboratory Results - last 48 hr 06/01/18 06/01/18 06/02/18 07:10 07:10 07:40 WBC 4.82 5.42 RBC 3.29 L 3.29 L Hgb 10.0 L 10.0 L Hct 31.3 L 31.4 L MCV 95.1 95.4 MCH 30.4 30.4 MCHC 31.9 L 31.8 L RDW Std Deviation 57.4 H 55.8 H RDW Coeff of Lizet 16.3 H 15.8 H Plt Count 152 165 MPV 11.2 H 11.2 H Sodium 142 Potassium 3.8 Chloride 111 H Carbon Dioxide 25 Anion Gap 5.0 BUN 7 Creatinine 0.63 Est Cr Clr Drug Dosing 204.3 Est GFR ( Amer) 145.9 Est GFR (Non-Af Amer) 125.9 BUN/Creatinine Ratio 11.3 Glucose 86 Calcium 7.9 L 06/02/18 07:40 WBC RBC Hgb Hct MCV MCH MCHC RDW Std Deviation RDW Coeff of Lizet Plt Count MPV Sodium 143 Potassium 4.0 Chloride 111 H Carbon Dioxide 28 Anion Gap 4.0 BUN 6 L Creatinine 0.71 Est Cr Clr Drug Dosing 200.5 Est GFR ( Amer) 138.9 Est GFR (Non-Af Amer) 119.9 BUN/Creatinine Ratio 8.1 L Glucose 90 Calcium 8.2 L Diagnostic Findings Microbiology 05/29/18 13:08 Blood Blood Culture - Preliminary Proteus mirabilis 05/29/18 13:55 Blood Blood Culture - Preliminary No growth to date.
[2018-06-02] MEDS: cefTRIAXone SODIUM 2,000 MG in DEXTROSE 5% 50 ML IV SCH (16:46)
[2018-06-02] MEDS ORDERED: LIDOCAINE HCL 2% VISCOUS 1.25 ML, DiphenhydrAMINE Syrup 3.125 MG, ALUMINUM/MAGNESIUM SU... MT ONE (17:56)
[2018-06-02] MEDS ORDERED: MAGIC SWIZZLE MT SCH (18:15)
[2018-06-02] MEDS: NYSTATIN SUSP 500,000 U/5 ML UDC PO SCH (21:09)
[2018-06-02] MEDS: ENOXAPARIN INJ 40 MG/0.4 ML SYR SQ SCH (22:30)
[2018-06-03] MEDS: OXYCODONE HCL IR 5 MG TAB (IMMEDIATE RELEASE) PO PRN ×5 (02:10→20:42)
[2018-06-03] MEDS: ACETAMINOPHEN 500 MG TAB PO SCH ×3 (05:41→21:52)
[2018-06-03] MEDS: LACTOBACILLUS ACIDOPHILUS (FLORANEX) TAB PO SCH ×3 (08:00→19:57)
[2018-06-03] MEDS: NYSTATIN SUSP 500,000 U/5 ML UDC PO SCH ×4 (08:00→20:42)
[2018-06-03 08:06] LABS: Hematocrit (blood only) 32.5 % (42-52); Hemoglobin 10.8 g/dL (14.0-18.0); Mean Corpuscular Hgb Conc 33.2 g/dL (32-36); Mean Corpuscular Volume 94.2 fL (80-100); Mean Platelet Volume 11.3 fL (7.4-10.4); Platelet Count 177 K/uL (130-400); RDW Coefficient of Variation 15.8 % (11.5-14.5); RDW Standard Deviation 54.6 fL (36.4-46.3); Red Blood Count 3.45 M/uL (4.7-6.1); White Blood Count 5.05 K/uL (4.8-10.8)
[2018-06-03] MEDS: cefTRIAXone SODIUM 2,000 MG in DEXTROSE 5% 50 ML IV SCH (15:58)
--- NOTE | 2018-06-03 16:08 | Hospitalist Progress Note ---
Date of Service June 02, 2018 Assessment & Plan (1) Sepsis: Likely due to very early cellulitis of RLE BC growing Proteus mirabilis r - will continue Rocephin await ID to weigh in on long-term treatment Dr. France & Dr. Boothe know him well from wound care clinic - consulted Doppler right leg negative for DVT Sed rate 21, CRP 14 - echo for murmur auscultated 05/30 is negative for valvular vegetations was again valvular disease I personally phoned Dr. Rick plastic surgery who felt that the surgery this patient requires outside of the scope of our facility may consider tertiary referral if surgery were deemed to be appropriate to avoid recurrent infections. For the moment, patient is showing improvement with the antibiotics. Will continue with IV antbiotics. May consider outpatient referral to tertiary center once patient improves to the point that he can be discharged. May need up to 7 days of IV antibiotics. (2) Cellulitis of thigh: RLE see above (3) Lymphedema of both lower extremities: severe, chronic. (4) Venous stasis ulcer of right lower leg with edema of right lower leg: posterior right thigh. followed by Wound Care clinic as outpatient - nurse consulted continue KLab in meantime along with ABD pad. Ulcer without significant drainage, odor or erythema. Was debrided at the wound center on Friday (5) Chronic pain syndrome: takes hydrocodone frequently at home for RLE pain on PRN basis. acetaminophen q8h, prn oxycodone, morphine 2 mg prn if po meds do not suffice (6) Headache: try to limit narcotics for headache. may have migraine component - consider triptan if headache persists. (7) Morbid obesity with BMI of 50.0-59.9, adult: s/p gastric bypass in the past. (8) DVT prophylaxis: lovenox 40mg daily Spent 35 minutes in management of patient Subjective Patient continues to feel like he is improving. He did have a few complaints though, one is the fact that he gets ulcers in his mouth after antibiotics. He is also asking fro more pain medicine. Patient does notice that his legs do look better than they did earlier in the hospital stay. They are less red. Constitutional: + fever, + chills, + fatigue and + anorexia; no weight loss and no weight gain Eyes: + photophobia; no worsening vision Ear, Nose, Mouth, Throat: + nasal congestion; no sore throat and no dysphagia Integumentary: + skin ulcer and + erythema Physical Exam Vital Signs (Past 24 Hours): Last Vital Signs Temp 36.4 C 06/02/18 15:00 Pulse 77 06/02/18 15:00 Resp 18 06/02/18 15:00 BP 128/89 06/02/18 15:00 Pulse Ox 96 06/02/18 15:00 Physical Exam: The patient appeared morbidly obese with lymphedema and marked changes to his body habitus because of this Vital signs as documented. Head exam is unremarkable. normocephalic, atraumatic Neck is without jugular venous distension, trachea is midline Lungs are clear to auscultation and percussion. Cardiac exam reveals Rhythm is regular. Abdominal exam reveals normal bowel sounds, soft Extremities: markedlymphedematous changes to his legs including thighs and calfs. Lymphedema masses to his calves are approximately the size of bowling ball on each side Neurologic exam is A&Ox3, no focal deficits Psychologically seems neither anxious or depressed Skin is open areas in the posterior of these calf lymphedema changes which likely are from abrasion or friction injury between the 2. The erythema appears to be decreased. (1) Sepsis Sepsis type: sepsis due to unspecified organism Qualified Code(s): A41.9 - Sepsis, unspecified organism (2) Headache Headache type: unspecified Headache chronicity pattern: acute headache Intractability: intractable Qualified Code(s): R51 - Headache
[2018-06-03] MEDS ORDERED: Nursing to Pharmacy Communication ONE (17:53)
[2018-06-03] MEDS: LACTOBACILLUS ACIDOPHILUS 1 GM PACK PO SCH (18:43)
[2018-06-03] MEDS: ENOXAPARIN INJ 40 MG/0.4 ML SYR SQ SCH (20:42)
--- NOTE | 2018-06-03 23:55 | Hospitalist Progress Note ---
Date of Service June 03, 2018 Assessment & Plan (1) Sepsis: Likely due to very early cellulitis of RLE BC growing Proteus mirabilis r - will continue Rocephin await ID to weigh in on long-term treatment Dr. France & Dr. Boothe know him well from wound care clinic - consulted Doppler right leg negative for DVT Sed rate 21, CRP 14 - echo for murmur auscultated 05/30 is negative for valvular vegetations was again valvular disease I personally phoned Dr. Rick plastic surgery who felt that the surgery this patient requires outside of the scope of our facility may consider tertiary referral if surgery were deemed to be appropriate to avoid recurrent infections. For the moment, patient is showing improvement with the antibiotics. Will continue with IV antbiotics. May consider outpatient referral to tertiary center once patient improves to the point that he can be discharged. May need up to 7 days of IV antibiotics. Will complete on 06/04. Will hold discharge until then. Patient will likely need to continue on PO antibiotics as an outpatient. (2) Cellulitis of thigh: RLE see above (3) Lymphedema of both lower extremities: severe, chronic. (4) Venous stasis ulcer of right lower leg with edema of right lower leg: posterior right thigh. followed by Wound Care clinic as outpatient - nurse consulted continue Phytel ag in meantime along with ABD pad. Ulcer without significant drainage, odor or erythema. Was debrided at the wound center on Friday (5) Chronic pain syndrome: takes hydrocodone frequently at home for RLE pain on PRN basis. acetaminophen q8h, prn oxycodone, morphine 2 mg prn if po meds do not suffice (6) Headache: try to limit narcotics for headache. may have migraine component - consider triptan if headache persists. (7) Morbid obesity with BMI of 50.0-59.9, adult: s/p gastric bypass in the past. (8) DVT prophylaxis: lovenox 40mg daily Spent 25 minutes in management of patient Subjective Patient continues to feel like he is improving. He states the redness in his legs has improved. Constitutional: no fever, no chills, no fatigue, no anorexia, no weight loss and no weight gain Eyes: no photophobia and no worsening vision Ear, Nose, Mouth, Throat: no nasal congestion, no sore throat and no dysphagia Respiratory: no change in sputum and no hemoptysis Cardiovascular: no chest pain Gastrointestinal: no abdominal pain Integumentary: + skin ulcer; no erythema Neurologic: no falls Psychiatric: no suicidal ideation and no panic attacks Endocrine: no fatigue Physical Exam Vital Signs (Past 24 Hours): Last Vital Signs Temp 36.7 C 06/03/18 15:00 Pulse 76 06/03/18 15:00 Resp 21 06/03/18 15:00 BP 116/78 06/03/18 15:00 Pulse Ox 100 06/03/18 15:00 Physical Exam: The patient appeared morbidly obese with lymphedema and marked changes to his body habitus because of this Vital signs as documented. Head exam is unremarkable. normocephalic, atraumatic Neck is without jugular venous distension, trachea is midline Lungs are clear to auscultation and percussion. Cardiac exam reveals Rhythm is regular. Abdominal exam reveals normal bowel sounds, soft Extremities: marked lymphedematous changes to his legs including thighs and calfs. Lymphedema masses to his calves are approximately the size of bowling ball on each side. No longer erythema. Neurologic exam is A&Ox3, no focal deficits Psychologically seems neither anxious or depressed Skin is open areas in the posterior of these calf lymphedema changes which likely are from abrasion or friction injury between the 2. (1) Headache Headache chronicity pattern: acute headache Headache type: unspecified In tractability: intractable Qualified Code(s): R51 - Headache (2) Sepsis Sepsis type: sepsis due to unspecified organism Qualified Code(s): A41.9 - Sepsis, unspecified organism
[2018-06-04] MEDS: OXYCODONE HCL IR 5 MG TAB (IMMEDIATE RELEASE) PO PRN ×4 (00:51→12:59)
[2018-06-04 01:14] VITALS: PULSE 69; O2SAT 99
[2018-06-04] MEDS: BENZOCAINE 20% (ORAJEL) 11.9 GM TUBE MT PRN (05:11)
[2018-06-04] MEDS: ACETAMINOPHEN 500 MG TAB PO SCH ×2 (06:00→12:53)
[2018-06-04 06:14] LABS: Hematocrit (blood only) 35.4 % (42-52); Hemoglobin 11.3 g/dL (14.0-18.0); Mean Corpuscular Hgb Conc 31.9 g/dL (32-36); Mean Corpuscular Volume 94.9 fL (80-100); Mean Platelet Volume 11.1 fL (7.4-10.4); Platelet Count 229 K/uL (130-400); RDW Coefficient of Variation 15.5 % (11.5-14.5); Red Blood Count 3.73 M/uL (4.7-6.1); White Blood Count 4.42 K/uL (4.8-10.8)
[2018-06-04 06:48] LABS: Est GFR (African American) 138.9
[2018-06-04 06:49] LABS: Creatinine Clr Calc Pharmacy 200.5 ml/min; Est GFR (Non-African American) 119.9
[2018-06-04 07:17] VITALS: BP 122/77; TEMP 97.9
[2018-06-04] MEDS: NYSTATIN SUSP 500,000 U/5 ML UDC PO SCH ×2 (07:52→11:09)
[2018-06-04] MEDS: LACTOBACILLUS ACIDOPHILUS 1 GM PACK PO SCH ×2 (07:52→11:09)
--- NOTE | 2018-06-04 14:31 | Infectious Disease Progress Nt ---
Date of Service June 04, 2018 Assessment & Plan (1) Gram negative sepsis: 37-year-old male with long-standing severe lymphedema and recurrent right lower extremity cellulitis, now with sepsis with Proteus bacteremia, appears to be improving on antibiotics. Will continue patient on IV ceftriaxone, 7 days of IV antibiotics depending foloowed by cefdinir 300 bid for 2-4 weeks. Will follow while in hospital, then f/u at Wound Center.. (2) Cellulitis of thigh: Subjective Patient seen in follow-up for sepsis with bacteremia. Blood cultures now growing Proteus. Patient feeling better today, less pain in right leg. Notes wound has improved slightly. No fever. No other new complaints. Review of Systems All systems reviewed & are unremarkable except as noted in HPI & below Physical Exam Vital Signs (Past 24 Hours): Last Vital Signs Temp 36.6 C 06/04/18 07:16 Pulse 69 06/04/18 07:16 Resp 18 06/04/18 07:16 BP 122/77 06/04/18 07:16 Pulse Ox 99 06/04/18 07:16 Constitutional: WD/WN, vitals as above + morbidly obese and comfortable; no acute distress Eyes: PERRL, conjunctivae normal, anicteric sclerae ENMT: external ear and nose normal, oropharynx normal Neck: trachea midline, no thyromegaly neck nontender Respiratory: normal respiratory effort, lungs clear to auscultation normal percussion; does not use accessory muscles Cardiovascular: Rate/Rhythm: regular rate and regular rhythm Heart Sounds: normal S1 and normal S2; no gallop, no murmur and no cardiac rub Vessels: normal peripheral pulses; no JVD Gastrointestinal (Abdomen): normal bowel sounds, soft, nontender, no hepatosplenomegaly Musculoskeletal: Head/Neck/Chest: normocephalic, head atraumatic and neck supple Spine: thoracic spine normal to inspection and lumbar spine normal to inspection; no cervical spinal tenderness Skin: normal turgor, + wound (right thigh medially, surrounding erythema) and + erythema Neurologic: patellar DTR's 2+ bilat, sensation intact no focal motor deficits Psychiatric: A+Ox3, euthymic affect Orientation: cooperative Lymphatic: no cervical or axillary lymphadenopathy no inguinal lymphadenopathy Results & Data Laboratory Results Short CBC 06/04/18 Range/Units 05:40 WBC 4.42 L (4.8-10.8) K/uL Hgb 11.3 L (14.0-18.0) g/dL Hct 35.4 L (42-52) % Plt Count 229 (130-400) K/uL BMP 06/04/18 05:40 Creatinine 0.71 Diagnostic Findings Microbiology 05/29/18 13:08 Blood Blood Culture - Final Proteus mirabilis 05/29/18 13:55 Blood Blood Culture - Final No growth
[2018-06-04] MEDS: cefTRIAXone SODIUM 2,000 MG in DEXTROSE 5% 50 ML IV SCH (14:41)
--- NOTE | 2018-06-09 11:24 | Discharge Summary ---
Date of Service June 04, 2018 Admission HPI Per Admitting Provider 37yo male with morbid obesity and chronic lymphedema - well known to me from prior admissions for RLE cellulitis and chronic ulcer - presenting with the acute onset of fever, chills, and worseing RLE pain beginning this AM about 0830. He was seen at the [facility] on Friday and had some minor debridement of his posterior right thigh ulcer. He typically has mild discomfort for a few days following debridements and this time was no exception. He takes hydrocodone prn pain for such. However, the pain was much worse this am upon awakening. The pain is near the ulcer posteriorly as well as the medial aspect of the right anterior thigh. He also noted some mild worsening redness of the right leg - especially the medial aspect of the right thigh - beginning this AM. He reports his mother was sick with fever in the last 24 hours as well. He has had no new medical issues of late. He was feeling fine yesterday. Last antibiotic course was in April when he took zyvox for a RLE cellulitis. He completed these weeks ago. In the ER he was febrile, tachycardic, and c/o headache along with RLE pain. He typically gets migraine type headaches in the midst of illnesses. Principal Diagnosis Lower extremity lymphedema complicated by cellulitis Discharge Exam The patient appeared morbidly obese with lymphedema and marked changes to his body habitus because of this Vital signs as documented. Head exam is unremarkable. normocephalic, atraumatic Neck is without jugular venous distension, trachea is midline Lungs are clear to auscultation and percussion. Cardiac exam reveals Rhythm is regular. Abdominal exam reveals normal bowel sounds, soft Extremities: marked lymphedematous changes to his legs including thighs and calfs. Lymphedema masses to his calves are approximately the size of bowling ball on each side. No longer erythema. Neurologic exam is A&Ox3, no focal deficits Psychologically seems neither anxious or depressed Skin is open areas in the posterior of these calf lymphedema changes which likely are from abrasion or friction injury between the 2. Discharge Data Allergies Allergy/AdvReac Type Severity Reaction Status Date / Time amoxicillin Allergy Severe BLISTERS & Verified 05/29/18 13:55 SORES IN MOUTH Sulfa (Sulfonamide Allergy Severe BLISTERS & Verified 05/29/18 13:55 Antibiotics) SORES IN MOUTH daptomycin Allergy Intermediate RASH, Verified 05/29/18 13:55 EOSINOPHILIA zinc oxide Allergy Unknown RASH Verified 05/29/18 13:55 ketorolac [From Toradol] AdvReac Mild pain Unverified 05/31/18 11:53 behind eye "ALL" ANTIBIOTICS Allergy Intermediate CAUSE Uncoded 05/29/18 13:55 BLISTERS & SORES IN MOUTH. Consultations 05/29/18 14:07 ED Decision to Admit Stat 05/29/18 16:15 Consult Infectious Diseases Routine Ordered Studies 05/29/18 14:54 US venous doppler LE RT Stat Hospital Course (1) Sepsis: Likely due to very early cellulitis of RLE BC growing Proteus mirabilis r - will continue Rocephin await ID to weigh in on long-term treatment Dr. France & Dr. Boothe know him well from wound care clinic - consulted Doppler right leg negative for DVT Sed rate 21, CRP 14 - echo for murmur auscultated 05/30 is negative for valvular vegetations was again valvular disease I personally phoned Dr. Rick plastic surgery who felt that the surgery this patient requires outside of the scope of our facility may consider tertiary referral if surgery were deemed to be appropriate to avoid recurrent infections. For the moment, patient is showing improvement with the antibiotics. Will continue with IV antbiotics. May need up to 7 days of IV antibiotics. Will complete on 06/04. 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 Patient will f/u with ID/Wound as an outpatient to determine if patient needs to continue PO antibiotics. Will hold discharge until then. Patient will likely need to continue on PO antibiotics as an outpatient. (2) Cellulitis of thigh: RLE see above (3) Lymphedema of both lower extremities: severe, chronic. (4) Venous stasis ulcer of right lower leg with edema of right lower leg: posterior right thigh. followed by Wound Care clinic as outpatient - nurse consulted continue [email or web address] ag in meantime along with ABD pad. Ulcer without significant drainage, odor or erythema. Was debrided at the wound center on Friday (5) Chronic pain syndrome: takes hydrocodone frequently at home for RLE pain on PRN basis. acetaminophen q8h, prn oxycodone, morphine 2 mg prn if po meds do not suffice (6) Headache: try to limit narcotics for headache. may have migraine component will defer to PCP. (7) Morbid obesity with BMI of 50.0-59.9, adult: s/p gastric bypass in the past. (8) DVT prophylaxis: lovenox 40mg daily Total Time Total Time Spent Total Time Spent (In Minutes): 31 Total Time Includes: Examination of the Patient, Discharge Planning and Medication Reconciliation Discharge Plan Discharge Items Patient Disposition: Home - Self-Care Reason For Visit: SEPSIS Discharge Diagnosis: Cellulitis Discharge Goals: Decrease discomfort Activity: Resume your previous activity Non-emergency contact: Primary Care Provider Call non-emergency contact if: you have any medication questions and your symptoms worsen Follow-up/Referrals: [facility] [Provider Group] - 06/23/18 1:00 pm (Please, follow up at [facility] on FridayJune 23 at 1:00 pm. *If you need to change this appointment, call the office at [phone].) Mine Davis MD [Primary Care Provider] - 06/09/18 10:20 am (Please, follow up with Dr. Davis on FridayJune 09 at 10:20 am. *If you need to change this appointment, call the office at [phone].) Diet: Regular Addtl Provider Instructions: Followup with Wound care clinic in 2-3 weeks. Followup with PCP in 1-2 weeks, You completed 7 days of antibiotics IV. Will continue with PO antibiotics for at least 2 months Prescriptions: New nystatin 100,000 unit/mL Suspension 5 ml PO QID Qty: 140 RF: 0 oxycodone 5 mg Tablet 15 mg PO Q4H PRN (Reason: severe pain) Qty: 30 RF: 0 cefdinir 300 mg capsule 300 mg PO BID 30 Days Qty: 60 RF: 1 OraMagicRx mouthwash 60 ea mucous membrane Q4H Qty: 315 RF: 0 Continued hydrocodone-acetaminophen 10-325 mg Tablet 2 tab PO QID PRN (Reason: Pain) RF: 0 Stand-Alone Forms: [facility] Discharge Orders: Discharge Order (Routine); Ordered 06/04/18 Ordered By: Alexandre Holt Admission Data Admit Date/Time: 05/29/18 14:51 Attending Provider: Alexandre Holt Admit Provider: Kian Chery Primary Care Provider: Mine Davis Other Providers: Prasanth France Service: Medical Other Interventions: Discharge Summary Assessment (RN) Last Done: 06/04/18 14:35 DC Date/Time DO NOT enter until pt leaves facility: 06/04/18 15:43
== END 2018-06-04 15:43 | disposition home or self-care (01) | DRG 872 ==
LOC: ED 12:22 → SUATTDRO 14:51 → 4W 14:51
DX: Z88.1 Allergy status to other antibiotic agents; I89.0 Lymphedema, not elsewhere classified; L03.115 Cellulitis of right lower limb; I87.8 Other specified disorders of veins; A41.50 Gram-negative sepsis, unspecified; Z88.2 Allergy status to sulfonamides; R51 Headache; E66.01 Morbid (severe) obesity due to excess calories; Z68.44 Body mass index [BMI] 60.0-69.9, adult; G89.4 Chronic pain syndrome; L97.219 Non-pressure chronic ulcer of right calf with unspecified severity

== ENCOUNTER 2019-03-18 07:52 | Inpatient (IN) ==
[2019-03-18] MEDS ORDERED: SODIUM CHLORIDE 0.9% 1000ML 1,000 ML IV ONE (08:15)
[2019-03-18] MEDS ORDERED: VANCOMYCIN CONSULT ACTIVE PRN (08:21)
[2019-03-18] MEDS ORDERED: cefTRIAXone SODIUM 2,000 MG/70 ML BAG IV STA (08:21)
[2019-03-18] MEDS ORDERED: VANCOMYCIN HCL 2,500 MG in SODIUM CHLORIDE 0.9% 500 ML IV ONE (08:21)
[2019-03-18] MEDS ORDERED: HYDROmorphone INJ 1 MG/ML SYRINGE IV STA (08:38)
[2019-03-18] MEDS ORDERED: ONDANSETRON INJ 2 MG/ML 2 ML VIAL IV STA (08:38)
--- NOTE | 2019-03-18 08:45 | XRay Report ---
XR chest 1V portable CLINICAL HISTORY: SEPSIS COMPARISON STUDY: April 11, 2018 FINDINGS: The cardiac and mediastinal contours are normal. There is no evidence of focal pulmonary co nsolidation. There is no evidence of failure. No pleural effusions are visualized.[ IMPRESSION: No active disease in the chest. ACT 112: Negative or not required by law. Electronically signed by: Ramirez Sood M.D. 03/18/2019 8:44 AM
[2019-03-18 08:51] LABS: Basophils # (auto) 0.02 K/uL (0-0.2); Basophils % (auto) 0.1 %; Eosinophils # (auto) 0.01 K/uL (0-0.5); Eosinophils % (auto) 0.1 %; Hemoglobin 12.4 g/dL (14.0-18.0); Immature Granulocytes # (auto) 0.04 K/uL (0.00-0.02); Immature Granulocytes % (auto) 0.3 %; Lymphocytes # (auto) 0.59 K/uL (1.2-3.4); Lymphocytes % (auto) 4.1 %; Mean Corpuscular Hemoglobin 30.7 pg (25-34); Mean Corpuscular Hgb Conc 32.6 g/dL (32-36); Mean Corpuscular Volume 94.1 fL (80-100); Mean Platelet Volume 11.3 fL (7.4-10.4); Monocytes # (auto) 0.68 K/uL (0.11-0.59); Monocytes % (auto) 4.7 %; Neutrophils # (auto) 12.98 K/uL (1.4-6.5); Neutrophils % (auto) 90.7 %; Platelet Count 217 K/uL (130-400); RDW Coefficient of Variation 14.6 % (11.5-14.5); RDW Standard Deviation 49.9 fL (36.4-46.3); Red Blood Count 4.04 M/uL (4.7-6.1); White Blood Count 14.32 K/uL (4.8-10.8)
--- NOTE | 2019-03-18 08:57 | Emergency Department Note ---
History of Present Illness General Chief Complaint: Leg Injury/Pain Stated Complaint: INFECTION RIGHT LEG Source: patient Mode of arrival: ambulatory Limitations: no limitations History of Present Illness Provider complaint: fever, malaise, weakness and other (right leg infection) Onset (ago): hour(s) 5 Maximum Temperature: 102 C Temperature Source: oral Maximum Pain Intensity: 8 Current Pain Intensity: 8 Associated symptoms: + chills and + other (right leg pain, chronic wound) Relieved By: + nothing Treatments prior to arrival fever: + acetaminophen This 38-year-old male patient with significant past medical history of l ymphedema and chronic right lower extremity wound who follows with the wound clinic as well as infectious disease, presents emergency department today, ambulatory, complaining of a right leg infection. The patient states he awoke at approximately 4 AM due to a flareup and pain in the right lower extremity wound as well as fever, chills, body aches, and generalized malaise. The patient denies any new injury to the extremity. He does report associated nausea and diarrhea and states he does frequently get cellulitis after otherwise being ill. The patient states he did take Tylenol prior to arrival. His most recent cellulitic infection requiring admission was 1 year ago in his bilateral legs. The patient has not recently seen infectious disease. He is not currently on any antibiotics for the wound. Home Medications Home Medications Medication Instructions Recorded Confirmed Type nystatin 100,000 unit/gram topical 1 appln TOP BID #30 gm 01/12/19 03/18/19 Rx powder Wheelchair (Manual or Powered) #1 ea 01/14/19 01/19/19 Rx hydrocodone 10 mg-acetaminophen 2 tab PO QID PRN #112 tab 03/05/19 03/18/19 Rx 325 mg tablet Allergies Allergy/AdvReac Type Severity Reaction Status Date / Time amoxicillin Allergy Severe BLISTERS & Verified 03/18/19 08:55 SORES IN MOUTH Sulfa (Sulfonamide Allergy Severe BLISTERS & Verified 03/18/19 08:55 Antibiotics) SORES IN MOUTH daptomycin Allergy Intermediate RASH, Verified 03/18/19 08:55 EOSINOPHILIA zinc oxide Allergy Unknown RASH Verified 03/18/19 08:55 ketorolac [From Toradol] AdvReac Mild pain Unverified 03/18/19 08:55 behind eye "ALL" ANTIBIOTICS Allergy Intermediate CAUSE Uncoded 03/18/19 08:55 BLISTERS & SORES IN MOUTH. Past Med/Surg History Medical History Abscess, perirectal (Inactive) Cellulitis (Resolved) recurrent admissions for such requiring IV antibiotic courses Kidney stone Lymphedema Lymphedema of lower extremity (Chronic) Venous stasis ulcer of right lower leg with edema of right lower leg (Chronic) Surgical History H/O gastric bypass (Chronic) H/O wisdom tooth extraction (Resolved) Social History Preferred Language: Romanian Communication Ability: Effective Visual Impairment: No Limitations Hearing Ability: Normal Length Control Tester Required: No Beliefs That Will Affect Care: None marital status: Single Current Living Situation: Family Current Living Situation Comment: lives with mom/dad in [facility] current occupational status: disabled Feels Safe at Home: Yes Smoking Status: Never smoker Second Hand Exposure: No ; Hx Alcohol Use: Yes (Rarely) Hx Substance Use: No Review of Systems A total of 10 systems reviewed and were otherwise negative Physical Exam Vital Signs Vital Signs - 24 hr 03/18/19 07:59 03/18/19 08:47 03/18/19 08:48 Temperature 37.8 C H Temperature Source Oral Pulse Rate 115 H Pulse Rate [Apical] 101 H Pulse Rhythm Regular Pulse Rhythm [Apical] Regular Pulse Strength Normal Respiratory Rate 22 20 Respiratory Effort / Characteristics Non-Labored Spontaneous Non-Labored Respiratory Depth Normal Normal Respiratory Pattern Regular Blood Pressure 152/85 H Blood Pressure [Left Radial Artery] 146/79 H Blood Pressure Mean 107 Blood Pressure Mean [Left Radial Artery] 101 Blood Pressure Position Sitting Pulse Oximetry 99 100 100 Oxygen Delivery Method Room Air Room Air Nasal Cannula Room Air Sepsis Recent Fever Within 48 Hours Yes Sepsis New/Unexplained Change in Mental Status No Sepsis Action Taken by Nursing No Action Required 03/18/19 09:23 Temperature Temperature Source Pulse Rate Pulse Rate [Apical] 97 H Pulse Rhythm Pulse Rhythm [Apical] Regular Pulse Strength Respiratory Rate 18 Respiratory Effort / Characteristics Non-Labored Respiratory Depth Normal Respiratory Pattern Blood Pressure Blood Pressure [Left Radial Artery] 133/74 Blood Pressure Mean Blood Pressure Mean [Left Radial Artery] 93 Blood Pressure Position Pulse Oximetry 99 Oxygen Delivery Method Room Air Sepsis Recent Fever Within 48 Hours Sepsis New/Unexplained Change in Mental Status Sepsis Action Taken by Nursing VITALS: Vitals are noted on the nurse's note and reviewed by myself. Vital signs stable. GENERAL: This is a 38-year-old white male, in no acute distress, nondiaphoretic, well-developed well-nourished. SKIN: Significant lymphedema in the bilateral lower extremities. There is an open wound on the posterior aspect of the right thigh with no significant discharge. There is mild surrounding erythema with induration measuring approximately 10 cm in diameter around the wound. The skin was otherwise without rashes, erythema, edema, or bruising. There is no tenting of the skin. Capillary refill less than 2 seconds. HEAD: Normocephalic atraumatic. NECK: Supple without nuchal rigidity. Left anterior cervical lymphadenopathy. Cervical spine is nontender. HEART: Regular rate and rhythm without murmurs gallops or rubs. LUNGS: Clear to auscultation bilaterally without wheezes, rales or rhonchi. No dullness to percussion. No retractions or accessory muscle use. MUSCULOSKELETAL: No muscle atrophy, erythema, or edema except as noted. Full range of motion without joint tenderness in all extremities. Significant tenderness of the posterior aspect of the left thigh to palpation normal gait. Strength 5/5 throughout. NEURO: Patient was alert and oriented to person place and time. Normal sensation to light and sharp touch. No focal neurological deficits. Course The patient was seen and evaluated as above. Previous medical records reviewed. IV access obtained, labs drawn. Patient medicated with IV fluids, vancomycin, Rocephin, Dilaudid, and Zofran. Imaging performed and reviewed by myself and radiologist as above. Labs reviewed by myself. I discussed the findings with the patient at bedside. I discussed the case with my attending. I discussed the case with Jorge Looney PA-C with the [facility] Hospitalist service. He did agree to see and evaluate the patient. Please see hospitalist dictation regarding ongoing management and care of this patient. Administered Medications Vancomycin HCl 2,500 mg/ (Sodium Chloride) 550 mls @ 200 mls/hr IV NOW ONE Stop: 03/18/19 11:05 Last Admin: 03/18/19 09:25 Dose: 200 mls/hr Documented by: [id number] Discontinued Medications Hydromorphone HCl (Dilaudid) 1 mg IV NOW STA Stop: 03/18/19 08:39 Last Admin: 03/18/19 08:56 Dose: 1 mg Documented by: [id number] Sodium Chloride (Nss 1000ml) 1,000 mls @ 999 mls/hr IV .Q1H1M ONE Stop: 03/18/19 09:15 Last Admin: 03/18/19 08:45 Dose: 999 mls/hr Documented by: [id number] Ceftriaxone Sodium (Rocephin) 2,000 mg in 70 mls @ 140 mls/hr IV NOW STA Stop: 03/18/19 08:50 Last Infusion: 03/18/19 09:21 Dose: 0 mls/hr Documented by: [id number] Admin: 03/18/19 08:41 Dose: 140 mls/hr Documented by: [id number] Ondansetron HCl (Zofran) 4 mg IV NOW STA Stop: 03/18/19 08:39 Last Admin: 03/18/19 08:57 Dose: 4 mg Documented by: [id number] Medical Decision Making Differential Diagnosis + cellulitis, + fever of unknown origin, + gastroenteritis, + community acquired pneumonia, + pyelonephritis, + viral infection, + sepsis, + influenza, + viral syndrome, + strep pharyngitis, + tonsillitis, + mononucleosis, + meningitis, + encephalitis, + Lyme disease, + bronchitis and + pneumonia In addition to the above, DVT, malignancy, among others were considered. Medical Records Attestation: I reviewed the patient's medical records. Recent wound culture last fall grew staph aureus. Most recent blood cultures from last admission grew Proteus. Reviewed sensitivities. Home Medications Current Medication List: was personally reviewed by me Laboratory Data Attestation: I reviewed the patient's lab results. Leukocytosis of 14,000. Mild anemia with a hemoglobin of 12.4 and hematocrit of 38. No thrombocytopenia. INR mildly elevated at 1.2. Renal, hepatic function electrolytes without significant abnormality. Lactate 1.7. Inflammatory markers elevated with ESR 43 and C-reactive protein 4.45. Result diagrams: 03/18/19 08:30 03/18/19 08:30 Lab Results 03/18/19 03/18/19 03/18/19 Range/Units 08:30 08:30 08:30 WBC 14.32 H (4.8-10.8) K/uL RBC 4.04 L (4.7-6.1) M/uL Hgb 12.4 L (14.0-18.0) g/dL Hct 38.0 L (42-52) % MCV 94.1 (80-100) fL MCH 30.7 (25-34) pg MCHC 32.6 (32-36) g/dL RDW Std Deviation 49.9 H (36.4-46.3) fL RDW Coeff of Lizet 14.6 H (11.5-14.5) % Plt Count 217 (130-400) K/uL MPV 11.3 H (7.4-10.4) fL Immature Gran % (Auto) 0.3 % Neut % (Auto) 90.7 % Lymph % (Auto) 4.1 % Burt % (Auto) 4.7 % Eos % (Auto) 0.1 % Baso % (Auto) 0.1 % Immature Gran # (Auto) 0.04 H (0.00-0.02) K/uL Neut # (Auto) 12.98 H (1.4-6.5) K/uL Lymph # (Auto) 0.59 L (1.2-3.4) K/uL Burt # (Auto) 0.68 H (0.11-0.59) K/uL Eos # (Auto) 0.01 (0-0.5) K/uL Baso # (Auto) 0.02 (0-0.2) K/uL ESR (0-14) mm/hr PT 12.2 H (9.0-12.0) Seconds INR 1.2 H (0.9-1.1) APTT 26.6 (21.0-31.0) Seconds PTT Ratio 1.0 Sodium 138 (136-145) mmol/L Potassium 3.5 (3.5-5.1) mmol/L Chloride 107 (98-107) mmol/L Carbon Dioxide 27 (21-32) mmol/L Anion Gap 4.0 (3-11) BUN 11 (7-18) mg/dl Creatinine 0.87 (0.6-1.4) mg/dl Est Cr Clr Drug Dosing 138.2 ml/min Est GFR ( Amer) 126.9 Est GFR (Non-Af Amer) 109.5 BUN/Creatinine Ratio 12.1 (10-20) Glucose 110 H (70-99) mg/dl Lactate (0.4-2.0) mmol/L Calcium 8.6 (8.5-10.1) mg/dl Magnesium 1.6 L (1.8-2.4) mg/dl Total Bilirubin 0.5 (0.2-1) mg/dl AST 13 L (15-37) U/L ALT 19 (12-78) U/L Alkaline Phosphatase 112 (45-117) U/L C-Reactive Protein (0-0.29) mg/dl Total Protein 7.7 (6.4-8.2) gm/dl Albumin 3.1 L (3.4-5.0) gm/dl Globulin 4.6 H (2.5-4.0) gm/dl Albumin/Globulin Ratio 0.7 L (0.9-2) 03/18/19 03/18/19 03/18/19 Range/Units 08:30 08:30 08:30 WBC (4.8-10.8) K/uL RBC (4.7-6.1) M/uL Hgb (14.0-18.0) g/dL Hct (42-52) % MCV (80-100) fL MCH (25-34) pg MCHC (32-36) g/dL RDW Std Deviation (36.4-46.3) fL RDW Coeff of Lizet (11.5-14.5) % Plt Count (130-400) K/uL MPV (7.4-10.4) fL Immature Gran % (Auto) % Neut % (Auto) % Lymph % (Auto) % Burt % (Auto) % Eos % (Auto) % Baso % (Auto) % Immature Gran # (Auto) (0.00-0.02) K/uL Neut # (Auto) (1.4-6.5) K/uL Lymph # (Auto) (1.2-3.4) K/uL Burt # (Auto) (0.11-0.59) K/uL Eos # (Auto) (0-0.5) K/uL Baso # (Auto) (0-0.2) K/uL ESR 43 H (0-14) mm/hr PT (9.0-12.0) Seconds INR (0.9-1.1) APTT (21.0-31.0) Seconds PTT Ratio Sodium (136-145) mmol/L Potassium (3.5-5.1) mmol/L Chloride (98-107) mmol/L Carbon Dioxide (21-32) mmol/L Anion Gap (3-11) BUN (7-18) mg/dl Creatinine (0.6-1.4) mg/dl Est Cr Clr Drug Dosing ml/min Est GFR ( Amer) Est GFR (Non-Af Amer) BUN/Creatinine Ratio (10-20) Glucose (70-99) mg/dl Lactate 1.7 (0.4-2.0) mmol/L Calcium (8.5-10.1) mg/dl Magnesium (1.8-2.4) mg/dl Total Bilirubin (0.2-1) mg/dl AST (15-37) U/L ALT (12-78) U/L Alkaline Phosphatase (45-117) U/L C-Reactive Protein 4.45 H (0-0.29) mg/dl Total Protein (6.4-8.2) gm/dl Albumin (3.4-5.0) gm/dl Globulin (2.5-4.0) gm/dl Albumin/Globulin Ratio (0.9-2) Imaging Data Radiologist's Impression: XR chest 1V portable CLINICAL HISTORY: SEPSIS COMPARISON STUDY: April 11, 2018 FINDINGS: The cardiac and mediastinal contours are normal. There is no evidence of focal pulmonary consolidation. There is no evidence of failure. No pleural effusions are visualized.[ IMPRESSION: No active disease in the chest. ACT 112: Negative or not required by law. Electronically signed by: Ramirez Sood M.D. 03/18/2019 8:44 AM ECG Data Attestation: I personally reviewed and interpreted this ECG as follows: Indication: tachycardia Rate (beats per minute): 107 Rhythm: sinus tachycardia Findings: no ST depression, no T-wave inversion, no ST elevation and no acute ischemic change Comparison ECG Date: from (12/02/2016) Change: no significant change Blood Pressure Blood Pressure Findings: Elevated blood pressure Blood Pressure Disposition: elevated BP felt to be situational MDM Narrative This 38-year-old male patient presents emergency department today due to a cellulitic infection in the right leg. He does have a chronic wound on the right lower extremity and has been admitted due to sepsis from the wound and a cellulitic infection in the past. He does have a leukocytosis on lab evaluation. Chest x-ray does not show any acute abnormality. Given the complicated history with the severe lymphedema, and chronic wound, I do recommend admission for IV antibiotics and monitoring of the symptoms. [facility] The chart was completed utilizing [employer] voice recognition software. Grammatical errors, random word insertions, pronoun errors, and incomplete sentences are an occasional consequence of this system due to software limitations, ambient noise, and hardware issues. Any formal questions or concerns about the content, text, or information contained within the body of this dictation should be directly addressed to the provider for clarification. Impression & Plan Cellulitis of leg, right, Venous stasis ulcer of right lower leg with edema of right lower leg, Lymphedema of both lower extremities, Fever, Tachycardia Discharge Plan Visit Data Chief Complaint: Leg Injury/Pain Stated Complaint: INFECTION RIGHT LEG ED Provider: Didier Fleming ED Midlevel Provider: Susie Tavera Discharge Problem: Cellulitis of leg, right, Venous stasis ulcer of right lower leg with edema of right lower leg, Lymphedema of both lower extremities, Fever, Tachycardia Patient Disposition: Admitted As Inpatient Condition: Good Forms Stand Alone Forms: My [facility] Prescriptions Prescriptions: No Action nystatin 100,000 unit/gram powder 1 appln TOP BID Qty: 30 RF: 5 (DME) Wheelchair (Manual) Device See Dose Instructions .ROUTE .MEDSUPPLY Qty: 1 RF: 0 hydrocodone-acetaminophen 10-325 mg tablet 2 tab PO QID PRN (Reason: Pain) Qty: 112 RF: 0 Referrals Referrals: Mine Davis MD [Primary Care Provider] -
[2019-03-18 09:02] LABS: INR 1.2 (0.9-1.1); Partial Thromboplastin Time 26.6 Seconds (21.0-31.0); Prothrombin Time 12.2 Seconds (9.0-12.0)
[2019-03-18 09:26] LABS: Albumin Level 3.1 gm/dl (3.4-5.0); BUN Creatinine Ratio 12.1 (10-20); Calcium 8.6 mg/dl (8.5-10.1); Creatinine Clr Calc Pharmacy 138.2 ml/min; Est GFR (African American) 126.9; Est GFR (Non-African American) 109.5; Magnesium 1.6 mg/dl (1.8-2.4); Potassium 3.5 mmol/L (3.5-5.1)
[2019-03-18 09:28] LABS: Albumin Globulin Ratio 0.7 (0.9-2); Bilirubin,Total 0.5 mg/dl (0.2-1); Globulin 4.6 gm/dl (2.5-4.0); Total Protein 7.7 gm/dl (6.4-8.2)
[2019-03-18] MEDS ORDERED: POTASSIUM CHLORIDE 20 MEQ TABCR PO STA (10:33)
--- NOTE | 2019-03-18 10:54 | History & Physical Report ---
Date of Service March 18, 2019 Assessment & Plan (1) Cellulitis of leg, right: Patient has chronic open wound on the posterior aspect of his right leg Patient follows with wound care clinic as well as infection control Most recent cultures of that area have been positive for Proteus and MSSA but patient does have history of MRSA from April 2018 Proteus was sensitive to vancomycin and ceftriaxone We will start patient on vancomycin as well as ceftriaxone and monitor for improvement No plans for infection control consult at this time. We will see how patient does with antibiotic treatment We will consult wound care nurse just for dressing changes as this is a packed wound that does have some drainage Lactic acid is 1.7 Continue oral fluid intake and monitor ins and outs Follow serial labs (2) History of MRSA infection: We will place patient on contact precautions for history of MRSA from April 2018 as well as draining wound IV antibiotics as above (3) Electrolyte imbalance: Potassium 3.5 * 40 mEq of oral potassium is been ordered Magnesium 1.6 * 2 g of magnesium sulfate have been ordered Check phosphorus level Patient with history of gastric bypass. Electrolyte imbalance may be secondary to poor ingestion and or metabolic syndrome (4) Lymphedema of both lower extremities: Pedal pulses are equal and intact bilaterally Patient ambulates on his own May require walker Care per nursing protocol (5) Acid reflux: Oral examination shows no evidence of thrush Patient is not on a PPI at home Due to cellulitis and need for antibiotics, will start patient on famotidine while inpatient (6) DDD (degenerative disc disease), lumbar: Patient with chronic back pain No evidence of imaging in the system We will start patient empirically on gabapentin 100 mg p.o. twice daily Consider continuing outpatient with titration (7) Morbid obesity with BMI of 50.0-59.9, adult: Patient with history of gastric bypass Patient does maintain ADLs on his own and drives at home Allow patient to ambulate as tolerated and participate in ADLs as tolerated (8) Chronic pain syndrome: Patient is on hydrocodone/acetaminophen 10/325 mg 2 tabs p.o. 4 times daily at home We will give patient Dilaudid 1/2 mg IV during acute phase We will start patient on gabapentin 100 mg p.o. twice daily on admission PDMP was reviewed and most prescriptions are being provided by the patient's family provider Dr. Davis Average MME per day is 85.33 Consider outpatient follow-up with pain clinic for alternatives to narcotics for chronic pain (9) DVT prophylaxis: Heparin 5000 units subcutaneously every 12 hours Ambulate as tolerated Please refer to Dr. Campbell's addendum and corrections History of Present Illness Primary Care Provider: Mine Davis MD Attending: Dr. Lai Lorenzo Is a 38-year-old male that presents with fever, chills, open right lower extremity wound that is chronic. Lactic acid is 1.7. WBC is 14.32. T- max is 37.8 Celsius. Patient has a past medical history of lymphedema of both lower extremities with chronic open wound on the right lower extremity. This has been positive for MRSA in April 2018. Most recently the microbiology revealed Proteus and met hicillin sensitive staph aureus. Patient does follow with the wound care clinic as well as with infectious disease with Dr. Boothe. Patient has further past medical history including GERD, hypo-testosteronism, metabolic syndrome, chronic pain syndrome, and history of gastric bypass. Patient lives with his parents but maintains ADLs on his own as needed. He is able to change dressings and ma nage his lymphedema with the use of mirrors. Patient is ambulatory but does use a wheelchair for periods of longer ambulation. The patient does drive. He is unemployed secondary to his disabilities. Patient has no history of substance abuse history or tobacco abuse history. He does not consume alcohol. Patient reports that about 430 this morning he awoke with fever and chills. He also reports he had some rigors. He notes that when he begins to have worsening infection of the lower extremity he gets a pins and needle sensation. He does have report of degenerative disc disease in the lumbar region but no imaging is identified. He reports good sensation to the feet and toes and no recent falls. He has full function of all 4 extremities. The patient also reports full bowel and bladder control. He does have periodic diarrhea most often associated with antibiotic use. He currently denies diarrhea. The patient reports no respiratory complaints. He has no chest pain. He has no other acute complaints. Allergies Allergy/AdvReac Type Severity Reaction Status Date / Time amoxicillin Allergy Severe BLISTERS & Verified 03/18/19 08:55 SORES IN MOUTH Sulfa (Sulfonamide Allergy Severe BLISTERS & Verified 03/18/19 08:55 Antibiotics) SORES IN MOUTH daptomycin Allergy Intermediate RASH, Verified 03/18/19 08:55 EOSINOPHILIA zinc oxide Allergy Unknown RASH Verified 03/18/19 08:55 ketorolac [From Toradol] AdvReac Mild pain Unverified 03/18/19 08:55 behind eye "ALL" ANTIBIOTICS Allergy Intermediate CAUSE Uncoded 03/18/19 08:55 BLISTERS & SORES IN MOUTH. Home Medications Home Medications Medication Instructions Recorded Confirmed Type nystatin 100,000 unit/gram topical 1 appln TOP BID #30 gm 01/12/19 03/18/19 Rx powder Wheelchair (Manual or Powered) #1 ea 01/14/19 01/19/19 Rx hydrocodone 10 mg-acetaminophen 2 tab PO QID PRN #112 tab 03/05/19 03/18/19 Rx 325 mg tablet Past Med/Surg History Medical History (Updated 03/18/19 @ 11:13 by Jorge Looney PA-C) Abscess, perirectal (Inactive) Cellulitis (Resolved) recurrent admissions for such requiring IV antibiotic courses History of MRSA infection Right leg wound 04/11/2018 is the last positive MRSA culture Kidney stone Lymphedema of lower extremity (Chronic) Venous stasis ulcer of right lower leg with edema of right lower leg (Chronic) Surgical History H/O gastric bypass (Chronic) H/O wisdom tooth extraction (Resolved) Family History Father Heart disease CAD w/ stents Diabetes Other Gallbladder disease Hypertension Lung disease Social History Preferred Language: Yoruba Communication Ability: Effective Visual Impairment: No Limitations Hearing Ability: Normal Compressed Yeast Supervisor Required: No Beliefs That Will Affect Care: None marital status: Single Current Living Situation: Family Current Living Situation Comment: lives with mom/dad in [facility] current occupational status: disabled Feels Safe at Home: Yes Smoking Status: Never smoker Second Hand Exposure: No ; Hx Alcohol Use: Yes (Rarely) Hx Substance Use: No Review of Systems Review of Systems: All systems reviewed & are unremarkable except as noted in HPI & below Physical Exam Physical Exam: GENERAL : No acute distress. EYES: No icterus, gaze conjugate. Pupils equal round and reactive to light NOSE: No evidence of epistaxis. No evidence of septal breech MOUTH: No lesions or candidiasis. Mucosa dry. Several teeth extracted NECK: Supple. LUNGS: CTA B/L, no wheezes, rales or rhonchi. Good inspirational effort HEART: Regular, tachycardic at 107 bpm ABDOMEN: Soft, NT, ND, BS Present. No rebound tenderness or guarding to deep palpation EXTREMITIES: No LE edema, pedal pulses intact and equal bilaterally. Bilateral lymphedema. Dressing removed from posterior right lower extremity. There is packing in place. There is some drainage. There is also some erythema around the area of open wound but this appears to be chronic and not particularly concerning for maceration or tissue breakdown. NEURO: A&OX3. Results & Data Vital Signs (Past 12 Hours) Vital Signs Temp Pulse Pulse Resp BP BP Pulse Ox 03/18/19 10:27 37.5 C 102 H 18 141/61 H 98 03/18/19 09:23 97 H 18 133/74 99 03/18/19 08:48 100 03/18/19 08:47 101 H 20 146/79 H 100 03/18/19 07:59 37.8 C H 115 H 22 152/85 H 99 Laboratory Results 03/18/19 08:30 03/18/19 08:30 Magnesium: 1.6 Lactic acid: 1.7 Diagnostic Findings XR chest 1V portable CLINICAL HISTORY: SEPSIS COMPARISON STUDY: April 11, 2018 FINDINGS: The cardiac and mediastinal contours are normal. There is no evidence of focal pulmonary consolidation. There is no evidence of failure. No pleural effusions are visualized.[ IMPRESSION: No active disease in the chest. ACT 112: Negative or not required by law. Electronically signed by: Ramirez Sood M.D. 03/18/2019 8:44 AM Code Status & VTE Plan Code Status Full resuscitation VTE Prophylaxis Plan VTE Prophylaxis will be ordered: Yes Supervising Physician Co-Signing Physician Notes I have seen and examined the patient with Jorge Maldonado PA-C and I agree with his history, physical, assessment and management. Physical exam : GENERAL : No acute distress. EYES:PERRLA, EOMI, No icterus, gaze conjugate. Pupils equal round and reactive to light NOSE: No evidence of epistaxis. No evidence of septal breech MOUTH: No lesions or candidiasis. Mucosa dry. Several teeth extracted NECK: Supple. LUNGS: CTAB HEART: RRR, tachycardic at 107 bpm ABDOMEN: Soft, NT, ND, BS , morbidly obese EXTREMITIES: Pedal pulses intact and equal bilaterally. Bilateral lymphedema. Dressing removed from posterior right lower extremity. There is packing in place. There is some drainage. There is also some erythema around the area of open wound but this appears to be chronic and not particularly concerning for maceration or tissue breakdown. NEURO: A&OX3. PG Care Time/CCT Total # of Minutes Spent Total Time Spent with Patient: Total time spent is greater than 50% in coordination of care (as documented) at patient's floor/unit and/or counseling patient: 50 minutes (1) Acid reflux Esophagitis presence: without esophagitis Qualified Code(s): K21.9 - Gastro- esophageal reflux disease without esophagitis
[2019-03-18] MEDS: HYDROmorphone INJ 0.5 MG/0.5 ML SYR IV PRN ×3 (12:28→21:09)
[2019-03-18] MEDS ORDERED: ONDANSETRON INJ 2 MG/ML 2 ML VIAL IV PRN (14:43)
[2019-03-18] MEDS ORDERED: POLYETHYLENE (MIRALAX) 17 GM PACK PO PRN (14:43)
--- NOTE | 2019-03-18 15:15 | Pharmacy Report ---
Pharmacy Abx Dose Short Note - Date of Service March 18, 2019 - Assessment & Plan A/P Pt is a 38yo M h/o MRSA cellulitis. He is being started on vancomycin. We will use a dose and frequency that has yielded adequate troughs previously. Vancomycin 1500mg (12mg/kg) q10 set to start tonight @2000. His habitus is strongly indicative of vanco accumulation. Renal fxn looks to be at his baseline. We will order a trough for 03/20 @130, this will be reflective of Css. Pharmacy will continue to follow and will adjust dose/frequency as necessary. Thank you.
[2019-03-18] MEDS: NYSTATIN POWDER 15GM BTL EXT SCH ×2 (16:14→21:12)
[2019-03-18] MEDS: ACETAMINOPHEN 325 MG TAB PO PRN ×2 (16:14→21:09)
[2019-03-18] MEDS: MAGNESIUM SULFATE / D5W 1 GM/100 ML BAG IV SCH ×2 (16:15→17:30)
[2019-03-18] MEDS: VANCOMYCIN HCL 1,500 MG in SODIUM CHLORIDE 0.9% 500 ML IV SCH (21:11)
[2019-03-18] MEDS: GABAPENTIN 100 MG CAP PO SCH (21:11)
[2019-03-18] MEDS: HEPARIN SOD 5,000 UNIT/0.5 ML VIAL SQ SCH (21:12)
--- NOTE | 2019-03-18 23:35 | Electrocardiogram Report ---
Test Reason : Blood Pressure : / mmHG Vent. Rate : 107 BPM Atrial Rate : 107 BPM P-R Int : 128 ms QRS Dur : 086 ms QT Int : 330 ms P-R-T Axes : 042 024 020 degrees QTc Int : 440 ms Sinus tachycardia Otherwise normal ECG When compared with ECG of 02-DEC-2016 20:00, No significant change was found Confirmed by Mateo Chang ([id number]) on 03/18/2019 11:35:11 PM Referred By: Confirmed By:Mateo Chang
[2019-03-19] MEDS: HYDROmorphone INJ 0.5 MG/0.5 ML SYR IV PRN ×4 (01:39→21:27)
[2019-03-19] MEDS: VANCOMYCIN HCL 1,500 MG in SODIUM CHLORIDE 0.9% 500 ML IV SCH (06:02)
[2019-03-19 06:03] LABS: Basophils # (auto) 0.03 K/uL (0-0.2); Basophils % (auto) 0.6 %; Eosinophils # (auto) 0.22 K/uL (0-0.5); Eosinophils % (auto) 4.3 %; Hematocrit (blood only) 34.7 % (42-52); Hemoglobin 11.6 g/dL (14.0-18.0); Immature Granulocytes # (auto) 0.01 K/uL (0.00-0.02); Immature Granulocytes % (auto) 0.2 %; Lymphocytes # (auto) 1.53 K/uL (1.2-3.4); Lymphocytes % (auto) 29.8 %; Mean Corpuscular Hemoglobin 31.5 pg (25-34); Mean Corpuscular Hgb Conc 33.4 g/dL (32-36); Mean Corpuscular Volume 94.3 fL (80-100); Mean Platelet Volume 11.4 fL (7.4-10.4); Monocytes # (auto) 0.48 K/uL (0.11-0.59); Monocytes % (auto) 9.3 %; Neutrophils # (auto) 2.87 K/uL (1.4-6.5); Neutrophils % (auto) 55.8 %; Platelet Count 190 K/uL (130-400); RDW Coefficient of Variation 14.7 % (11.5-14.5); RDW Standard Deviation 50.1 fL (36.4-46.3); Red Blood Count 3.68 M/uL (4.7-6.1); White Blood Count 5.14 K/uL (4.8-10.8)
[2019-03-19 06:42] LABS: BUN Creatinine Ratio 11.1 (10-20); Calcium 8.4 mg/dl (8.5-10.1); Creatinine Clr Calc Pharmacy 160.3 ml/min; Est GFR (African American) 134.9; Est GFR (Non-African American) 116.4; Potassium 4.1 mmol/L (3.5-5.1)
[2019-03-19] MEDS ORDERED: HYDROmorphone INJ 0.5 MG/0.5 ML SYR IV STA (08:52)
[2019-03-19] MEDS ORDERED: FAMOTIDINE 40 MG TABLET PO SCH (09:00)
--- NOTE | 2019-03-19 09:08 | Hospitalist Progress Note ---
Date of Service March 19, 2019 Assessment & Plan (1) Cellulitis: Mr. Clark is A 38-year-old male with a past medical history of lymphedema, right lower extremity wounds with recurrent cellulitis, positive MRSA wound infection in April 2018, GERD, hyper testosterone medicine, chronic pain syndrome, metabolic syndrome, and prior bypass surgery who presents to [facility] due to worsening right lower extremity pain, with fever, chills and malaise. Cellulitis of RLE/Venous stasis ulcer -Patient has chronic open wound on the posterior aspect of his right leg -Patient follows with wound care clinic as well as Infectious diseases -He was last seen by the wound care clinic on 01/19/2019, and was meant to have a 2-week follow-up, but canceled his appointment. Per review of the chart, the patient is not the most compliant with these appointments -Most recent cultures of that area have been positive for Proteus and MSSA but patient does have history of MRSA from April 2018 -Proteus was sensitive to vancomycin and ceftriaxone -d/c vancomycin and continue with ceftriaxone, low suspicion for MRSA -wound care nurse consulted -Blood cultures pending -vitals stable, afebrile, White cell count improved from 14.3 to 5.14 Electrolyte Imbalances -potassium and magnesium repleted Lymphedema of both lower extremities -Patient ambulates on his own, uses a wheelchair for longer distances -continue to encourage ambulation -will also check a b/l doppler of LE to rule out DVT given significant risk factors and leg swelling DDD (degenerative disc disease) -Patient with chronic back pain -No evidence of imaging in the system -d/c gabapentin given pain is related to acute infection as opposed to neuropathic Morbid obesity -Patient with history of gastric bypass -Patient does maintain ADLs on his own and drives at home Chronic pain syndrome -Patient is on hydrocodone/acetaminophen 10/325 mg 2 tabs p.o. 4 times daily at home - continue this regimen -Dilaudid 0.5 mg IV q6h prn for breakthrough pain during acute phase of infection -PDMP was reviewed and most prescriptions are being provided by the patient's family provider Dr. Davis -patient may be a good candidate to switch to methadone treatment outpatient given he will very likely be chronically dependent on opioids, and methadone would confer long acting pain management with limited sedative effects Code status: FULL DVT prophylaxis: Heparin 5000 units subcutaneously every 12 hours Disposition: remains on med/surg (2) Electrolyte imbalance: (3) History of MRSA infection: (4) Cellulitis of leg, right: (5) Fever: (6) Tachycardia: (7) Acid reflux: (8) DDD (degenerative disc disease), lumbar: (9) Hypotestosteronism: (10) Metabolic syndrome: (11) Vitamin D deficiency: (12) Lymphedema of lower extremity: (13) Chronic pain syndrome: (14) Morbid obesity with BMI of 50.0-59.9, adult: (15) Ambulatory dysfunction: (16) Venous stasis ulcer of right lower leg with edema of right lower leg: (17) H/O gastric bypass: Supervising Physician Co-Signing Physician Notes I personally examined the patient and verified all merino points of history and exam, discussed case, and agree with decision making with Dr Duke. Feeling better leg burning less. Otherwise no new complaints. He notes that prior times whenever he is discharged on oral antibiotics he does not really get better well. He wonders if it has to do with tissue penetration. Vitals noted, in general he is awake and alert pleasant no distress. HEENT normocephalic atraumatic mucous membranes moist. Right lower extremity with massive edema and dressed shallow ulcerations, dull pink erythema throughout although nothing is significantly tender. No crepitus. No exudate. Dopplers with no DVT. Lymphedema with ulceration and cellulitiscontinue ceftriaxone. Follow closely. Otherwise as above. Subjective Mr. Clark reports that he remains with significant right lower extremity pain today. He states that between episodes of cellulitis, his pain decreases to a tolerable level, and is amenable to his chronic pain regimen. He states that the dilaudid works for him, but wears off quickly. He denies a fever, chills, or tachycardia. Review of Systems Constitutional: + fatigue; no fever and no chills Respiratory: no cough and no dyspnea Cardiovascular: no chest pain and no palpitations Gastrointestinal: no abdominal pain, no nausea and no vomiting Musculoskeletal: Right lower extremity pain Physical Exam Constitutional: WD/WN, vitals as above + morbidly obese Respiratory: normal respiratory effort, lungs clear to auscultation Cardiovascular: RRR, no murmur, no edema Gastrointestinal (Abdomen): Percussion/Palpation: abdomen soft; abdomen nontender, no guarding and abdomen not rigid Skin: Significant bilateral lymphedema of lower extremities Right leg mildly erythematous below the knee, with 2 large, shallow, draining wounds at the posterior aspect of the leg Psychiatric: A+Ox3, euthymic affect Results & Data Vital Signs (Past 12 Hours) Vital Signs Temp Pulse Resp BP Pulse Ox 03/19/19 07:35 37.0 C 70 18 112/69 97 03/18/19 23:29 37.0 C 68 20 107/65 96 Resident Activity Tracking Resident Involvement: Resident Care Provided Care Provided: Adult Hospital Medicine (1) Lymphedema of lower extremity Laterality: bilateral Qualified Code(s): I89.0 - Lymphedema, not elsewhere classified (2) Fever Fever type: unspecified Qualified Code(s): R50.9 - Fever, unspecified (3) Cellulitis Laterality: right Site of cellulitis: extremity Site of cellulitis of extremity: lower extremity Qualified Code(s): L03.115 - Cellulitis of right lower limb (4) Acid reflux Esophagitis presence: without esophagitis Qualified Code(s): K21.9 - Gastro- esophageal reflux disease without esophagitis
[2019-03-19] MEDS: cefTRIAXone SODIUM 2,000 MG in DEXTROSE 5% 50 ML IV SCH (09:23)
[2019-03-19] MEDS: GABAPENTIN 100 MG CAP PO SCH (09:27)
[2019-03-19] MEDS: NYSTATIN POWDER 15GM BTL EXT SCH ×2 (09:27→21:27)
[2019-03-19] MEDS: HEPARIN SOD 5,000 UNIT/0.5 ML VIAL SQ SCH ×2 (10:04→21:28)
[2019-03-19 13:32] LABS: Appearance Urine Clear (Clear); Bilirubin Urine Negative (Negative); Blood Urine Negative (Negative); Color Urine Yellow; Glucose Urine UA Negative (Negative); Ketones Urine Negative (Negative); Leukocyte Esterase Urine Negative (Negative); Nitrite Urine Negative (Negative); Protein Urine Negative (Negative); Specific Gravity Urine 1.014 (1.000-1.030); Urobilinogen Urine Negative (Negative); pH Urine 5.5 (4.5-7.5)
--- NOTE | 2019-03-19 15:40 | Ultrasound Report ---
US venous doppler LE BI CLINICAL HISTORY: 38 years-old Male presenting with b/l leg swelling, r/o clot. TECHNIQUE: Real-time grayscale and color and spectral Doppler ultrasound imaging of the veins of the bilateral lower extremities was performed. Compression and augmentation were also utilized. COMPARISON: 05/29/2018. FINDINGS: RIGHT: Common femoral vein: Patent. Greater saphenous vein (superficial): Patent. Deep femoral vein: Patent. Femoral vein: Patent. Popliteal vein: Patent. Calf veins: Limited visualization though grossly patent. LEFT: Common femoral vein: Patent. Greater saphenous vein (superficial): Patent. Deep femoral vein: Patent. Femoral vein: Patent. Popliteal vein: Patent. Calf veins: Limited visualization though grossly patent. Other: Subcutaneous edema in the lower legs. IMPRESSION: 1. No evidence of deep venous thrombosis. 2. Subcutaneous edema in the lower legs. ACT 112: Negative or not required by law. Electronically signed by: Som Chowdhury M.D. 03/19/2019 3:39 PM
[2019-03-19] MEDS: HYDROCODONE/ACETAMINOPHEN 10/325 TAB PO PRN ×2 (16:25→23:50)
--- NOTE | 2019-03-19 17:26 | Billing Data ---
Date of Service March 19, 2019 Coding Level of Care Code 99425 Subseq Hosp Care Lvl 3
[2019-03-20] MEDS ORDERED: VANCOMYCIN TROUGH ONE (01:30)
[2019-03-20] MEDS: HYDROmorphone INJ 0.5 MG/0.5 ML SYR IV PRN ×2 (04:58→12:29)
[2019-03-20 06:18] LABS: Basophils # (auto) 0.06 K/uL (0-0.2); Basophils % (auto) 1.1 %; Eosinophils # (auto) 0.46 K/uL (0-0.5); Eosinophils % (auto) 8.8 %; Hematocrit (blood only) 37.7 % (42-52); Hemoglobin 12.2 g/dL (14.0-18.0); Immature Granulocytes # (auto) 0.01 K/uL (0.00-0.02); Immature Granulocytes % (auto) 0.2 %; Lymphocytes # (auto) 1.74 K/uL (1.2-3.4); Lymphocytes % (auto) 33.1 %; Mean Corpuscular Hemoglobin 30.5 pg (25-34); Mean Corpuscular Hgb Conc 32.4 g/dL (32-36); Mean Corpuscular Volume 94.3 fL (80-100); Mean Platelet Volume 11.5 fL (7.4-10.4); Monocytes % (auto) 11.4 %; Neutrophils # (auto) 2.38 K/uL (1.4-6.5); Neutrophils % (auto) 45.4 %; Platelet Count 198 K/uL (130-400); RDW Coefficient of Variation 14.7 % (11.5-14.5); RDW Standard Deviation 50.5 fL (36.4-46.3); White Blood Count 5.25 K/uL (4.8-10.8)
[2019-03-20 06:57] LABS: BUN Creatinine Ratio 13.1 (10-20); Calcium 9.3 mg/dl (8.5-10.1); Est GFR (African American) 137.2; Est GFR (Non-African American) 118.3; Potassium 3.7 mmol/L (3.5-5.1)
[2019-03-20] MEDS: HYDROCODONE/ACETAMINOPHEN 10/325 TAB PO PRN ×2 (07:22→14:18)
[2019-03-20] MEDS: cefTRIAXone SODIUM 2,000 MG in DEXTROSE 5% 50 ML IV SCH (07:23)
[2019-03-20] MEDS: HEPARIN SOD 5,000 UNIT/0.5 ML VIAL SQ SCH (07:32)
[2019-03-20] MEDS: NYSTATIN POWDER 15GM BTL EXT SCH (07:33)
--- NOTE | 2019-03-20 13:17 | Discharge Summary ---
Date of Service March 20, 2019 Admission HPI Per Admitting Provider Attending: Dr. Lai Lorenzo Is a 38-year-old male that presents with fever, chills, open right lower extremity wound that is chronic. Lactic acid is 1.7. WBC is 14.32. T- max is 37.8 Celsius. Patient has a past medical history of lymphedema of both lower extremities with chronic open wound on the right lower extremity. This has been positive for MRSA in April 2018. Most recently the microbiology revealed Proteus and methicillin sensitive staph aureus. Patient does follow with the wound care clinic as well as with infectious disease with Dr. Boothe. Patient has further past medical history including GERD, hypo-testosteronism, metabolic syndrome, chronic pain syndrome, and history of gastric bypass. Patient lives with his parents but maintains ADLs on his own as needed. He is able to change dressings and manage his lymphedema with the use of mirrors. Patient is ambulatory but does use a wheelchair for periods of longer ambulation. The patient does drive. He is unemployed secondary to his disabilities. Patient has no history of substance abuse history or tobacco abuse history. He does not consume alcohol. Patient reports that about 430 this morning he awoke with fever and chills. He also reports he had some rigors. He notes that when he begins to have worsening infection of the lower extremity he gets a pins and needle sensation. He does have report of degenerative disc disease in the lumbar region but no imaging is identified. He reports good sensation to the feet and toes and no recent falls. He has full function of all 4 extremities. The patient also reports full bowel and bladder control. He does have periodic diarrhea most often associated with antibiotic use. He currently denies diarrhea. The patient reports no respiratory complaints. He has no chest pain. He has no other acute complaints. Admission Exam Per Admitting Provider GENERAL : No acute distress. EYES: No icterus, gaze conjugate. Pupils equal round and reactive to light NOSE: No evidence of epistaxis. No evidence of septal breech MOUTH: No lesions or candidiasis. Mucosa dry. Several teeth extracted NECK: Supple. LUNGS: CTA B/L, no wheezes, rales or rhonchi. Good inspirational effort HEART: Regular, tachycardic at 107 bpm ABDOMEN: Soft, NT, ND, BS Present. No rebound tenderness or guarding to deep palpation EXTREMITIES: No LE edema, pedal pulses intact and equal bilaterally. Bilateral lymphedema. Dressing removed from posterior right lower extremity. There is packing in place. There is some drainage. There is also some erythema around the area of open wound but this appears to be chronic and not particularly concerning for maceration or tissue breakdown. NEURO: A&OX3. Principal Diagnosis Lymphedema with ulceration and cellulitis Discharge Exam Constitutional WD/WN, vitals as above + morbidly obese Respiratory normal respiratory effort, lungs clear to auscultation Cardiovascular Rate/Rhythm: regular rate and regular rhythm Heart Sounds: no murmur Gastrointestinal (Abdomen) Percussion/Palpation: abdomen soft; abdomen nontender Skin b/l massive LE lymphedema. right leg pink w/chronic venous stasis changes. Mildly TTP over shultz and posterior leg. Wound dressed Psychiatric A+Ox3, euthymic affect Discharge Data Allergies Allergy/AdvReac Type Severity Reaction Status Date / Time amoxicillin Allergy Severe BLISTERS & Verified 03/18/19 08:55 SORES IN MOUTH Sulfa (Sulfonamide Allergy Severe BLISTERS & Verified 03/18/19 08:55 Antibiotics) SORES IN MOUTH daptomycin Allergy Intermediate RASH, Verified 03/18/19 08:55 EOSINOPHILIA zinc oxide Allergy Unknown RASH Verified 03/18/19 08:55 ketorolac [From Toradol] AdvReac Mild pain Unverified 03/18/19 08:55 behind eye "ALL" ANTIBIOTICS Allergy Intermediate CAUSE Uncoded 03/18/19 08:55 BLISTERS & SORES IN MOUTH. Consultations 03/18/19 09:40 ED Decision to Admit Stat Ordered Studies 03/19/19 14:13 US venous doppler LE Routine Hospital Course (1) Cellulitis: Mr. Clark is A 38-year-old male with a past medical history of lymphedema, right lower extremity wounds with recurrent cellulitis, positive MRSA wound infection in April 2018, GERD, hyper testosterone medicine, chronic pain syndrome, metabolic syndrome, and prior bypass surgery who presents to [facility] due to worsening right lower extremity pain, with fever, chills and malaise. Cellulitis of RLE/Venous stasis ulcer -Patient has chronic open wound on the posterior aspect of his right leg -Patient used to follow with wound care clinic as well as infectious diseases for this -He was last seen by the wound care clinic on 01/19/2019, and was meant to have a 2-week follow-up, but canceled his appointment. Per review of the chart, the patient is not the most compliant with these appointments -Most recent cultures of that area have been positive for Proteus and MSSA but patient does have history of MRSA from April 2018 -Proteus was sensitive to vancomycin and ceftriaxone -initially treated with IV vancomycin and ceftriaxone, however vancomycin was soon discontinued given low suspicion for MRSA -Blood cultures negative at 24h -vitals stable, afebrile, White cell count improved from 14.3 to 5.14 on d/c -IV ceftriaxone transitioned to oral cefdinir 300mg BID x 14 days (prolonged course given chronic wound and poor absorption in GI tract given prior gastric bypass) -recommended f/u with wound clinic Lymphedema of both lower extremities -Patient ambulates on his own, uses a wheelchair for longer distances -b/l doppler of LE negative for DVT Chronic pain syndrome -Patient is on hydrocodone/acetaminophen 10/325 mg 2 tabs p.o. 4 times daily at home - this regimen was continued in the hospital wiht 0.5mg of IV dilaudid q6h for breakthrough pain -PDMP was reviewed and most prescriptions are being provided by the patient's family provider Dr. Davis -patient may be a good candidate to switch to methadone treatment outpatient given he will very likely be chronically dependent on opioids, and methadone would confer long acting pain management with limited sedative effects Code status: FULL DVT prophylaxis: Heparin 5000 units subcutaneously every 12 hours Disposition: discharged home (2) Electrolyte imbalance: (3) History of MRSA infection: (4) Cellulitis of leg, right: (5) Fever: (6) Tachycardia: (7) Acid reflux: (8) DDD (degenerative disc disease), lumbar: (9) Hypotestosteronism: (10) Metabolic syndrome: (11) Vitamin D deficiency: (12) Lymphedema of lower extremity: (13) Chronic pain syndrome: (14) Morbid obesity with BMI of 50.0-59.9, adult: (15) Ambulatory dysfunction: (16) Venous stasis ulcer of right lower leg with edema of right lower leg: (17) H/O gastric bypass: Total Time Total Time Spent Total Time Spent (In Minutes): <30 Discharge Plan Discharge Items Patient Disposition: Home - Self-Care Reason For Visit: RLE OPEN WOUND Discharge Diagnosis: Right leg infection Condition on Discharge: Good Activity: Resume your previous activity Non-emergency contact: Primary Care Provider Call non-emergency contact if: you have any medication questions, your symptoms worsen and your temperature is above 101 Follow-up/Referrals: Mine Davis MD [Primary Care Provider] - Diet: Regular Addtl Attending Provider Instructions: Mr. Clark, you were admitted to [facility] due to an infection at the back of your right leg. We treated you with IV antibiotics, and thankfully your blood cultures did not indicate that the infection was in your bloodstream. We will be transitioning you to an oral antibiotic called cefdinir for you to have twice a day for the next 2 weeks. Please take your first dose tomorrow morning. We recommend that you follow up with the wound care clinic, who can help ensure optimal healing. If you have a fever, chills, worsening pain or redness/swelling of your leg, please seek medical attention. Pending Studies at Discharge: No Stand-Alone Forms: My [facility], Smoking Cessation Medications and DC Order Prescriptions: New cefdinir 300 mg capsule 300 mg PO BID 14 Days Qty: 28 RF: 0 Continued nystatin 100,000 unit/gram powder 1 appln TOP BID Qty: 30 RF: 5 (DME) Wheelchair (Manual) Device See Dose Instructions .ROUTE .MEDSUPPLY Qty: 1 RF: 0 hydrocodone-acetaminophen 10-325 mg tablet 2 tab PO QID PRN (Reason: Pain) Qty: 112 RF: 0 Discharge Orders: Discharge Order (Routine); Ordered 03/20/19 Ordered By: Archie Duke Admission Data Admit Date/Time: 03/18/19 10:33 Attending Provider: Parish Martinez Admit Provider: Lai Lorenzo Primary Care Provider: Mine Davis Other Providers: Lai Lorenzo Other Interventions: Discharge Summary Assessment (RN) Last Done: 03/20/19 14:22 DC Date/Time DO NOT enter until pt leaves facility: 03/20/19 14:40 Supervising Physician Co-Signing Physician Notes I personally examined the patient and verified all merino points of history and exam, discussed case, and agree with decision making with Dr Duke. Feeling better less leg pain. Feels up to a trial of oral antibiotics and close follow-up. Aware that he can always return for resumption of IV antibiotics should he worsen. Vitals noted, in general he is awake and alert pleasant no distress. HEENT normocephalic atraumatic mucous membranes moist. Right lower extremity with massive edema and dressed shallow ulcerations, dull pink erythema throughout although nothing is significantly tendereven less discolored than yesterday, and seems to be less tender.. No crepitus. No exudate. Lymphedema with ulceration and cellulitisimproved on ceftriaxone, safe/stable for transition to PO cefdinir and home. Follow closely as outpt at wound clinic. Otherwise as above. Resident Activity Tracking Resident Involvement: Resident Care Provided Care Provided: Adult Hospital Medicine
--- NOTE | 2019-03-20 17:46 | Billing Data ---
Date of Service March 20, 2019 Coding Level of Care Code D/C Day Management <30 mins
== END 2019-03-20 14:40 | disposition home or self-care (01) | DRG 603 ==
LOC: ED 07:52 → 4W 10:33 → SUATTDRO 10:33 → 4W 14:11

== ENCOUNTER 2019-08-13 02:10 | Inpatient (IN) ==
[2019-08-13] MEDS ORDERED: ACETAMINOPHEN 500 MG TAB PO STA (02:22)
[2019-08-13] MEDS ORDERED: VANCOMYCIN CONSULT ACTIVE PRN ×2 (02:23→07:09)
[2019-08-13] MEDS ORDERED: VANCOMYCIN HCL 2,750 MG in SODIUM CHLORIDE 0.9% 500 ML IV ONE (02:23)
[2019-08-13] MEDS ORDERED: SODIUM CHLORIDE 0.9% 1000ML 1,000 ML IV SCH (02:30)
[2019-08-13 02:42] LABS: Basophils # (auto) 0.01 K/uL (0-0.2); Basophils % (auto) 0.1 %; Hematocrit (blood only) 40.8 % (42-52); Hemoglobin 12.5 g/dL (14.0-18.0); Immature Granulocytes # (auto) 0.05 K/uL (0.00-0.02); Immature Granulocytes % (auto) 0.3 %; Lymphocytes # (auto) 0.36 K/uL (1.2-3.4); Lymphocytes % (auto) 2.1 %; Mean Corpuscular Hemoglobin 29.1 pg (25-34); Mean Corpuscular Hgb Conc 30.6 g/dL (32-36); Mean Corpuscular Volume 95.1 fL (80-100); Mean Platelet Volume 10.7 fL (7.4-10.4); Monocytes # (auto) 0.38 K/uL (0.11-0.59); Monocytes % (auto) 2.3 %; Neutrophils # (auto) 16.06 K/uL (1.4-6.5); Neutrophils % (auto) 95.2 %; Nucleated RBC # (auto) 0.02 K/uL (0-0); Nucleated RBC % (auto) 0.1 %; Platelet Count 219 K/uL (130-400); RDW Standard Deviation 51.8 fL (36.4-46.3); Red Blood Count 4.29 M/uL (4.7-6.1); White Blood Count 16.86 K/uL (4.8-10.8)
[2019-08-13] MEDS ORDERED: AZTREONAM 2,000 MG in DEXTROSE 5% 100 ML IV STA (02:45)
[2019-08-13 03:02] LABS: Alanine Aminotransferase 19 U/L (12-78); Albumin Level 3.2 gm/dl (3.4-5.0); Aspartate Aminotransferase 12 U/L (15-37); BUN Creatinine Ratio 12.5 (10-20); Blood Urea Nitrogen 12 mg/dl (7-18); Calcium 7.7 mg/dl (8.5-10.1); Carbon Dioxide 24 mmol/L (21-32); Chloride 110 mmol/L (98-107); Creatinine Clr Calc Pharmacy 121.3 ml/min; Est GFR (African American) 112.9; Est GFR (Non-African American) 97.4; Glucose 124 mg/dl (70-99); Potassium 3.4 mmol/L (3.5-5.1); Sodium 141 mmol/L (136-145)
[2019-08-13 03:07] LABS: Albumin Globulin Ratio 0.7 (0.9-2); Alkaline Phosphatase 116 U/L (45-117); Bilirubin,Total 0.5 mg/dl (0.2-1); Globulin 4.8 gm/dl (2.5-4.0); Troponin I < 0.015 ng/ml (0-0.045)
[2019-08-13] MEDS ORDERED: KETOROLAC TROMETHAMINE 15 MG/ML VIAL IV STA (04:08)
[2019-08-13 04:38] LABS: Appearance Urine Clear (Clear); Bilirubin Urine Negative (Negative); Blood Urine Negative (Negative); Color Urine Yellow; Glucose Urine UA Negative (Negative); Ketones Urine Negative (Negative); Leukocyte Esterase Urine Negative (Negative); Nitrite Urine Negative (Negative); Protein Urine Negative (Negative); Specific Gravity Urine 1.023 (1.000-1.030); Urobilinogen Urine Negative (Negative)
--- NOTE | 2019-08-13 04:49 | History & Physical Report ---
Date of Service August 13, 2019 Assessment & Plan (1) Sepsis: Patient with fever, tachycardia and neutrophil predominant leukocytosis. Most likely source is skin/soft tissue infection of legs. Does not appear to have gas present on X-ray - no clinical evidence of deeper soft tissue infection. -Admit to medical floor with telemetry -Continue IVF resuscitation - NSS at 125mL/hr x 2 liters -Follow culture results, blood and urine -Vancomycin and Aztreonam for empiric coverage of cellulitis -Tylenol PRN pain or fever Present on Admission?: Yes (2) Lymphedema: Noted. Patient to followup with wound clinic on discharge Present on Admission?: Yes (3) Venous stasis ulcer: Ulcer of right posterior thigh with dressing in place. Recently debrided. Wound appears healthy with good healing -Treatment as above with Vancomycin/Aztreonam -Wound care and dressing changes as needed F/E/N - NSS at 125mL/hr x 2 liters, montior electrolytes and replete as needed, regular diet as tolerated Ppx - Lovenox Code - Full Dispo - Admit to Med-Tele Present on Admission?: Yes Admission and Anticipated Discharge Date Admission Date: 08/13/19 Anticipated date of discharge: 08/15/19 History of Present Illness Chief Complaint: fevers, chills, leg pain Primary Care Provider: Mine Davis MD Parvez Clark is a 38yo C male with history of chronic venous stasis and lymphedema. He has chronic venous stasis ulcers and follows with Wound Clinic - last seen on 08/11/19 for debridement of ulcer on posterior right thigh. He presents today with acute onset fevers/chills and bilateral leg pain which began around 22:00. No additional complaints at this time, specifically no nausea/vomiting/diarrhea/constipation/dysuria/cough/SOB. Wound culture from 08/04/19 positive for two species of MSSA. ER Course: Vancomycin, Aztreonam, Tylenol, NSS x 1 liter Allergies Allergy/AdvReac Type Severity Reaction Status Date / Time amoxicillin Allergy Severe BLISTERS & Verified 08/13/19 02:23 SORES IN MOUTH Sulfa (Sulfonamide Allergy Severe BLISTERS & Verified 08/13/19 02:23 Antibiotics) SORES IN MOUTH daptomycin Allergy Intermediate RASH, Verified 08/13/19 02:23 EOSINOPHILIA zinc oxide Allergy Unknown RASH Verified 08/13/19 02:23 ketorolac [From Toradol] AdvReac Mild pain Unverified 08/13/19 02:23 behind eye "ALL" ANTIBIOTICS Allergy Intermediate CAUSE Uncoded 08/13/19 02:23 BLISTERS & SORES IN MOUTH. Home Medications Home Medications Medication Instructions Recorded Confirmed Type Wheelchair (Manual or Powered) #1 ea 01/14/19 08/04/19 Rx hydrocodone 10 mg-acetaminophen 2 tab PO QID PRN #224 tab 07/20/19 08/13/19 Rx 325 mg tablet doxycycline hyclate 100 mg tablet 100 mg PO bid 14 Days #28 tab 08/09/19 08/13/19 Rx Past Med/Surg History Social History Preferred Language: Greenlandic Communication Ability: Effective Visual Impairment: No Limitations Hearing Ability: Normal Celebrity Manager Required: No Beliefs That Will Affect Care: None marital status: Single Current Living Situation: Parent Current Living Situation Comment: lives with mom/dad in [facility] current occupational status: disabled Feels Safe at Home: Yes Smoking Status: Never smoker Second Hand Exposure: No ; Hx Alcohol Use: Yes Hx Substance Use: No Review of Systems Review of Systems: All systems reviewed & are unremarkable except as noted in HPI & below Physical Exam Physical Exam: General: patient resting comfortably, NAD, non-toxic in appearance, AA&O x 4 Skin: lesion on posterior right thigh with dressing in place, small amount of serous drainage. Granulation tissue with no purulence/erythema or streaking HEENT: NC/AT, PERRL, EOMI, anicteric sclera, conjunctiva without injection, external ear normal to inspection and nontender, nares patent, moist mucus membranes, dentition intact, no oropharyngeal lesions, neck supple, trachea midline, no LAD, no thyromegaly, no JVD Heart: +S1/S2, regular, tachycardic, no m/r/g Lungs: equal air entry bilaterally, no rales/rhonchi/wheezes Abd: +BS, soft, NT/ND, no masses/organomegaly/ascites Ext: warm, 2+ pulses in UE/LE bilaterally, severe lymphedema of bilateral LE with chronic skin changes, thickening Neuro: nonfocal, patient AA&O x 4, speech intact, no facial droop, moving all extremities on command with equal strength 5/5 Results & Data Results & Data ([facility]) Vital Signs (Past 12 Hours) Vital Signs Temp Pulse Pulse Resp BP BP Pulse Ox 08/13/19 04:04 39.2 C H 112 H 16 95/42 L 95 08/13/19 02:14 39.4 C H 134 H 24 110/65 96 Laboratory Results Lab Results 08/13/19 08/13/19 08/13/19 Range/Units 02:33 02:33 02:33 WBC 16.86 H (4.8-10.8) K/uL RBC 4.29 L (4.7-6.1) M/uL Hgb 12.5 L (14.0-18.0) g/dL Hct 40.8 L (42-52) % MCV 95.1 (80-100) fL MCH 29.1 (25-34) pg MCHC 30.6 L (32-36) g/dL RDW Std Deviation 51.8 H (36.4-46.3) fL RDW Coeff of Lizet 15.0 H (11.5-14.5) % Plt Count 219 (130-400) K/uL MPV 10.7 H (7.4-10.4) fL Immature Gran % (Auto) 0.3 % Neut % (Auto) 95.2 % Lymph % (Auto) 2.1 % [place] % (Auto) 2.3 % Eos % (Auto) 0.0 % Baso % (Auto) 0.1 % Immature Gran # (Auto) 0.05 H (0.00-0.02) K/uL Neut # (Auto) 16.06 H (1.4-6.5) K/uL Lymph # (Auto) 0.36 L (1.2-3.4) K/uL [place] # (Auto) 0.38 (0.11-0.59) K/uL Eos # (Auto) 0.00 (0-0.5) K/uL Baso # (Auto) 0.01 (0-0.2) K/uL Absolute Nucleated RBC 0.02 H (0-0) K/uL Nucleated RBC % (auto) 0.1 % Sodium 141 (136-145) mmol/L Potassium 3.4 L (3.5-5.1) mmol/L Chloride 110 H (98-107) mmol/L Carbon Dioxide 24 (21-32) mmol/L Anion Gap 7.0 (3-11) BUN 12 (7-18) mg/dl Creatinine 0.98 (0.6-1.4) mg/dl Est Cr Clr Drug Dosing 121.3 ml/min Est GFR ( Amer) 112.9 Est GFR (Non-Af Amer) 97.4 BUN/Creatinine Ratio 12.5 (10-20) Glucose 124 H (70-99) mg/dl Lactate (0.4-2.0) mmol/L Calcium 7.7 L (8.5-10.1) mg/dl Total Bilirubin 0.5 (0.2-1) mg/dl AST 12 L (15-37) U/L ALT 19 (12-78) U/L Alkaline Phosphatase 116 (45-117) U/L Troponin I < 0.015 (0-0.045) ng/ml Total Protein 8.0 (6.4-8.2) gm/dl Albumin 3.2 L (3.4-5.0) gm/dl Globulin 4.8 H (2.5-4.0) gm/dl Albumin/Globulin Ratio 0.7 L (0.9-2) Procalcitonin 1.74 H (0-0.5) ng/ml Urine Color Urine Appearance (Clear) Urine pH (4.5-7.5) Ur Specific [place] (1.000-1.030) Urine Protein (Negative) Urine Glucose (UA) (Negative) Urine Ketones (Negative) Urine Blood (Negative) Urine Nitrite (Negative) Urine Bilirubin (Negative) Urine Urobilinogen (Negative) Ur Leukocyte Esterase (Negative) COVID-19 PCR (Negative) 08/13/19 08/13/19 08/13/19 Range/Units 02:43 02:55 04:30 WBC (4.8-10.8) K/uL RBC (4.7-6.1) M/uL Hgb (14.0-18.0) g/dL Hct (42-52) % MCV (80-100) fL MCH (25-34) pg MCHC (32-36) g/dL RDW Std Deviation (36.4-46.3) fL RDW Coeff of Lizet (11.5-14.5) % Plt Count (130-400) K/uL MPV (7.4-10.4) fL Immature Gran % (Auto) % Neut % (Auto) % Lymph % (Auto) % [place] % (Auto) % Eos % (Auto) % Baso % (Auto) % Immature Gran # (Auto) (0.00-0.02) K/uL Neut # (Auto) (1.4-6.5) K/uL Lymph # (Auto) (1.2-3.4) K/uL [place] # (Auto) (0.11-0.59) K/uL Eos # (Auto) (0-0.5) K/uL Baso # (Auto) (0-0.2) K/uL Absolute Nucleated RBC (0-0) K/uL Nucleated RBC % (auto) % Sodium (136-145) mmol/L Potassium (3.5-5.1) mmol/L Chloride (98-107) mmol/L Carbon Dioxide (21-32) mmol/L Anion Gap (3-11) BUN (7-18) mg/dl Creatinine (0.6-1.4) mg/dl Est Cr Clr Drug Dosing ml/min Est GFR ( Amer) Est GFR (Non-Af Amer) BUN/Creatinine Ratio (10-20) Glucose (70-99) mg/dl Lactate 2.0 (0.4-2.0) mmol/L Calcium (8.5-10.1) mg/dl Total Bilirubin (0.2-1) mg/dl AST (15-37) U/L ALT (12-78) U/L Alkaline Phosphatase (45-117) U/L Troponin I (0-0.045) ng/ml Total Protein (6.4-8.2) gm/dl Albumin (3.4-5.0) gm/dl Globulin (2.5-4.0) gm/dl Albumin/Globulin Ratio (0.9-2) Procalcitonin (0-0.5) ng/ml Urine Color Yellow Urine Appearance Clear (Clear) Urine pH 5.0 (4.5-7.5) Ur Specific [place] 1.023 (1.000-1.030) Urine Protein Negative (Negative) Urine Glucose (UA) Negative (Negative) Urine Ketones Negative (Negative) Urine Blood Negative (Negative) Urine Nitrite Negative (Negative) Urine Bilirubin Negative (Negative) Urine Urobilinogen Negative (Negative) Ur Leukocyte Esterase Negative (Negative) COVID-19 PCR NEGATIVE (Negative) Code Status & VTE Plan Code Status Full VTE Prophylaxis Plan VTE Prophylaxis will be ordered: Yes PG Care Time/CCT Total # of Minutes Spent Total Time Spent with Patient: Total time spent is greater than 50% in coordination of care (as documented) at patient's floor/unit and/or counseling patient: Coding Level of Care Code 76672 Initial Inpt Care Lvl 2 Diagnoses Sepsis A41.9 Sepsis type: sepsis due to unspecified organism Sepsis acute organ dysfunction status: unspecified Lymphedema I89.0 Venous stasis ulcer I87.2; L97.119 Venous stasis ulcer site: thigh Varicose vein presence: without varicose veins Laterality: right Non-pressure ulcer stage: unspecified non-pressure ulcer stage (1) Sepsis Sepsis type: sepsis due to unspecified organism Sepsis acute organ dysfunction status: unspecified Qualified Code(s): A41.9 - Sepsis, unspecified organism (2) Venous stasis ulcer Venous stasis ulcer site: thigh Varicose vein presence: without varicose veins Laterality: right Non-pressure ulcer stage: unspecified non-pressure ulcer stage Qualified Code(s): I87.2 - Venous insufficiency (chronic) (peripheral); L97.119 - Non-pressure chronic ulcer of right thigh with unspecified severity
--- NOTE | 2019-08-13 05:04 | Emergency Department Note ---
History of Present Illness General Chief complaint: Illness Stated complaint: COLD,FEVER,CHILLS,HEADACHE,DIZZY Time Seen by Provider: 08/13/19 02:21 Source: patient Mode of arrival: EMS Limitations: no limitations History of Present Illness Provider complaint: Cellulitis, fever Onset (ago): day(s) 1 Maximum Pain Intensity: 8 This patient is a 38-year-old male who presents to the emergency department with complaints of fever, heart palpitations, headache and what he believes is a right thigh cellulitis. Patient also complains of some "pain along the lymph nodes" and points to the groin on the left side. Patient is followed by the wound care clinic for venous stasis ulcerations and lymphedema. He recently had a wound debridement on the right thigh and completed a course of doxycycline. Patient states he generally did not feel well beginning yesterday but developed a fever and the above symptoms today. Patient denies any chest pain, shortness of breath but does admit to a cough. Home Medications Home Medications Medication Instructions Recorded Confirmed Type Wheelchair (Manual or Powered) #1 ea 01/14/19 08/04/19 Rx hydrocodone 10 mg-acetaminophen 2 tab PO QID PRN #224 tab 07/20/19 08/13/19 Rx 325 mg tablet doxycycline hyclate 100 mg tablet 100 mg PO bid 14 Days #28 tab 08/09/19 08/13/19 Rx Allergies Allergy/AdvReac Type Severity Reaction Status Date / Time amoxicillin Allergy Severe BLISTERS & Verified 08/13/19 02:23 SORES IN MOUTH Sulfa (Sulfonamide Allergy Severe BLISTERS & Verified 08/13/19 02:23 Antibiotics) SORES IN MOUTH daptomycin Allergy Intermediate RASH, Verified 08/13/19 02:23 EOSINOPHILIA zinc oxide Allergy Unknown RASH Verified 08/13/19 02:23 ketorolac [From Toradol] AdvReac Mild pain Unverified 08/13/19 02:23 behind eye "ALL" ANTIBIOTICS Allergy Intermediate CAUSE Uncoded 08/13/19 02:23 BLISTERS & SORES IN MOUTH. Past Med/Surg History Medical History (Updated 08/13/19 @ 05:38 by Diana Chatterjee MD) Abscess, perirectal (Inactive) Acid reflux (Chronic) Cellulitis (Resolved) recurrent admissions for such requiring IV antibiotic courses DDD (degenerative disc disease), lumbar (Chronic) External hemorrhoids (Chronic) History of MRSA infection Right leg wound 04/11/2018 is the last positive MRSA culture Hypotestosteronism (Chronic) Kidney stone Lymphedema of lower extremity (Chronic) Metabolic syndrome (Chronic) Morbid obesity with BMI of 50.0-59.9, adult (Chronic) Perianal abscess (Inactive) Plantar fasciitis Sepsis Sleep apnea Venous stasis ulcer of right lower leg with edema of right lower leg (Chronic) Venous stasis ulcer of right thigh (Acute) Vitamin D deficiency (Chronic) Surgical History (Updated 08/13/19 @ 05:38 by Diana Chatterjee MD) H/O gastric bypass (Chronic) H/O wisdom tooth extraction (Resolved) Social History Preferred Language: Niuean Communication Ability: Effective Visual Impairment: No Limitations Hearing Ability: Normal Stone Driller Required: No Beliefs That Will Affect Care: None marital status: Single Current Living Situation: Parent Current Living Situation Comment: lives with mom/dad in [facility] current occupational status: disabled Feels Safe at Home: Yes Smoking Status: Never smoker Second Hand Exposure: No ; Hx Alcohol Use: Yes Hx Substance Use: No Review of Systems See HPI for pertinent positives & negatives. and A total of 10 systems reviewed and were otherwise negative Physical Exam Vital Signs Vital Signs - 24 hr 08/13/19 02:14 08/13/19 04:04 08/13/19 04:49 Temperature 39.4 C H 39.2 C H 37.9 C H Temperature Source Oral Oral Oral Pulse Rate 134 H Pulse Rate [Right Finger] 112 H 110 H Pulse Rhythm [Right Finger] Regular Pulse Strength [Right Finger] Normal Respiratory Rate 24 16 18 Respiratory Effort / Characteristics Non-Labored Respiratory Depth Normal Blood Pressure 110/65 Blood Pressure [Right Arm] 95/42 L Blood Pressure Mean 80 Blood Pressure Mean [Right Arm] 59 Blood Pressure Position [Right Arm] Lying Pulse Oximetry 96 95 97 Oxygen Delivery Method Room Air Room Air Room Air Sepsis Recent Fever Within 48 Hours Yes Sepsis Action Taken by Nursing Physician Notified Vital signs reviewed. Exam is severely limited secondary to body habitus. General: Chronically ill-appearing, morbidly obese 38-year-old male in some discomfort. HEENT: No scleral icterus, PERRLA, neck supple. Dry mucous membranes, positive facial hair Cardiovascular: Tachycardic and regular Pulmonary: Clear to auscultation bilaterally, normal work of breathing. Abdomen: Soft, obese with redundant skin, particularly the lower abdominal pannus, nondistended, positive bowel sounds. Musculoskeletal: Lymphedema to the bilateral lower extremities with multiple skin folds. There is callus formation with venous stasis ulceration noted to the right medial thigh. There is a foul odor to a linear wound with minimal surrounding erythema. Tender to palpation over the left inguinal region. Neurologic: Patient awake alert and oriented x 3 Skin: Warm, dry, no rash Course Administered Medications Discontinued Medications Acetaminophen (Tylenol) 1,000 mg PO ONE STA Stop: 08/13/19 02:23 Last Admin: 08/13/19 02:37 Dose: 1,000 mg Documented by: [id number] Sodium Chloride (Nss 1000ml) 1,000 mls @ 999 mls/hr IV .[id number] RANJAN Stop: 08/13/19 03:30 Last Infusion: 08/13/19 04:28 Dose: 0 mls/hr Documented by: [id number] Admin: 08/13/19 02:38 Dose: 999 mls/hr Documented by: [id number] Vancomycin HCl 2,750 mg/ (Sodium Chloride) 555 mls @ 200 mls/hr IV NOW ONE Stop: 08/13/19 05:09 Last Admin: 08/13/19 02:38 Dose: 200 mls/hr Documented by: [id number] Aztreonam 2,000 mg/ Dextrose 110 mls @ 100 mls/hr IV NOW STA; Protocol Stop: 08/13/19 03:50 Last Infusion: 08/13/19 04:07 Dose: 0 mls/hr Documented by: [id number] Admin: 08/13/19 03:07 Dose: 100 mls/hr Documented by: [id number] Ketorolac Tromethamine (Toradol) 15 mg IV NOW STA Stop: 08/13/19 04:09 Last Admin: 08/13/19 04:20 Dose: Not Given Documented by: [id number] Critical Care Time Critical Care Time: Yes I have personally spent greater than 45 minutes of critical care time in the direct management of this patient. This includes bedside care, interpretation of diagnostic studies, and testing, discussion with consultants, patient, and family members, and other required patient management activities. This 45 minutes is in excess of all separately billable procedures. Medical Decision Making Differential Diagnosis Differential diagnosis: Etiologies such as viral syndrome, otitis, pharyngitis, pneumonia, influenza, meningitis, urinary tract infection, septic arthritis, soft tissue infectious process, intra-abdominal process, sepsis, bacteremia, as well as others were entertained. Medical Records Attestation: I reviewed the patient's medical records. Home Medications Current Medication List: was personally reviewed by me Laboratory Data Attestation: I reviewed the patient's lab results. Result diagrams: 08/13/19 02:33 08/13/19 02:33 Lab Results 08/13/19 08/13/19 08/13/19 Range/Units 02:33 02:33 02:33 WBC 16.86 H (4.8-10.8) K/uL RBC 4.29 L (4.7-6.1) M/uL Hgb 12.5 L (14.0-18.0) g/dL Hct 40.8 L (42-52) % MCV 95.1 (80-100) fL MCH 29.1 (25-34) pg MCHC 30.6 L (32-36) g/dL RDW Std Deviation 51.8 H (36.4-46.3) fL RDW Coeff of Lizet 15.0 H (11.5-14.5) % Plt Count 219 (130-400) K/uL MPV 10.7 H (7.4-10.4) fL Immature Gran % (Auto) 0.3 % Neut % (Auto) 95.2 % Lymph % (Auto) 2.1 % Falls % (Auto) 2.3 % Eos % (Auto) 0.0 % Baso % (Auto) 0.1 % Immature Gran # (Auto) 0.05 H (0.00-0.02) K/uL Neut # (Auto) 16.06 H (1.4-6.5) K/uL Lymph # (Auto) 0.36 L (1.2-3.4) K/uL Falls # (Auto) 0.38 (0.11-0.59) K/uL Eos # (Auto) 0.00 (0-0.5) K/uL Baso # (Auto) 0.01 (0-0.2) K/uL Absolute Nucleated RBC 0.02 H (0-0) K/uL Nucleated RBC % (auto) 0.1 % Sodium 141 (136-145) mmol/L Potassium 3.4 L (3.5-5.1) mmol/L Chloride 110 H (98-107) mmol/L Carbon Dioxide 24 (21-32) mmol/L Anion Gap 7.0 (3-11) BUN 12 (7-18) mg/dl Creatinine 0.98 (0.6-1.4) mg/dl Est Cr Clr Drug Dosing 121.3 ml/min Est GFR ( Amer) 112.9 Est GFR (Non-Af Amer) 97.4 BUN/Creatinine Ratio 12.5 (10-20) Glucose 124 H (70-99) mg/dl Lactate (0.4-2.0) mmol/L Calcium 7.7 L (8.5-10.1) mg/dl Total Bilirubin 0.5 (0.2-1) mg/dl AST 12 L (15-37) U/L ALT 19 (12-78) U/L Alkaline Phosphatase 116 (45-117) U/L Troponin I < 0.015 (0-0.045) ng/ml Total Protein 8.0 (6.4-8.2) gm/dl Albumin 3.2 L (3.4-5.0) gm/dl Globulin 4.8 H (2.5-4.0) gm/dl Albumin/Globulin Ratio 0.7 L (0.9-2) Procalcitonin 1.74 H (0-0.5) ng/ml Urine Color Urine Appearance (Clear) Urine pH (4.5-7.5) Ur Specific [place] (1.000-1.030) Urine Protein (Negative) Urine Glucose (UA) (Negative) Urine Ketones (Negative) Urine Blood (Negative) Urine Nitrite (Negative) Urine Bilirubin (Negative) Urine Urobilinogen (Negative) Ur Leukocyte Esterase (Negative) COVID-19 PCR (Negative) 08/13/19 08/13/19 08/13/19 Range/Units 02:43 02:55 04:30 WBC (4.8-10.8) K/uL RBC (4.7-6.1) M/uL Hgb (14.0-18.0) g/dL Hct (42-52) % MCV (80-100) fL MCH (25-34) pg MCHC (32-36) g/dL RDW Std Deviation (36.4-46.3) fL RDW Coeff of Lizet (11.5-14.5) % Plt Count (130-400) K/uL MPV (7.4-10.4) fL Immature Gran % (Auto) % Neut % (Auto) % Lymph % (Auto) % Falls % (Auto) % Eos % (Auto) % Baso % (Auto) % Immature Gran # (Auto) (0.00-0.02) K/uL Neut # (Auto) (1.4-6.5) K/uL Lymph # (Auto) (1.2-3.4) K/uL Falls # (Auto) (0.11-0.59) K/uL Eos # (Auto) (0-0.5) K/uL Baso # (Auto) (0-0.2) K/uL Absolute Nucleated RBC (0-0) K/uL Nucleated RBC % (auto) % Sodium (136-145) mmol/L Potassium (3.5-5.1) mmol/L Chloride (98-107) mmol/L Carbon Dioxide (21-32) mmol/L Anion Gap (3-11) BUN (7-18) mg/dl Creatinine (0.6-1.4) mg/dl Est Cr Clr Drug Dosing ml/min Est GFR ( Amer) Est GFR (Non-Af Amer) BUN/Creatinine Ratio (10-20) Glucose (70-99) mg/dl Lactate 2.0 (0.4-2.0) mmol/L Calcium (8.5-10.1) mg/dl Total Bilirubin (0.2-1) mg/dl AST (15-37) U/L ALT (12-78) U/L Alkaline Phosphatase (45-117) U/L Troponin I (0-0.045) ng/ml Total Protein (6.4-8.2) gm/dl Albumin (3.4-5.0) gm/dl Globulin (2.5-4.0) gm/dl Albumin/Globulin Ratio (0.9-2) Procalcitonin (0-0.5) ng/ml Urine Color Yellow Urine Appearance Clear (Clear) Urine pH 5.0 (4.5-7.5) Ur Specific [place] 1.023 (1.000-1.030) Urine Protein Negative (Negative) Urine Glucose (UA) Negative (Negative) Urine Ketones Negative (Negative) Urine Blood Negative (Negative) Urine Nitrite Negative (Negative) Urine Bilirubin Negative (Negative) Urine Urobilinogen Negative (Negative) Ur Leukocyte Esterase Negative (Negative) COVID-19 PCR NEGATIVE (Negative) Imaging Data Attestation: I personally reviewed and interpreted this imaging study as follows: My Impression: Chest x-ray to my interpretation reveals no evidence of focal lung consolidation or failure. Right femur x-ray to my interpretation reveals no evidence of subcutaneous air, no fracture ECG Data Attestation: I personally reviewed and interpreted this ECG as follows: Rate (beats per minute): 114 Rhythm: + sinus tachycardia ECG Intervals/blocks: + Normal QT ECG [place]: + Normal ECG ST segments: + Normal ST segments ECG Findings: no PACs and no PVCs Blood Pressure Blood Pressure Findings: Normal blood pressure Blood Pressure Disposition: further management by hospitalist [facility] Narrative This patient was evaluated and appeared to be in no significant distress. Patient appears to be septic. An order for cardiac monitoring was placed and the patient is found to be in a sinus tachycardia at 130 bpm. Patient was hydrated with normal saline solution, given p.o. Tylenol 1000 mg. Blood cultures and a lactate were obtained. Patient has a white blood cell count of 16.86. Lactic acid is 2.0 with an elevated pro calcitonin of 1.74. Patient has some antibiotic allergies. He has received many in the past and recently completed the course of doxycycline. He was given a dose of IV vancomycin 25 mg/kg and IV aztreonam after discussion with the clinical pharmacist. The source of the sepsis is unclear at this time however I suspect it is related to his ulceration on the right medial thigh. I did discuss the case with Dr. Tejada of the hospitalist service who has recommended imaging for the possibility of necrotizing fasciitis. X-ray was performed and to my interpretation reveals no evidence of subcutaneous air. UA is negative. Patient was discussed with the hospitalist service, Dr. Tejada, who will evaluate for admission and further management. Impression & Plan Sepsis, Lymphedema of lower extremity, H/O gastric bypass Discharge Plan Visit Data Chief Complaint: Illness Stated Complaint: COLD,FEVER,CHILLS,HEADACHE,DIZZY ED Provider: Diana Chatterjee Discharge Problem: Sepsis, Lymphedema of lower extremity, H/O gastric bypass Forms Stand Alone Forms: [employer] Prescriptions Prescriptions: No Action (DME) Wheelchair (Manual) Device See Dose Instructions .ROUTE .MEDSUPPLY Qty: 1 RF: 0 hydrocodone-acetaminophen 10-325 mg tablet 2 tab PO QID PRN (Reason: Pain) Qty: 224 RF: 0 doxycycline hyclate 100 mg tablet 100 mg PO bid 14 Days Qty: 28 RF: 0 Discharge Problem: Sepsis Qualifiers: Sepsis type: sepsis due to unspecified organism Sepsis acute organ dysfunction status: unspecified Qualified Code(s): A41.9 - Sepsis, unspecified organism Lymphedema of lower extremity Qualifiers: Laterality: right Qualified Code(s): I89.0 - Lymphedema, not elsewhere classified
--- NOTE | 2019-08-13 07:36 | XRay Report ---
RIGHT FEMUR 4 VIEWS HISTORY: Right leg infection. Cellulitis. Assess for necrotizing fasciitis. COMPARISON: None. FINDINGS: There is no fracture or dislocation. Soft tissues are unremarkable. No radiopaque foreign b odies. No soft tissue gas identified within the right thigh. IMPRESSION: No significant abnormality within the right thigh/femur. ACT 112: Negative or not required by law. Electronically signed by: Marshall Adams M.D. 08/13/2019 7:35 AM
--- NOTE | 2019-08-13 07:39 | XRay Report ---
XR chest 1V portable HISTORY: fever COMPARISON: Chest 03/18/2019. FINDINGS: The lungs are clear. Cardiac silhouette is normal in size. No pleural effusions. No pneumot horax. IMPRESSION: No acute process. ACT 112: Negative or not required by law. Electronically signed by: Marshall Adams M.D. 08/13/2019 7:38 AM
--- NOTE | 2019-08-13 07:57 | Hospitalist Progress Note ---
Date of Service August 13, 2019 Assessment & Plan (1) Sepsis: Patient with fever, tachycardia and neutrophil predominant leukocytosis. Most likely source is skin/soft tissue infection of legs. Does not appear to have necrotizing fascitis, as no gas present on X-ray - no clinical evidence of deeper soft tissue infection. -Follow culture results, blood and urine -Vancomycin and Aztreonam for empiric coverage of cellulitis, preliminary cultures are gram negative in chains, consider strep, maybe able to de escalate to ceftriaxone if further sensitivities are complete -Tylenol PRN pain or fever (2) Lymphedema: Noted. Patient to followup with wound clinic on discharge (3) Venous stasis ulcer: Ulcer of right posterior thigh with dressing in place. Recently debrided. Wound appears healthy with good healing -Treatment as above with Vancomycin/Aztreonam -Wound care and dressing changes as needed Ppx - Lovenox use higher dosed due to obesity Code - Full Admission and Anticipated Discharge Date Admission Date: August 13, 2019 Subjective pt is feeling better he expressed a desire to go home as soon as able, he feels his left thigh is the more painful and warm one, although he typically has a ulcer or wound on the right Review of Systems Review of Systems: Mild distress and fatigue no headache, blurry or double vision no speech or swallowing issues no chest pain, pressure or palpitations no shortness of breath, cough or wheezes no abdominal pain, nausea or vomiting, diarrhea or constipation no dysuria, hematuria or frequency no focal joint pain or swelling no back pain, CVA tenderness or radicular pain markedly skin swelling and lymphedema to b/l lower extremities no focal signs of weakness or numbness or altered sensation no complaints or anxiety or depression. Physical Exam Physical Exam: The patient appeared well nourished and normally developed. he has marked lymphedema to LE bilaterally Vital signs as documented. Head exam is normocephalic atraumatic no scleral icterus Neck is without JVD, thyromegaly, or carotid bruits. Lungs are clear to auscultation, no focal loss of breath sounds Cardiac exam, Rhythm is regular.. No murmurs, rubs or gallops. Abdominal exam reveals normal bowel sounds, soft non tender, no masses Extremities are with massive lymphedema which is chronic Neurologic exam is alert and oriented, no focal loss of strength or sensation Skin is with changes of chronic venous stasis changes, some redness and warmth L>R Psychologically is without concerns for anxiety or depression Results & Data Results & Data ([facility]) Vital Signs (Past 12 Hours) Vital Signs Temp Pulse Pulse Resp BP BP BP 08/13/19 07:26 98.8 F 112 H 18 109/68 08/13/19 06:34 109 H 18 160/80 H 08/13/19 04:49 100.2 F H 110 H 18 08/13/19 04:04 102.6 F H 112 H 16 95/42 L 08/13/19 02:14 102.9 F H 134 H 24 110/65 Pulse Ox 08/13/19 07:26 94 08/13/19 06:34 96 08/13/19 04:49 97 08/13/19 04:04 95 08/13/19 02:14 96 PG Care Time/CCT Total # of Minutes Spent Total Time Spent with Patient: Total time spent is greater than 50% in coordination of care (as documented) at patient's floor/unit and/or counseling patient: Coding Level of Care Code 56670 Subseq Hosp Care Lvl 2 Diagnoses Sepsis A41.9 Sepsis acute organ dysfunction status: unspecified Sepsis type: sepsis due to unspecified organism Lymphedema I89.0 Venous stasis ulcer I87.2; L97.119 Laterality: right Non-pressure ulcer stage: unspecified non-pressure ulcer stage Varicose vein presence: without varicose veins Venous stasis ulcer site: thigh (1) Sepsis Sepsis acute organ dysfunction status: unspecified Sepsis type: sepsis due to unspecified organism Qualified Code(s): A41.9 - Sepsis, unspecified organism (2) Venous stasis ulcer Laterality: right Non-pressure ulcer stage: unspecified non-pressure ulcer stage Varicose vein presence: without varicose veins Venous stasis ulcer site: thigh Qualified Code(s): I87.2 - Venous insufficiency (chronic) (peripheral); L97.119 - Non-pressure chronic ulcer of right thigh with unspecified severity
[2019-08-13 08:18] LABS: Magnesium 1.9 mg/dl (1.8-2.4)
[2019-08-13] MEDS: ACETAMINOPHEN 325 MG TAB PO PRN ×2 (08:45→15:32)
[2019-08-13] MEDS: SODIUM CHLORIDE 0.9% 1000ML 1,000 ML IV SCH ×2 (08:50→15:32)
[2019-08-13] MEDS: VANCOMYCIN HCL 1,500 MG in SODIUM CHLORIDE 0.9% 500 ML IV SCH ×2 (08:53→20:55)
[2019-08-13] MEDS: ENOXAPARIN INJ 40 MG/0.4 ML SYR SQ SCH ×3 (08:59→19:42)
--- NOTE | 2019-08-13 09:36 | Pharmacy Report ---
Pharmacy Abx Initial Consult - Date of Service August 13, 2019 - Pharmacy Dosing Scope Date of Consult: 08/13/2019 Consultation requested by: Dr. Bea Tejada Pharmacy is consulted to initiate vancomycin IV dosing therapy, order appropriate labs and adjust drug dose/frequency. - Subjective The patient is a 38 year old M admitted on 08/13/19 04:35. - Objective Height: 5 ft 2 in Weight: 315 kg Vital Signs (Past 12hrs): Vital Signs Temp Pulse Pulse Resp BP BP BP 08/13/19 07:26 37.1 C 112 H 18 109/68 08/13/19 06:34 109 H 18 160/80 H 08/13/19 04:49 37.9 C H 110 H 18 08/13/19 04:04 39.2 C H 112 H 16 95/42 L 08/13/19 02:14 39.4 C H 134 H 24 110/65 Pulse Ox 08/13/19 07:26 94 08/13/19 06:34 96 08/13/19 04:49 97 08/13/19 04:04 95 08/13/19 02:14 96 Lab Results (24hrs): Laboratory Tests (24 Hours) 08/13/19 08/13/19 08/13/19 02:33 02:33 02:33 WBC 16.86 H Neut # (Auto) 16.06 H Creatinine 0.98 Est Cr Clr Drug Dosing 121.3 Procalcitonin 1.74 H Micro Results: 08/13/19 02:43 Aerobic Blood Culture - Pending Blood Anaerobic Blood Culture - Pending 08/13/19 02:33 Aerobic Blood Culture - Pending Blood Anaerobic Blood Culture - Pending - Risk Factors for Resistance * 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 Plan vancomycin/Azactam for treatment of cellulitis/sepsis Vancomycin IV * Estimated PK Parameters: Vd 0.6 L/kg, Gil 0.091 hr-1, t1/2 7 hr * Loading dose: 2750 mg (21 mg/kg) * Maintenance dose: 1500 mg IV (12 mg/kg) every 10 hours (resulted in thera peutic level in April) * Goal trough level for cellulitis : ~15 mcg/mL * Trough ordered for 08/14/19 * A less than traditional dose has been selected due to likelihood of drug accumulation in obese patient. Pharmacy will continue to follow and will adjust dose/frequency as necessary. Thank you.
[2019-08-13] MEDS: HYDROCODONE/ACETAMINOPHEN 10/325 TAB PO PRN ×2 (09:58→19:41)
[2019-08-13] MEDS: AZTREONAM 2,000 MG in DEXTROSE 5% 100 ML IV SCH ×2 (11:38→18:26)
[2019-08-13] MEDS ORDERED: MoRPHine SULFATE 4 MG/ML 1 ML CARP\\VIAL IV PRN (12:50)
[2019-08-13] MEDS: MoRPHine SULFATE 2 MG/ML CARP IV PRN ×2 (13:25→18:26)
[2019-08-13] MEDS ORDERED: KETOROLAC TROMETHAMINE 15 MG/ML VIAL IV ONE (16:59)
[2019-08-13] MEDS ORDERED: IBUPROFEN 200 MG TAB PO PRN (17:11)
[2019-08-14] MEDS: MoRPHine SULFATE 2 MG/ML CARP IV PRN ×3 (00:31→21:06)
[2019-08-14] MEDS: HYDROCODONE/ACETAMINOPHEN 10/325 TAB PO PRN ×3 (04:08→17:55)
[2019-08-14] MEDS: AZTREONAM 2,000 MG in DEXTROSE 5% 100 ML IV SCH ×3 (04:09→22:39)
[2019-08-14] MEDS: VANCOMYCIN HCL 1,500 MG in SODIUM CHLORIDE 0.9% 500 ML IV SCH ×2 (05:46→17:22)
[2019-08-14 05:59] LABS: Basophils # (auto) 0.02 K/uL (0-0.2); Basophils % (auto) 0.2 %; Eosinophils # (auto) 0.01 K/uL (0-0.5); Eosinophils % (auto) 0.1 %; Hematocrit (blood only) 33.1 % (42-52); Hemoglobin 10.8 g/dL (14.0-18.0); Immature Granulocytes # (auto) 0.03 K/uL (0.00-0.02); Immature Granulocytes % (auto) 0.3 %; Lymphocytes # (auto) 0.62 K/uL (1.2-3.4); Lymphocytes % (auto) 5.7 %; Mean Corpuscular Hemoglobin 30.3 pg (25-34); Mean Corpuscular Hgb Conc 32.6 g/dL (32-36); Monocytes # (auto) 0.45 K/uL (0.11-0.59); Monocytes % (auto) 4.1 %; Neutrophils # (auto) 9.74 K/uL (1.4-6.5); Neutrophils % (auto) 89.6 %; Platelet Count 173 K/uL (130-400); RDW Coefficient of Variation 15.1 % (11.5-14.5); RDW Standard Deviation 51.5 fL (36.4-46.3); Red Blood Count 3.56 M/uL (4.7-6.1); White Blood Count 10.87 K/uL (4.8-10.8)
[2019-08-14 06:29] LABS: BUN Creatinine Ratio 18.3 (10-20); Calcium 7.2 mg/dl (8.5-10.1); Creatinine Clr Calc Pharmacy 165.4 ml/min; Est GFR (African American) 133.4; Est GFR (Non-African American) 115.1; Potassium 3.5 mmol/L (3.5-5.1)
--- NOTE | 2019-08-14 06:40 | Electrocardiogram Report ---
Test Reason : Blood Pressure : / mmHG Vent. Rate : 114 BPM Atrial Rate : 114 BPM P-R Int : 130 ms QRS Dur : 088 ms QT Int : 320 ms P-R-T Axes : 049 029 012 degrees QTc Int : 441 ms Sinus tachycardia Otherwise normal ECG When compared with ECG of 18-MAR-2019 08:32, No significant change was found Confirmed by Mateo Chang ([id number]) on 08/14/2019 6:39:54 AM Referred By: REFERRED SELF Confirmed By:Mateo Chang
--- NOTE | 2019-08-14 07:45 | Hospitalist Progress Note ---
Date of Service August 14, 2019 Assessment & Plan (1) Sepsis: Patient with fever, tachycardia and neutrophil predominant leukocytosis. Most likely source is skin/soft tissue infection of legs. Does not appear to have necrotizing fascitis, as no gas present on X-ray - no clinical evidence of deeper soft tissue infection. -Follow culture results, blood and urine -Vancomycin and Aztreonam for empiric coverage of cellulitis, preliminary cultures are gram negative in chains, consider strep, maybe able to de escalate to ceftriaxone if further sensitivities are complete will need negative blood cultures before placing line for outpt antibiotics, repeat blood cultures 08/14/19, pt still with fever Echo,(transthoracic did not show valvular abnormalities) -Tylenol PRN pain or fever (2) Lymphedema: Noted. Patient to followup with wound clinic on discharge (3) Venous stasis ulcer: Ulcer of right posterior thigh with dressing in place. Recently debrided. Wound appears healthy with good healing -Treatment as above with Vancomycin/Aztreonam -Wound care and dressing changes as needed Ppx - Lovenox use higher dosed due to obesity Code - Full Admission and Anticipated Discharge Date Admission Date: August 13, 2019 Subjective Although the pt has persistent fever, he expressed a desire to go home as soon as able, he feels his left thigh remains more painful and warm than the right, although he typically has a ulcer or wound on the right I did explain about the blood cultures needing to be negative prior to having a skilled nursing IV placed Review of Systems Review of Systems: Mild distress and fatigue no headache, blurry or double vision no speech or swallowing issues no chest pain, pressure or palpitations no shortness of breath, cough or wheezes no abdominal pain, nausea or vomiting, diarrhea or constipation no dysuria, hematuria or frequency no focal joint pain or swelling no back pain, CVA tenderness or radicular pain markedly skin swelling and lymphedema to b/l lower extremities, pt feels left thigh is worse than right no focal signs of weakness or numbness or altered sensation no complaints or anxiety or depression. Physical Exam Physical Exam: The patient appeared well nourished and normally developed. he has marked lymphedema to LE bilaterally Vital signs as documented. Head exam is normocephalic atraumatic no scleral icterus Neck is without JVD, thyromegaly, or carotid bruits. Lungs are clear to auscultation, no focal loss of breath sounds Cardiac exam, Rhythm is regular.. No murmurs, rubs or gallops. Abdominal exam reveals normal bowel sounds, soft non tender, no masses Extremities are with massive lymphedema which is chronic Neurologic exam is alert and oriented, no focal loss of strength or sensation Skin is with changes of chronic venous stasis changes, some redness and warmth L>R, both legs are indurated but not with definite large area of infection Psychologically is without concerns for anxiety or depression Results & Data Results & Data ([facility]) Vital Signs (Past 12 Hours) Vital Signs Temp Pulse Pulse Resp BP Pulse Ox 08/14/19 07:22 99.7 F H 86 18 103/62 95 08/14/19 03:48 99.9 F H 101 H 20 98/50 L 97 08/13/19 23:00 98.4 F 98 H 20 94/59 L 95 08/13/19 20:56 99.1 F 08/13/19 20:02 100.6 F H 98 H 18 94/55 L 95 PG Care Time/CCT Total # of Minutes Spent Total Time Spent with Patient: Total time spent is greater than 50% in coordination of care (as documented) at patient's floor/unit and/or counseling patient: Coding Level of Care Code 54597 Subseq Hosp Care Lvl 2 Diagnoses Sepsis A41.9 Sepsis acute organ dysfunction status: unspecified Sepsis type: sepsis due to unspecified organism Lymphedema I89.0 Venous stasis ulcer I87.2; L97.119 Laterality: right Non-pressure ulcer stage: unspecified non-pressure ulcer stage Varicose vein presence: without varicose veins Venous stasis ulcer site: thigh (1) Sepsis Sepsis acute organ dysfunction status: unspecified Sepsis type: sepsis due to unspecified organism Qualified Code(s): A41.9 - Sepsis, unspecified organism (2) Venous stasis ulcer Laterality: right Non-pressure ulcer stage: unspecified non-pressure ulcer stage Varicose vein presence: without varicose veins Venous stasis ulcer site: thigh Qualified Code(s): I87.2 - Venous insufficiency (chronic) (peripheral); L97.119 - Non-pressure chronic ulcer of right thigh with unspecified severity
--- NOTE | 2019-08-14 08:26 | Pharmacy Report ---
Pharmacy Abx Dose Short Note - Date of Service August 14, 2019 - Assessment & Plan Assessment 38 year old M receiving IV Vancomycin and Aztreonam for treatment of sepsis/cellulitis Day # 2 of antimicrobial therapy. * Blood cultures growing 2/2 Gram positive cocci in chains, which suggests strep. Awaiting sensitivities * Patient remains febrile, but WBC's trending down Plan Vancomycin * Trough level of 15.7 mcg/mL is therapeutic; note, this is an early level prior to 3rd dose and therefore not reflective of steady state. However, do not anticipate that Vancomycin will become supratherapeutic on current regimen *unless* renal function significantly declines. Based on past data, patient should remain therapeutic. * Continue dose of 1500 mg IV every 10 hours * Goal trough level for sepsis : 15 to 20 mcg/mL * Trough or random level ordered for: 08/16/19 @ 0730 to ensure Vancomycin remains within therapeutic range * Likely can de-escalate therapy in 1-2 days Pharmacy will continue to follow and will adjust dose/frequency as necessary. Thank you.
[2019-08-14] MEDS: SACCHAROMYCES BOULARDII 250 MG CAP PO SCH (08:36)
[2019-08-14] MEDS: ENOXAPARIN INJ 40 MG/0.4 ML SYR SQ SCH ×2 (08:36→21:07)
[2019-08-14] MEDS: ACETAMINOPHEN 325 MG TAB PO PRN (08:36)
[2019-08-14] MEDS ORDERED: MICONAZOLE NITRATE POWDER 43 GM EXT PRN (09:23)
--- NOTE | 2019-08-14 13:02 | XCELERA ---
[id number]
[2019-08-15] MEDS: HYDROCODONE/ACETAMINOPHEN 10/325 TAB PO PRN ×4 (00:41→22:39)
[2019-08-15] MEDS: VANCOMYCIN HCL 1,500 MG in SODIUM CHLORIDE 0.9% 500 ML IV SCH (02:16)
[2019-08-15] MEDS: MoRPHine SULFATE 2 MG/ML CARP IV PRN ×3 (02:37→19:52)
[2019-08-15] MEDS: AZTREONAM 2,000 MG in DEXTROSE 5% 100 ML IV SCH (05:25)
[2019-08-15 07:21] LABS: Creatinine Clr Calc Pharmacy 175.8 ml/min; Est GFR (African American) 132.7; Est GFR (Non-African American) 114.5
[2019-08-15] MEDS: ENOXAPARIN INJ 40 MG/0.4 ML SYR SQ SCH ×2 (07:46→19:52)
[2019-08-15] MEDS: SACCHAROMYCES BOULARDII 250 MG CAP PO SCH (07:46)
[2019-08-15] MEDS: cefTRIAXone SODIUM 2,000 MG in DEXTROSE 5% 50 ML IV SCH (11:30)
--- NOTE | 2019-08-15 12:36 | Hospitalist Progress Note ---
Date of Service August 15, 2019 Assessment & Plan (1) Sepsis: Patient with fever, tachycardia and neutrophil predominant leukocytosis. source is skin/soft tissue infection of legs. Does not appear to have necrotizing fascitis, as no gas present on X-ray - no clinical evidence of deeper soft tissue infection. -Follow culture results, showing strep sensitive to ceftriaxone, will look to have 2 negative sets before placing u/s guided cath for outpt antibiotics repeat blood cultures 08/13 are pending - de escalate to ceftriaxone 2 gms a day Echo,(transthoracic did not show valvular abnormalities) -Tylenol PRN pain or fever (2) Lymphedema: Noted. Patient to followup with wound clinic on discharge. Pt states that in the past plastic surgery appointment did not recommend any surgery (3) Venous stasis ulcer: Ulcer of right posterior thigh with dressing in place. Recently debrided. Wound appears healthy with good healing -Treatment as above with rocephin 2 gms daily -Wound care and dressing changes as needed Ppx - Lovenox use higher dosed due to obesity Code - Full Admission and Anticipated Discharge Date Admission Date: August 13, 2019 Subjective The pt's left thigh remains more painful and warm than the right, although he typically has a ulcer or wound on the right He understands that we will need to have negative blood cultures before placing line for outpt antibiotics Review of Systems Review of Systems: Mild distress and fatigue no headache, blurry or double vision no speech or swallowing issues no chest pain, pressure or palpitations no shortness of breath, cough or wheezes no abdominal pain, nausea or vomiting, diarrhea or constipation no dysuria, hematuria or frequency no focal joint pain or swelling no back pain, CVA tenderness or radicular pain markedly skin swelling and lymphedema to b/l lower extremities, pt feels left thigh is more thender firm and reddened than right no focal signs of weakness or numbness or altered sensation no complaints or anxiety or depression. Physical Exam Physical Exam: The patient appeared well nourished and normally developed. he has marked lymphedema to LE bilaterally Vital signs as documented. Head exam is normocephalic atraumatic no scleral icterus Neck is without JVD, thyromegaly, or carotid bruits. Lungs are clear to auscultation, no focal loss of breath sounds Cardiac exam, Rhythm is regular.. No murmurs, rubs or gallops. Abdominal exam reveals normal bowel sounds, soft non tender, no masses Extremities are with massive lymphedema which is chronic Neurologic exam is alert and oriented, no focal loss of strength or sensation Skin is with changes of chronic venous stasis changes, continues with redness and warmth L>R, both legs are indurated but not with definite large area of infection Psychologically is without concerns for anxiety or depression Results & Data Results & Data ([facility]) Vital Signs (Past 12 Hours) Vital Signs Temp Pulse Resp BP Pulse Ox 08/15/19 07:40 98.4 F 75 18 120/67 98 08/15/19 02:42 98.1 F 84 20 103/67 97 PG Care Time/CCT Total # of Minutes Spent Total Time Spent with Patient: Total time spent is greater than 50% in coordination of care (as documented) at patient's floor/unit and/or counseling patient: Coding Level of Care Code 22349 Subseq Hosp Care Lvl 2 Diagnoses Sepsis A41.9 Sepsis type: sepsis due to unspecified organism Sepsis acute organ dysfunction status: unspecified Lymphedema I89.0 Venous stasis ulcer I87.2; L97.119 Venous stasis ulcer site: thigh Varicose vein presence: without varicose veins Laterality: right Non-pressure ulcer stage: unspecified non-pressure ulcer stage (1) Sepsis Sepsis type: sepsis due to unspecified organism Sepsis acute organ dysfunction status: unspecified Qualified Code(s): A41.9 - Sepsis, unspecified organism (2) Venous stasis ulcer Venous stasis ulcer site: thigh Varicose vein presence: without varicose veins Laterality: right Non-pressure ulcer stage: unspecified non-pressure ulcer stage Qualified Code(s): I87.2 - Venous insufficiency (chronic) (peripheral); L97.119 - Non-pressure chronic ulcer of right thigh with unspecified severity
[2019-08-16] MEDS: HYDROCODONE/ACETAMINOPHEN 10/325 TAB PO PRN ×2 (05:18→11:18)
[2019-08-16 07:23] LABS: Creatinine Clr Calc Pharmacy 207.8 ml/min; Est GFR (African American) 142.1; Est GFR (Non-African American) 122.6
[2019-08-16] MEDS ORDERED: VANCOMYCIN TROUGH ONE (07:30)
[2019-08-16] MEDS: SACCHAROMYCES BOULARDII 250 MG CAP PO SCH (07:40)
[2019-08-16] MEDS: ENOXAPARIN INJ 40 MG/0.4 ML SYR SQ SCH (07:40)
[2019-08-16] MEDS: cefTRIAXone SODIUM 2,000 MG in DEXTROSE 5% 50 ML IV SCH (12:19)
[2019-08-16] MEDS ORDERED: HYDROCODONE/ACETAMOPHEN 5/325MG TAB PO STA (15:27)
--- NOTE | 2019-08-16 15:29 | Discharge Summary ---
Date of Service August 16, 2019 Admission HPI Per Admitting Provider Parvez Clark is a 38yo C male with history of chronic venous stasis and lymphedema. He has chronic venous stasis ulcers and follows with Wound Clinic - last seen on 08/11/19 for debridement of ulcer on posterior right thigh. He presents today with acute onset fevers/chills and bilateral leg pain which began around 22:00. No additional complaints at this time, specifically no nausea/vomiting/diarrhea/constipation/dysuria/cough/SOB. Wound culture from 08/04/19 positive for two species of MSSA. ER Course: Vancomycin, Aztreonam, Tylenol, NSS x 1 liter Principal Diagnosis Streptococcal bacteremia Discharge Exam Constitutional WD/WN, vitals as above + morbidly obese; no acute distress Eyes PERRL, conjunctivae normal, anicteric sclerae ENMT external ear and nose normal, oropharynx normal Neck trachea midline, no thyromegaly Respiratory normal respiratory effort, lungs clear to auscultation Cardiovascular Rate/Rhythm: regular rate and regular rhythm Heart Sounds: normal S1 and normal S2; no murmur Vessels: no JVD Extremities: normal capillary refill and + edema; no calf tenderness Gastrointestinal (Abdomen) normal bowel sounds, soft, nontender, no hepatosplenomegaly Musculoskeletal no cyanosis or clubbing, extremities motor strength 5/5 Skin + wound (right posterior thigh) and + erythema (right thigh, cellulitis) Neurologic patellar DTR's 2+ bilat, sensation intact and PERRL, EOMI, accommodation nl, no face palsy, no dysarthria Psychiatric A+Ox3, euthymic affect Lymphatic + lymphedema (significant, bilateral legs) Discharge Data Allergies Allergy/AdvReac Type Severity Reaction Status Date / Time amoxicillin Allergy Severe BLISTERS & Verified 08/18/19 12:53 SORES IN MOUTH Sulfa (Sulfonamide Allergy Severe BLISTERS & Verified 08/18/19 12:53 Antibiotics) SORES IN MOUTH daptomycin Allergy Intermediate RASH, Verified 08/18/19 12:53 EOSINOPHILIA zinc oxide Allergy Unknown RASH Verified 08/18/19 12:53 ketorolac [From Toradol] AdvReac Mild pain Unverified 08/18/19 12:53 behind eye "ALL" ANTIBIOTICS Allergy Intermediate CAUSE Uncoded 08/13/19 02:23 BLISTERS & SORES IN MOUTH. Consultations 08/13/19 05:02 ED Decision to Admit Stat Hospital Course (1) Sepsis: Patient with fever, tachycardia and neutrophil predominant leukocytosis. source is skin/soft tissue infection of legs. Does not appear to have necrotizing fascitis, as no gas present on X-ray - no clinical evidence of deeper soft tissue infection. -Follow culture results, showing strep sensitive to ceftriaxone repeat blood cultures 08/13 show no growth, US guided IV placed on 08/15 by IV team arranged for home IV Ceftriaxone 2gm daily x 14 days total treatment, last day 08/29 Echo,(transthoracic did not show valvular abnormalities) -Tylenol PRN pain or fever (2) Lymphedema: Noted. Patient to followup with wound clinic on discharge. Pt states that in the past plastic surgery appointment did not recommend any surgery (3) Venous stasis ulcer: Ulcer of right posterior thigh with dressing in place. Recently debrided. Wound appears healthy with good healing -Treatment as above with rocephin 2 gms daily -Wound care and dressing changes as needed follow up wound clinic Ppx - Lovenox use higher dosed due to obesity Code - Full Total Time Total Time Spent Total Time Spent (In Minutes): 31 minutes Total Time Includes: Examination of the Patient, Discharge Planning, Medication Reconciliation and Other (discussions with CM about discharge planning, home health) Discharge Plan Discharge Items Patient Disposition: Home - Home Health Services Reason For Visit: SEPSIS Discharge Diagnosis: Group B streptococcal bacteremia Condition on Discharge: Good Goals: complete course of Rocephin for bacteremia Activity: Resume your previous activity Non-emergency contact: Primary Care Provider Call non-emergency contact if: you have any medication questions and your symptoms worsen Follow-up/Referrals: Mine Davis MD [Primary Care Provider] - (one week) Diet: Regular Addtl Attending Provider Instructions: Medications: - ROCEPHIN: complete full course until 08/29 for treatment of bacteremia Please follow up with PCP in one week for assessment of wound, bacteremia Blood cultures grew out Group B strep that was sensitive to the Rocephin labs and vitals have been stable, okay for discharge to home Pending Studies at Discharge: No Stand-Alone Forms: My [employer], Smoking Cessation Medications and DC Order Prescriptions: New Saccharomyces boulardii [Florastor] 250 mg Capsule 250 mg PO DAILY 14 Days Qty: 14 RF: 0 ceftriaxone 2 gram recon soln 2 gm IV DAILY Qty: 14 RF: 0 Continued (DME) Wheelchair (Manual) Device See Dose Instructions .ROUTE .MEDSUPPLY Qty: 1 RF: 0 Discontinued doxycycline hyclate 100 mg tablet 100 mg PO bid 14 Days Qty: 28 RF: 0 No Action hydrocodone-acetaminophen 10-325 mg tablet 2 tab PO QID PRN (Reason: Pain) Qty: 224 RF: 0 nystatin 100,000 unit/gram powder 1 appln TOP BID Qty: 30 RF: 5 Discharge Orders: Discharge Order (Routine); Ordered 08/16/19 Ordered By: London Henderson Admission Data Admit Date/Time: 08/13/19 04:35 Attending Provider: London Henderson Admit Provider: Laurel Tejada Primary Care Provider: Mine Davis Other Providers: Laurel Tejada ; [facility] Other Interventions: Discharge Summary Assessment (RN) Last Done: 08/16/19 15:29 DC Date/Time DO NOT enter until pt leaves facility: 08/16/19 15:42 Coding Level of Care Code D/C Day Management >30 mins Diagnoses Sepsis A41.9 Sepsis acute organ dysfunction status: unspecified Sepsis type: sepsis due to unspecified organism Lymphedema I89.0 Venous stasis ulcer I87.2; L97.119 Laterality: right Non-pressure ulcer stage: unspecified non-pressure ulcer stage Varicose vein presence: without varicose veins Venous stasis ulcer site: thigh
== END 2019-08-16 15:42 | disposition home health service (06) | DRG 872 ==
LOC: ED 02:10 → 2N 04:35 → SUATTDRO 04:35 → 2N 06:34

== ENCOUNTER 2022-06-23 21:29 | Observation (INO) ==
[2022-06-23] MEDS ORDERED: ONDANSETRON INJ 2 MG/ML 2 ML VIAL IV STA (21:43)
[2022-06-23] MEDS ORDERED: HYDROmorphone INJ 1 MG/ML SYRINGE IV STA (21:43)
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
[2022-06-23] MEDS ORDERED: IBUPROFEN 200 MG TAB PO STA (21:56)
[2022-06-23] MEDS ORDERED: IBUPROFEN 600MG HOME PACK PO ONE (21:56)
[2022-06-23 22:15] LABS: iSTAT Creatinine 0.8 mg/dl (0.6-1.3); iSTAT Hemoglobin 12.9 g/dl (14.0-18.0); iSTAT Ionized Calcium 1.2 mmol/l (1.12-1.32); iSTAT Potassium 3.4 mmol/L (3.3-5.0)
[2022-06-23 22:28] LABS: Basophils # (auto) 0.07 K/uL (0-0.2); Basophils % (auto) 0.8 %; Eosinophils # (auto) 0.13 K/uL (0-0.50); Eosinophils % (auto) 1.5 %; Hematocrit (blood only) 35.9 % (42.0-52.0); Hemoglobin 11.5 g/dl (14.0-18.0); Immature Granulocytes # (auto) 0.07 K/uL (0.01-0.20); Immature Granulocytes % (auto) 0.8 %; Lymphocytes # (auto) 1.45 K/uL (1.2-3.4); Lymphocytes % (auto) 17.1 %; Mean Corpuscular Hemoglobin 30.7 pg (25.0-34.0); Mean Corpuscular Volume 95.7 fL (80.0-100.0); Mean Platelet Volume 11.8 fL (9.4-12.4); Monocytes # (auto) 0.67 K/uL (0.11-0.59); Monocytes % (auto) 7.9 %; Neutrophils % (auto) 71.9 %; Platelet Count 219 K/uL (130-400); RDW Standard Deviation 48.9 fL (36.4-46.3); Red Blood Count 3.75 M/uL (4.70-6.10); White Blood Count 8.49 K/ul (4.8-10.8)
[2022-06-23 22:37] LABS: Alanine Aminotransferase 40 U/L (7-52); Albumin Globulin Ratio 1.1 (0.9-2); Albumin Level 3.9 gm/dl (3.4-5.0); Alkaline Phosphatase 98 U/L (34-104); Anion Gap 5 (3-11); Aspartate Aminotransferase 50 U/L (13-39); BUN Creatinine Ratio 26.3 (10-20); Bilirubin,Total 0.4 mg/dl (0.2-1.0); Blood Urea Nitrogen 21 mg/dl (6-23); Calcium 8.8 mg/dl (8.6-10.3); Carbon Dioxide 25 mmol/L (21-32); Chloride 108 mmol/L (98-107); Creatine Kinase 163 U/L (30-223); Est GFR (African American) 128.6 ml/min; Globulin 3.6 gm/dl (2.5-4.0); Glucose 139 mg/dl (70-99(Fasting)); Potassium 3.6 mmol/L (3.5-5.1); Sodium 138 mmol/L (136-145); Total Protein 7.5 gm/dl (6.0-8.3)
[2022-06-23] MEDS ORDERED: OPTIRAY 350 100ml IV ONE (22:44)
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
[2022-06-23] MEDS: HYDROmorphone INJ 1 MG/ML SYRINGE IV PRN ×2 (23:31→23:46)
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
--- NOTE | 2022-06-23 23:34 | CT Scan Report ---
Exam(s): CT L SPINE With Contrast IV Amt: 89ML OPTIRAY 350 EXAM: CT Lumbar Spine With Intravenous Contrast CLINICAL HISTORY: Reason for exam: Trauma. TECHNIQUE: Axial computed tomography images of the lumbar spine with intravenous contrast. CTDI is 38.39 mGy and DLP is 2892.95 mGy-cm. Automated exposure control was utilized for the study. A dose lowering technique was utilized adhering to the principles of ALARA. CONTRAST: Patient received 89ML OPTIRAY 350 of IV contrast COMPARISON: No relevant prior studies available. FINDINGS: Vertebrae: The lumbar spine vertebral body heights are normally maintained. No compression fracture or burst fracture is seen. There are chronic appearing bilateral pars defects at L5 with 1 mm anterolisthesis of L5 on S1. No acute fracture or spinal stenosis is seen. 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 Discs/spinal canal/neural foramina: Mild degenerative disc disease in the upper lumbar spine. No significant focal disc herniation is seen. No spinal canal stenosis. Soft tissues: Unremarkable. IMPRESSION: 1. The lumbar spine vertebral body heights are normally maintained. No compression fracture or burst fracture is seen. 2. There are chronic appearing bilateral pars defects at L5 with 1 mm anterolisthesis of L5 on S1. No acute fracture or spinal stenosis is seen. Electronically signed by: Justyn Tejada MD 06/23/22 23:33 PM
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
[2022-06-24] MEDS: HYDROmorphone INJ 1 MG/ML SYRINGE IV PRN ×2 (00:47→01:34)
[2022-06-24] MEDS ORDERED: KETOROLAC TROMETHAMINE 15 MG/ML VIAL IV ONE ×2 (01:39→10:30)
[2022-06-24] MEDS ORDERED: PANTOprazole 40 MG in SYRINGE 0 ML IV ONE (01:50)
[2022-06-24] MEDS ORDERED: HYDROmorphone INJ 0.5 MG/0.5 ML SYR IV PRN (02:51)
[2022-06-24] MEDS: ACETAMINOPHEN 1,000 MG/100 ML VIAL IV SCH ×2 (03:09→11:33)
[2022-06-24] MEDS: HYDROmorphone INJ 0.5 MG/0.5 ML SYR IV PRN ×5 (03:40→22:01)
[2022-06-24] MEDS: NYSTATIN POWDER 15GM BTL EXT SCH ×2 (08:28→20:58)
[2022-06-24] MEDS: POLYETHYLENE (MIRALAX) 17 GM PACK PO SCH (08:30)
[2022-06-24] MEDS ORDERED: ENOXAPARIN INJ 40 MG/0.4 ML SYR SQ SCH (09:00)
[2022-06-24] MEDS: PANTOprazole 40 MG in SYRINGE 0 ML IV SCH (09:51)
[2022-06-24 09:55] LABS: Albumin Globulin Ratio 1.1 (0.9-2); Albumin Level 3.4 gm/dl (3.4-5.0); BUN Creatinine Ratio 26.9 (10-20); Bilirubin,Total 0.4 mg/dl (0.2-1.0); Calcium 8.3 mg/dl (8.6-10.3); Creatinine Clr Calc Pharmacy 171.9 ml/min; Est GFR (African American) 138.3 ml/min; Est GFR (Non-African American) 119.3 ml/min; Potassium 3.8 mmol/L (3.5-5.1); Total Protein 6.4 gm/dl (6.0-8.3)
[2022-06-24] MEDS: CYANOCOBALAMIN (B-12) 500 MCG TABLET PO SCH (12:25)
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
[2022-06-24] MEDS: HYDROcodone/ACETAMINOPHEN 10/325 TAB PO PRN ×2 (13:10→19:19)
[2022-06-24] MEDS: ENOXAPARIN INJ 40 MG/0.4 ML SYR SQ SCH (20:58)
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
[2022-06-25] MEDS: HYDROmorphone INJ 0.5 MG/0.5 ML SYR IV PRN ×2 (01:20→13:11)
[2022-06-25] MEDS: HYDROcodone/ACETAMINOPHEN 10/325 TAB PO PRN ×3 (03:13→17:08)
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
[2022-06-25 08:26] LABS: Albumin Globulin Ratio 1.2 (0.9-2); Albumin Level 3.2 gm/dl (3.4-5.0); BUN Creatinine Ratio 21.4 (10-20); Bilirubin,Total 0.5 mg/dl (0.2-1.0); Calcium 8.2 mg/dl (8.6-10.3); Creatinine Clr Calc Pharmacy 205.7 ml/min; Est GFR (African American) 148.9 ml/min; Est GFR (Non-African American) 128.5 ml/min; Globulin 2.7 gm/dl (2.5-4.0); Magnesium 1.7 mg/dl (1.7-2.4); Total Protein 5.9 gm/dl (6.0-8.3)
[2022-06-25 08:34] LABS: Hematocrit (blood only) 30.3 % (42.0-52.0); Mean Corpuscular Volume 93.8 fL (80.0-100.0); Mean Platelet Volume 11.9 fL (9.4-12.4); Platelet Count 153 K/uL (130-400); RDW Standard Deviation 48.2 fL (36.4-46.3); Red Blood Count 3.23 M/uL (4.70-6.10); White Blood Count 4.52 K/ul (4.8-10.8)
[2022-06-25] MEDS: PANTOprazole 40 MG in SYRINGE 0 ML IV SCH (10:16)
[2022-06-25] MEDS: ENOXAPARIN INJ 40 MG/0.4 ML SYR SQ SCH ×2 (10:18→19:59)
[2022-06-25] MEDS: CYANOCOBALAMIN (B-12) 500 MCG TABLET PO SCH (10:19)
[2022-06-25] MEDS: NYSTATIN POWDER 15GM BTL EXT SCH ×2 (10:19→19:59)
[2022-06-25] MEDS: POLYETHYLENE (MIRALAX) 17 GM PACK PO SCH (10:19)
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
[2022-06-25] MEDS ORDERED: oxyCODONE HCL IR 5 MG TAB (IMMEDIATE RELEASE) PO STA (18:09)
[2022-06-25] MEDS: MELOXICAM 7.5 MG TAB PO SCH (19:59)
[2022-06-26] MEDS: HYDROcodone/ACETAMINOPHEN 10/325 TAB PO PRN ×3 (01:26→13:58)
[2022-06-26 06:46] LABS: Hematocrit (blood only) 26.8 % (42.0-52.0); Hemoglobin 8.8 g/dl (14.0-18.0); Mean Corpuscular Hemoglobin 30.9 pg (25.0-34.0); Mean Corpuscular Hgb Conc 32.8 g/dL (32.0-36.0); Mean Platelet Volume 12.2 fL (9.4-12.4); Platelet Count 133 K/uL (130-400); RDW Coefficient of Variation 13.9 % (11.5-14.5); RDW Standard Deviation 47.8 fL (36.4-46.3); Red Blood Count 2.85 M/uL (4.70-6.10); White Blood Count 5.45 K/ul (4.8-10.8)
[2022-06-26 07:05] LABS: Albumin Globulin Ratio 1.1 (0.9-2); Albumin Level 2.9 gm/dl (3.4-5.0); BUN Creatinine Ratio 15.8 (10-20); Bilirubin,Total 0.4 mg/dl (0.2-1.0); Creatinine Clr Calc Pharmacy 202.1 ml/min; Est GFR (African American) 147.8 ml/min; Est GFR (Non-African American) 127.5 ml/min; Globulin 2.6 gm/dl (2.5-4.0); Magnesium 1.6 mg/dl (1.7-2.4); Potassium 3.8 mmol/L (3.5-5.1); Total Protein 5.5 gm/dl (6.0-8.3)
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
[2022-06-26] MEDS ORDERED: oxyCODONE HCL IR 5 MG TAB (IMMEDIATE RELEASE) PO PRN (07:56)
[2022-06-26] MEDS: CYANOCOBALAMIN (B-12) 500 MCG TABLET PO SCH (08:00)
[2022-06-26] MEDS: ENOXAPARIN INJ 40 MG/0.4 ML SYR SQ SCH (08:00)
[2022-06-26] MEDS: NYSTATIN POWDER 15GM BTL EXT SCH (08:01)
[2022-06-26] MEDS: MELOXICAM 7.5 MG TAB PO SCH (08:01)
[2022-06-26] MEDS: POLYETHYLENE (MIRALAX) 17 GM PACK PO SCH (08:06)
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
[2022-06-26] MEDS: PANTOprazole 40 MG in SYRINGE 0 ML IV SCH (11:43)
== END 2022-06-26 16:34 | disposition home or self-care (01) ==
LOC: 2N 21:29 → ED 21:29 → SUATTDRO 06-24 00:52 → 2N 06-24 02:16
DX: Z88.1 Allergy status to other antibiotic agents; S92.902A Unspecified fracture of left foot, initial encounter for closed fracture; I89.0 Lymphedema, not elsewhere classified; Z88.2 Allergy status to sulfonamides; S92.312A Displaced fracture of first metatarsal bone, left foot, initial encounter for closed fracture; Z68.43 Body mass index [BMI] 50.0-59.9, adult; V86.55XA Driver of 3- or 4- wheeled all-terrain vehicle (ATV) injured in nontraffic accident, initial encounter; E66.01 Morbid (severe) obesity due to excess calories; K21.9 Gastro-esophageal reflux disease without esophagitis

== ENCOUNTER 2023-04-11 12:29 | Inpatient (IN) ==
--- NOTE | 2023-04-11 13:06 | Emergency Department Note ---
History of Present Illness General Chief complaint: Arrhythmia/Palpitations Stated complaint: FAST HEART RATE - PRESSURE IN L ARM Time Seen by Provider: 04/11/23 12:46 Source: patient, RN notes reviewed and old records reviewed (07/30/22-primary care office visit for leg injury) Mode of arrival: ambulatory Limitations: no limitations History of Present Illness Maximum Pain Intensity: 4 This patient is a 42-year-old male who comes in with a rapid heart rate he had some last night and this morning feels okay now he does have a history of chronic lymphedema and gets frequent cellulitis he is worried he could be brewing infection because his left legs been red. He had a low-grade temperature 100. He has been keeping up with his fluids. He denies any shortness of breath or chest pain. No blood or melena in his stool. He does get frequent cellulitis. Home Medications Medication Instructions Recorded Confirmed Type Wheelchair (Manual) #1 ea 01/14/19 04/11/23 Rx COVID-19 antigen test (COVID-19 #4 ea 02/04/23 04/11/23 Rx At-Home Test kit) Allergies Allergy/AdvReac Type Severity Reaction Status Date / Time amoxicillin Allergy Severe BLISTERS & Verified 07/12/22 18:27 SORES IN MOUTH Sulfa (Sulfonamide Allergy Severe BLISTERS & Verified 07/12/22 18:27 Antibiotics) SORES IN MOUTH daptomycin Allergy Intermediate RASH, Verified 07/12/22 18:27 EOSINOPHILIA zinc oxide Allergy Intermediate RASH Verified 07/12/22 18:27 ketorolac [From Toradol] AdvReac Mild pain Verified 07/12/22 18:27 behind eye "ALL" ANTIBIOTICS Allergy Intermediate CAUSE Uncoded 07/12/22 18:27 BLISTERS & SORES IN MOUTH. Past Med/Surg History Medical History (Updated 04/11/23 @ 19:04 by Tito Castaneda MD) Cellulitis recurrent admissions for such requiring IV antibiotic courses History of ulcer of lower extremity Venous stasis of rt lower leg with edema of the right lower leg Also hx in rt thigh Sleep apnea Plantar fasciitis History of MRSA infection Right leg wound 04/11/2018 is the last positive MRSA culture Acid reflux DDD (degenerative disc disease), lumbar External hemorrhoids Hypotestosteronism Metabolic syndrome Vitamin D deficiency Morbid obesity with BMI of 50.0-59.9, adult Abscess, perirectal Perianal abscess Kidney stone Surgical History (Updated 04/11/23 @ 19:04 by Tito Castaneda MD) H/O wisdom tooth extraction H/O gastric bypass Family History Father Heart disease CAD w/ stents Diabetes Dyslipidemia Mother Diabetes Heart disease Dyslipidemia Myocardial infarction Other Gallbladder disease Hypertension Lung disease Social History Smoking Status: Never smoker Second Hand Exposure: No; Do You Dip or Chew Tobacco: No; Hx Alcohol Use: No Hx Substance Use: No Preferred Language: Bulgarian Communication Ability: Effective Visual Impairment: No Limitations Hearing Ability: Normal Internet Webmaster Required: No Beliefs That Will Affect Care: None marital status: Single Current Living Situation: Family Current Living Situation Comment: lives with mom/dad in [facility] current occupational status: disabled Other Information That Helps Us Care for You: No Feels Safe at Home: Yes Safety Concerns: Feels Safe At This Time Childhood Exposure to Second-Hand Smoke: Yes Diet: regular caffeine: Yes during the past year weight has: remained stable Dental Care, Regularly: No Physical Activity Frequency: Daily Seatbelt Use: always Sunscreen Use: Yes Review of Systems A total of 10 systems reviewed and were otherwise negative Physical Exam Vital Signs Vital Signs - 24 hr 04/11/23 12:31 04/11/23 13:12 04/11/23 13:12 Temperature 36.4 C L Temperature Source Temporal Artery Scan Pulse Rate 93 H Pulse Rate [Finger] 84 Pulse Rate from SpO2 Sensor Respiratory Rate 18 16 Respiratory Effort / Characteristics Non-Labored Spontaneous Non-Labored Respiratory Depth Normal Normal Blood Pressure 138/91 Blood Pressure [Right Arm] 107/68 Blood Pressure Mean 106 Blood Pressure Mean [Right Arm] 81 Pulse Oximetry 97 98 98 Oxygen Delivery Method Room Air Room Air Room Air Sepsis New/Unexplained Change in Mental Status No Sepsis Action Taken by Nursing No Action Required 04/11/23 13:24 04/11/23 13:30 04/11/23 13:30 Temperature Temperature Source Pulse Rate 74 Pulse Rate [Finger] Pulse Rate from SpO2 Sensor 70 Respiratory Rate 14 Respiratory Effort / Characteristics Respiratory Depth Blood Pressure 107/68 107/68 Blood Pressure [Right Arm] Blood Pressure Mean 78 78 Blood Pressure Mean [Right Arm] Pulse Oximetry 100 Oxygen Delivery Method Sepsis New/Unexplained Change in Mental Status Sepsis Action Taken by Nursing 04/11/23 13:30 04/11/23 13:45 04/11/23 14:00 Temperature Temperature Source Pulse Rate 72 63 77 Pulse Rate [Finger] Pulse Rate from SpO2 Sensor 70 62 71 Respiratory Rate 24 20 19 Respiratory Effort / Characteristics Respiratory Depth Blood Pressure Blood Pressure [Right Arm] Blood Pressure Mean Blood Pressure Mean [Right Arm] Pulse Oximetry 99 99 100 Oxygen Delivery Method Sepsis New/Unexplained Change in Mental Status Sepsis Action Taken by Nursing 04/11/23 14:15 04/11/23 14:30 04/11/23 14:30 Temperature Temperature Source Pulse Rate 66 74 Pulse Rate [Finger] Pulse Rate from SpO2 Sensor 67 75 Respiratory Rate 18 20 Respiratory Effort / Characteristics Respiratory Depth Blood Pressure 143/90 H Blood Pressure [Right Arm] Blood Pressure Mean 117 Blood Pressure Mean [Right Arm] Pulse Oximetry 100 100 Oxygen Delivery Method Sepsis New/Unexplained Change in Mental Status Sepsis Action Taken by Nursing 04/11/23 14:45 04/11/23 15:00 04/11/23 15:00 Temperature Temperature Source Pulse Rate 75 76 Pulse Rate [Finger] Pulse Rate from SpO2 Sensor 74 76 Respiratory Rate 23 18 Respiratory Effort / Characteristics Respiratory Depth Blood Pressure 117/66 Blood Pressure [Right Arm] Blood Pressure Mean 89 Blood Pressure Mean [Right Arm] Pulse Oximetry 100 100 Oxygen Delivery Method Sepsis New/Unexplained Change in Mental Status Sepsis Action Taken by Nursing 04/11/23 15:30 04/11/23 16:20 04/11/23 16:30 Temperature Temperature Source Pulse Rate 74 82 77 Pulse Rate [Finger] Pulse Rate from SpO2 Sensor 75 Respiratory Rate 14 20 Respiratory Effort / Characteristics Respiratory Depth Blood Pressure 126/77 95/71 L Blood Pressure [Right Arm] Blood Pressure Mean 93 79 Blood Pressure Mean [Right Arm] Pulse Oximetry 100 100 Oxygen Delivery Method Sepsis New/Unexplained Change in Mental Status Sepsis Action Taken by Nursing 04/11/23 17:00 04/11/23 17:39 Temperature Temperature Source Pulse Rate 85 95 H Pulse Rate [Finger] Pulse Rate from SpO2 Sensor Respiratory Rate 18 22 Respiratory Effort / Characteristics Respiratory Depth Blood Pressure 124/74 135/97 Blood Pressure [Right Arm] Blood Pressure Mean 90 109 Blood Pressure Mean [Right Arm] Pulse Oximetry 100 100 Oxygen Delivery Method Sepsis New/Unexplained Change in Mental Status Sepsis Action Taken by Nursing General: Well developed well nourished middle-age male who appears in no acute distress, breathing comfortably on room air. Normal speech HEENT: Normal cephalic atraumatic. Pupils are equal round and reactive to light. Sclera anicteric. Extraocular movements are intact. Oropharynx is pink with moist mucous membranes. No swelling of the mouth lips or tongue. Neck: Supple with a midline trachea. No meningeal signs or stiffness, no JVD or bruits. No Stridor. Chest: Clear to auscultation bilaterally. No wheezes or rhonchi. No increased work of breathing. Heart: Regular rate and rhythm without murmurs or gallops. Abdomen: Soft nontender, nondistended without rebound guarding or rigidity. Extremities: He has chronic significant lymphedema both legs in the left mid leg he has an area of redness and warmth consistent with cellulitis on the left ankle area there is a small ulcer that is not red or warm and is without drainage. Spine/Back. Non tender to palpation. No CVA tenderness Skin: Good turgor without rashes. Neurologic exam: Cranial nerves two through 12 are intact. Motor and sensation are intact and symmetrical throughout. Course Administered Medications Magnesium Sulfate/Dextrose (Magnesium Sulfate / D5w) 1 gm in 100 mls @ 50 mls/hr IV Q2H RANJAN Stop: 04/11/23 22:29 Last Admin: 04/11/23 19:32 Dose: 50 mls/hr Documented By: CPB Azithromycin 500 mg/ Dextrose 255 mls @ 127.5 mls/hr IV Q24H RANJAN Stop: 04/18/23 18:59 Last Admin: 04/11/23 19:32 Dose: 127.5 mls/hr Documented By: CPB Discontinued Medications Sodium Chloride (Nss) 1,000 mls @ 999 mls/hr IV .Q1H1M ONE Stop: 04/11/23 13:53 Last Infusion: 04/11/23 20:05 Dose: Infused Documented By: Admin: 04/11/23 15:11 Dose: 999 mls/hr Documented By: SRL Ceftriaxone Sodium (Rocephin) 2,000 mg in 50 mls @ 100 mls/hr IV NOW STA Stop: 04/11/23 14:45 Last Infusion: 04/11/23 15:44 Dose: Infused Documented By: Admin: 04/11/23 15:11 Dose: 100 mls/hr Documented By: SRL Vancomycin HCl 2,000 mg/ (Sodium Chloride) 540 mls @ 200 mls/hr IV NOW ONE Stop: 04/11/23 16:57 Last Infusion: 04/11/23 18:49 Dose: Infused Documented By: Admin: 04/11/23 15:44 Dose: 200 mls/hr Documented By: CPB Magnesium Sulfate/Dextrose (Magnesium Sulfate / D5w) 1 gm in 100 mls @ 100 mls/hr IV NOW STA Stop: 04/11/23 15:38 Last Infusion: 04/11/23 17:38 Dose: Infused Documented By: Admin: 04/11/23 16:30 Dose: 100 mls/hr Documented By: CPB Medical Decision Making Differential Diagnosis Sepsis, cellulitis, electrolyte or metabolic abnormality, cardiac disease, arrhythmia, anemia, electrolyte or metabolic abnormality Medical Records Attestation: I reviewed the patient's medical records. Home Medications Current Medication List: was personally reviewed by me Laboratory Data Attestation: I reviewed the patient's lab results. 04/11/23 13:14 04/11/23 13:14 Lab Results 04/11/23 04/11/23 Range/Units 13:14 15:02 WBC 7.77 (4.8-10.8) K/ul RBC 4.04 L (4.70-6.10) M/uL Hgb 11.9 L (14.0-18.0) g/dl Hct 37.2 L (42.0-52.0) % MCV 92.1 (80.0-100.0) fL MCH 29.5 (25.0-34.0) pg MCHC 32.0 (32.0-36.0) g/dL RDW Std Deviation 51.1 H (36.4-46.3) fL RDW Coeff of Lizet 15.5 H (11.5-14.5) % Plt Count 198 (130-400) K/uL MPV 11.4 (9.4-12.4) fL Immature Gran % (Auto) 0.4 % Neut % (Auto) 85.0 % Lymph % (Auto) 9.0 % [place] % (Auto) 5.1 % Eos % (Auto) 0.1 % Baso % (Auto) 0.4 % Neut # (Auto) 6.60 H (1.40-6.50) K/uL Lymph # (Auto) 0.70 L (1.20-3.40) K/uL [place] # (Auto) 0.40 (0.11-0.59) K/uL Eos # (Auto) 0.01 (0.00-0.50) K/uL Baso # (Auto) 0.03 (0.00-0.20) K/uL Immature Gran # (Auto) 0.03 (0.01-0.20) K/uL ESR 26 H (0-15) mm/hr Sodium 137 (136-145) mmol/L Potassium 3.5 (3.5-5.1) mmol/L Chloride 108 H (98-107) mmol/L Carbon Dioxide 24 (21-32) mmol/L Anion Gap 5 (3-11) BUN 14 (6-23) mg/dl Creatinine 0.63 (0.6-1.4) mg/dl Est Cr Clr Drug Dosing 160.1 ml/min Est GFR ( Amer) 140.9 ml/min Est GFR (Non-Af Amer) 121.5 ml/min BUN/Creatinine Ratio 22.2 H (10-20) Glucose 101 H (70-99(Fasting)) mg/dl Lactate 1.4 (0.4-2.0) mmol/L Calcium 8.6 (8.6-10.3) mg/dl Magnesium 1.5 L (1.7-2.4) mg/dl Total Bilirubin 0.5 (0.2-1.0) mg/dl Direct Bilirubin 0.2 (0-0.2) mg/dl AST 15 (13-39) U/L ALT 8 (7-52) U/L Alkaline Phosphatase 107 H (34-104) U/L Troponin I High Sens 3.0 (0-20) pg/ml B-Natriuretic Peptide 123 H (0-100) pg/ml Total Protein 7.2 (6.0-8.3) gm/dl Albumin 3.7 (3.4-5.0) gm/dl Procalcitonin 0.09 (0-0.5) ng/ml Urine Color Yellow Urine Appearance Clear (Clear) Urine pH 5.5 (4.5-7.5) Ur Specific [place] 1.021 (1.000-1.030) Urine Protein Negative (Negative) Urine Glucose (UA) Negative (Negative) Urine Ketones Negative (Negative) Urine Blood Negative (Negative) Urine Nitrite Negative (Negative) Urine Bilirubin Negative (Negative) Urine Urobilinogen Negative (Negative) Ur Leukocyte Esterase Negative (Negative) Imaging Data Attestation: I personally reviewed and interpreted this imaging study as follows: My Impression: Chest [id number] but no acute infiltrate, failure, pneumothorax seen Radiologist's Impression: Chest X-Ray 04/11/23 12:52 XR chest 1V portable HISTORY: Sepsis COMPARISON: Chest CT 06/23/2022. FINDINGS: No pneumothorax. No pleural effusions. Slightly rotated study. The heart is normal in size. There are old, healed right-sided rib fractures. The left lung appears clear. There is small focal density within the right medial lung base overlying the thoracic spine. There is also a linear density at the right lung base which is new compared to the prior study. These are nonspecific and could represent atelectasis or a pneumonia. IMPRESSION: Small nonspecific right basilar densities. This could represent atelectasis or a developing pneumonia. ACT 112: Negative or not required by law. Electronically signed by: Marshall Adams M.D. 04/11/2023 1:13 PM ECG Data Attestation: I personally reviewed and interpreted this ECG as follows: Indication: + tachycardia Rate (beats per minute): 66 Rhythm: + normal sinus ECG Intervals/blocks: + Normal QRS, + Normal QT and + Normal [place] ECG [place]: + Normal ECG ST segments: + Normal ST segments ECG Findings: no PACs or no PVCs Comparison ECG Date: from (08/13/19) Change: no significant change MDM Narrative This patient comes in as described above he was seen in room A3 was placed on a nurse monitoring he has a history of significant peripheral edema/lymphedema and was tachycardic. On my exam he is not significantly tachycardic. I am concerned about cellulitis/sepsis as he does tend to get cellulitis and has significant lymphedema. His vital signs did remain stable here he tells me he was tachycardic to 130 at home but was not here. His EKG does not show any ischemic changes or ectopy. Chest x-ray shows cardiomegaly I do not appreciate any definite infiltrate. His white count lactic are not significant elevated. He has no sick electrolyte or metabolic abnormalities. I do think he needs to be admitted/observed given his history of cellulitis and his underlying medical issues and their large area of cellulitis. He was given IV ceftriaxone and IV vancomycin. His multiple allergies listed however he tells me he had both of these before. I did consult with our pharmacist to help with antibiotic choices and we further discussed them with the patient. I have consulted the [facility] team to see the patient in the ER for likely admission/observation. Continuous cardiac monitoring: Orders placed in EMR for continuous nurse monitoring: Pulm evaluation patient noted to be in normal sinus rhythm rate of 70 Impression & Plan Cellulitis, H/O gastric bypass, Lymphedema of both lower extremities, Ulcer of left lower extremity Discharge Plan Visit Data Chief Complaint: Arrhythmia/Palpitations Stated Complaint: FAST HEART RATE - PRESSURE IN L ARM ED Provider: Tito Castaneda Discharge Problem: Cellulitis, H/O gastric bypass, Lymphedema of both lower extremities, Ulcer of left lower extremity Patient Disposition: Admitted As Inpatient Discharge Instructions Interventions: ED Discharge Assessment Last Done: 04/11/23 20:19 Discharge Problem: Cellulitis Qualifiers: Site of cellulitis: extremity Site of cellulitis of extremity: lower extremity Laterality: left Qualified Code(s): L03.116 - Cellulitis of left lower limb Ulcer of left lower extremity Qualifiers: Non-pressure ulcer stage: unspecified non-pressure ulcer stage Qualified Code(s): L97.929 - Non-pressure chronic ulcer of unspecified part of left lower leg with unspecified severity
--- NOTE | 2023-04-11 13:15 | XRay Report ---
XR chest 1V portable HISTORY: Sepsis COMPARISON: Chest CT 06/23/2022. FINDINGS: No pneumothorax. No pleural effusions. Slightly rotated study. The heart is normal in size. There are old, healed right-sided rib fractures. The left lung appears clear. There is small focal d ensity within the right medial lung base overlying the thoracic spine. There is also a linear density at the right lung base which is new compared to the prior study. These are nonspecific and could rep resent atelectasis or a pneumonia. IMPRESSION: Small nonspecific right basilar densities. This could represent atelectasis or a developing pneumonia . ACT 112: Negative or not required by law. Electronically signed by: Marshall Adams M.D. 04/11/2023 1:13 PM
[2023-04-11 13:38] LABS: Basophils # (auto) 0.03 K/uL (0.00-0.20); Basophils % (auto) 0.4 %; Eosinophils # (auto) 0.01 K/uL (0.00-0.50); Eosinophils % (auto) 0.1 %; Hematocrit (blood only) 37.2 % (42.0-52.0); Hemoglobin 11.9 g/dl (14.0-18.0); Immature Granulocytes # (auto) 0.03 K/uL (0.01-0.20); Immature Granulocytes % (auto) 0.4 %; Mean Corpuscular Hemoglobin 29.5 pg (25.0-34.0); Mean Corpuscular Volume 92.1 fL (80.0-100.0); Mean Platelet Volume 11.4 fL (9.4-12.4); Monocytes % (auto) 5.1 %; Platelet Count 198 K/uL (130-400); RDW Coefficient of Variation 15.5 % (11.5-14.5); RDW Standard Deviation 51.1 fL (36.4-46.3); Red Blood Count 4.04 M/uL (4.70-6.10); White Blood Count 7.77 K/ul (4.8-10.8)
[2023-04-11 13:55] LABS: Albumin Level 3.7 gm/dl (3.4-5.0); BUN Creatinine Ratio 22.2 (10-20); Bilirubin Direct 0.2 mg/dl (0-0.2); Bilirubin,Total 0.5 mg/dl (0.2-1.0); Calcium 8.6 mg/dl (8.6-10.3); Creatinine Clr Calc Pharmacy 160.1 ml/min; Est GFR (African American) 140.9 ml/min; Est GFR (Non-African American) 121.5 ml/min; Magnesium 1.5 mg/dl (1.7-2.4); Potassium 3.5 mmol/L (3.5-5.1); Total Protein 7.2 gm/dl (6.0-8.3)
[2023-04-11] MEDS ORDERED: VANCOMYCIN CONSULT ACTIVE PRN ×2 (14:16→20:31)
[2023-04-11] MEDS: cefTRIAXone SODIUM 2,000 MG/50 ML BAG IV STA (15:11)
[2023-04-11] MEDS: SODIUM CHLORIDE 0.9% 1,000 ML IV ONE (15:11)
[2023-04-11 15:38] LABS: Appearance Urine Clear (Clear); Bilirubin Urine Negative (Negative); Blood Urine Negative (Negative); Color Urine Yellow; Glucose Urine UA Negative (Negative); Ketones Urine Negative (Negative); Leukocyte Esterase Urine Negative (Negative); Nitrite Urine Negative (Negative); Protein Urine Negative (Negative); Specific Gravity Urine 1.021 (1.000-1.030); Urobilinogen Urine Negative (Negative); pH Urine 5.5 (4.5-7.5)
[2023-04-11] MEDS: VANCOMYCIN HCL 2,000 MG in SODIUM CHLORIDE 0.9% 500 ML IV ONE (15:44)
[2023-04-11] MEDS: MAGNESIUM SULFATE / D5W 1 GM/100 ML BAG IV STA (16:30)
--- NOTE | 2023-04-11 17:05 | History & Physical Report ---
Date of Service April 11, 2023 Assessment & Plan (1) Cellulitis: Plan: Erythema and burning sensation in the left medial thigh where the patient's cat scratched him on 04/09 Patient presented for increased heart rate and chest palpitations, which he first noticed on 04/10 Clinically, he reports a low-grade fever of unknown origin the evening of 04/10, as well as palpitations and new erythema on his left upper leg Hx of recurrent cellulitis in the LEs CXR revealed small nonspecific right basilar densities which could represent atelectasis or developing PNA Procalcitonin & lactate WNL CRP & ESR ordered, pending UA negative Blood cultures ordered, pending No leukocytosis; however, mildly elevated neutrophil count Vancomycin and Rocephin given in the ED ?Cat scratch fever; added azithromycin 500 mg IV q24h; Bartonella Ab ordered, pending A.m. CBC, BMP, CRP, mag (2) Hypomagnesemia: Plan: Mag 1.5 on arrival Magnesium sulfate 1 g x 3 Recheck a.m. mag (3) Lymphedema of both lower extremities: Plan: Chronic; noted Patient reports that he takes acetaminophenhydrocodone 10-325mg q6h for pain Confirmed via PDMP; patient can continue while inpatient (4) Tachycardia, paroxysmal: Plan: 5 seconds in duration, with chest palpitations EKG revealed NSR at 66 bpm; QTc 404 Troponin WNL at 3.0 on arrival, repeat pending Echocardiogram ordered, pending TSH ordered, pending Continuous telemetry monitoring Plan Disposition: Admit to [facility] telemetry Full code Regular diet VTE PPx: Lovenox 40 mg SQ q24h History of Present Illness Chief Complaint: Arrhythmia/palpitations Primary Care Provider: Mine Davis MD Parvez is a 42-year-old male with PMH of gastric bypass, ambulatory dysfunction, lymphedema of the lower extremities, chronic pain syndrome, DDD, external hemorrhoids, metabolic syndrome, and anxiety. He presented for rapid heart rate that first developed the evening of 04/10. He then developed intermittent rapid heart rate the morning of 04/11 around 0900, and when he checked his pulse using a home pulse ox it was around 130 bpm. He reports that he has been having intermittent chest palpitations over the past 2 weeks, with an acute exacerbation over the past 2 days. These palpitations lasted 5 seconds in duration. This morning he was concerned he might pass out, and also noted jaw/left arm pain, which has since resolved. Of note, patient has had recurrent cellulitis in his lower extremities secondary to his lymphedema. He first noted erythema on the left medial thigh this morning; he has not had cellulitis in the last couple years, but notes that there is a burning sensation similar to past episodes of cellulitis. Patient reports that his cat scratched him 2 days ago, and that the cat annette blood. He believes this is what caused the erythema to develop. Patient denies smoking, tobacco use, and alcohol use. Vital stable at time of admission. ED course: Vancomycin 2000 mg IV Rocephin 2000 mg IV Magnesium sulfate 1 g IV NSS 1000 mg IV ROS: Patient endorses low-grade fever of 100.3F this morning, night-sweats, achy eyes / light sensitivity, chest palpitations, pain in LEs from lymphedemema, and erythema/burning sensation in the left medial thigh. Patient denies chills, dizziness, lightheadedness, headache, changes in vision, chest pain, SOB, abdominal pain, N/V/D, dysuria, burning with urination, blood in urine/stool, N/T in the legs b/l. Allergies Allergy/AdvReac Type Severity Reaction Status Date / Time amoxicillin Allergy Severe BLISTERS & Verified 07/12/22 18:27 SORES IN MOUTH Sulfa (Sulfonamide Allergy Severe BLISTERS & Verified 07/12/22 18:27 Antibiotics) SORES IN MOUTH daptomycin Allergy Intermediate RASH, Verified 07/12/22 18:27 EOSINOPHILIA zinc oxide Allergy Intermediate RASH Verified 07/12/22 18:27 ketorolac [From Toradol] AdvReac Mild pain Verified 07/12/22 18:27 behind eye "ALL" ANTIBIOTICS Allergy Intermediate CAUSE Uncoded 07/12/22 18:27 BLISTERS & SORES IN MOUTH. Home Medications Medication Instructions Recorded Confirmed Type Wheelchair (Manual) #1 ea 01/14/19 04/11/23 Rx COVID-19 antigen test (COVID-19 #4 ea 02/04/23 04/11/23 Rx At-Home Test kit) Past Med/Surg History Medical History (Updated 04/12/23 @ 00:05 by Background Dalinda) Cellulitis recurrent admissions for such requiring IV antibiotic courses History of ulcer of lower extremity Venous stasis of rt lower leg with edema of the right lower leg Also hx in rt thigh Sleep apnea Plantar fasciitis History of MRSA infection Right leg wound 04/11/2018 is the last positive MRSA culture Acid reflux DDD (degenerative disc disease), lumbar External hemorrhoids Hypotestosteronism Metabolic syndrome Vitamin D deficiency Morbid obesity with BMI of 50.0-59.9, adult Abscess, perirectal Perianal abscess Kidney stone Surgical History (Updated 04/11/23 @ 19:04 by Tito Castaneda MD) H/O wisdom tooth extraction H/O gastric bypass Family History Father Heart disease CAD w/ stents Diabetes Dyslipidemia Mother Diabetes Heart disease Dyslipidemia Myocardial infarction Other Gallbladder disease Hypertension Lung disease Social History Smoking Status: Never smoker Second Hand Exposure: No; Do You Dip or Chew Tobacco: No; Hx Alcohol Use: No Hx Substance Use: No Preferred Language: Slovenian Communication Ability: Effective Visual Impairment: No Limitations Hearing Ability: Normal Assistant To The Ceo Required: No Beliefs That Will Affect Care: None marital status: Single Current Living Situation: Family Current Living Situation Comment: lives with mom/dad in [facility] current occupational status: disabled Other Information That Helps Us Care for You: No Feels Safe at Home: Yes Safety Concerns: Feels Safe At This Time Childhood Exposure to Second-Hand Smoke: Yes Diet: regular caffeine: Yes during the past year weight has: remained stable Dental Care, Regularly: No Physical Activity Frequency: Daily Seatbelt Use: always Sunscreen Use: Yes Review of Systems 2 Review of Systems: See HPI above Physical Exam 2 Physical Exam: General: no acute distress; non-toxic appearing; well-nourished; cooperative HEENT: normocephalic, atraumatic; no scleral icterus; PERRLA; moist mucus membrane; vision and hearing intact Neck: supple; no JVD; no lymphadenopathy; trachea midline Skin: warm, dry without signs of tenting; no cyanosis; no rashes, bruising, lesions, or erythema noted CV: chest wall NTP; RRR; S1/S2 normal; no murmurs/rubs/gallops; bounding pulses intact and symmetric at radial, DP, and PT Lungs: no acute respiratory distress; symmetrical chest wall expansion; clear breath sounds across all lung morales w/o adventitious sounds; no wheezing ABD: Soft, NTP; BS present; no rebound/guarding; no ascites; no distention MSK: no tics or fasciculations; significant lymphedema of the LEs B/L; erythema of the left medial thigh, warm to touch, with left inguinal lymphadenopathy Neuro: A&Ox3; normal mood and affect; fluent speech; no focal deficits; sensation grossly intact in the LEs b/l Results & Data Results & Data Vital Signs (Past 12 Hours) Vital Signs Temp Pulse Pulse Resp BP BP Pulse Ox 04/11/23 16:20 82 04/11/23 15:30 74 14 126/77 100 04/11/23 15:00 117/66 04/11/23 15:00 76 18 100 04/11/23 14:45 75 23 100 04/11/23 14:30 143/90 H 04/11/23 14:30 74 20 100 04/11/23 14:15 66 18 100 04/11/23 14:00 77 19 100 04/11/23 13:45 63 20 99 04/11/23 13:30 72 24 99 04/11/23 13:30 107/68 04/11/23 13:30 107/68 04/11/23 13:24 74 14 100 04/11/23 13:12 84 16 107/68 98 04/11/23 13:12 98 04/11/23 12:31 36.4 C L 93 H 18 138/91 97 O2 Del Method 04/11/23 16:20 04/11/23 15:30 04/11/23 15:00 04/11/23 15:00 04/11/23 14:45 04/11/23 14:30 04/11/23 14:30 04/11/23 14:15 04/11/23 14:00 04/11/23 13:45 04/11/23 13:30 04/11/23 13:30 04/11/23 13:30 04/11/23 13:24 04/11/23 13:12 Room Air 04/11/23 13:12 Room Air 04/11/23 12:31 Room Air Laboratory Results Abnormal lab results 04/11/23 Range/Units 13:14 RBC 4.04 L (4.70-6.10) M/uL Hgb 11.9 L (14.0-18.0) g/dl Hct 37.2 L (42.0-52.0) % RDW Std Deviation 51.1 H (36.4-46.3) fL RDW Coeff of Lizet 15.5 H (11.5-14.5) % Neut # (Auto) 6.60 H (1.40-6.50) K/uL Lymph # (Auto) 0.70 L (1.20-3.40) K/uL Chloride 108 H (98-107) mmol/L BUN/Creatinine Ratio 22.2 H (10-20) Glucose 101 H (70-99(Fasting)) mg/dl Magnesium 1.5 L (1.7-2.4) mg/dl Alkaline Phosphatase 107 H (34-104) U/L B-Natriuretic Peptide 123 H (0-100) pg/ml Diagnostic Findings Chest X-Ray 04/11/23 12:52 XR chest 1V portable HISTORY: Sepsis COMPARISON: Chest CT 06/23/2022. FINDINGS: No pneumothorax. No pleural effusions. Slightly rotated study. The heart is normal in size. There are old, healed right-sided rib fractures. The left lung appears clear. There is small focal density within the right medial lung base overlying the thoracic spine. There is also a linear density at the right lung base which is new compared to the prior study. These are nonspecific and could represent atelectasis or a pneumonia. IMPRESSION: Small nonspecific right basilar densities. This could represent atelectasis or a developing pneumonia. ACT 112: Negative or not required by law. Electronically signed by: Marshall Adams M.D. 04/11/2023 1:13 PM Code Status & VTE Plan Code Status Full code VTE Prophylaxis Plan VTE Prophylaxis will be ordered: Yes Supervising Physician Co-Signing Physician Notes Patient seen and examined, chart reviewed, case discussed with Marshall Hannon PA-C and I agree with the assessment and plan as above except as otherwise noted Labs and images reviewed Parvez is a 42-year-old male with past medical history of chronic lymphedema of the lower extremities, metabolic syndrome, chronic pain, gastric bypass who has had recurrent alternating cellulitis of his lymphedema over the past few years but it was doing well up until yesterday when he developed rapid development of erythema at his right thigh. He notes prior to this his cat was walking on his jeans and he could feel the claws through the jeans and in the skin although does not think this annette blood he is not completely sure. Erythema has progressed through the medial thigh as noted in photos above. He was febrile at home to 100.3. Initially patient reported a mild headache and some sensitivity and arriving to the ER, notes that more had a slight throbbing behind his eyes when he had a fever and this has nearly completely resolved and the lights were very bright on his initial assessment. He currently denies photosensitivity and ophthalmologic exam shows reactive pupils with no induced photosensitivity on light exam. No nuchal rigidity or neck pain. He does have significant palpable left inguinal lymphadenopathy on exam. Agree with treatment for cellulitis will continue ceftriaxone/vancomycin; patient has also had some scant purulent discharge from a 3 mm shallow wound at his left ankle which is not amenable to packing does not have surrounding erythema/tenderness. Due to potential cat scratch preceding illness with increased risk for bartonella. Initially based on reported. She has some concern for photosensitivity however on reassessment this appears related to headache and does not have any signs of ophthalmologic/neurologic involvement on repeat exam. Will defer rifampin therapy but include azithromycin as adjunct coverage. Bartonella PCR has been sent, will continue treatment for cellulitis as noted above.. If photosensitivity or vision change does occur then would add rifampin adjunct at that time and consult infectious disease . agree with assessment and management above PG Care Time/CCT Total # of Minutes Spent Total Time Spent with Patient: Total time spent is greater than 50% in coordination of care (as documented) at patient's floor/unit and/or counseling patient: Coding [place] [address] INT INP/OBS CARE 2/55MIN Patient Type Established History Comprehensive Exam Comprehensive Medical Decision Making Moderate Complexity Diagnoses Cellulitis L03.115 Laterality: right Site of cellulitis: extremity Site of cellulitis of extremity: lower extremity Hypomagnesemia E83.42 Lymphedema of both lower extremities I89.0 Tachycardia, paroxysmal I47.9 (1) Cellulitis Laterality: right Site of cellulitis: extremity Site of cellulitis of extremity: lower extremity Qualified Code(s): L03.115 - Cellulitis of right lower limb
[2023-04-11] MEDS: AZITHROMYCIN 500 MG in DEXTROSE 5% 250 ML IV SCH (19:32)
[2023-04-11] MEDS: MAGNESIUM SULFATE / D5W 1 GM/100 ML BAG IV SCH (19:32)
[2023-04-11 20:10] LABS: C Reactive Protein 4.71 mg/dl (0-0.5)
[2023-04-11 20:16] LABS: Troponin I High Sensitivity 3.5 pg/ml (0-20)
[2023-04-11 20:25] LABS: Thyroid Stimulating Hormone 0.512 uIu/ml (0.300-4.500)
[2023-04-11] MEDS ORDERED: ACETAMINOPHEN 325 MG TAB PO PRN (20:31)
[2023-04-11] MEDS ORDERED: ONDANSETRON INJ 2 MG/ML 2 ML VIAL IV PRN (20:31)
[2023-04-11] MEDS: ENOXAPARIN INJ 40 MG/0.4 ML SYR SQ SCH (21:58)
[2023-04-11] MEDS: HYDROcodone/ACETAMINOPHEN 10/325 TAB PO PRN (22:04)
[2023-04-12] MEDS: VANCOMYCIN HCL 1,750 MG in SODIUM CHLORIDE 0.9% 500 ML IV SCH (03:42)
[2023-04-12 06:32] LABS: Basophils # (auto) 0.04 K/uL (0.00-0.20); Basophils % (auto) 0.7 %; Eosinophils % (auto) 3.5 %; Hemoglobin 10.1 g/dl (14.0-18.0); Immature Granulocytes # (auto) 0.01 K/uL (0.01-0.20); Immature Granulocytes % (auto) 0.2 %; Lymphocytes # (auto) 1.05 K/uL (1.20-3.40); Lymphocytes % (auto) 18.4 %; Mean Corpuscular Hemoglobin 29.7 pg (25.0-34.0); Mean Corpuscular Hgb Conc 32.6 g/dL (32.0-36.0); Mean Corpuscular Volume 91.2 fL (80.0-100.0); Mean Platelet Volume 11.7 fL (9.4-12.4); Monocytes # (auto) 0.47 K/uL (0.11-0.59); Monocytes % (auto) 8.2 %; Neutrophils # (auto) 3.93 K/uL (1.40-6.50); Platelet Count 160 K/uL (130-400); RDW Coefficient of Variation 15.7 % (11.5-14.5); RDW Standard Deviation 51.5 fL (36.4-46.3)
[2023-04-12 06:56] LABS: Anion Gap 4 (3-11); BUN Creatinine Ratio 17.3 (10-20); Blood Urea Nitrogen 9 mg/dl (6-23); C Reactive Protein 5.29 mg/dl (0-0.5); Calcium 7.9 mg/dl (8.6-10.3); Carbon Dioxide 24 mmol/L (21-32); Chloride 109 mmol/L (98-107); Est GFR (African American) > 150.0 ml/min; Est GFR (Non-African American) 131.5 ml/min; Glucose 103 mg/dl (70-99(Fasting)); Magnesium 1.8 mg/dl (1.7-2.4); Potassium 3.8 mmol/L (3.5-5.1); Sodium 137 mmol/L (136-145)
--- NOTE | 2023-04-12 07:06 | Hospitalist Progress Note ---
Date of Service April 12, 2023 Assessment & Plan (1) Cellulitis: (2) Hypomagnesemia: (3) Lymphedema of both lower extremities: (4) Tachycardia, paroxysmal: (5) Cat scratch fever: Plan Cellulitis Erythema and burning sensation in the left medial Increased heart rate, chest palpitations, low-grade fever Procalcitonin & lactate WNL CRP 5.29 Blood cultures ordered: negative for 24 hrs preliminary No leukocytosis, no fever overnight D/C Vancomycin and Rocephin Transition him to [facility] Cat scratch fever- added azithromycin 500 mg IV q24h; Bartonella Ab ordered, pending A.m. CBC, BMP, CRP, mag Hypomagnesemia- Resolved Mag 1.5 on arrival Magnesium sulfate 1 g x 3 Recheck a.m. mag Lymphedema of both lower extremities: Chronic; noted Patient reports that he takes acetaminophenhydrocodone 10-325mg q6h for pain Confirmed via PDMP; patient can continue while inpatient Tachycardia, paroxysmal: 5 seconds in duration, with chest palpitations Telemetry: Normal sinus rhythm on 80s Troponin WNL x2 Echocardiogram: No significant change since 2019. EF 60-65%, Mild concentric dilated right ventricular with normal systolic function. Mild pulmonary hypertension. TSH: 0.512 Continuous telemetry monitoring Mild pulmonary hypertension - Finding on Echo - patient would benefit from outpatient diagnsosis of CARLOS ALBERTO Disposition: MedSurg telemetry Full code Regular diet VTE PPx: Lovenox 40 mg SQ q24h Admission and Anticipated Discharge Date Admission Date: April 11, 2023 Supervising Physician Co-Signing Physician Notes I personally examined the patient and verified all merino points of history and exam, discussed case, and agree with decision making with Dr Marcello Ortega leg still hurts but thinks getting better. notes did have CARLOS ALBERTO - couldn't tolerate bipap - but was ~20yrs ago. vitals noted nad heent nc at mmm breathing unlabored no accessory muscles good effort skin no rashes no pallor or icterus but does have large pink mildly tender area same as brighter erythematous area in picture from H&P no fluctuance leg cellulitis - cat scratch raises the question - but seems most c/w cellulitis in the setting of lymphedema. no severe sepsis/septic shock - cover MSSA type gram positives (cefazolin); given ?cat scratch will continue zithromax but only consider adding / escalating if he worsens/doesn't get better pulmonary HTN/etc on echo - suspect untreated CARLOS ALBERTO - he's willing to revisit treatment - noted that it was really just from what felt like breath-stacking but was ~20 years ago pain - notes that he takes 2 hydrocodone qid at home - PDMP matches this. will continue at home dosing so as to avoid any withdrawal symptoms lovenox DVT proph otherwise as above Ana Paula Hannon is a 42 PMH gastric bypass, ambulatory dysfunction, lymphedema of lower extremities, chronic pain syndrome, DDD, external hemorrhoids, metabolic syndrome, and anxiety. Admitted due to a cellulitis on his left medial thigh after a cat scratch. He did have an episodes of fever, elevated heart rate with chest palpitations. He has hx of recurrent cellulitis This morning cellulitis seem less erythematous, but patient refers pain and still warm to the touch. No fever. Denied any SOB, chest pain or palpitations. Telemetry: NSR with PVCs on 80s Review of Systems Review of Systems: All systems reviewed & are unremarkable except as noted in HPI & below Physical Exam Constitutional: WD/WN, vitals as above Respiratory: normal respiratory effort, lungs clear to auscultation Cardiovascular: RRR, no murmur, no edema Gastrointestinal (Abdomen): normal bowel sounds, soft, nontender, no hepatosplenomegaly Musculoskeletal: significant lymphadenopathy in his LE. Erythema of the left medial thigh, warm to touc Results & Data Results & Data Vital Signs (Past 12 Hours) Vital Signs Temp Pulse Pulse Resp BP BP Pulse Ox 04/12/23 03:58 37.1 C 84 20 115/75 99 04/11/23 23:58 36.7 C 75 20 110/74 98 04/11/23 23:00 76 04/11/23 21:06 79 04/11/23 20:35 37.9 C H 86 20 123/83 96 04/11/23 20:00 87 17 120/78 97 04/11/23 19:31 86 20 135/62 97 O2 Del Method 04/12/23 03:58 Room Air 04/11/23 23:58 Room Air 04/11/23 23:00 04/11/23 21:06 04/11/23 20:35 Room Air 04/11/23 20:00 04/11/23 19:31 Resident Activity Tracking Resident Involvement: Resident Care Provided Care Provided: Adult Hospital Medicine (1) Cellulitis Laterality: left Site of cellulitis: extremity Site of cellulitis of extremity: lower extremity Qualified Code(s): L03.116 - Cellulitis of left lower limb
--- NOTE | 2023-04-12 09:41 | Pharmacy Report ---
Pharmacy PK ABX Note - Date of Service April 12, 2023 - Assessment and Plan Assessment * 42 year old M receiving ceftriaxone, azithromycin, and vancomycin for treatment of cat scratch cellulitis. * Pertinent microbiologic data includes: blood cultures pending Plan Vancomycin * Loading dose: 2000 mg IV x 1 * Maintenance dose: 1750 mg IV every 12 hours * Regimen is predicted to achieve target AUC/ROBERT of 400-600 mg/L.hr * Random level ordered for 2/4 AM Pharmacy will continue to follow and will adjust dose/frequency as necessary. Thank you. Pharmacy has transitioned to AUC monitoring for vancomycin. AUC/ROBERT is the preferred PK/PD target and is associated with decreased risk of nephrotoxicity compared to traditional trough targets.
--- NOTE | 2023-04-12 11:07 | XCELERA ---
[id number] [id number]
[2023-04-12] MEDS: ceFAZolin 2000MG 2,000 MG/15 ML SYR IV SCH (13:23)
[2023-04-12] MEDS ORDERED: cefTRIAXone SODIUM 2,000 MG in DEXTROSE 5 % MINI-B 50 ML IV SCH (15:00)
[2023-04-12] MEDS: HYDROcodone/ACETAMINOPHEN 10/325 TAB PO PRN (18:28)
--- NOTE | 2023-04-12 22:21 | Electrocardiogram Report ---
Test Reason : Blood Pressure : / mmHG Vent. Rate : 066 BPM Atrial Rate : 066 BPM P-R Int : 138 ms QRS Dur : 086 ms QT Int : 386 ms P-R-T Axes : 041 023 017 degrees QTc Int : 404 ms Normal sinus rhythm Cannot rule out Anterior infarct , age undetermined Abnormal ECG When compared with ECG of 13-AUG-2019 02:34, Vent. rate has decreased BY 48 BPM Confirmed by Mateo Chang ([id number]) on 04/12/2023 10:20:59 PM Referred By: Confirmed By:Mateo Chang
[2023-04-13 07:01] LABS: Basophils # (auto) 0.03 K/uL (0.00-0.20); Basophils % (auto) 0.6 %; Eosinophils # (auto) 0.21 K/uL (0.00-0.50); Eosinophils % (auto) 3.9 %; Hematocrit (blood only) 36.4 % (42.0-52.0); Hemoglobin 11.6 g/dl (14.0-18.0); Immature Granulocytes # (auto) 0.02 K/uL (0.01-0.20); Immature Granulocytes % (auto) 0.4 %; Lymphocytes # (auto) 1.81 K/uL (1.20-3.40); Lymphocytes % (auto) 33.9 %; Mean Corpuscular Hemoglobin 29.8 pg (25.0-34.0); Mean Corpuscular Hgb Conc 31.9 g/dL (32.0-36.0); Mean Corpuscular Volume 93.6 fL (80.0-100.0); Mean Platelet Volume 11.6 fL (9.4-12.4); Monocytes # (auto) 0.49 K/uL (0.11-0.59); Monocytes % (auto) 9.2 %; Neutrophils # (auto) 2.78 K/uL (1.40-6.50); Platelet Count 201 K/uL (130-400); RDW Coefficient of Variation 15.9 % (11.5-14.5); RDW Standard Deviation 53.9 fL (36.4-46.3); Red Blood Count 3.89 M/uL (4.70-6.10); White Blood Count 5.34 K/ul (4.8-10.8)
[2023-04-13 07:03] LABS: BUN Creatinine Ratio 11.3 (10-20); Calcium 8.5 mg/dl (8.6-10.3); Creatinine Clr Calc Pharmacy 162.6 ml/min; Est GFR (African American) 141.8 ml/min; Est GFR (Non-African American) 122.4 ml/min; Magnesium 1.8 mg/dl (1.7-2.4); Potassium 3.8 mmol/L (3.5-5.1)
--- NOTE | 2023-04-13 07:25 | Hospitalist Progress Note ---
Date of Service April 13, 2023 Assessment & Plan (1) Cellulitis: (2) Hypomagnesemia: (3) Lymphedema of both lower extremities: (4) Tachycardia, paroxysmal: (5) Cat scratch fever: Plan Cellulitis Erythema and burning sensation in the left medial Increased heart rate, chest palpitations, low-grade fever Procalcitonin & lactate WNL CRP 5.29 Blood cultures ordered: negative for 24 hrs preliminary No leukocytosis, no fever overnight D/C [facility] fever- added azithromycin 500 mg IV q24h; Bartonella Ab ordered, pending A.m. CBC, BMP, CRP, mag Vitamin D deficiency - On the setting of Gastric bypass surgery 2010 - Vitamin D5 25,000 IU (625 mcg) weekly for 8 weeks and then 800 IU (20 mcg) daily Vitamin B12 Hypomagnesemia- Resolved Mag 1.5 on arrival Magnesium sulfate 1 g x 3 Recheck a.m. mag Lymphedema of both lower extremities: Chronic; noted Patient reports that he takes acetaminophenhydrocodone 10-325mg q6h for pain Confirmed via PDMP; patient can continue while inpatient Tachycardia, paroxysmal: 5 seconds in duration, with chest palpitations Telemetry: Normal sinus rhythm on 80s Troponin WNL x2 Echocardiogram: No significant change since 2019. EF 60-65%, Mild concentric dilated right ventricular with normal systolic function. Mild pulmonary hypertension. TSH: 0.512 Continuous telemetry monitoring Mild pulmonary hypertension - Finding on Echo - untreated CARLOS ALBERTO, consider revisit treatment as outpatient Disposition: MedSurg telemetry Full code Regular diet VTE PPx: Lovenox 40 mg SQ q24h Admission and Anticipated Discharge Date Admission Date: April 11, 2023 Ana Paula Hannon is a 42 PMH gastric bypass, ambulatory dysfunction, lymphedema of lower extremities, chronic pain syndrome, DDD, external hemorrhoids, metabolic syndrome, and anxiety. Admitted due to a cellulitis on his left medial thigh after a cat scratch. He did have an episodes of fever, elevated heart rate with chest palpitations. He has hx of recurrent cellulitis This morning cellulitis seem less erythematous, but patient refers pain and still warm to the touch. No fever. Denied any SOB, chest pain or palpitations. Telemetry: NSR with PVCs on 80s Physical Exam Constitutional: WD/WN, vitals as above Respiratory: normal respiratory effort, lungs clear to auscultation Cardiovascular: RRR, no murmur, no edema Gastrointestinal (Abdomen): normal bowel sounds, soft, nontender, no hepatosplenomegaly Results & Data Results & Data Vital Signs (Past 12 Hours) Vital Signs Temp Pulse Pulse Resp BP Pulse Ox O2 Del Method 04/13/23 07:16 65 04/13/23 03:52 36.9 C 71 18 112/64 98 Room Air 04/13/23 00:18 36.7 C 75 18 127/74 99 Room Air 04/12/23 23:43 67 04/12/23 19:26 36.6 C 61 18 122/76 97 Room Air Resident Activity Tracking Resident Involvement: Resident Care Provided Care Provided: Adult Hospital Medicine (1) Cellulitis Laterality: left Site of cellulitis: extremity Site of cellulitis of extremity: lower extremity Qualified Code(s): L03.116 - Cellulitis of left lower limb
[2023-04-13] MEDS: MULTIVITAMIN CHEWABLE TAB PO SCH (08:36)
--- NOTE | 2023-04-13 12:57 | Discharge Summary ---
Date of Service April 13, 2023 Admission HPI Per Admitting Provider Parvez is a 42-year-old male with PMH of gastric bypass, ambulatory dysfunction, lymphedema of the lower extremities, chronic pain syndrome, DDD, external hemorrhoids, metabolic syndrome, and anxiety. He presented for rapid heart rate that first developed the evening of 04/10. He then developed intermittent rapid heart rate the morning of 04/11 around 0900, and when he checked his pulse using a home pulse ox it was around 130 bpm. He reports that he has been having intermittent chest palpitations over the past 2 weeks, with an acute exacerbation over the past 2 days. These palpitations lasted 5 seconds in durat ion. This morning he was concerned he might pass out, and also noted jaw/left arm pain, which has since resolved. Of note, patient has had recurrent cellulitis in his lower extremities secondary to his lymphedema. He first noted erythema on the left medial thigh this morning; he has not had cellulitis in the last couple years, but notes that there is a burning sensation similar to past episodes of cellulitis. Patient reports that his cat scratched him 2 days ago, and that the cat annette blood. He believes this is what caused the erythema to develop. Patient denies smoking, tobacco use, and alcohol use. Vital stable at time of admission. ED course: Vancomycin 2000 mg IV Rocephin 2000 mg IV Magnesium sulfate 1 g IV NSS 1000 mg IV ROS: Patient endorses low-grade fever of 100.3F this morning, night-sweats, achy eyes / light sensitivity, chest palpitations, pain in LEs from lymphedemema, and erythema/burning sensation in the left medial thigh. Patient denies chills, dizziness, lightheadedness, headache, changes in vision, chest pain, SOB, abdominal pain, N/V/D, dysuria, burning with urination, blood in urine/stool, N/T in the legs b/l. Admission Exam Per Admitting Provider General: no acute distress; non-toxic appearing; well-nourished; cooperative HEENT: normocephalic, atraumatic; no scleral icterus; PERRLA; moist mucus membrane; vision and hearing intact Neck: supple; no JVD; no lymphadenopathy; trachea midline Skin: warm, dry without signs of tenting; no cyanosis; no rashes, bruising, lesions, or erythema noted CV: chest wall NTP; RRR; S1/S2 normal; no murmurs/rubs/gallops; bounding pulses intact and symmetric at radial, DP, and PT Lungs: no acute respiratory distress; symmetrical chest wall expansion; clear breath sounds across all lung morales w/o adventitious sounds; no wheezing ABD: Soft, NTP; BS present; no rebound/guarding; no ascites; no distention MSK: no tics or fasciculations; significant lymphedema of the LEs B/L; erythema of the left medial thigh, warm to touch, with left inguinal lymphadenopathy Neuro: A&Ox3; normal mood and affect; fluent speech; no focal deficits; s ensation grossly intact in the LEs b/l Principal Diagnosis Cellulite Discharge Exam Constitutional WD/WN, vitals as above ENMT external ear and nose normal, oropharynx normal Respiratory normal respiratory effort, lungs clear to auscultation Cardiovascular Rate/Rhythm: regular rate and regular rhythm Heart Sounds: no murmur Gastrointestinal (Abdomen) normal bowel sounds, soft, nontender, no hepatosplenomegaly Musculoskeletal significant lymphadenopathy in his LE. Erythema of the left medial thigh decreasing in discoloration. less warm Discharge Data Allergies Allergy/AdvReac Type Severity Reaction Status Date / Time amoxicillin Allergy Severe BLISTERS & Verified 07/12/22 18:27 SORES IN MOUTH Sulfa (Sulfonamide Allergy Severe BLISTERS & Verified 07/12/22 18:27 Antibiotics) SORES IN MOUTH daptomycin Allergy Intermediate RASH, Verified 07/12/22 18:27 EOSINOPHILIA zinc oxide Allergy Intermediate RASH Verified 07/12/22 18:27 ketorolac [From Toradol] AdvReac Mild pain Verified 07/12/22 18:27 behind eye "ALL" ANTIBIOTICS Allergy Intermediate CAUSE Uncoded 07/12/22 18:27 BLISTERS & SORES IN MOUTH. Consultations 04/11/23 15:46 ED Decision to Admit Stat Hospital Course (1) Cellulitis: (2) Hypomagnesemia: (3) Lymphedema of both lower extremities: (4) Tachycardia, paroxysmal: (5) Cat scratch fever: Plan Cellulitis Erythema and burning sensation in the left medial Increased heart rate, chest palpitations, low-grade fever Procalcitonin & lactate WNL Blood cultures ordered: negative Treated with IV Ancef- transitioned him to Keflex 500 mg BID Cat scratch fever- added azithromycin 500 mg once, the 250 mg daily for 4 days Pending Babesiella ab Vitamin B 12 deficiency Vitamin C deficiency - In the setting of gastric bypas Vitamin C: <7.0 Vitamin B 12: 230 * Patient was sent with Vitamin D: 50,000 unit orally only Friday and for 1 month and 2,000 IU daily * For Vitamin B12- take 1,000 mcg daily * repeat Vitamin D level in a month and Vitamin B 12 in 3 months Hypomagnesemia- Resolved Mag 1.5 on arrival Magnesium sulfate 1 g x 3 Recheck a.m. mag Lymphedema of both lower extremities: Chronic; noted Continue home meds Tachycardia, paroxysmal - Resolved 5 seconds in duration, with chest palpitations Telemetry: Normal sinus rhythm on 80s Troponin WNL x2 Echocardiogram: No significant change since 2019. EF 60-65%, Mild concentric dilated right ventricular with normal systolic function. Mild pulmonary hypertension. TSH: 0.512 Mild pulmonary hypertension - Finding on Echo - patient would benefit from outpatient sleep study (Prev diagnosed of CARLOS ALBERTO on the ) Total Time Total Time Spent Total Time Spent (In Minutes): <30 Discharge Plan Discharge Items Patient Disposition: Home - Self-Care Reason For Visit: CELLULITIS, CHEST PALPATATIONS Discharge Diagnosis: Cellulitis Activity: Resume your previous activity Non-emergency contact: Primary Care Provider Call non-emergency contact if: you have any medication questions Follow-up/Referrals: Mine Davis MD [Primary Care Provider] - Diet: Regular Addtl Attending Provider Instructions: You were admitted to our hospital due to an skin infection in your leg, a cellulitis. IV antibiotics were given to you. The infection seem to be improving, no fever, no tachycardia and no increase on your white blood cells while admitted. You will be discharge home with an antibiotic called Keflex 500 mg, take 1 tab twice a day and Azithromycin 250 mg take 1 tab daily for 4 days. Additionally we measure your vitamin D and Vitamin B12, which showed that you have low levels * We prescribe you two different Vitamin D dose, you will take this as follow: 50,000 unit orally only Friday and for 1 month 2,000 IU daily * For Vitamin B12- take 1,000 mcg daily You should repeat Vitamin D level in a month and Vitamin B 12 in 3 months As discussed, we also encourage to get a sleep study as an outpatient. Follow-up appointments: Make a follow-up appointment with your PCP within the next week. It is very important that you follow up with them shortly after discharge from the hospital Medications: Your medication list has been reviewed and reconciled upon discharge to ensure accuracy and continuity of care. An updated list of all your medications is included with your hospital discharge paperwork. Please review this list closely, and make note of any changes. Take your medications as instructed; do not skip a dose of your medicines. Make sure all of your doctors know every medicine you are taking (including [id number] medicines, vitamins, and supplements). Call your primary care provider before taking any new medicines (including [id number] medicines, vitamins, and supplements), because some of these may interact with your current medications, or may make your symptoms worse. Tell your primary care provider if you cannot afford your medications. CALL 911 OR GO TO THE EMERGENCY DEPARTMENT if you experience any of the following: Sudden, severe abdominal pain or nausea/vomiting Severe chest pain, or chest pain that radiates (moves) to your jaw or arm Sudden, severe shortness of breath or difficulty breathing Pending Studies at Discharge: No Stand-Alone Forms: My [facility], Smoking Cessation Medications and DC Order Prescriptions: New cephalexin 500 mg capsule 500 mg PO BID 6 Days Qty: 12 0RF azithromycin [Zithromax] 250 mg tablet 250 mg PO DAILY 4 Days Qty: 4 0RF Rx Instructions: start on day 2 of therapy cholecalciferol (vitamin D3) [Vitamin D3] 50 mcg (2,000 unit) tablet 50 mcg PO DAILY Qty: 30 0RF cyanocobalamin (vitamin B-12) [Vitamin B-12] 1,000 mcg tablet 1,000 mcg PO DAILY Qty: 30 0RF cholecalciferol (vitamin D3) [Vitamin D3] 125 mcg (5,000 unit) tablet See Rx Instructions .ROUTE .COMPLEX Qty: 8 0RF Rx Instructions: 50,000 unit orally on Friday and for 1 month Continued (DME) Wheelchair (Manual) Device See Dose Instructions .ROUTE .MEDSUPPLY Qty: 1 0RF Dose Instruction: As directed Rx Instructions: EXTRA HEAVY DUTY WHEELCHAIR (DME) COVID-19 At-Home Test Kit See Rx Instructions .Route Qty: 4 0RF Rx Instructions: As directed Discharge Orders: Discharge Order (Routine); Ordered 04/13/23 Ordered By: Galileo Ortega Admission Data Admit Date/Time: 04/11/23 17:48 Attending Provider: Parish Martinez Admit Provider: Som Bello Primary Care Provider: Mine Davis Other Providers: Som Bello Other Interventions: Discharge Summary Assessment (RN) Last Done: 04/13/23 13:47 Supervising Physician Co-Signing Physician Notes I personally examined the patient and verified all merino points of history and exam, discussed case, and agree with decision making with Dr Marcello Ortega feels good enough to go home vitals noted nad heent nc at mmm breathing unlabored no accessory muscles good effort skin no rashes no pallor or icterus leg area of cellulitis looking better basically no erythema leg cellulitis - cat scratch raises the question - but seems most c/w cellulitis in the setting of lymphedema. no severe sepsis/septic shock and improvign on cefazolin - safe for home on keflex (will treat with zithromax to cover for cat scratch potential but quite doubtful this was part of the situation) pulmonary HTN/etc on echo - suspect untreated CARLOS ALBERTO - he's willing to revisit treatment - noted that it was really just from what felt like breath-stacking but was ~20 years ago - outpt sleep eval D defciiency - aggressive replacement, rehceck in a month. discussed sun exposure given concern on malabsorption. if doesn't rise then endocrine (recheck in a month both to see if any hint of rising - because if not then would want to get things moving to endocrine; if rising quickly then would want to check in a month to catch early and prevent hypervitaminosis (far more doubtful given undetectable levels) b12 insufficiency - PO replacement, recheck in ~3months, IM if doesn't rise lovenox DVT proph otherwise as above
--- NOTE | 2023-04-13 14:14 | Billing Data ---
Date of Service April 13, 2023 Coding Level of Care Code 15835 IN/OBS DISCH 30 MIN/LESS
[2023-04-15 21:42] LABS: Bartonella henselae IgG Negative; Bartonella henselae IgM Ab Negative; Bartonella quintana IgG Ab Negative; Bartonella quintana IgM Ab Negative
== END 2023-04-13 16:58 | disposition home or self-care (01) | DRG 603 ==
LOC: ED 12:29 → 2N 17:48 → SUATTDRO 17:48 → 2N 20:19